=== PATIENT | male | born 1955 | race Caucasian/White ===

== ENCOUNTER 2019-04-19 06:00 | Outpatient (RCR) | payer MEDICARE, OTHER, SELFPAY | END 2019-05-19 00:01 | LOC: PULRHB 06:00 | PROVIDERS: Family Provider Electrodiagnostic Medicine; Visit Provider Student in an Organized Health Care Education/Training Program | DX: J44.9 Chronic obstructive pulmonary disease, unspecified (principal) | CPT/HCPCS: G0424 ×3 ==

== ENCOUNTER 2019-05-26 12:33 | Outpatient (RCR) | payer MEDICARE, OTHER, SELFPAY | END 2019-06-19 23:59 | disposition home or self-care (01) | LOC: PULRHB 12:33 | PROVIDERS: Family Provider Electrodiagnostic Medicine; PCP Electrodiagnostic Medicine; Visit Provider Student in an Organized Health Care Education/Training Program | DX: J44.9 Chronic obstructive pulmonary disease, unspecified (principal) ==

== ENCOUNTER 2019-06-24 12:49 | Outpatient (RCR) | payer MEDICARE, OTHER, SELFPAY | END 2019-07-18 23:59 | disposition home or self-care (01) | LOC: PULRHB 12:49 | PROVIDERS: Family Provider Electrodiagnostic Medicine; PCP Electrodiagnostic Medicine; Visit Provider Student in an Organized Health Care Education/Training Program | DX: Z01.89 Encounter for other specified special examinations (principal) ==

== ENCOUNTER 2019-06-25 14:43 | Outpatient (CLI) | payer MEDICARE, OTHER, SELFPAY ==
[2019-06-25 15:32] LABS: Alanine Aminotransferase 42 U/L (0-41); Albumin Level 4.5 g/dL (3.5-5.2); Alkaline Phosphatase 98 IU/L (40-130); Anion Gap 15.3 (5-19); Aspartate Amino Transferase 28 U/L (0-40); Blood Urea Nitrogen 13 mg/dL (8-23); Calcium 10.3 mg/dL (8.5-10.5); Carbon Dioxide 26 mmol/L (22-29); Chloride 100 mmol/L (98-107); Globulin 3.4 g/dL (1.3-4.6); Glomerular Filtration Rate 60.8 mL/min (90-130); Glucose 98 mg/dL (65-115); Potassium 4.3 mmol/L (3.5-5.1); Sodium 137 mmol/L (136-145); Total Bilirubin 0.4 mg/dL (0.15-1.2); Total Protein 7.9 g/dL (6.6-8.7)
== END 2019-06-25 14:44 | disposition home or self-care (01) ==
LOC: LAB 14:50
PROVIDERS: Family Provider Electrodiagnostic Medicine; PCP Electrodiagnostic Medicine; Visit Provider Internal Medicine Critical Care Medicine
DX: J44.9 Chronic obstructive pulmonary disease, unspecified (principal)
CPT/HCPCS: 36415; 80053

== ENCOUNTER 2019-07-29 06:55 | Outpatient (CLI) | payer MEDICARE, OTHER, SELFPAY ==
--- NOTE | 2019-07-29 13:54 | PFTS_ITS ---
Date of Study:07/29/2019 Date of Dictation: MECHANICS: Forced vital capacity (FVC) is normal. Forced expiratory volume in one second (FEV1) is reduced. FEV1/FVC is reduced. FLOW VOLUME LOOP: Reduced flow at all lung volumes with significant scooping. LUNG VOLUMES: Total lung capacity (TLC) is increased. Residual volume (RV) is increased. DIFFUSING CAPACITY FOR CARBON MONOXIDE: Normal. INTERPRETATION: The pulmonary function tests are consistent with moderate obstruction. There is significant postbronchodilator response. There is hyperinflation and air trapping. Gas exchange (DLCO) is normal. MTDD
== END 2019-07-29 06:56 | disposition home or self-care (01) ==
LOC: RT 06:56
PROVIDERS: Family Provider Electrodiagnostic Medicine; PCP Electrodiagnostic Medicine; Visit Provider Internal Medicine Critical Care Medicine
DX: J44.9 Chronic obstructive pulmonary disease, unspecified (principal); F17.210 Nicotine dependence, cigarettes, uncomplicated
CPT/HCPCS: 94060; 94726; 94729; J7611

== ENCOUNTER → 2019-07-30 13:37 | Outpatient (BNVA) | payer MEDICARE, OTHER, SELFPAY | PROVIDERS: Family Provider Electrodiagnostic Medicine; PCP Electrodiagnostic Medicine; Referring Provider Specialist; Visit Provider Anesthesiology Pain Medicine | DX: M51.16 Intervertebral disc disorders with radiculopathy, lumbar region (principal); M41.56 Other secondary scoliosis, lumbar region; M47.816 Spondylosis without myelopathy or radiculopathy, lumbar region | CPT/HCPCS: 99205 ==

== ENCOUNTER 2019-08-01 12:00 | Observation (INO) | payer MEDICARE, OTHER, SELFPAY ==
[2019-08-01] VITALS (13 sets, daily range): BP systolic 110–143; BP diastolic 57–78; PULSE 67–83; RESP 16–24; TEMP 36.4–37.1; O2SAT 92–97; BMI 36.9
--- NOTE | 2019-08-01 12:14 | ED_ITS ---
Entered by Radha Thompson, acting as scribe for Duc Humphreys DO HPI - SOB/Dyspnea General: Chief Complaint: Shortness of Breath/Dyspnea Stated Complaint: SOB Time Seen by Provider: 08/01/19 12:13 Source: patient and family Mode of arrival: ambulatory Limitations: no limitations History of Present Illness: HPI Narrative: 63 yo Male presents to ED with complaint of shortness of breath. Pt's states that the patient has a history of COPD, diabetes, and hypertension. Pt states that he has been sick for several days. Pt states that he has been coughing up white sputum and thought he had a fever the other day. Pt states that he has had no fever today. Pt states that he has had the flu shot this year. MD elicited complaint: shortness of breath and cough Pertinent past history: COPD and diabetes Onset (ago): day(s) Context: recent illness Timing: progressively worsening Exacerbating factors: deep breaths Relieving factors: oxygen Known history of: COPD and diabetes Associated symptoms: Reports cough and fever(s) Treatment prior to arrival: none Related Data: Home oxygen amount: as needed at night Review of Systems General: Reports: 10 or more systems reviewed and unremarkable except in HPI and below Const: Reports: fever Resp: Reports: shortness of breath and productive cough PFSH ED PFSH: Medical History AAA (abdominal aortic aneurysm) without rupture Allergic rhinitis Aortic root dilation BPH loc w urin obs/LUTS COPD (chronic obstructive pulmonary disease) DDD (degenerative disc disease) Diabetes Essential (primary) hypertension GERD (gastroesophageal reflux disease) Hyperglycemia Hyperlipidemia Hypothyroidism Intervertebral disc disorders with radiculopathy, lumbosacral region Lumbar disc disease with radiculopathy Scoliosis of lumbar region due to degenerative disease of spine in adult Testicular mass Thoracic aortic aneurysm, without rupture Surgical History H/O hernia repair Family History Mother Diabetes, Onset Age: 69 Father Cancer, Onset Age: 80 Lung Other Heart disease Lupus Social History Smoking and tobacco status: former smoker Alcohol intake: never Household members: spouse Marital status: Current occupational status: disabled History of recent travel: No Physical Exam Const: COMMON NORMALS: no apparent distress, average body habitus, oriented x3, no limitations, healthy appearing, alert and well nourished HENMT: COMMON NORMALS: normocephalic, head/scalp atraumatic, hearing grossly normal bilaterally, external ears normal, EAC's normal, TM's normal bilaterally, external nose normal, nasal mucous membranes and turbinates normal, moist oral mucous membranes, oropharynx normal, dentition normal and gingiva normal HEAD & SCALP: normocephalic and atraumatic NOSE: external nose normal and nasal mucous membranes and turbinates normal EXTERNAL EAR: Yes external ears normal EXTERNAL AUDITORY CANAL: EAC's normal TYMPANIC MEMBRANE: TM's normal bilaterally Eye: COMMON NORMALS: PERRL, EOMs intact bilaterally, conjunctivae normal, no scleral icterus, no papilledema, normal visual plummer by confrontation and fundi normal bilaterally CONJUNCTIVA: Yes conjunctivae normal PUPIL: Yes PERRL DIRECT OPHTHALMOSCOPY: Yes no papilledema and Yes fundi normal bilaterally Neck/C-Spine: COMMON NORMALS: full ROM, no lymphadenopathy, supple, no meningeal signs, no JVD, thyroid normal and no carotid bruits THYROID: thyroid normal Chest: COMMONS NORMALS: inspection of chest normal and palpation of chest normal Resp: COMMON NORMALS: normal respiratory effort, no retractions, no use of accessory muscles, clear to auscultation bilaterally and percussion normal AUSCULTATION: clear to auscultation bilaterally PERCUSSION: percussion normal Cardio: COMMON NORMALS: no JVD, regular rate, regular rhythm, S1 normal heart sound, S2 normal heart sound, no gallops, no clicks, no murmurs, no rub and peripheral pulses 2+ throughout RATE: regular rate RHYTHM: regular rhythm HEART SOUNDS: S1 normal and S2 normal PERIPHERAL PULSES: pulses 2+ throughout GI: COMMON NORMALS: normal to inspection, nondistended, normoactive bowel sounds, soft to palpation, non-tender, no hepatosplenomegaly, no masses and no bruits PALPATION: Yes soft and Yes no hepatosplenomegaly : COMMON NORMALS: Yes no CVA tenderness BLADDER/KIDNEY EXAM: Yes no CVA tenderness Back/Pelvis: COMMON NORMALS: no CVA tenderness, thoracic and lumbar spine normal to inspection, no thoracic nor lumbar tenderness, thoraco-lumbar ROM normal and straight leg raise negative bilaterally Extremity: COMMON NORMALS: normal to inspection, full ROM, normal capillary refill, no joint enlargement, no clubbing, cyanosis or edema, no calf tenderness and no pedal edema Neuro: COMMON NORMALS: oriented x3 SENSORIUM/ORIENTATION: Yes alert MENINGEAL SIGNS: Yes no meningeal signs Skin: COMMON NORMALS: no rashes or lesions noted, no wounds, skin turgor normal, no jaundice, no petechiae and no mottling GENERAL SKIN EXAM: no rashes or lesions noted and turgor normal Course Vital Signs: Vital signs: Vital Signs Temperature 98.0 F 08/01/19 12:08 Pulse Rate 77 08/01/19 12:44 Respiratory Rate 22 H 08/01/19 12:44 Blood Pressure 138/70 08/01/19 12:08 Pulse Oximetry 94 08/01/19 12:44 MDM - SOB/Dyspnea Lab Data: Labs: Lab Results 08/01/19 08/01/19 08/01/19 Range/Units 12:20 12:31 12:31 WBC 11.8 H (4.0-10.0) 10^3/ uL RBC 5.14 (4.1-5.3) 10^6/u L Hgb 15.2 (11.7-16.6) g/dL Hct 46.3 (42.0-52.0) % MCV 90.1 (80-94) fL MCH 29.6 (28.0-34.0) pg MCHC 32.8 (30.0-36.0) g/dL RDW 12.8 (12.1-15.1) % Plt Count 240 (130-400) 10^3/c mm MPV 11.2 H (7.4-10.4) fL Neut % (Auto) 64.8 % Lymph % (Auto) 18.2 % Gregg % (Auto) 13.0 % Eos % (Auto) 2.8 % Baso % (Auto) 0.5 % Neut # (Auto) 7.7 (1.8-7.7) 10^3/u L Lymph # (Auto) 2.2 (0.8-4.8) 10^3/u L Gregg # (Auto) 1.5 H (0.2-0.9) 10^3/u L Eos # (Auto) 0.3 (0.0-0.8) 10^3/u L Baso # (Auto) 0.1 (0.0-0.1) 10^3/u L Nucleated RBC % (a uto) 0 % Nucleated RBCs # 0.0 /100WBC Sodium 135 L (136-145) mmol/L Potassium 4.3 (3.5-5.1) mmol/L Chloride 98 (98-107) mmol/L Carbon Dioxide 25 (22-29) mmol/L Anion Gap 16.3 (5-19) BUN 18 (8-23) mg/dL Creatinine 1.2 (0.7-1.2) mg/dL GFR Calculation 60.8 L (90-130) mL/min Glucose 159 H (65-115) mg/dL Calculated Osmolal ity 280 L (285-295) mOsm/k g Calcium 10.1 (8.5-10.5) mg/dL Total Bilirubin 0.4 (0.15-1.2) mg/dL AST 36 (0-40) U/L ALT 59 H (0-41) U/L Alkaline Phosphata se 95 (40-130) IU/L Total Protein 7.5 (6.6-8.7) g/dL Albumin 4.3 (3.5-5.2) g/dL Globulin 3.2 (1.3-4.6) g/dL Influenza Type A A g Negative (Negative) POC Influenza B Ag Negative (Negative) Imaging Data^: CXR: Radiologist's impression: [place] [address] XRay Report Signed Patient: Harvey Wilcox #: [id number] : 4Acct#:[id number] Age/Sex: 63 / MADM Date: 08/01/19 Loc: ERRoom/Bed: Attending Dr: Ordering Provider/Ordering MD: Duc Humphreys DO Date of Service: 08/01/19 Procedure(s): XR chest 1V portable [id number] Accession Number(s): [id number] Report Number: [id number] PROCEDURE INFORMATION: Exam: XR Chest, 1 View Exam date and time: 08/01/2019 12:22 PM Age: 63 years old Clinical indication: Shortness of breath; Additional info: Dyspnea and cough TECHNIQUE: Imaging protocol: XR of the chest Views: 1 view. COMPARISON: CR Chest 1 [place] [id number] 02/18/2019 12:55 PM FINDINGS: Lungs: Mild left perihilar, mid lung field and lower lung field bronchopneumonia. Mildly hyperaerated lungs consistent with deep inspiratory effort vs reactive airway disease vs mild COPD . Pleural space: Unremarkable. No pleural effusion. No pneumothorax. Heart/Mediastinum: Unremarkable. No cardiomegaly. Bones/joints: Moderate thoracic spondylosis. XR/XR chest 1V portable [id number] IMPRESSION: 1. Mild left perihilar, mid lung field and lower lung field bronchopneumonia. 2. Mildly hyperaerated lungs consistent with deep inspiratory effort vs reactive airway disease vs mild COPD . Dictated By:Valdez Russell MD Signed By:Valdez Russell MDSigned Date/Time:08/01/191319 DD/ 19 Discharge Plan Discharge Patient Disposition: Admitted As Inpatient Clinical Impression: Acute exacerbation of chronic obstructive airways disease Community acquired pneumonia Qualifiers: Laterality: left Lung location: lower lobe of lung Qualified Code(s): J18.9 - Pneumonia, unspecified organism Condition: Fair Referrals: Ab Grubbs DO [Primary Care Provider] - Coding Level of Care Code ED Lead Man Over All Dies In Pattern Shop for Chg Fwd Exam Comprehensive The documentation recorded by the Jay dubose Carmen, accurately reflects the service I personally performed and the decisions made by Petr salmeron Donald P, DO Aug 01, 2019 12:00
--- NOTE | 2019-08-01 12:20 | XRR_ITS ---
PROCEDURE INFORMATION: Exam: XR Chest, 1 View Exam date and time: 08/01/2019 12:22 PM Age: 63 years old Clinical indication: Shortness of breath; Additional info: Dyspnea and cough TECHNIQUE: Imaging protocol: XR of the chest Views: 1 view. COMPARISON: CR Chest 1 [place] [id number] 02/18/2019 12:55 PM FINDINGS: Lungs: Mild left perihilar, mid lung field and lower lung field bronchopneumonia. Mildly hyperaerated lungs consistent with deep inspiratory effort vs reactive airway disease vs mild COPD . Pleural space: Unremarkable. No pleural effusion. No pneumothorax. Heart/Mediastinum: Unremarkable. No cardiomegaly. Bones/joints: Moderate thoracic spondylosis. XR/XR chest 1V portable [id number] IMPRESSION: 1. Mild left perihilar, mid lung field and lower lung field bronchopneumonia. 2. Mildly hyperaerated lungs consistent with deep inspiratory effort vs reactive airway disease vs mild COPD .
[2019-08-01] MEDS: sodium chloride 0.9% 1,000 ML 999 ML IV (12:33)
[2019-08-01] MEDS: ipratropium-albuterol 3 mL Neb INHALATION ×2 (12:37→19:50)
[2019-08-01 12:44] LABS: Basophils # 0.1 10^3/uL (0.0-0.1); Basophils % 0.5 %; Eosinophils # 0.3 10^3/uL (0.0-0.8); Eosinophils % 2.8 %; Hematocrit 46.3 % (42.0-52.0); Hemoglobin 15.2 g/dL (11.7-16.6); Lymphocytes # 2.2 10^3/uL (0.8-4.8); Lymphocytes % 18.2 %; Mean Corpuscular HGB Conc 32.8 g/dL (30.0-36.0); Mean Corpuscular Hemoglobin 29.6 pg (28.0-34.0); Mean Corpuscular Volume 90.1 fL (80-94); Mean Platelet Volume 11.2 fL (7.4-10.4); Monocytes # 1.5 10^3/uL (0.2-0.9); Neutrophils # 7.7 10^3/uL (1.8-7.7); Neutrophils % 64.8 %; Nucleated Red Blood Cells % 0 %; Platelet Count 240 10^3/cmm (130-400); Red Blood Count 5.14 10^6/uL (4.1-5.3); Red Cell Distribution Width 12.8 % (12.1-15.1); White Blood Count 11.8 10^3/uL (4.0-10.0)
--- NOTE | 2019-08-01 12:44 | PC.NURSE ---
portable xray at bedside
[2019-08-01 13:06] LABS: Influenza A by IFA Negative (Negative); Influenza B by IFA Negative (Negative)
[2019-08-01 13:11] LABS: Alanine Aminotransferase 59 U/L (0-41); Albumin Level 4.3 g/dL (3.5-5.2); Alkaline Phosphatase 95 IU/L (40-130); Anion Gap 16.3 (5-19); Aspartate Amino Transferase 36 U/L (0-40); Blood Urea Nitrogen 18 mg/dL (8-23); Calcium 10.1 mg/dL (8.5-10.5); Carbon Dioxide 25 mmol/L (22-29); Chloride 98 mmol/L (98-107); Globulin 3.2 g/dL (1.3-4.6); Glomerular Filtration Rate 60.8 mL/min (90-130); Glucose 159 mg/dL (65-115); Osmolality Calculated 280 mOsm/kg (285-295); Potassium 4.3 mmol/L (3.5-5.1); Sodium 135 mmol/L (136-145); Total Bilirubin 0.4 mg/dL (0.15-1.2); Total Protein 7.5 g/dL (6.6-8.7)
[2019-08-01] MEDS: cefTRIAXone 1,000 MG in sodium chloride 0.9% (plus) 50 ML 100 MG IV (13:42)
--- NOTE | 2019-08-01 14:06 | PM.HP ---
Providers/Chief Complaint Primary Care Provider: Ab Grubbs DO Chief Complaint: SOB History of Present Illness Vega Wilcox is a 63 year old male with a past medical history of non-insulin dependent, type 2 diabetes mellitus degenerative joint disease, back pain, hypertension, hyperlipidemia, GERD, Gold stage D COPD, uses 1 to 2 L oxygen during the night who presents to the emergency room due to complaints of cough, shortness of breath. Patient states that this morning he woke up with nonproductive cough, and shortness of breath. Patient has a chronic cough, white sputum. This morning he woke up with this significant episodes of coughing, coughing fits, no hemoptysis, shortness of breath, no fevers, has fatigue, malaise, poor appetite. Review of Systems Const: Denies: fever or chills Eyes: Denies: change in vision or blurry vision ENMT: Denies: nasal congestion Resp: Reports: shortness of breath and non-productive cough; Denies: productive cough or wheezing GI: Denies: abdominal pain, nausea, vomiting, vomiting blood, diarrhea, constipation, blood in stool or black tarry stool : Denies: flank pain, difficulty urinating, painful urination or urinary frequency Musc: Denies: neck pain or back pain Skin/Breast: Denies: rash Neuro: Denies: headache, dizziness or vertigo Psych: Denies: anxiety or depression Endo: Denies: excessive urination or excessive thirst Medications/Allergies Home Medications Medication Instructions Recorded Confirmed Last Taken Type acetaminophen [Tylenol] 325 mg PO PRN 08/01/19 08/01/19 Unknown History budesonide-formoterol 2 puff INHALATION Q12H 08/01/19 08/01/19 Unknown History diltiazem HCl 120 mg PO DAILY 08/01/19 08/01/19 08/01/19 History tiotropium bromide [Spiriva with 1 cap INHALATION DAILY 08/01/19 08/01/19 08/01/19 History HandiHaler] Allergies Allergy/AdvReac Type Severity Reaction Status Date / Time No Known Allergies Allergy Verified 07/30/19 13:59 PFSH Acute PFSH: Medical History AAA (abdominal aortic aneurysm) without rupture Allergic rhinitis Aortic root dilation BPH loc w urin obs/LUTS COPD (chronic obstructive pulmonary disease) DDD (degenerative disc disease) Diabetes Essential (primary) hypertension GERD (gastroesophageal reflux disease) Hyperglycemia Hyperlipidemia Hypothyroidism Intervertebral disc disorders with radiculopathy, lumbosacral region Lumbar disc disease with radiculopathy Scoliosis of lumbar region due to degenerative disease of spine in adult Testicular mass Thoracic aortic aneurysm, without rupture Surgical History H/O hernia repair Family History Mother Diabetes, Onset Age: 69 Father Cancer, Onset Age: 80 Lung Other Heart disease Lupus Social History Smoking and tobacco status: former smoker Alcohol intake: never Household members: spouse Marital status: Current occupational status: disabled History of recent travel: No Vitals/I&O/Wt Last Vital Signs Temp 98.0 F 08/01/19 12:08 Pulse 70 08/01/19 14:03 Resp 18 08/01/19 14:03 BP 110/57 08/01/19 14:03 Pulse Ox 96 08/01/19 14:03 Weight last 48 hrs Weight 120.202 kg Physical Exam Const: COMMON NORMALS: no apparent distress and oriented x3 GENERAL APPEARANCE: cooperative and comfortable HENMT: COMMON NORMALS: normocephalic HEAD & SCALP: normocephalic Eye: COMMON NORMALS: PERRL, EOMs intact bilaterally and no papilledema GENERAL EYE: normal appearance of both eyes PUPIL: Yes PERRL DIRECT OPHTHALMOSCOPY: Yes no papilledema Neck/C-Spine: COMMON NORMALS: full ROM, no lymphadenopathy, no JVD and thyroid normal THYROID: thyroid normal Lymph: LYMPHATIC: no lymphadenopathy noted Resp: COMMON NORMALS: normal respiratory effort, no retractions, no use of accessory muscles and clear to auscultation bilaterally AUSCULTATION: clear to auscultation bilaterally Cardio: COMMON NORMALS: no JVD, regular rate, regular rhythm, S1 normal heart sound, S2 normal heart sound, no gallops, no clicks and no murmurs RATE: regular rate RHYTHM: regular rhythm HEART SOUNDS: S1 normal and S2 normal GI: COMMON NORMALS: normal to inspection, nondistended, normoactive bowel sounds, soft to palpation, non-tender and no hepatosplenomegaly PALPATION: Yes soft and Yes no hepatosplenomegaly Extremity: COMMON NORMALS: normal to inspection, full ROM and no pedal edema Neuro: COMMON NORMALS: oriented x3, CN's II-XII intact bilaterally, moves all extremities and no focal motor deficits Psych: COMMON NORMALS: mental status grossly normal, thought process normal and cooperative THOUGHT PROCESS: normal thought process Data : 08/01/19 12:31 08/01/19 12:31 Micro: Microbiology 08/01/19 12:31 Blood Culture - Preliminary Blood SPECIMEN COLLECTED 08/01/19 12:37 Blood Culture - Preliminary Blood SPECIMEN COLLECTED A&P Assessment and plan (1) Acute and chronic respiratory failure with hypoxia: -Secondary to COPD exacerbation and pneumonia Plan: -Continue gentle hydration -Solu-Medrol 40 every 8 hours -Azithromycin and Rocephin -Blood cultures and sputum cultures -Continue telemetry monitoring, monitor for fevers Status: Acute Code(s): J96.21 - Acute and chronic respiratory failure with hypoxia (2) Acute exacerbation of chronic obstructive airways disease: Status: Acute Code(s): J44.1 - Chronic obstructive pulmonary disease with (acute) exacerbation (3) Community acquired pneumonia: Status: Acute Qualifiers: Laterality: left Lung location: lower lobe of lung Qualified Code(s): J18.9 - Pneumonia, unspecified organism Code(s): J18.9 - Pneumonia, unspecified organism (4) Facet arthritis, degenerative, lumbar spine: Status: Acute Code(s): M47.816 - Spondylosis without myelopathy or radiculopathy, lumbar region (5) Scoliosis of lumbar region due to degenerative disease of spine in adult: Status: Chronic Code(s): M41.56 - Other secondary scoliosis, lumbar region (6) Hypothyroidism: Continue home medication Status: Acute Code(s): E03.9 - Hypothyroidism, unspecified (7) Hyperlipidemia: Continue home medications Status: Acute Code(s): E78.5 - Hyperlipidemia, unspecified (8) Diabetes: Low-dose sliding scale Status: Acute Code(s): E11.9 - Type 2 diabetes mellitus without complications Attestations Medical Necessity Statement*: Patient requires hospitalization outpatient with observation for COPD exacerbation, acute respiratory failure, pneumonia Coding Level of Care Code Acute 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
[2019-08-01] MEDS: azithromycin 500 MG in sodium chloride 0.9% 250 ML 250 MG IV (14:18)
--- NOTE | 2019-08-01 14:49 | PC.NURSE ---
attempted to call report to [facility]-nurse unavailable to take report
[2019-08-01 16:46] LABS: C Reactive Protein 3.1 mg/L (0.0-4.9)
[2019-08-01 16:57] LABS: Glucose Point of Care 77 mg/dL (70-110)
[2019-08-01 17:09] LABS: Procalcitonin 0.14 ng/mL (0-0.5)
[2019-08-01] MEDS: losartan 50 mg Tablet PO (17:38)
[2019-08-01] MEDS: enoxaparin 40 mg/0.4 mL Syringe SUBCUT (18:28)
[2019-08-01 21:23] LABS: Glucose Point of Care 273 mg/dL (70-110)
[2019-08-02] VITALS (13 sets, daily range): BP systolic 126–139; BP diastolic 71–81; PULSE 97–112; RESP 16–24; TEMP 36.4–36.8; O2SAT 88–96
[2019-08-02] MEDS: ipratropium-albuterol 3 mL Neb INHALATION ×3 (00:03→08:14)
[2019-08-02 06:03] LABS: Basophils % 0.2 %; Hematocrit 43.3 % (42.0-52.0); Lymphocytes % 8.4 %; Mean Corpuscular HGB Conc 32.3 g/dL (30.0-36.0); Mean Corpuscular Hemoglobin 29.2 pg (28.0-34.0); Mean Corpuscular Volume 90.4 fL (80-94); Mean Platelet Volume 11.6 fL (7.4-10.4); Monocytes # 0.4 10^3/uL (0.2-0.9); Monocytes % 2.9 %; Neutrophils # 10.5 10^3/uL (1.8-7.7); Neutrophils % 87.9 %; Nucleated Red Blood Cells % 0 %; Platelet Count 223 10^3/cmm (130-400); Red Blood Count 4.79 10^6/uL (4.1-5.3); Red Cell Distribution Width 12.8 % (12.1-15.1)
[2019-08-02 06:15] LABS: Glucose Point of Care 255 mg/dL (70-110)
[2019-08-02 06:26] LABS: Alanine Aminotransferase 58 U/L (0-41); Albumin Level 4.1 g/dL (3.5-5.2); Alkaline Phosphatase 94 IU/L (40-130); Anion Gap 15.6 (5-19); Aspartate Amino Transferase 33 U/L (0-40); Blood Urea Nitrogen 16 mg/dL (8-23); Calcium 9.5 mg/dL (8.5-10.5); Carbon Dioxide 24 mmol/L (22-29); Chloride 102 mmol/L (98-107); Globulin 3.3 g/dL (1.3-4.6); Glomerular Filtration Rate 67.2 mL/min (90-130); Glucose 287 mg/dL (65-115); Osmolality Calculated 291 mOsm/kg (285-295); Phosphorus 1.5 mg/dL (2.5-4.5); Potassium 4.6 mmol/L (3.5-5.1); Sodium 137 mmol/L (136-145); Total Bilirubin 0.3 mg/dL (0.15-1.2); Total Protein 7.4 g/dL (6.6-8.7)
[2019-08-02] MEDS: atorvastatin 40 mg Tablet 20 MG PO (08:53)
[2019-08-02] MEDS: losartan 50 mg Tablet PO (08:53)
[2019-08-02] MEDS: azithromycin 250 mg Tablet PO (08:53)
[2019-08-02] MEDS: levothyroxine 100 mcg Tablet 200 MCG PO (08:58)
[2019-08-02] MEDS: pantoprazole DR 40 mg Tablet PO (08:58)
[2019-08-02] MEDS: dilTIAZem ER (24HR) 120 mg Capsule PO (08:58)
[2019-08-02 10:54] LABS: Glucose Point of Care 245 mg/dL (70-110)
--- NOTE | 2019-08-02 11:09 | PC.CHAP ---
Pastoral Care Encounter/Spiritual Assessment Type of Contact [] Declined snack foods mixer operator visit [] Patient/Family/Request visit [] Outpatient visit [] Follow-up visit [] Physician referral [] Code/Alert [] Routine visit [] Staff referral [] Actively dying [x] Patient sleeping [] Family support [] [] Out of room [] Palliative care [] [] Receiving care in room [] Pre-surgical visit [] Trauma [] Long length of stay [] ICU visit [] Other: Relational/Emotional Strength [] Patient feels connected with others/family/visitors/staff [] Distress [] Loneliness/isolation [] Abandonment Spirituality of Patient [] Person of Niyah [] Attends Mandaen of their Niyah [] Believes in Prayer [] Reads Bible or Episcopal materials [] There are Spiritual issues to be addressed Elementary Spanish Teacher Interventions [] Prayer [] Active listening [] Non-anxious presence [] Spiritual/emotional support [] Crisis/trauma care [] Spiritual counseling [] Bereavement support [] Provided bereavement packet [] Provided Bible/devotional materials [] Provided toy/stuffed animal, coloring book to patient or family member [] Provided Communion [] Anointing/Hominy [] Salvation [] Completed spiritual assessment [] Other: Impact on Illness or Injury [] Angry [] Fearful [] Anxious [] Often cries [] Exhaustion [] Unable to work [] Unable to attend hoahaoism [] Unable to walk/stand [] Unable to read [] Unable to drive [] Unable to eat/drink [] Unable to sleep [] Unable to be with family [] Patient intubated [] Other: Summary Follow up Elementary Spanish Teacher visit needed. Time spent with patient
--- NOTE | 2019-08-02 15:55 | PC.NURSE ---
Rocephin patient has no IV, patient being discharge home. Rocephin not given
--- NOTE | 2019-08-02 15:57 | PC.NURSE ---
solumedrol patient has no IV access. patient being discharged.
--- NOTE | 2019-08-02 17:26 | PM.DCS ---
Discharge Providers Date of Admission: 08/01/19 14:23 Date of Discharge: August 02, 2019 Attending Provider at Admission: Tommie Dunbar MD Attending Provider at Discharge: Tommie Dunbar MD Primary Care Provider: Ab Grubbs DO Diagnoses at Discharge Discharge Diagnosis (1) Acute and chronic respiratory failure with hypoxia: Status: Acute (2) Acute exacerbation of chronic obstructive airways disease: Status: Acute (3) Community acquired pneumonia: Status: Acute Qualifiers: Laterality: left Lung location: lower lobe of lung Qualified Code(s): J18.9 - Pneumonia, unspecified organism (4) Facet arthritis, degenerative, lumbar spine: Status: Acute (5) Scoliosis of lumbar region due to degenerative disease of spine in adult: Status: Chronic (6) Hypothyroidism: Status: Acute (7) Hyperlipidemia: Status: Acute (8) Diabetes: Status: Acute Reason for Visit Reason for Visit: Reason For Visit: SOB Hospital Course Discharge Summary: Vega Wilcox is a 63 year old male with a past medical history of non-insulin dependent, type 2 diabetes mellitus degenerative joint disease, back pain, hypertension, hyperlipidemia, GERD, Gold stage D COPD, uses 1 to 2 L oxygen during the night who presents to the emergency room due to complaints of cough, shortness of breath. Patient was admitted for acute on chronic respiratory failure with hypoxia secondary to COPD exacerbation pneumonia, was treated with broad-spectrum antibiotics, Solu-Medrol, IV hydration, admitted to the general medical floors. Patient did well, his blood cultures so far have been unremarkable, but his sputum cultures have grown gram-negative rods, patient remained afebrile, but was requiring 2 L throughout his admission. Patient was discharged on Levaquin for 7 days, a steroid burst, his oxygen requirements have increased to 2 L. Patient is to follow-up with his primary care provider early next week, and he should also follow-up with his primary care provider for sputum cultures. Patient was advised if he were to have recurrent fevers, chills, worsening cough, hemoptysis, come back to the emergency room. Patient was advised of general contact precautions, avoiding public places, rest, hydration, and a follow-up with his primary care physician. Physical Exam Const: COMMON NORMALS: no apparent distress and oriented x3 HENMT: COMMON NORMALS: normocephalic HEAD & SCALP: normocephalic Neck/C-Spine: COMMON NORMALS: no JVD Resp: COMMON NORMALS: normal respiratory effort, no retractions, no use of accessory muscles and clear to auscultation bilaterally AUSCULTATION: clear to auscultation bilaterally Cardio: COMMON NORMALS: no JVD, regular rate, regular rhythm, S1 normal heart sound and S2 normal heart sound RATE: regular rate RHYTHM: regular rhythm HEART SOUNDS: S1 normal and S2 normal GI: COMMON NORMALS: normal to inspection, nondistended, normoactive bowel sounds, soft to palpation, non-tender, no hepatosplenomegaly, no masses and no bruits PALPATION: Yes soft and Yes no hepatosplenomegaly Extremity: COMMON NORMALS: normal capillary refill, no clubbing, cyanosis or edema, no calf tenderness and no pedal edema Neuro: COMMON NORMALS: oriented x3 Psych: COMMON NORMALS: mental status grossly normal Discharge Data Data Completed and Pending: Completed Studies During Hospitalization Category Date Time Status XR chest 1V ly ble [id number] Urgent Exams 08/01/19 12:20 Completed Pending at discharge Category Date Time Status Blood Culture Sta t Lab 08/01/19 12:31 Results Complete Blood Co unt w/Auto AM LABS Lab 08/03/19 04:00 Ordered Complete Blood Co unt w/Auto AM LABS Lab 08/04/19 04:00 Ordered Comprehensive Met abolic Panel AM LA BS Lab 08/03/19 04:00 Ordered Comprehensive Met abolic Panel AM LA BS Lab 08/04/19 04:00 Ordered Magnesium AM LABS Lab 08/03/19 04:00 Ordered Magnesium AM LABS Lab 08/04/19 04:00 Ordered Phosphorus AM LAB S Lab 08/03/19 04:00 Ordered Phosphorus AM LAB S Lab 08/04/19 04:00 Ordered Sputum Culture an d Gram Stain Stat Lab 08/01/19 12:42 Results Sputum Culture an d Gram Stain Stat Lab 08/01/19 15:51 Ordered Labs from last 24 hours 08/02/19 08/02/19 08/02/19 10:50 06:11 05:41 WBC RBC Hgb Hct MCV MCH MCHC RDW Plt Count MPV Neut % (Auto) Lymph % (Auto) [place] % (Auto) Eos % (Auto) Baso % (Auto) Neut # (Auto) Lymph # (Auto) [place] # (Auto) Eos # (Auto) Baso # (Auto) Nucleated RBC % (a uto) Nucleated RBCs # Sodium 137 Potassium 4.6 Chloride 102 Carbon Dioxide 24 Anion Gap 15.6 BUN 16 Creatinine 1.1 GFR Calculation 67.2 L Glucose 287 H POC Glucose 245 255 Calculated Osmolal ity 291 Calcium 9.5 Phosphorus 1.5 L Magnesium 2.0 Total Bilirubin 0.3 AST 33 ALT 58 H Alkaline Phosphata se 94 Total Protein 7.4 Albumin 4.1 Globulin 3.3 08/02/19 08/01/19 05:41 21:18 WBC 12.0 H RBC 4.79 Hgb 14.0 Hct 43.3 MCV 90.4 MCH 29.2 MCHC 32.3 RDW 12.8 Plt Count 223 MPV 11.6 H Neut % (Auto) 87.9 Lymph % (Auto) 8.4 [place] % (Auto) 2.9 Eos % (Auto) 0.0 Baso % (Auto) 0.2 Neut # (Auto) 10.5 H Lymph # (Auto) 1.0 [place] # (Auto) 0.4 Eos # (Auto) 0.0 Baso # (Auto) 0.0 Nucleated RBC % (a uto) 0 Nucleated RBCs # 0.0 Sodium Potassium Chloride Carbon Dioxide Anion Gap BUN Creatinine GFR Calculation Glucose POC Glucose 273 Calculated Osmolal ity Calcium Phosphorus Magnesium Total Bilirubin AST ALT Alkaline Phosphata se Total Protein Albumin Globulin Vitals: Last Vital Signs Temp 97.8 F 08/02/19 16:00 Pulse 97 08/02/19 16:00 Resp 16 08/02/19 16:00 BP 130/73 08/02/19 16:00 Pulse Ox 93 08/02/19 16:00 Discharge Plan Discharge Patient Disposition: Home, Self-Care Condition: Fair Prescriptions: New prednisone 20 mg tablet 20 mg PO BID 5 Days Qty: 10 RF: 0 Levaquin 750 mg tablet 750 mg PO DAILY 7 Days Qty: 7 RF: 0 Continued omeprazole 40 mg capsule,delayed release(DR/EC) 40 mg PO DAILY RF: 0 levothyroxine 200 mcg capsule 200 mcg PO DAILY RF: 0 atorvastatin [Lipitor] 20 mg tablet 20 mg PO DAILY RF: 0 metformin 500 mg tablet 500 mg PO DAILY RF: 0 (DME) oxygen-air delivery systems Device See Rx Instructions .ROUTE .MEDSUPPLY Qty: 1 RF: 0 losartan 50 mg tablet 50 mg PO BID RF: 0 ipratropium-albuterol 0.5 mg-3 mg(2.5 mg base)/3 mL solution for nebulization 3 ml INHALATION Q4H PRN (Reason: UNKNOWN) RF: 0 Spiriva with HandiHaler 18 mcg capsule, w/inhalation device 1 cap INHALATION DAILY RF: 0 budesonide-formoterol 160-4.5 mcg/actuation HFA aerosol inhaler 2 puff INHALATION Q12H RF: 0 diltiazem HCl 120 mg capsule,extended release 12 hr 120 mg PO DAILY RF: 0 Discontinued acetaminophen [Tylenol] 325 mg Tablet 325 mg PO PRN RF: 0 Discharge Orders: Discharge Order (Routine); Ordered 08/02/19 Ordered By: Tommie Dunbar Other Ambulatory Orders: DME: Oxygen (Order) Location: None Selected Ordered By: Tommie Dunbar Referrals: Darlyn [Other] Ab Grubbs DO [Primary Care Provider] - (Call Saturday and make a follow up with your primary care physician in 4-7 days.) Discharge Diet: Regular Discharge Activity: Resume usual activity Patient Instructions: Prednisone (By mouth), Levofloxacin (By mouth), Chronic Obstructive Pulmonary Disease (GEN), Bacterial Pneumonia (GEN) Activity Restrictions/Additional Instructions: -Take steroids and antibiotics as prescribed -Hydrate well -Avoid public spaces, handwashing, maintain distance -Tylenol for fevers -If her symptoms persist, or worsen come back to the emergency room -Follow with primary care in 1 week Discharge Attestations Time Spent in Discharge Care*: less than 30 min Quality Metrics Clinical Quality Measures During this hospital stay, did patient experience: None Coding Level of Care Code Acute Cardiac Rehabilitation Program Director for [facility] Fwd Diagnoses Acute and chronic respiratory failure with hypoxia J96.21 Acute exacerbation of chronic obstructive airways disease J44.1 Community acquired pneumonia J18.9 Laterality: left Lung location: lower lobe of lung Facet arthritis, degenerative, lumbar spine M47.816 Scoliosis of lumbar region due to degenerative disease of spine in adult M41.56 Hypothyroidism E03.9 Hyperlipidemia E78.5 Diabetes E11.9
== END 2019-08-02 18:01 | disposition home or self-care (01) ==
LOC: ER 13:41 → MEDSURG 08-02 12:33
PROVIDERS: Admitting Provider Family Medicine; Emergency Provider Family Medicine; Family Provider Electrodiagnostic Medicine; PCP Electrodiagnostic Medicine; Visit Provider Family Medicine
DX: J96.21 Acute and chronic respiratory failure with hypoxia (principal); J44.1 Chronic obstructive pulmonary disease with (acute) exacerbation; J18.9 Pneumonia, unspecified organism; M47.816 Spondylosis without myelopathy or radiculopathy, lumbar region; M41.56 Other secondary scoliosis, lumbar region; E03.9 Hypothyroidism, unspecified; E78.5 Hyperlipidemia, unspecified; E11.9 Type 2 diabetes mellitus without complications; M19.90 Unspecified osteoarthritis, unspecified site; N40.1 Benign prostatic hyperplasia with lower urinary tract symptoms; N13.8 Other obstructive and reflux uropathy; Z83.3 Family history of diabetes mellitus; Z87.891 Personal history of nicotine dependence
CPT/HCPCS: 12345; 36415; 36416; 71045; 73221; 80053; 82962; 83735; 84100; 84145; 85025; 86140; 87040; 87070; 87077; 87186; 87205; 87804; 94640; 94664; 96365; 96367; 96372; 96375; 99283; 99285; G0378; J0456; J0696; J1650; J1815; J2920; J7030; J7050; Q0144

== ENCOUNTER → 2019-10-28 07:57 | Outpatient (BNVA) | payer MEDICARE, OTHER, SELFPAY | PROVIDERS: PCP Electrodiagnostic Medicine; Referring Provider Specialist; Visit Provider Specialist | DX: M54.5 Low back pain (principal); M79.661 Pain in right lower leg; Z87.891 Personal history of nicotine dependence | CPT/HCPCS: 95909 ==

== ENCOUNTER 2019-11-25 12:44 | Outpatient (CLI) | payer MEDICARE, OTHER, SELFPAY ==
--- NOTE | 2019-11-25 11:00 | XR_ITS ---
WS: [id number] LUMBAR SPINE FLEXION AND EXTENSION TECHNIQUE: 3 views of the lumbar spine: Lateral neutral, flexion, and extension views. CLINICAL INFORMATION: lumbar pain COMPARISON: None. FINDINGS: Advanced spondylitic changes lumbar spine. Disc space narrowing worse at L3-L4 L4-L5 and L5 -S1. Aortic calcification. Chronic anterior wedging lower thoracic spine and upper lumbar spine L1 an d L2. Anterior hypertrophic changes. Moderate to advanced facet arthropathy L5-S1 with bony foraminal narrowing. Stable 3 mm retrolisthesis L2 on L3. This is unchanged in flexion and increases on extension to 6 mm similar to previous. XR/XR lumbar spine f/e only [id number] IMPRESSION: Mild instability at L2-3 described above
== END 2019-11-25 12:45 | disposition home or self-care (01) ==
LOC: RADWPI 12:44
PROVIDERS: Family Provider Electrodiagnostic Medicine; PCP Electrodiagnostic Medicine; Visit Provider Specialist
DX: M54.5 Low back pain (principal); M53.2X6 Spinal instabilities, lumbar region
CPT/HCPCS: 72120

== ENCOUNTER 2020-03-03 07:43 | Outpatient (CLI) | payer MEDICARE, OTHER, SELFPAY ==
--- NOTE | 2020-03-03 08:07 | CT_ITS ---
WS: [id number] CT CHEST TECHNIQUE: Contrast enhanced CT of the chest with coronal and sagittal reformatted images. CLINICAL INFORMATION: CHEST PAIN, MULTIPLE PULMONARY NODULES, COPD COMPARISON: CT February 27, 2019 DLP: 1185.[address] scans at [facility] use at least one of these dose optimization techniques: automat ed exposure control; mA and/or kV adjustment per patient size (includes targeted exams where dose is matched to clinical indication); or iterative reconstruction. FINDINGS: Moderate chronic emphysematous changes. No acute pulmonary infiltrates. Subsegmental atelectasis in t he lingula unchanged since 2019. A few calcified granulomas. 7 mm nodule in the left lower lobe is unchanged since 2019. A few additional subcentimeter pulmonary opacities are stable or resolved.. No new pulmonary parenchymal opacities. Normal caliber thoracic aorta. Proximal main pulmonary arteries are normal. No mediastinal or hilar l ymphadenopathy. Mild aortic calcification. A few calcified hilar and subcarinal lymph nodes. No axill tatum lymphadenopathy. Adrenal glands are normal. Mild diffuse fatty infiltration liver. Tiny gallbladd er calculus. Normal GE junction. CT/CT chest w con* [id number] IMPRESSION: 1. Noncalcified 7 mm nodule left lower lobe is unchanged since 2019. This demo nstrates long-term stability unchanged since 2. Moderate chronic emphysematous changes. 3. Stable subsegmental atelectasis in the lingula. 4. No mediastinal or hilar lymphadenopathy. 5. Tiny gallbladder calculus partially evaluated. Gallbladder can be further e valuated with ultrasound.
[2020-03-03 08:46] LABS: Blood Urea Nitrogen 14 mg/dL (8-23); Glomerular Filtration Rate 60.6 mL/min (90-130)
[2020-03-03] MEDS: iohexol 300 mg/mL 100 mL Btl IV (08:53)
== END 2020-03-03 07:44 | disposition home or self-care (01) ==
LOC: RADWPI 07:47
PROVIDERS: PCP Electrodiagnostic Medicine; Visit Provider Electrodiagnostic Medicine
DX: R07.9 Chest pain, unspecified (principal); R91.8 Other nonspecific abnormal finding of lung field; J44.9 Chronic obstructive pulmonary disease, unspecified; J98.11 Atelectasis; K80.20 Calculus of gallbladder without cholecystitis without obstruction
CPT/HCPCS: 71260; 82565; 84520; Q9967

== ENCOUNTER 2020-03-28 13:48 | Outpatient (CLI) | payer MEDICARE, OTHER, SELFPAY ==
--- NOTE | 2020-03-28 13:57 | XR_ITS ---
WS: [id number] XR chest 2V* [id number] REASON FOR EXAM: Shortness of breath FINDINGS: There is flattening of the hemidiaphragms with mild hyperexpansion of the lungs. CT scan of the chest 03/03/2020 demonstrates central lobar emphysema. There is calcified granulomatous disease present on both hemithoraces. There is pleural scarring in b oth costophrenic angles and there is old pleural pericardial reaction along the left heart border. Th maxx findings are confirmed by the same CT scan as above. No acute pulmonary parenchymal or pleural findings are identified. Degenerative spondylosis is seen in the thoracic spine. XR/XR chest 2V* [id number] IMPRESSION: No acute chest abnormality identified.
== END 2020-03-28 13:49 | disposition home or self-care (01) ==
LOC: RAD 13:54
PROVIDERS: PCP Electrodiagnostic Medicine; Visit Provider Internal Medicine Critical Care Medicine
DX: R06.02 Shortness of breath (principal)
CPT/HCPCS: 71046

== ENCOUNTER 2020-05-15 13:38 | Emergency (ER) | payer MEDICARE, OTHER, SELFPAY ==
[2020-05-15 13:40] VITALS: BP 160/85; PULSE 72; RESP 20; TEMP 36.2; O2SAT 96; BMI 36.9
--- NOTE | 2020-05-15 13:44 | W.ED.CHESTPA ---
HPI - Chest Pain General: Chief Complaint: Chest Pain Stated Complaint: CP Time Seen by Provider: 05/15/20 13:41 Source: patient Mode of arrival: ambulatory History of Present Illness: HPI narrative: 64-year-old male was watching the football game at approximately 1 PM this afternoon when he started developing chest discomfort. At first it felt like he was having an irregular heartbeat, then progressed to more pressure. It has since resolved, not currently having any pain. No associated nausea, shortness of breath, diaphoresis. Recently saw his dialysis nurse, Dr. Marcano, and underwent a Holter monitor study for his complaints of frequent palpitations. He had frequent PACs and PVCs, occasional run of atrial tachycardia, asymptomatic. Denies history of atrial fibrillation, complaint: chest pain and chest discomfort Associated symptoms: Reports dyspnea and palpitations; Deny fever(s), nausea, syncope or vomiting Review of Systems General: Reports: 10 or more systems reviewed and unremarkable except in HPI and below Const: Denies: fever(s), chills, body aches, change in appetite, fatigue or malaise Eyes: Denies: change in vision or blurry vision ENMT: Denies: throat pain or odynophagia Card: Reports: chest pain, palpitations, irregular heart rhythm, dyspnea on exertion and orthopnea; Denies: swelling of feet/ankles, lightheadedness, syncope or pre-syncope Resp: Reports: dyspnea, productive cough, wheezing and chest congestion; Denies: change in phlegm color GI: Denies: nausea, vomiting, dysphagia, diarrhea or constipation : Denies: difficulty urinating, dysuria or urinary frequency Musc: Denies: extremity pain or extremity swelling Skin/Breast: Denies: rash, pruritus, erythema or skin swelling Neuro: Denies: headache(s), numbness in extremities or weakness in extremities [place]/Lymph: Denies: easy bruising or easy bleeding All/Imm: Denies: urticaria, throat swelling or tongue swelling PFSH ED PFSH: Medical History AAA (abdominal aortic aneurysm) without rupture Allergic rhinitis Aortic root dilation Atypical chest pain BPH loc w urin obs/LUTS COPD (chronic obstructive pulmonary disease) DDD (degenerative disc disease) Diabetes Essential (primary) hypertension GERD (gastroesophageal reflux disease) Hyperglycemia Hyperlipidemia Hypothyroidism Intervertebral disc disorders with radiculopathy, lumbosacral region Lumbar disc disease with radiculopathy Scoliosis of lumbar region due to degenerative disease of spine in adult Testicular mass Thoracic aortic aneurysm, without rupture Surgical History H/O hernia repair Family History Mother Diabetes, Onset Age: 69 Father Cancer, Onset Age: 80 Lung Other Heart disease Lupus Social History Smoking and tobacco status: former smoker Quit status (tobacco): has quit using tobacco Year quit tobacco: 2019 - 2PPD x 50 Years Alcohol intake: never Lives independently: Yes Household members: spouse Marital status: Current occupational status: disabled History of recent travel: No Current gender identity: Male Physical Exam Const: COMMON NORMALS: no acute distress, patient oriented x3 and alert GENERAL APPEARANCE: cooperative and comfortable; not in distress, not ill appearing and not diaphoretic NUTRITIONAL APPEARANCE: obese centrally obese ORIENTATION/CONSCIOUSNESS: Yes awake, Yes oriented to person, Yes oriented to place and Yes oriented to time HENMT: COMMON NORMALS: normocephalic and atraumatic HEAD & SCALP: normocephalic and atraumatic FACE & SINUS: normal facial exam and face symmetric Eye: COMMON NORMALS: Equal, round and reactive pupils present and EOMs intact bilaterally GENERAL EYE: appearance normal, both eyes and all related structures PUPIL: Yes Equal, round and reactive pupils present Neck/C-Spine: COMMON NORMALS: full ROM and no lymphadenopathy Lymph: LYMPHATIC: no lymphadenopathy noted Chest: COMMONS NORMALS: normal inspection of the chest Resp: COMMON NORMALS: normal respiratory effort EFFORT & INSPECTION: Yes able to speak in complete sentences, No tachypneic, No respiratory distress, No labored, No Actively coughing, No retractions, No tripod positioning and Yes prolonged expiratory phase AUSCULTATION: rhonchi and diminished lung sounds Cardio: COMMON NORMALS: S1 normal heart sound present, S2 normal heart sound present and No murmurs present (Cardio) JUGULAR VENOUS DISTENTION: no JVD HEART SOUNDS: S1 normal heart sound present and S2 normal heart sound present GI: COMMON NORMALS: Soft to palpation INSPECTION: Yes normal to inspection, No Anasarca, No visible pulsation and No Fluid wave present PALPATION: Yes Soft to palpation, No Tenderness to palpation present (GI), No Guarding due to palpation present (GI) and No Rigid due to palpation PERCUSSION: no fluid wave Extremity: GENERAL: No clubbing, No cyanosis, No deformity and No edema Neuro: COMMON NORMALS: patient oriented x3 SENSORIUM/ORIENTATION: Yes alert, Yes oriented to person, Yes oriented to place and Yes oriented to time CRANIAL NERVES: Yes CN normal except as noted SPEECH: speech normal GAIT: Yes Normal gait present Skin: COMMON NORMALS: no rashes or lesions noted GENERAL SKIN EXAM: no rashes or lesions noted LESIONS: lesions noted RASHES: rash noted TRAUMA: lacerations and/or abrasions noted Course Vital Signs: Vital signs: Vital Signs Temperature 97.2 F L 05/15/20 13:40 Pulse Rate 61 05/15/20 15:29 Respiratory Rate 22 H 05/15/20 15:29 Blood Pressure 160/94 05/15/20 15:29 Pulse Oximetry 97 05/15/20 15:29 MDM - Chest Pain MDM Narrative: Medical decision making narrative: 64-year-old male with palpitations and chest discomfort starting at 1 PM today, resolved prior to arrival. Initial EKG shows sinus rhythm with a rate of 60, normal axis, no acute ST elevation or depression. On continuous monitoring, there are occasional PVCs and PACs. Initial troponin 7, 2-hour repeat 7.08. Normal BNP, D-dimer and coags. No recurrence of symptoms while in the ED He is already established with a dialysis nurse, and will call tomorrow morning to set up a sooner follow-up. At time of discharge, he was well-appearing, ambulating without difficulty. Blood pressure and heart rate stable. 95% O2 sat on room air. Differential Diagnosis: Cardiac arrest differential diagnosis: Likely acute massive pulmonary embolism, acute respiratory failure and acute myocardial infarction Medical Records: Attestation: I reviewed the patient's medical records. Medical records narrative: Cardiology clinic note and Holter study 05/08-this patient has history of chronic palpitations and chest pain. Nuclear stress test 2018- Lab Data: Attestation: I reviewed the patient's lab results. Labs: Lab Results 05/15/20 05/15/20 05/15/20 Range/Units 13:49 13:49 13:49 WBC 10.6 H (4.0-10.0) 10^3/ uL RBC 5.15 (4.1-5.3) 10^6/u L Hgb 15.3 (11.7-16.6) g/dL Hct 45.8 (42.0-52.0) % MCV 88.9 (80-94) fL MCH 29.7 (28.0-34.0) pg MCHC 33.4 (30.0-36.0) g/dL RDW 12.6 (12.1-15.1) % Plt Count 215 (130-400) 10^3/c mm MPV 11.2 H (7.4-10.4) fL Neut % (Auto) 60.3 % Lymph % (Auto) 26.1 % [place] % (Auto) 10.0 % Eos % (Auto) 2.3 % Baso % (Auto) 0.7 % Neut # (Auto) 6.39 (1.8-7.7) 10^3/u L Lymph # (Auto) 2.8 (0.8-4.8) 10^3/u L [place] # (Auto) 1.1 H (0.2-0.9) 10^3/u L Eos # (Auto) 0.2 (0.0-0.8) 10^3/u L Baso # (Auto) 0.1 (0.0-0.1) 10^3/u L Nucleated RBC % (a uto) 0 % Nucleated RBCs # 0.0 /100WBC PT 13.40 (12.1-14.9) SECO NDS INR 0.99 (0.8-1.2) D-Dimer 0.42 (0-0.59) ug/mIFE U Sodium 137 (136-145) mmol/L Potassium 4.3 (3.5-5.1) mmol/L Chloride 99 (98-107) mmol/L Carbon Dioxide 26 (22-29) mmol/L Anion Gap 16.3 (5-19) BUN 12 (8-23) mg/dL Creatinine 1.2 (0.7-1.2) mg/dL GFR Calculation 60.6 L (90-130) mL/min Glucose 243 H (65-115) mg/dL Calculated Osmolal ity 292 (285-295) mOsm/k g Calcium 10.1 (8.5-10.5) mg/dL Total Bilirubin 0.5 (0.15-1.2) mg/dL AST 19 (0-40) U/L ALT 35 (0-41) U/L Alkaline Phosphata se 114 (40-130) IU/L Troponin T Baselin e (0-15) ng/L Troponin T 120 Min [place] (0-15) ng/L Delta Troponin T (0-10) ABS# NT-Pro-B Natriuret Pep 60 (0-125) pg/mL Total Protein 7.3 (6.6-8.7) g/dL Albumin 4.4 (3.5-5.2) g/dL Globulin 2.9 (1.3-4.6) g/dL Urine Color (Yellow) Urine Appearance (CLEAR) Urine pH (5-7) Ur Specific Gravit y (1.005-1.030) Urine Protein (Negative) Urine Glucose (UA) (Normal) Urine Ketones (Negative) Urine Blood (Negative) Urine Nitrate (Negative) Urine Bilirubin (Negative) Urine Urobilinogen (Negative) mg/dL Ur Leukocyte Margie ase (Negative) 05/15/20 05/15/20 05/15/20 Range/Units 13:49 14:06 15:26 WBC (4.0-10.0) 10^3/ uL RBC (4.1-5.3) 10^6/u L Hgb (11.7-16.6) g/dL Hct (42.0-52.0) % MCV (80-94) fL MCH (28.0-34.0) pg MCHC (30.0-36.0) g/dL RDW (12.1-15.1) % Plt Count (130-400) 10^3/c mm MPV (7.4-10.4) fL Neut % (Auto) % Lymph % (Auto) % [place] % (Auto) % Eos % (Auto) % Baso % (Auto) % Neut # (Auto) (1.8-7.7) 10^3/u L Lymph # (Auto) (0.8-4.8) 10^3/u L [place] # (Auto) (0.2-0.9) 10^3/u L Eos # (Auto) (0.0-0.8) 10^3/u L Baso # (Auto) (0.0-0.1) 10^3/u L Nucleated RBC % (a uto) % Nucleated RBCs # /100WBC PT (12.1-14.9) SECO NDS INR (0.8-1.2) D-Dimer (0-0.59) ug/mIFE U Sodium (136-145) mmol/L Potassium (3.5-5.1) mmol/L Chloride (98-107) mmol/L Carbon Dioxide (22-29) mmol/L Anion Gap (5-19) BUN (8-23) mg/dL Creatinine (0.7-1.2) mg/dL GFR Calculation (90-130) mL/min Glucose (65-115) mg/dL Calculated Osmolal ity (285-295) mOsm/k g Calcium (8.5-10.5) mg/dL Total Bilirubin (0.15-1.2) mg/dL AST (0-40) U/L ALT (0-41) U/L Alkaline Phosphata se (40-130) IU/L Troponin T Baselin e 7 (0-15) ng/L Troponin T 120 Min [place] 7.08 (0-15) ng/L Delta Troponin T 0.08 (0-10) ABS# NT-Pro-B Natriuret Pep (0-125) pg/mL Total Protein (6.6-8.7) g/dL Albumin (3.5-5.2) g/dL Globulin (1.3-4.6) g/dL Urine Color Yellow (Yellow) Urine Appearance Clear (CLEAR) Urine pH 5 (5-7) Ur Specific Gravit y 1.015 (1.005-1.030) Urine Protein Neg (Negative) Urine Glucose (UA) 2+ (Normal) Urine Ketones Negative (Negative) Urine Blood Neg (Negative) Urine Nitrate Negative (Negative) Urine Bilirubin Neg (Negative) Urine Urobilinogen Norm (Negative) mg/dL Ur Leukocyte Margie ase Negative (Negative) EKG Data^: EKG 1: Attestation: I personally reviewed and interpreted this EKG as follows: EKG interpretation date: 05/15/20 EKG interpretation time: 13:50 Prior EKG tracings: not available for review Interpretation: Sinus rhythm, rate 60, normal axis, first-degree AV block No acute ST segment elevation or depression. EKG 2: Attestation: I personally reviewed and interpreted this EKG as follows: EKG interpretation date: 05/15/20 EKG interpretation time: 16:42 Prior EKG tracings: available for review Interpretation: Sinus bradycardia, rate 56, first-degree AV block, NC 216. No acute ST elevation or depression. Normal axis. Discharge Plan Discharge Clinical Impression: Paroxysmal cardiac arrhythmia Chest pain Qualifiers: Chest pain type: other chest pain Qualified Code(s): R07.89 - Other chest pain Condition: Stable Prescriptions: No Action omeprazole 40 mg capsule,delayed release(DR/EC) 40 mg PO DAILY@20 RF: 0 levothyroxine 200 mcg capsule 200 mcg PO DAILY@08 RF: 0 atorvastatin [Lipitor] 20 mg tablet 20 mg PO DAILY@21 RF: 0 metformin 500 mg tablet 500 mg PO DAILY@08 RF: 0 losartan 50 mg tablet 50 mg PO BID@08,20 RF: 0 diltiazem HCl 120 mg capsule,extended release 12 hr 120 mg PO DAILY@08 RF: 0 montelukast 10 mg Tablet 10 mg PO DAILY@08 RF: 0 Pulmicort 0.5 mg/2 mL suspension for nebulization 0.5 mg inhalation BID@08,20 RF: 0 Perforomist 20 mcg/2 mL solution for nebulization 2 ml inhalation BID@08,20 RF: 0 revefenacin 175 mcg/3 mL solution for nebulization 175 mcg inhalation DAILY@08 RF: 0 Discharge Orders: Discharge ED (Routine); Ordered 05/15/20 Ordered By: Leelee Mariano Referrals: Ab Grubbs DO [Primary Care Provider] - Discharge Diet: Usual diet Discharge Activity: Increase activity as tolerated Patient Instructions: Chest Pain - Noncardiac Activity Restrictions/Additional Instructions: Call your dialysis nurse tomorrow morning and schedule a follow-up appointment for next week. Return immediately to the ER if you develop recurrent symptoms, or if you develop worsening difficulty breathing, fever, dizziness, or any other worsening symptoms. Coding Level of Care Code ED On Site Property Manager for [facility] Fwd Exam Comprehensive
--- NOTE | 2020-05-15 13:45 | ECG_ITS ---
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 Measurements Intervals [place] Rate: 60 P: TN: QRS: 77 QRSD: 98 T: 52 QT: 406 QTc: 407 Interpretive Statements Sinus rhythm Compared to ECG 02/18/2019 12:51:48 No significant changes Electronically Signed On 05-16-2020 16:54:13 FORMULA WEIGHER by Paul Martinez M.D. [id number]
--- NOTE | 2020-05-15 13:45 | XRR_ITS ---
PROCEDURE INFORMATION: Exam: XR Chest, 1 View Exam date and time: 05/15/2020 1:47 PM Age: 64 years old Clinical indication: Chest pain TECHNIQUE: Imaging protocol: XR of the chest Views: 1 view. COMPARISON: CR XR chest 2V* [id number] 03/28/2020 2:04 PM FINDINGS: Lungs: Lungs are mildly hyperinflated. There is some scattered calcified granulomas at the left lung base. No acute infiltrate is identified. Pleural space: Unremarkable. No pleural effusion. No pneumothorax. Heart/Mediastinum: Heart is within normal limits of size. Bones/joints: There are degenerative changes in the thoracic spine. XR/XR chest 1V portable [id number] IMPRESSION: No acute findings
[2020-05-15 13:46] VITALS: BP 137/81; PULSE 71; RESP 28; O2SAT 96
[2020-05-15] MEDS: aspirin 81 mg Chew Tablet 324 MG PO (13:51)
[2020-05-15 13:57] LABS: Basophils # 0.1 10^3/uL (0.0-0.1); Basophils % 0.7 %; Eosinophils # 0.2 10^3/uL (0.0-0.8); Eosinophils % 2.3 %; Hematocrit 45.8 % (42.0-52.0); Hemoglobin 15.3 g/dL (11.7-16.6); Lymphocytes # 2.8 10^3/uL (0.8-4.8); Lymphocytes % 26.1 %; Mean Corpuscular HGB Conc 33.4 g/dL (30.0-36.0); Mean Corpuscular Hemoglobin 29.7 pg (28.0-34.0); Mean Corpuscular Volume 88.9 fL (80-94); Mean Platelet Volume 11.2 fL (7.4-10.4); Monocytes # 1.1 10^3/uL (0.2-0.9); Neutrophils # 6.39 10^3/uL (1.8-7.7); Neutrophils % 60.3 %; Nucleated Red Blood Cells % 0 %; Platelet Count 215 10^3/cmm (130-400); Red Blood Count 5.15 10^6/uL (4.1-5.3); Red Cell Distribution Width 12.6 % (12.1-15.1); White Blood Count 10.6 10^3/uL (4.0-10.0)
[2020-05-15 14:17] LABS: INR 0.99 (0.8-1.2)
[2020-05-15 14:20] LABS: D Dimer 0.42 ug/mIFEU (0-0.59); Troponin(5th) Baseline 7 ng/L (0-15)
[2020-05-15 14:25] LABS: Alanine Aminotransferase 35 U/L (0-41); Albumin Level 4.4 g/dL (3.5-5.2); Alkaline Phosphatase 114 IU/L (40-130); Anion Gap 16.3 (5-19); Aspartate Amino Transferase 19 U/L (0-40); Blood Urea Nitrogen 12 mg/dL (8-23); Calcium 10.1 mg/dL (8.5-10.5); Carbon Dioxide 26 mmol/L (22-29); Chloride 99 mmol/L (98-107); Creatinine Clr Calc Pharmacy 79.8761; Globulin 2.9 g/dL (1.3-4.6); Glomerular Filtration Rate 60.6 mL/min (90-130); Glucose 243 mg/dL (65-115); NT Pro B Type Natriuretic Pept 60 pg/mL (0-125); Osmolality Calculated 292 mOsm/kg (285-295); Potassium 4.3 mmol/L (3.5-5.1); Sodium 137 mmol/L (136-145); Total Bilirubin 0.5 mg/dL (0.15-1.2); Total Protein 7.3 g/dL (6.6-8.7)
[2020-05-15 14:46] LABS: Add Urine Microscopic? NO
[2020-05-15 14:50] LABS: Bilirubin Urine Neg (Negative); Blood Urine Neg (Negative); Glucose Urine UA 2+ (Normal); Ketones Urine Negative (Negative); Leukocyte Esterase Urine Negative (Negative); Nitrate Urine Negative (Negative); Protein Urine Neg (Negative); Specific Gravity, Urine 1.015 (1.005-1.030); Urine Appearance Clear (CLEAR); Urine Color Yellow (Yellow); Urobilinogen Urine Norm (Negative); pH Urine 5 (5-7)
[2020-05-15 15:29] VITALS: BP 160/94; PULSE 61; RESP 22; O2SAT 97
--- NOTE | 2020-05-15 15:45 | ECG_ITS ---
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 Measurements Intervals [place] Rate: 56 P: 6 SC: 216 QRS: 76 QRSD: 98 T: 74 QT: 439 QTc: 426 Interpretive Statements SINUS BRADYCARDIA WITH FIRST DEGREE AV BLOCK Compared to ECG 02/18/2019 12:51:48 First degree AV block now present Sinus rhythm no longer present Electronically Signed On 05-16-2020 17:03:01 TAIL BOARD MAN by Paul Martinez M.D. [id number]
[2020-05-15 15:54] LABS: Troponin 5 2HR 7.08 ng/L (0-15); Troponin 5 2HR Delta 0.08 ABS# (0-10)
--- NOTE | 2020-05-15 16:50 | ED_ITS ---
HPI - Chest Pain General: Chief Complaint: Chest Pain Stated Complaint: CP Time Seen by Provider: 05/15/20 13:41 Source: patient Mode of arrival: ambulatory Limitations: no limitations History of Present Illness: HPI narrative: 64-year-old male presenting to the ER with complaints of chest pain across the center of his chest which started approximately half an hour prior to arrival. He was sitting and watching a football game. Initially his discomfort felt like palpitations, and then he developed discomfort that radiated across his chest. Did not radiate down his arms or up into his neck. No associated nausea or vomiting. No diaphoresis or shortness of breath. He has not had any recent fever or worsening cough. He does have indigestion and GERD, takes a PPI daily. At the time of my exam, he said his symptoms had resolved. He has been seen by cardiology earlier this month and underwent a Holter monitor study as he was having ongoing intermittent palpitations and chest pain. He has known dilation of his aortic root, which is stable. MD complaint: chest discomfort Pertinent past history: known aortic aneurysm Onset: during rest Associated symptoms: Reports dyspnea and palpitations; Deny abdominal pain, diaphoresis, fever(s), nausea, syncope or vomiting Review of Systems General: Reports: 10 or more systems reviewed and unremarkable except in HPI and below Const: Denies: fever(s), chills, body aches, change in appetite, fatigue, mal aise or diaphoresis Eyes: Denies: change in vision or blurry vision ENMT: Denies: throat pain or odynophagia Card: Reports: chest pain, palpitations and irregular heart rhythm; Denies: edema, lightheadedness, syncope or dyspnea on exertion Resp: Reports: dyspnea, non-productive cough, wheezing and chest congestion; Denies: change in phlegm color GI: Denies: abdominal pain, nausea or vomiting : Denies: difficulty urinating, dysuria or urinary frequency Musc: Denies: neck pain, back pain, extremity pain or extremity swelling Skin/Breast: Denies: rash, pruritus or erythema Neuro: Denies: headache(s), numbness in extremities, weakness in extremities, lack of coordination, dizziness or vertigo Endo: Denies: polyuria, polydipsia or tired all the time Brandon/Lymph: Denies: easy bruising All/Imm: Denies: urticaria or throat swelling [facility] ED 2 PFSH: Medical History AAA (abdominal aortic aneurysm) without rupture Allergic rhinitis Aortic root dilation Atypical chest pain BPH loc w urin obs/LUTS COPD (chronic obstructive pulmonary disease) DDD (degenerative disc disease) Diabetes Essential (primary) hypertension GERD (gastroesophageal reflux disease) Hyperglycemia Hyperlipidemia Hypothyroidism Intervertebral disc disorders with radiculopathy, lumbosacral region Lumbar disc disease with radiculopathy Scoliosis of lumbar region due to degenerative disease of spine in adult Testicular mass Thoracic aortic aneurysm, without rupture Surgical History H/O hernia repair Family History Mother Diabetes, Onset Age: 69 Father Cancer, Onset Age: 80 Lung Other Heart disease Lupus Social History Smoking and tobacco status: former smoker Quit status (tobacco): has quit using tobacco Year quit tobacco: 2019 - 2PPD x 50 Years Alcohol intake: never Lives independently: Yes Household members: spouse Marital status: Current occupational status: disabled History of recent travel: No Current gender identity: Male Physical Exam Const: COMMON NORMALS: no acute distress, patient oriented x3 and alert GENERAL APPEARANCE: cooperative and comfortable; not in distress, not anxious, not ill appearing and not diaphoretic NUTRITIONAL APPEARANCE: obese ORIENTATION/CONSCIOUSNESS: Yes awake, Yes oriented to person, Yes oriented to place and Yes oriented to time HENMT: COMMON NORMALS: normocephalic and atraumatic HEAD & SCALP: normocephalic and atraumatic Eye: COMMON NORMALS: Equal, round and reactive pupils present, EOMs intact bilaterally and conjunctivae normal CONJUNCTIVA: Yes conjunctivae normal SCLERA: sclerae normal CORNEA: Yes corneas normal PUPIL: Yes Equal, round and reactive pupils present Neck/C-Spine: COMMON NORMALS: full ROM, no lymphadenopathy, supple and no JVD GENERAL: No JVD Lymph: LYMPHATIC: no lymphadenopathy noted Resp: EFFORT & INSPECTION: Yes able to speak in complete sentences, No labored, No Actively coughing, No uses accessory muscles and Yes prolonged expiratory phase AUSCULTATION: diminished lung sounds and bronchovesicular breath sounds Cardio: COMMON NORMALS: no JVD, S1 normal heart sound present and S2 normal heart sound present HEART SOUNDS: S1 normal heart sound present, S2 normal heart sound present and no murmurs BRUITS: no abdominal aortic bruits Neuro: COMMON NORMALS: patient oriented x3 SENSORIUM/ORIENTATION: Yes alert, Yes oriented to person, Yes oriented to place and Yes oriented to time Course Vital Signs: Vital signs: Vital Signs Temperature 97.2 F L 05/15/20 13:40 Pulse Rate 57 L 05/15/20 17:08 Respiratory Rate 17 05/15/20 17:08 Blood Pressure 120/81 05/15/20 17:08 Pulse Oximetry 94 05/15/20 17:08 MDM - Chest Pain MDM Narrative: Medical decision making narrative: No acute abnormalities on chest x-ray. Chest [id number] male with chest pain onset after an hour prior to arrival. Had resolved by the time of my exam. Aspirin administered, Serial EKGs did not show any ischemic progression. Initial troponin 7, 2-hour repeat 7.08 No acute abnormalities on chest x-ray CBC and chemistry without any acute findings. Did not have any recurrence of symptoms. At the time of discharge, he was sitting up, well-appearing, talking and ambulating without difficulty. He agreed to call his multimedia technician first thing tomorrow morning to his request an earlier follow-up. Strict return precautions discussed. Differential Diagnosis: Cardiac arrest differential diagnosis: Likely acute massive pulmonary embolism, acute respiratory failure, acute myocardial infarction and cardiac arrest Medical Records: Attestation: I reviewed the patient's medical records. Lab Data: Attestation: I reviewed the patient's lab results. Labs: Lab Results 05/15/20 05/15/20 05/15/20 Range/Units 13:49 13:49 13:49 WBC 10.6 H (4.0-10.0) 10^3/ uL RBC 5.15 (4.1-5.3) 10^6/u L Hgb 15.3 (11.7-16.6) g/dL Hct 45.8 (42.0-52.0) % MCV 88.9 (80-94) fL MCH 29.7 (28.0-34.0) pg MCHC 33.4 (30.0-36.0) g/dL RDW 12.6 (12.1-15.1) % Plt Count 215 (130-400) 10^3/c mm MPV 11.2 H (7.4-10.4) fL Neut % (Auto) 60.3 % Lymph % (Auto) 26.1 % [place] % (Auto) 10.0 % Eos % (Auto) 2.3 % Baso % (Auto) 0.7 % Neut # (Auto) 6.39 (1.8-7.7) 10^3/u L Lymph # (Auto) 2.8 (0.8-4.8) 10^3/u L [place] # (Auto) 1.1 H (0.2-0.9) 10^3/u L Eos # (Auto) 0.2 (0.0-0.8) 10^3/u L Baso # (Auto) 0.1 (0.0-0.1) 10^3/u L Nucleated RBC % (a uto) 0 % Nucleated RBCs # 0.0 /100WBC PT 13.40 (12.1-14.9) SECO NDS INR 0.99 (0.8-1.2) D-Dimer 0.42 (0-0.59) ug/mIFE U Sodium 137 (136-145) mmol/L Potassium 4.3 (3.5-5.1) mmol/L Chloride 99 (98-107) mmol/L Carbon Dioxide 26 (22-29) mmol/L Anion Gap 16.3 (5-19) BUN 12 (8-23) mg/dL Creatinine 1.2 (0.7-1.2) mg/dL GFR Calculation 60.6 L (90-130) mL/min Glucose 243 H (65-115) mg/dL Calculated Osmolal ity 292 (285-295) mOsm/k g Calcium 10.1 (8.5-10.5) mg/dL Total Bilirubin 0.5 (0.15-1.2) mg/dL AST 19 (0-40) U/L ALT 35 (0-41) U/L Alkaline Phosphata se 114 (40-130) IU/L Troponin T Baselin e (0-15) ng/L Troponin T 120 Min aundrea (0-15) ng/L Delta Troponin T (0-10) ABS# NT-Pro-B Natriuret Pep 60 (0-125) pg/mL Total Protein 7.3 (6.6-8.7) g/dL Albumin 4.4 (3.5-5.2) g/dL Globulin 2.9 (1.3-4.6) g/dL Urine Color (Yellow) Urine Appearance (CLEAR) Urine pH (5-7) Ur Specific Gravit y (1.005-1.030) Urine Protein (Negative) Urine Glucose (UA) (Normal) Urine Ketones (Negative) Urine Blood (Negative) Urine Nitrate (Negative) Urine Bilirubin (Negative) Urine Urobilinogen (Negative) mg/dL Ur Leukocyte Margie ase (Negative) 05/15/20 05/15/20 05/15/20 Range/Units 13:49 14:06 15:26 WBC (4.0-10.0) 10^3/ uL RBC (4.1-5.3) 10^6/u L Hgb (11.7-16.6) g/dL Hct (42.0-52.0) % MCV (80-94) fL MCH (28.0-34.0) pg MCHC (30.0-36.0) g/dL RDW (12.1-15.1) % Plt Count (130-400) 10^3/c mm MPV (7.4-10.4) fL Neut % (Auto) % Lymph % (Auto) % [place] % (Auto) % Eos % (Auto) % Baso % (Auto) % Neut # (Auto) (1.8-7.7) 10^3/u L Lymph # (Auto) (0.8-4.8) 10^3/u L [place] # (Auto) (0.2-0.9) 10^3/u L Eos # (Auto) (0.0-0.8) 10^3/u L Baso # (Auto) (0.0-0.1) 10^3/u L Nucleated RBC % (a uto) % Nucleated RBCs # /100WBC PT (12.1-14.9) SECO NDS INR (0.8-1.2) D-Dimer (0-0.59) ug/mIFE U Sodium (136-145) mmol/L Potassium (3.5-5.1) mmol/L Chloride (98-107) mmol/L Carbon Dioxide (22-29) mmol/L Anion Gap (5-19) BUN (8-23) mg/dL Creatinine (0.7-1.2) mg/dL GFR Calculation (90-130) mL/min Glucose (65-115) mg/dL Calculated Osmolal ity (285-295) mOsm/k g Calcium (8.5-10.5) mg/dL Total Bilirubin (0.15-1.2) mg/dL AST (0-40) U/L ALT (0-41) U/L Alkaline Phosphata se (40-130) IU/L Troponin T Baselin e 7 (0-15) ng/L Troponin T 120 Min aundrea 7.08 (0-15) ng/L Delta Troponin T 0.08 (0-10) ABS# NT-Pro-B Natriuret Pep (0-125) pg/mL Total Protein (6.6-8.7) g/dL Albumin (3.5-5.2) g/dL Globulin (1.3-4.6) g/dL Urine Color Yellow (Yellow) Urine Appearance Clear (CLEAR) Urine pH 5 (5-7) Ur Specific Gravit y 1.015 (1.005-1.030) Urine Protein Neg (Negative) Urine Glucose (UA) 2+ (Normal) Urine Ketones Negative (Negative) Urine Blood Neg (Negative) Urine Nitrate Negative (Negative) Urine Bilirubin Neg (Negative) Urine Urobilinogen Norm (Negative) mg/dL Ur Leukocyte Margie ase Negative (Negative) Imaging Data^: CXR: Attestation: I personally reviewed and interpreted this imaging study as follows: My impression: No infiltrates or effusions. EKG Data^: EKG 1: Attestation: I personally reviewed and interpreted this EKG as follows: EKG interpretation date: 05/15/20 EKG interpretation time: 13:50 Interpretation: Normal sinus rhythm, rate 60. Normal axis. Normal TX. No acute ST segment elevations or depressions. EKG 2: Attestation: I personally reviewed and interpreted this EKG as follows: EKG interpretation date: 05/15/20 EKG interpretation time: 16:42 Prior EKG tracings: available for review Interpretation: Sinus bradycardia with a rate of 56, TX slightly elongated at 216, Normal axis. No ST changes compared to previous. ST segment changes compared to previous. Discharge Plan Discharge Patient Disposition: Admitted As Inpatient Clinical Impression: Paroxysmal cardiac arrhythmia Chest pain Qualifiers: Chest pain type: other chest pain Qualified Code(s): R07.89 - Other chest pain Condition: Stable Discharge Diet: Usual diet Discharge Activity: Increase activity as tolerated Coding Level of Care Code ED Machine Plug Shaper for Halle Degroot
[2020-05-15 17:08] VITALS: BP 120/81; PULSE 57; RESP 17; O2SAT 94
== END 2020-05-15 17:08 | disposition admitted as inpatient to this hospital (09) ==
PROVIDERS: Emergency Provider Family Medicine; PCP Electrodiagnostic Medicine
DX: R07.89 Other chest pain (principal); I49.8 Other specified cardiac arrhythmias; J44.9 Chronic obstructive pulmonary disease, unspecified; E11.9 Type 2 diabetes mellitus without complications; I10 Essential (primary) hypertension; E78.5 Hyperlipidemia, unspecified; Z87.891 Personal history of nicotine dependence
CPT/HCPCS: 12345; 71045; 80053; 81003; 83880; 84484; 85025; 85378; 85610; 93005; 99282; 99284

== ENCOUNTER → 2020-05-28 10:03 | Outpatient (BNVA) | payer MEDICARE, OTHER, SELFPAY | PROVIDERS: PCP Electrodiagnostic Medicine; Visit Provider Internal Medicine Cardiovascular Disease | DX: Z20.828 Contact with and (suspected) exposure to other viral communicable diseases (principal); I10 Essential (primary) hypertension; R07.89 Other chest pain | CPT/HCPCS: 87635 ==

== ENCOUNTER 2020-05-30 11:20 | Outpatient (CLI) | payer MEDICARE, OTHER, SELFPAY ==
[2020-05-30 12:02] LABS: Basophils # 0.1 10^3/uL (0.0-0.1); Basophils % 0.5 %; Eosinophils # 0.2 10^3/uL (0.0-0.8); Eosinophils % 1.8 %; Hematocrit 47.2 % (42.0-52.0); Hemoglobin 15.6 g/dL (11.7-16.6); Lymphocytes # 2.3 10^3/uL (0.8-4.8); Lymphocytes % 20.1 %; Mean Corpuscular HGB Conc 33.1 g/dL (30.0-36.0); Mean Corpuscular Hemoglobin 29.8 pg (28.0-34.0); Mean Corpuscular Volume 90.1 fL (80-94); Mean Platelet Volume 11.6 fL (7.4-10.4); Monocytes % 8.3 %; Neutrophils # 7.79 10^3/uL (1.8-7.7); Neutrophils % 68.4 %; Nucleated Red Blood Cells % 0 %; Platelet Count 231 10^3/cmm (130-400); Red Blood Count 5.24 10^6/uL (4.1-5.3); Red Cell Distribution Width 12.4 % (12.1-15.1); White Blood Count 11.4 10^3/uL (4.0-10.0)
[2020-05-30 12:15] LABS: INR 0.96 (0.83-1.21); Prothrombin Time (Patient) 13.1 Seconds (12.0-15.1)
[2020-05-30 12:52] LABS: Anion Gap 17.2 (5-19); Blood Urea Nitrogen 16 mg/dL (8-23); Calcium 9.5 mg/dL (8.5-10.5); Carbon Dioxide 26 mmol/L (22-29); Chloride 96 mmol/L (98-107); Glomerular Filtration Rate 74.8 mL/min (90-130); Glucose 276 mg/dL (65-115); Osmolality Calculated 291 mOsm/kg (285-295); Potassium 4.2 mmol/L (3.5-5.1); Sodium 135 mmol/L (136-145)
== END 2020-05-30 11:21 | disposition home or self-care (01) ==
PROVIDERS: PCP Electrodiagnostic Medicine; Visit Provider Internal Medicine Cardiovascular Disease
DX: R07.89 Other chest pain (principal); R06.02 Shortness of breath
CPT/HCPCS: 36415; 80048; 85025; 85610; 86850; 86900

== ENCOUNTER 2020-05-31 07:40 | Outpatient (CLI) | payer MEDICARE, OTHER, SELFPAY ==
--- NOTE | 2020-05-31 08:00 | USCV_ITS ---
Vega Wilcox Age: 64 Gender: M : 1955 Exam Date: 05/31/2020 07:57 Ordering Phys: Lance Marcano MD ([email or web address]) Technologist: Letty Mendiola Exam Location: [facility] [place] Indication: AAA HISTORY: Diameter (cm) AP x Transverse x Length Velocity (cm/s) Waveform Prox Aorta: 2.54 x 2.76 x 49.60 Mid Aorta: 2.30 x 2.66 x 46.10 Distal Aorta: 2.31 x 1.90 x 67.50 Right Iliac Prox: 0.83 x 1.18 x Left Iliac Prox: 0.78 x 0.98 x Stent Prox Landing x x Aneurysmal Sac Max x x Lt Lat Sac Dim Rt Lat Sac Dim Stent Dist Landing x x Right Iliac Stent x x Left Iliac Stent x x Right Renal Art Left Renal Art FINDINGS: Limited exam due to bowel gas CONCLUSIONS No evidence of abdominal aortic or bilateral iliac aneurysm. Moderate atheromatous disease within the abdominal aorta. Deshawn Brooke MD (Electronically Signed) Final Date: 31 May 2020 08:55 S
== END 2020-05-31 07:41 | disposition home or self-care (01) ==
LOC: US 07:43
PROVIDERS: PCP Electrodiagnostic Medicine; Visit Provider Internal Medicine Cardiovascular Disease
DX: I71.4 Abdominal aortic aneurysm, without rupture (principal); I70.0 Atherosclerosis of aorta
CPT/HCPCS: 93978

== ENCOUNTER → 2020-06-01 05:36 | Day surgery (SDC) | payer MEDICARE, OTHER, SELFPAY ==
[2020-06-01 06:06] LABS: Basophils # 0.1 10^3/uL (0.0-0.1); Basophils % 0.7 %; Eosinophils # 0.3 10^3/uL (0.0-0.8); Eosinophils % 2.8 %; Hematocrit 45.6 % (42.0-52.0); Hemoglobin 15.1 g/dL (11.7-16.6); Lymphocytes # 2.6 10^3/uL (0.8-4.8); Mean Corpuscular HGB Conc 33.1 g/dL (30.0-36.0); Mean Corpuscular Hemoglobin 29.6 pg (28.0-34.0); Mean Corpuscular Volume 89.4 fL (80-94); Mean Platelet Volume 11.7 fL (7.4-10.4); Monocytes # 1.1 10^3/uL (0.2-0.9); Monocytes % 9.4 %; Neutrophils # 7.29 10^3/uL (1.8-7.7); Neutrophils % 63.8 %; Nucleated Red Blood Cells % 0 %; Platelet Count 244 10^3/cmm (130-400); Red Cell Distribution Width 12.5 % (12.1-15.1); White Blood Count 11.4 10^3/uL (4.0-10.0)
[2020-06-01 06:15] VITALS: BP 130/81; PULSE 75; RESP 18; TEMP 36.7; O2SAT 94; BMI 37.0
--- NOTE | 2020-06-01 06:46 | PC.NURSE ---
procedure to be rescheduled due to an elevated white count, 11.4. Dr Marcano notified of result and felt it be better to wait til after antibiotic is finished to reschedule. will call [facility] to call for reschedule.
== END ==
PROVIDERS: PCP Electrodiagnostic Medicine; Visit Provider Internal Medicine Cardiovascular Disease
DX: R07.9 Chest pain, unspecified (principal); Z53.9 Procedure and treatment not carried out, unspecified reason
CPT/HCPCS: 85025; Q0163

== ENCOUNTER 2020-06-06 08:05 | Outpatient (CLI) | payer MEDICARE, OTHER, SELFPAY ==
[2020-06-06 08:46] LABS: Basophils # 0.1 10^3/uL (0.0-0.1); Basophils % 0.8 %; Eosinophils # 0.4 10^3/uL (0.0-0.8); Eosinophils % 3.1 %; Hematocrit 49.5 % (42.0-52.0); Hemoglobin 16.1 g/dL (11.7-16.6); Lymphocytes # 2.4 10^3/uL (0.8-4.8); Lymphocytes % 21.2 %; Mean Corpuscular HGB Conc 32.5 g/dL (30.0-36.0); Mean Corpuscular Hemoglobin 29.9 pg (28.0-34.0); Mean Corpuscular Volume 91.8 fL (80-94); Mean Platelet Volume 11.7 fL (7.4-10.4); Monocytes % 9.3 %; Neutrophils # 7.24 10^3/uL (1.8-7.7); Neutrophils % 65.2 %; Nucleated Red Blood Cells % 0 %; Platelet Count 260 10^3/cmm (130-400); Red Blood Count 5.39 10^6/uL (4.1-5.3); Red Cell Distribution Width 12.7 % (12.1-15.1); White Blood Count 11.1 10^3/uL (4.0-10.0)
[2020-06-06 09:08] LABS: Anion Gap 14.3 (5-19); Blood Urea Nitrogen 19 mg/dL (8-23); Calcium 9.5 mg/dL (8.5-10.5); Carbon Dioxide 27 mmol/L (22-29); Chloride 95 mmol/L (98-107); Glucose 395 mg/dL (65-115); Osmolality Calculated 293 mOsm/kg (285-295); Potassium 4.3 mmol/L (3.5-5.1); Sodium 132 mmol/L (136-145)
== END 2020-06-06 08:06 | disposition home or self-care (01) ==
LOC: LAB 08:13
PROVIDERS: PCP Electrodiagnostic Medicine; Visit Provider Internal Medicine Cardiovascular Disease
DX: I71.4 Abdominal aortic aneurysm, without rupture (principal); R07.89 Other chest pain; Z01.812 Encounter for preprocedural laboratory examination; D72.829 Elevated white blood cell count, unspecified; I10 Essential (primary) hypertension; J44.9 Chronic obstructive pulmonary disease, unspecified; J44.1 Chronic obstructive pulmonary disease with (acute) exacerbation
CPT/HCPCS: 36415; 80048; 85025; 85610; 86850; 86900

== ENCOUNTER 2020-06-10 09:27 | Outpatient (CLI) | payer MEDICARE, OTHER, SELFPAY ==
[2020-06-10 10:02] LABS: Basophils # 0.1 10^3/uL (0.0-0.1); Basophils % 0.6 %; Eosinophils # 0.2 10^3/uL (0.0-0.8); Eosinophils % 1.8 %; Hematocrit 48.6 % (42.0-52.0); Hemoglobin 16.3 g/dL (11.7-16.6); Lymphocytes # 2.6 10^3/uL (0.8-4.8); Lymphocytes % 21.7 %; Mean Corpuscular HGB Conc 33.5 g/dL (30.0-36.0); Mean Corpuscular Hemoglobin 29.8 pg (28.0-34.0); Mean Corpuscular Volume 88.8 fL (80-94); Monocytes # 1.2 10^3/uL (0.2-0.9); Monocytes % 9.6 %; Neutrophils % 65.7 %; Nucleated Red Blood Cells % 0 %; Platelet Count 257 10^3/cmm (130-400); Red Blood Count 5.47 10^6/uL (4.1-5.3); Red Cell Distribution Width 12.6 % (12.1-15.1); White Blood Count 12.2 10^3/uL (4.0-10.0)
[2020-06-10 10:28] LABS: INR 0.99 (0.8-1.2)
[2020-06-10 10:35] LABS: Anion Gap 14.8 (5-19); Blood Urea Nitrogen 23 mg/dL (8-23); Calcium 10.1 mg/dL (8.5-10.5); Carbon Dioxide 28 mmol/L (22-29); Chloride 93 mmol/L (98-107); Glomerular Filtration Rate 55.2 mL/min (90-130); Glucose 446 mg/dL (65-115); Osmolality Calculated 295 mOsm/kg (285-295); Potassium 4.8 mmol/L (3.5-5.1); Sodium 131 mmol/L (136-145)
== END 2020-06-10 09:28 | disposition home or self-care (01) ==
LOC: LAB 09:29
PROVIDERS: PCP Electrodiagnostic Medicine; Visit Provider Internal Medicine Cardiovascular Disease
DX: Z01.812 Encounter for preprocedural laboratory examination (principal); R07.89 Other chest pain; E78.2 Mixed hyperlipidemia; J44.9 Chronic obstructive pulmonary disease, unspecified; I10 Essential (primary) hypertension
CPT/HCPCS: 80048; 85025; 85610; 86850; 86900; 87635

== ENCOUNTER 2020-06-20 06:00 | Outpatient (RCR) | payer MEDICARE, OTHER, SELFPAY | END 2020-07-17 23:59 | disposition home or self-care (01) | LOC: PULRHB 06:00 | PROVIDERS: PCP Electrodiagnostic Medicine; Visit Provider Student in an Organized Health Care Education/Training Program | DX: J44.9 Chronic obstructive pulmonary disease, unspecified (principal) | CPT/HCPCS: G0424 ==

== ENCOUNTER 2020-06-21 08:45 | Observation (INO) | payer MEDICARE, OTHER, SELFPAY ==
[2020-06-17 09:24] VITALS: BMI 37.0
[2020-06-20] VITALS (38 sets, daily range): BP systolic 102–146; BP diastolic 56–110; PULSE 59–87; RESP 12–20; TEMP 36.2–36.8; O2SAT 90–94; BMI 37.0
[2020-06-20] MEDS: diphenhydrAMINE 50 mg Capsule PO (06:21)
--- NOTE | 2020-06-20 06:57 | W.PM.OPSUD ---
Surgery/Procedure H&P Update DATE OF PROCEDURE: June 20, 2020 DATE H&P PERFORMED: 06/20/20 PREOP DIAGNOSIS: CP/Suspected ASHD PLANNED PROCEDURE: Operation Date: 06/20/20 07:00 Proposed Procedures p left Cardiac Catheterization 34706 R07.89(Left) - Lance Marcano MD PATIENT REASSESSED PRIOR TO SEDATION, WITH NO CHANGE NOTED: Yes PHYSICAL EXAM: alert, oriented x 3, clear to auscultation bilaterally and regular rate & rhythm AIRWAY EVAL/ANESTHESIA PLAN: normal airway, see other exam findings, ASA II, Monitored Anesthesia, Local Anesthesia, Risks, benefits & alternatives of sedation and/or procedure discussed and Patient agrees to continue as planned
--- NOTE | 2020-06-20 06:58 | PM.HP ---
Providers/Chief Complaint Primary Care Provider: Ab Grubbs DO Chief Complaint: [facility] History of Present Illness Vega Wilcox is a 64 year old male with a history of hypertension, dyslipidemia, hypothyroidism, type 2 diabetes, cardiac arrhythmia and aortic root dilatation, has been having episodes of chest pain for the last few months. He had a several ER visits with these complaints. He had a myocardial perfusion imaging which did not reveal any significant reversible defect. Because of his ongoing episodes of symptoms and multiple risk factors, in order to further evaluate his coronary status, a cardiac catheterization was recommended. He had a recent penile infection and had treatment with antibiotics. He was reevaluated by his primary care provider and was told that he is ready to go ahead with the cardiac catheterization. He has no fever or chills. No cough. No unusual shortness of breath. No other specific complaints at this point. Review of Systems Narrative: CONSTITUTIONAL: No fever or chills. EYES: No blurring of vision or other visual disturbances lately. ENT: No hoarseness of voice, auditory disturbances or sore throat. CARDIOVASCULAR: As mentioned above. RESPIRATORY: No significant cough. GASTROINTESTINAL: No hematemesis or melena. GENITOURINARY: No dysuria or hematuria. INTEGUMENTARY: No skin rashes or history of skin cancer. NEURO: No transient ischemic attacks or amaurosis. PSYCHIATRIC: No history of psychosis or major depression. HEMATOLOGIC: No bleeding disorders or significant anemia. ENDOCRINE: History of hypothyroidism, clinically euthyroid. MUSCULOSKELETAL: No recent joint pain or swelling. ALLERGY/IMMUNOLOGY: As mentioned above. Medications/Allergies Home Medications Medication Instructions Recorded Confirmed Last Taken Type atorvastatin 20 mg tablet 20 mg PO DAILY@06/23/19 06/17/20 06/19/20 21:00 History levothyroxine 200 mcg capsule 200 mcg PO DAILY@06/23/19 06/17/20 06/20/20 05:30 History losartan 50 mg tablet 50 mg PO BID@06/23/19 06/17/20 06/20/20 05:30 History metformin 500 mg tablet 500 mg PO DAILY@06/23/19 06/20/20 06/17/20 06:00 History omeprazole 40 mg capsule,delayed 40 mg PO DAILY@06/23/19 06/17/20 06/20/20 05:30 History release diltiazem HCl 120 mg PO DAILY@ 08/01/19 06/17/20 06/20/20 05:30 History budesonide [Pulmicort] 0.5 mg INHALATION BID@05/15/20 06/17/20 06/20/20 05:30 History formoterol fumarate [Perforomist] 2 ml INHALATION BID@,05/15/20 06/17/20 06/20/20 05:30 History montelukast 10 mg PO DAILY@05/15/20 06/17/20 06/20/20 05:30 History nitroglycerin 0.4 mg sublingual 0.4 mg SUBLINGUAL Q5M PRN 30 Days 05/17/20 06/20/20 Unknown Rx tablet #30 tab revefenacin 175 mcg/3 mL solution See Rx Instructions .ROUTE 05/26/20 06/17/20 06/20/20 05:30 Rx for nebulization .COMPLEX #30 vial metronidazole 500 mg PO BID 06/01/20 06/20/20 06/06/20 History Allergies Allergy/AdvReac Type Severity Reaction Status Date / Time No Known Allergies Allergy Verified 06/17/20 09:26 PFSH Acute PFSH: Medical History AAA (abdominal aortic aneurysm) without rupture Allergic rhinitis Aortic root dilation Atypical chest pain BPH loc w urin obs/LUTS COPD (chronic obstructive pulmonary disease) DDD (degenerative disc disease) Diabetes Essential (primary) hypertension GERD (gastroesophageal reflux disease) Hyperglycemia Hyperlipidemia Hypothyroidism Intervertebral disc disorders with radiculopathy, lumbosacral region Lumbar disc disease with radiculopathy Scoliosis of lumbar region due to degenerative disease of spine in adult Testicular mass Thoracic aortic aneurysm, without rupture Surgical History H/O hernia repair Family History Mother Diabetes, Onset Age: 69 Father Cancer, Onset Age: 80 Lung Other Heart disease Lupus Social History Smoking and tobacco status: former smoker Quit status (tobacco): has quit using tobacco Year quit tobacco: 2019 - 2PPD x 50 Years Alcohol intake: never Lives independently: Yes Household members: spouse Marital status: Current occupational status: disabled History of recent travel: No Current gender identity: Male Vitals/I&O/Wt Last Vital Signs Temp 97.2 F L 06/20/20 06:24 Pulse 83 06/20/20 06:24 Resp 18 06/20/20 06:24 BP 134/110 06/20/20 06:24 Pulse Ox 93 06/20/20 06:24 Weight last 48 hrs Weight 266 lb Physical Exam Narrative: EXAM NARRATIVE: GENERAL: The patient is alert and oriented times three. Not in any acute distress. HEENT: No significant pallor, icterus or lymphadenopathy.Oral cavity: There are no mucous membrane lesions. NECK: Trachea appears to be central. No masses noted. No JVD or thyromegaly appreciated. RESPIRATORY: Chest is symmetrical. No intercostals muscle retraction or any accessory muscle activation. There is no chest wall tenderness. Breath sounds are heard bilaterally. No rales or rhonchi heard. No evidence of any consolidation. BREASTS: Deferred. HEART: The heart sounds are normal. No S3 or S4. No significant murmurs. No pericardial rub ABDOMEN: No vessel pulsations or distention. No tenderness. No organomegaly appreciated. Bowel sounds are normally heard. : Deferred. RECTAL: Deferred. LYMPHATIC: No lymphadenopathy noted in the neck or groin. EXTREMITIES: No edema or cyanosis. No clubbing. Peripheral pulses are palpated in fairly good volume and amplitude MUSCULOSKELETAL: No acute joint deformities or swelling SKIN: There are no significant rashes or ecchymosis NEUROPSYCHIATRIC: The patient is alert and oriented x3. Appears to be in a good mood. No tremors or rigidity noted. A&P Assessment and plan (1) Atypical chest pain: In view of the multiple risk factors, most likely the patient may have underlying coronary ischemia. For further evaluation of her symptoms, a cardiac catheterization would be appropriate. This was discussed the patient. The risk of bleeding, hematoma, vascular injury, myocardial infarction, CVA, renal failure and other concomitant complications were explained in detail. Patient understood this well and consented to proceed. Status: Acute (2) Aortic root dilation: Was found to be stable based on the recent CTA. Status: Acute (3) Pulmonary nodule: This is being followed by the pulmonology. Status: Acute (4) Hypothyroidism: Patient is on thyroid replacement. Clinically he is euthyroid. Status: Acute Qualifiers: Hypothyroidism type: acquired Qualified Code(s): E03.9 - Hypothyroidism, unspecified (5) Hyperlipidemia: Patient is on Lipitor. He seems to be tolerating medication so far well. Status: Acute Qualifiers: Hyperlipidemia type: mixed hyperlipidemia Qualified Code(s): E78.2 - Mixed hyperlipidemia (6) Essential (primary) hypertension: Related blood pressure is a stage II. Status: Acute (7) Diabetes: He is on Metformin. His kidney function seems to be appropriate. 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 Status: Acute Qualifiers: COPD type: unspecified COPD Qualified Code(s): J44.9 - Chronic obstructive pulmonary disease, unspecified Additional A&P Information Patient on the patient's clinical progress on the results of the above, further recommendations will be made. Attestations Medical Necessity Statement*: Patient may require an overnight stay, if he needs to have any intervention. Coding Level of Care Code Acute Sales Outfitter for g Fwd Diagnoses Atypical chest pain R07.89 Aortic root dilation I77.810 Pulmonary nodule R91.1 Hypothyroidism E03.9 Hypothyroidism type: acquired Hyperlipidemia E78.2 Hyperlipidemia type: mixed hyperlipidemia Essential (primary) hypertension I10 Diabetes E11.65 Diabetes mellitus complication status: with hyperglycemia Diabetes mellitus jail insulin use: without jail use Diabetes mellitus type: type 2 COPD (chronic obstructive pulmonary disease) J44.9 COPD type: unspecified COPD
--- NOTE | 2020-06-20 07:00 | XACV_ITS ---
Ht: 180 cm Wt: 121 kg BSA: 2.50 m2 Gender: Male : 1955 Any Known Allergies: No known allergies Exam Priority: Routine Procedure(s): Procedure Description: Diagnostic procedure Diagnostic Cath Status: Elective Diagnostic Findings * No significant disease noted in the Left Main, LAD, Circumflex, or RCA coronary arteries. * Proximal Left Anterior Descending Coronary Artery: has lesion. * Coronary angiography shows right dominance. * The left main is a medium caliber extremely short vessel which bifurcates to the left and descending artery and circumflex artery. No significant stenotic lesions were noted. * The left anterior descending artery is a medium to large caliber vessel which appears to wrap around the LV apex minimally. Right after a small diagonal branch, there was a high-grade lesion of around 95% in the mid LAD. The distal LAD was found to have minimal intimal irregularities with no significant stenotic lesions. * The left circumflex artery is a medium to large caliber codominant vessel. Minimal intimal irregularities are noted in the obtuse marginal vessels. No significant stenotic lesions were noted. * The right coronary artery is a medium caliber codominant vessel which he was found to have minimal intimal regularities in the midsegment. The ostium of the artery was found to be somewhat ectatic. No other significant stenotic lesions were noted. Interventional Findings * Proximal Left Anterior Descending Coronary Artery: 85% stenosis treated with AB TREK 3.00X12 RX BALLOON, VIKAS Capellan VANESSA 4.0X15 DANIEL, and VIKAS LEON EUPHORA RX [id number] BALLOON. 0% residual stenosis, NAILA: 3 flow. Conclusions 1. 64-year-old white male with history of hypertension, diabetes, dyslipidemia, presenting with recurrent episodes of chest pain/chest tightness, shortness of breath and fatigue. He had a myocardial perfusion imaging which was unremarkable. Because of the patient's ongoing, worsening of symptoms, in order to further evaluate his coronary status, a cardiac catheterization was recommended. Patient underwent left heart catheterization with left and right coronary angiogram today. The findings are as follows. 2. High-grade lesion in the mid LAD of around 95%. Mild diffuse disease in the other vessels. LVEDP of 18 mmHg. The cardiac catheterization data was reviewed and discussed with . It was thought to be appropriate to consider PCI of the LAD lesion. At this point, took over further management of this patient. 3. Proximal Left Anterior Descending Coronary Artery was treated with two Balloon and Drug Eluting Stent. Recommendations * 1-Return to inpatient for close monitoring and routine cath care 2-Risk factor modification for secondary prevention 3-Statin and aspirin 81 mg life--long, if tolerated 4-Patient was pre-loaded with 600 mg of Plavix, continue Plavix 75mg p.o. daily for at least one year. We will assess at the end of one year again to continue if further or not 5-Continue optimal medical management 6-Follow up with Dr. Marcano in four weeks and your primary care in 10 days. Interventional RX Recommendation: PCI w/o planned CABG Diagnostic RX Recommendation: PCI w/o planned CABG LV EDP: 18 mmHg Left Ventriculography Findings: * The exam was not performed because of the concern of the dye overload. The LVEDP was 18 mmHg. Pressures Phase:Rest AO : 104 / 68 ( 84 ) @ 1:25:00 AM 144 / 87 ( 100 ) @ 1:29:00 AM 118 / 27 ( 64 ) @ 1:33:00 AM 134 / 83 ( 103 ) @ 1:38:00 AM 201 / 150 ( 179 ) @ 1:49:00 AM 102 / 67 ( 80 ) @ 1:55:00 AM 120 / 74 ( 95 ) @ 2:02:00 AM LV : 135 / -1 / @ 1:38:00 AM 119 / 3 / @ 1:38:00 AM Valves Phase:DefaultPhase AV : 0.0 @ 8:14:38 AM AV Mean Gradient: 0.0 @ 8:14:38 AM Clinical Evaluation EBL: 5mL-10mL Procedural Details Procedure Consent Obtained. Pre-Procedure Time Out. Identified patient by full name and date of as verbalized by the patient/guarantor. Does the consent match the physician's order: Yes. Accurate & Complete Informed Consent: Yes. Inpatient/Outpatient History & Physical on Chart: Yes. If H&P is completed, is and addenduem needed: N/A; If yes, is the addendum complete: N/A. Visualize and Verify Site with Patient/Guarantor: N/A. Relevant Radiology Images available: Yes. Pre-op teaching completed and patient verbalized understanding. The risks, benefits, and alternatives of sedation and/or procedure were discussed by physician. The patient agrees to continue. Procedure started. PERRLA. Strong, equal hand furniture reproducer bilaterally. Lungs clear x 5 lobes. IV Site on Arrival: 20 gauge in the left anticubital. IV Fluids: 0.9% NaCl at KVO. 0 mL infused prior to mechanical laboratory technician. Pre Procedural Pulses: bilateral dorsalis pedis was 1+. Pre Procedural Pulses: bilateral posterior tibial was 2+. Pre Procedural Pulses: bilateral radial was 3+. Oxygen started at 2liters/min via nasal canula. right groin was prepped with chloroprep then draped in the usual sterile fashion. right radial was prepped with chloroprep then draped in the usual sterile fashion. Physician notified. Baseline sample Acquired. HR: 75 BPM. Physician arrived. Equipment: 6F - Radial. Cardiac Cath Pack. eSilicon Manifold Kit Model BT 2000. Heparinized Saline (2 units/mL), 1000 mL bag. Physician scrubbed in. Immediate Pre-Procedure Time Out. Lidocaine 1% infiltrated to the right radial. Arterial access obtained. A 5 northern irish Babak catheter in over wire. Dr. Keith called. Catheter redirected to the RCA. Catheter out. A 5 northern irish JR4 catheter in over wire. Multiple views taken of right coronary artery. arrived. Side port of sheath attached to Normal Saline flush at KVO to maintain patency. saline bolus complete. Catheter out. A 5 northern irish Angled Pig catheter in over wire. EDP Sample taken: LV 135/-2,18; HR: 75 BPM; SpO2: 95%. Pullback taken: LV 119/3,18; AO 134/83(103); Mean: 0mmHg, Peak to Peak: 0mmHg, SEP: 6sec/min; HR: 74 BPM; SpO2: 97%. Dr. Keith scrubbed in to perform intervention. Patient's family updated. 6 northern irish XB 3.5 guide catheter was inserted over the wire. Multiple views taken of left coronary artery. [place] guidewire was advanced through the guide catheter to lesion in the prox LAD. Inflation number : 1 A AB TREK 3.00X12 RX BALLOON was prepped and advanced across the Prox LAD , then inflated to 18 ROMEL for 0:18 seconds. Results checked. Balloon out. Inflation Number : 2 A MDT R VANESSA 4.0X15 DANIEL -Lot Number# [id number] exp 02-06-2022 was prepped and advanced across the Prox LAD. The stent was deployed at 14 ROMEL for 0:24 seconds. Stent balloon out over wire. Inflation number : 3 A MDT NC EUPHORA RX [id number] BALLOON was prepped and advanced across the Prox LAD , then inflated to 8 ROMEL for 0:16 seconds. Inflation number: 4 The MDT NC EUPHORA RX [id number] BALLOON was reinflated across the Prox LAD, to 10 ROMEL for 0:11 seconds. ACT drawn. Results 360 seconds. Therapeutic limits - pre-heparin administration 90-150 seconds and monitoring heparin during a vascular procedure >250 seconds. Results checked. Balloon and wire out. Guide catheter out. A TR Band was successful obtaining hemostatsis at the Right Radial artery insertion site. TR band placed. Hemostasis obtained. Post Procedure: Pulses reassessed and unchanged. PERRLA. Strong, equal hand furniture reproducer bilaterally. No VTE prophylaxis required. Medication's Wasted: Lidocaine 1% = 18 mL. Medication's Wasted: Nitro = 49.8 mg. Total IV fluids: 308 mL. Fluoro: 228:00. Contrast type used: Omnipaque 300 mgI/mL, 500 mL bottle. [id number]. Complications: none. Post-op diagnosis: prox LAD stenosis post PCI. PCI Indication: New Onset Angina. Estimated blood loss: 5mL-10mL. Procedure completed. Patient transferred by wheelchair to 1st floor. [facility] Clinical Fraility Score: 4: Vulnerable. Collection Card Clerk Indications: Worsening Angina. Chest Pain Symptom Assessment: Atypical Angina. Cardiovascular Instability: No,. Vital chart was stopped. Access Site Site: Right Radial artery Sheath Size: 6 Fr Hemostasis Method: TR Band Hemostasis Success: Successful Procedure Medications Start: 7:09 AM Stop: 7:09 AM Medication: Versed Amount: 1 mg Route: I.V. Start: 7:09 AM Stop: 7:09 AM Medication: Fentanyl Amount: 50 mcg Route: I.V. Start: 7:14 AM Stop: 7:14 AM Medication: Versed Amount: 1 mg Route: I.V. Start: 7:14 AM Stop: 7:14 AM Medication: Fentanyl Amount: 50 mcg Route: I.V. Start: 7:18 AM Stop: 7:18 AM Medication: Verapamil Amount: 5 mg Route: I.A. Start: 7:18 AM Stop: 7:18 AM Medication: Nitrogylcerin Amount: 200 mcg Route: I.A. Start: 7:18 AM Stop: 7:18 AM Medication: 0.9% Saline Amount: 250 ml Route: I.V. bolus Start: 7:20 AM Stop: 7:20 AM Medication: Versed Amount: 1 mg Route: I.V. Start: 7:21 AM Stop: 7:21 AM Medication: Heparin Amount: 5000 units Route: I.V. Start: 7:35 AM Stop: 7:35 AM Medication: 0.9% Saline Amount: 75 ml/hr Route: I.V. drip Start: 7:47 AM Stop: 7:47 AM Medication: Aggrastat 12.5 mg/250 mL Amount: 60 ml Route: I.V. bolus Start: 7:49 AM Stop: 7:49 AM Medication: Heparin Amount: 6000 units Route: I.V. Start: 7:55 AM Stop: 7:55 AM Medication: Aggrastat 12.5 mg/250 mL Amount: 21.6 ml/hr Route: I.V. drip Start: 8:09 AM Stop: 8:09 AM Medication: Plavix Amount: 600 mg Route: P.O. I, the attending physician, have reviewed and verified all procedure medications. Yes, all medications given per verbal order History/Risk Factors Hypertension: Yes Tobacco Use: Former Report Signatures Interventional Workflow Finalized by Merline Keith MD on 07/03/2020 04:18 PM Diagnostic Workflow Finalized by Dr Lance Marcano MD [facility] on 06/20/2020 06:14 PM
--- NOTE | 2020-06-20 09:19 | PC.CHAP ---
Pastoral Care Encounter/Spiritual Assessment Type of Contact [] Declined boot turner visit [] Patient/Family/Request visit [] Outpatient visit [] Follow-up visit [] Physician referral [] Code/Alert [x] Routine visit [] Staff referral [] Actively dying [] Patient sleeping [] Family support [] [] Out of room [] Palliative care [] [] Receiving care in room [] Pre-surgical visit [] Trauma [] Long length of stay [] ICU visit [] Other: Relational/Emotional Strength [] Patient feels connected with others/family/visitors/staff [] Distress [] Loneliness/isolation [] Abandonment Spirituality of Patient [x] Person of Niyah [] Attends Advent of their Niyah [] Believes in Prayer [] Reads Bible or Yazidism materials [] There are Spiritual issues to be addressed Civil Engineering Drafter Interventions [x] Prayer [x] Active listening [x] Non-anxious presence [x] Spiritual/emotional support [] Crisis/trauma care [] Spiritual counseling [] Bereavement support [] Provided bereavement packet [] Provided Bible/devotional materials [] Provided toy/stuffed animal, coloring book to patient or family member [] Provided Communion [] Anointing/[place] [] Salvation [x] Completed spiritual assessment [] Other: Impact on Illness or Injury [] Angry [x] Fearful [] Anxious [] Often cries [] Exhaustion [] Unable to work [] Unable to attend islam [] Unable to walk/stand [] Unable to read [] Unable to drive [] Unable to eat/drink [] Unable to sleep [] Unable to be with family [] Patient intubated [] Other: Summary patient having issues with situation ... sent male boot turner in to visit, in hopes perhaps patient will find more comfort. Time spent with patient 10 min
[2020-06-20] MEDS: aspirin 325 mg EC Tablet PO (09:42)
[2020-06-20] MEDS: pneumococcal (23 valent) SDV 0.5 mL IM (09:47)
[2020-06-20 11:14] LABS: Glucose Point of Care 476 mg/dL (70-110)
--- NOTE | 2020-06-20 11:35 | PC.NURSE ---
DR. PORTILLO NOTIFIED OF PATIENT BLOOD SUGAR OF 476 AND THAT PATIENT IS DIABETIC. ORDERED AGGRESSIVE SLIDING SCALE.
--- NOTE | 2020-06-20 12:07 | PC.NURSE ---
AGGRASTAT DRIP STOPPED AT 1030
--- NOTE | 2020-06-20 12:33 | PC.NURSE ---
PER DR. SOTO, PATIENT MAY USE HOME NEBULIZER AND HOME NON FORMULARY NEBULIZED MEDICATIONS. TO ADMINISTER.
--- NOTE | 2020-06-20 15:33 | PC.NURSE ---
PATIENT NOTED TO HAVE A HEMATOMA TO RIGHT WRIST. SITE BEGAN TO DEVELOP WHEN PATIENT WAS BROUGHT TO THE FLOOR AND A SECOND TR BAND WAS PLACED BY ZARIA RN AND DILIP GONZALES. DR. PORTILLO NOTIFIED. WHEN THE PATIENT'S TR BANDS WERE REMOVED, SMALL HEMATOMA WAS PRESENT. 1.5CM BY 2.[address] PORTILLO NOTIFIED OF SECOND FINDING. NO NEW ORDERS. WILL CONTINUE TO MONITOR.
[2020-06-20 15:59] LABS: Glucose Point of Care 374 mg/dL (70-110)
--- NOTE | 2020-06-20 18:20 | PC.NURSE ---
HEMATOMA IS NOW SOFT AND ONLY A BRUISE AT THIS TIME. WILL CONTINUE TO MONITOR.
--- NOTE | 2020-06-20 19:28 | PC.NURSE ---
Received report from Lilliam Helms RN. Patient resting in bed with eyes closed. Easily aroused with verbal stimuli. Patient is s/p LHC with PCI. Right radial access site. Dressing in place to site. No s/s of bleeding or further hematoma development. Bruising observed. Site is soft and supple. Discussed site care. Patient verbalized understanding. Patient denies needs or other discomforts at this time. No distress observed.
[2020-06-20 20:16] LABS: Glucose Point of Care 345 mg/dL (70-110)
[2020-06-20] MEDS: atorvastatin 40 mg Tablet 20 MG PO (20:44)
[2020-06-20] MEDS: pantoprazole DR 40 mg Tablet PO (20:44)
[2020-06-20] MEDS: losartan 50 mg Tablet PO (20:45)
[2020-06-21] VITALS (8 sets, daily range): BP systolic 109–124; BP diastolic 70–89; PULSE 72–83; RESP 14–18; TEMP 36.6–36.7; O2SAT 91–94
[2020-06-21 08:01] LABS: Glucose Point of Care 361 mg/dL (70-110)
[2020-06-21] MEDS: montelukast sodium 10 mg Tablet PO (08:51)
[2020-06-21] MEDS: levothyroxine 100 mcg Tablet 200 MCG PO (08:51)
[2020-06-21] MEDS: losartan 50 mg Tablet PO (08:51)
[2020-06-21] MEDS: aspirin 325 mg EC Tablet PO (08:51)
[2020-06-21] MEDS: dilTIAZem ER (24HR) 120 mg Capsule PO (08:51)
--- NOTE | 2020-06-21 08:59 | P.PN_ITS ---
Subjective Subjective: Interval history: Patient is feeling okay. No chest pain or palpitations. Ambulating on telemetry without any problems. Medications: Reviewed: Yes Medication Review Details: Current Medications Acetaminophen (Acetaminophen 325 Mg Tablet) 650 mg PO Q6H PRN PRN Reason: MILD PAIN Hydrocodone Bitart/Acetaminophen (Hydrocodone-Acetaminophen 5-325 Mg Tablet) 1 tab PO Q4H PRN PRN Reason: PAIN Al Hydrox/Mg Hydrox/Simethicone (Xups-Xdy-Ecmtwosjs-Allison 30 Ml Udc) 30 ml PO Q15M PRN PRN Reason: INDIGESTION Alprazolam (Alprazolam 0.25 Mg Tablet) 0.25 mg PO TID PRN PRN Reason: ANXIETY Aspirin (Aspirin 325 Mg Ec Tablet) 325 mg PO DAILY [facility] Last Admin: 06/20/20 09:42 Dose: 325 mg Documented by: Atorvastatin Calcium (Atorvastatin 40 Mg Tablet) 20 mg PO DAILY@21 [facility] Last Admin: 06/20/20 20:44 Dose: 20 mg Documented by: Atropine Sulfate (Atropine 1 Mg/Ml Sdv 1 Ml) 0.5 mg IVP PRN PRN PRN Reason: Symptomatic bradycardia Budesonide (Budesonide 0.5 Mg/2 Ml Neb) 0.5 mg INHALATION BID.RESPIRATORY HERNESTO Dextrose (Dextrose 50% Syringe 50 Ml) 25 ml IVP ONCE PRN; Protocol PRN Reason: hypoglycemia protocol Dextrose (Dextrose 50% Syringe 50 Ml) 50 ml IVP PRN PRN; Protocol PRN Reason: hypoglycemia protocol Diltiazem HCl (Diltiazem Er (24hr) 120 Mg Capsule) 120 mg PO DAILY@08 [facility] Fentanyl (Fentanyl 50 Mcg/Ml Inj 2ml) 50 mcg IVP PRN PRN PRN Reason: Prior to sheath removal Glucagon (Glucagon 1 Mg/Ml Inj 1 Ml) 1 mg IM ONCE PRN; Protocol PRN Reason: Adult Acute Hypoglycemia Prot. Dextrose (D5w) 500 mls @ 100 mls/hr IV ONCE PRN; Protocol PRN Reason: Adult Acute Hypoglycemia Prot Insulin Aspart (Insulin Aspart 100 Unit/1 Ml) 0 unit SUBCUT WM&BEDTIME [facility]; Protocol Last Admin: 06/20/20 20:43 Dose: 14 unit Documented by: Levothyroxine Sodium (Levothyroxine 100 Mcg Tablet) 200 mcg PO DAILY@08 [facility] Losartan Potassium (Losartan 50 Mg Tablet) 50 mg PO BID@08,20 [facility] Last Admin: 06/20/20 20:45 Dose: 50 mg Documented by: Magnesium Hydroxide (Magnesium Hydroxide 30 Ml Udc) 30 ml PO DAILY PRN PRN Reason: CONSTIPATION Metronidazole (Metronidazole 500 Mg Tablet) 500 mg PO BID [facility] Last Admin: 06/21/20 07:52 Dose: Not Given Documented by: Montelukast Sodium (Montelukast Sodium 10 Mg Tablet) 10 mg PO DAILY@08 [facility] Naloxone HCl (Naloxone 0.4 Mg/Ml Sdv) 0.1 mg IVP Q2M PRN PRN Reason: RESPIRATORY RATE < 8/MIN Nitroglycerin (Nitroglycerin 0.4 Mg Sublingual Tablet) 0.4 mg SUBLINGUAL Q5M PRN PRN Reason: chest pain Non-Formulary Medication (Formoterol Fumarate [Perforomist]) 2 ml INHALATION BID@ [facility] Non-Formulary Medication (Revefenacin [Yupelri]) 0 mcg dfe INHALATION DAILY [facility] Pantoprazole Sodium (Pantoprazole Dr 40 Mg Tablet) 40 mg PO DAILY@20 [facility] Last Admin: 06/20/20 20:44 Dose: 40 mg Documented by: Temazepam (Temazepam 15 Mg Capsule) 15 mg PO BEDTIME PRN PRN Reason: INSOMNIA Vitals/I&O/Wt Last Vital Signs Temp 97.8 F 06/21/20 08:00 Pulse 83 06/21/20 08:00 Resp 14 06/21/20 08:00 BP 109/70 06/21/20 08:00 Pulse Ox 92 06/21/20 08:00 06/20/20 06/21/20 06/21/20 22:59 06:59 14:59 Intake Total 240 / 600 120 / 120 Output Total 825 / 2275 400 / 2675 200 / 200 Balance -585 / -1675 -400 / -2075 -80 / -80 Weight last 48 hrs Weight 266 lb Physical Exam Narrative: EXAM NARRATIVE: GENERAL: The patient is alert and oriented times three. Not in any acute distress. HEENT: No significant pallor, icterus or lymphadenopathy.Oral cavity: There are no mucous membrane lesions. NECK: Trachea appears to be central. No masses noted. No JVD or thyromegaly appreciated. RESPIRATORY: Chest is symmetrical. No intercostals muscle retraction or any accessory muscle activation. There is no chest wall tenderness. Breath sounds are heard bilaterally. No rales or rhonchi heard. No evidence of any consolidation. BREASTS: Deferred. HEART: The heart sounds are normal. No S3 or S4. No significant murmurs. No pericardial rub ABDOMEN: No vessel pulsations or distention. No tenderness. No organomegaly appreciated. Bowel sounds are normally heard. : Deferred. RECTAL: Deferred. LYMPHATIC: No lymphadenopathy noted in the neck or groin. EXTREMITIES: No hematoma bleeding at the arterial insertion site. MUSCULOSKELETAL: No acute joint deformities or swelling SKIN: There are no significant rashes or ecchymosis NEUROPSYCHIATRIC: The patient is alert and oriented x3. Appears to be in a good mood. No tremors or rigidity noted. Const: COMMON NORMALS: alert Resp: COMMON NORMALS: clear to auscultation bilaterally AUSCULTATION: clear to auscultation bilaterally Neuro: SENSORIUM/ORIENTATION: Yes alert Data : 06/21/20 09:19 06/21/20 09:19 Other Labs: Laboratory Last Values POC Glucose 361 mg/dL (70-110) H 06/21/20 07:56 p A&P Assessment and plan (1) Atypical chest pain: Patient status post cardiac colorization revealing high-grade lesion in the LAD. Status post PCI, currently stable. May continue on the current medications. May continue on the Plavix Status: Resolved (2) Aortic root dilation: Was found to be stable based on the recent CTA. Status: Acute (3) Pulmonary nodule: This is being followed by the pulmonology. Status: Acute (4) Hypothyroidism: Patient is on thyroid replacement. Clinically he is euthyroid. Qualifiers: Hypothyroidism type: acquired Qualified Code(s): E03.9 - Hyp othyroidism, unspecified (5) Hyperlipidemia: Patient is on Lipitor. He seems to be tolerating medication so far well. Status: Acute Qualifiers: Hyperlipidemia type: mixed hyperlipidemia Qualified Code(s): E78.2 - Mixed hyperlipidemia (6) Essential (primary) hypertension: Related blood pressure is a stage II. Status: Acute (7) Diabetes: Metformin is on hold. Status: Acute Qualifiers: Diabetes mellitus type: type 2 Diabetes mellitus halfway insulin use: without long term care pharmacist use Diabetes mellitus complication status: with hyperglycemia Qualified Code(s): E11.65 - Type 2 diabetes mellitus with hyperglycemia (8) COPD (chronic obstructive pulmonary disease): Patient is being followed by the pulmonology. Status: Acute Qualifiers: COPD type: unspecified COPD Qualified Code(s): J44.9 - Chronic obstructive pulmonary disease, unspecified Additional A&P Information Patient is going to be discharged home today. Advised to hold off on the Metformin for a total of 3 days. Will be seen in the [facility] next week by the nurse practitioner. Discussed about diet, exercise and medications. I may see him in the office as scheduled Attestations Medical Necessity Statement*: Discharge home today Coding Level of Care Code Acute Craft Superintendent for g Fwd Diagnoses Atypical chest pain R07.89 Aortic root dilation I77.810 Pulmonary nodule R91.1 Hypothyroidism E03.9 Hypothyroidism type: acquired Hyperlipidemia E78.2 Hyperlipidemia type: mixed hyperlipidemia Essential (primary) hypertension I10 Diabetes E11.65 Diabetes mellitus type: type 2 Diabetes mellitus halfway insulin use: without long term care pharmacist use Diabetes mellitus complication status: with hyperglycemia COPD (chronic obstructive pulmonary disease) J44.9 COPD type: unspecified COPD
--- NOTE | 2020-06-21 09:25 | PC.CHAP ---
Pastoral Care Encounter/Spiritual Assessment Type of Contact [] Declined habilitation training specialist visit [] Patient/Family/Request visit [] Outpatient visit [] Follow-up visit [] Physician referral [] Code/Alert [x] Routine visit [] Staff referral [] Actively dying [] Patient sleeping [] Family support [] [] Out of room [] Palliative care [] [] Receiving care in room [] Pre-surgical visit [] Trauma [] Long length of stay [] ICU visit [] Other: Relational/Emotional Strength [] Patient feels connected with others/family/visitors/staff [] Distress [] Loneliness/isolation [] Abandonment Spirituality of Patient [] Person of Niyah [] Attends Buddhist of their Niyah [] Believes in Prayer [] Reads Bible or Muslim materials [] There are Spiritual issues to be addressed Strip Deburrer Interventions [x] Prayer [x] Active listening [x] Non-anxious presence [x] Spiritual/emotional support [] Crisis/trauma care [] Spiritual counseling [] Bereavement support [] Provided bereavement packet [] Provided Bible/devotional materials [] Provided toy/stuffed animal, coloring book to patient or family member [] Provided Communion [] Anointing/[place] [] Salvation [x] Completed spiritual assessment [] Other: Impact on Illness or Injury [] Angry [] Fearful [] Anxious [] Often cries [] Exhaustion [] Unable to work [] Unable to attend zoroastrianism [] Unable to walk/stand [] Unable to read [] Unable to drive [] Unable to eat/drink [] Unable to sleep [] Unable to be with family [] Patient intubated [] Other: Summary patient much better today... visit from family made a big difference Time spent with patient 10 min
[2020-06-21 09:45] LABS: Blood Urea Nitrogen 20 mg/dL (8-23); Calcium 9.3 mg/dL (8.5-10.5); Carbon Dioxide 25 mmol/L (22-29); Chloride 98 mmol/L (98-107); Glomerular Filtration Rate 96.7 mL/min (90-130); Glucose 412 mg/dL (65-115); Osmolality Calculated 292 mOsm/kg (285-295); Sodium 131 mmol/L (136-145)
[2020-06-21 09:46] LABS: Anion Gap 12.5 (5-19); Potassium 4.5 mmol/L (3.5-5.1)
[2020-06-21] MEDS: budesonide 0.5 mg/2 mL Neb INHALATION ×2 (10:13)
[2020-06-21 11:02] LABS: Glucose Point of Care 354 mg/dL (70-110)
--- NOTE | 2020-06-21 11:33 | PC.NURSE ---
DISCHARGE EDUCATION PROVIDED TO PATIENT AND . MEDICATIONS SENT TO [facility]. EFFIENT CARD PROVIDED TO PATIENT TO HELP WITH THE COST. NO QUESTIONS OVER DISCHARGE INSTRUCTIONS. PROVIDED WITH HOSPITAL AND DOCTOR PHONE NUMBER FOR QUESTIONS.
--- NOTE | 2020-06-22 16:55 | PC.RESP ---
Patient is currently active and compliant with Pulmonary Rehab.
== END 2020-06-21 11:33 | disposition home or self-care (01) ==
LOC: CCL 08:47 → CSU 09:46
PROVIDERS: Internal Medicine Cardiovascular Disease; Admitting Provider Internal Medicine Cardiovascular Disease; PCP Electrodiagnostic Medicine; Visit Provider Internal Medicine Cardiovascular Disease
DX: R07.89 Other chest pain (principal); I77.810 Thoracic aortic ectasia; R91.1 Solitary pulmonary nodule; Z23 Encounter for immunization; E03.9 Hypothyroidism, unspecified; E78.2 Mixed hyperlipidemia; I10 Essential (primary) hypertension; E11.65 Type 2 diabetes mellitus with hyperglycemia; J44.9 Chronic obstructive pulmonary disease, unspecified; Z79.4 Long term (current) use of insulin; E78.5 Hyperlipidemia, unspecified; Z87.891 Personal history of nicotine dependence
CPT/HCPCS: 12345; 36415; 36416; 80048; 82962; 85347; 90471; 90732; 93452; 94640; 96372; C1725; C1769; C1874; C1887; C1894; C9600; G0378; J1644; J1815; J2250; J3010; J3246; J3490; J7030; J7626; Q0163; Q9967

== ENCOUNTER → 2020-06-28 10:28 | Outpatient (BNVA) | payer MEDICARE, OTHER, SELFPAY | PROVIDERS: PCP Electrodiagnostic Medicine; Visit Provider Nurse Practitioner Family | DX: I25.119 Atherosclerotic heart disease of native coronary artery with unspecified angina pectoris (principal) | CPT/HCPCS: 80048 ==

== ENCOUNTER 2020-07-12 10:14 | Outpatient (CLI) | payer MEDICARE, OTHER, SELFPAY ==
--- NOTE | 2020-07-12 10:26 | XR_ITS ---
WS: [id number] Exam: XR chest 2V* [id number] Date/Time of Exam: 07/12/2020 10:26 AM Reason For Exam: COPD/CHEST PAIN/ACUTE RESPIRATORY FAILURE Comparison 05/15/2020. The lungs are hyperinflated and clear. Normal cardiomediastinal structures. Bony elements are grossly intact. No pleural effusions. XR/XR chest 2V* [id number] IMPRESSION: 1. Pulmonary hyperinflation which may indicate obstructive lung disease. No acu te process.
== END 2020-07-12 10:15 | disposition home or self-care (01) ==
PROVIDERS: PCP Electrodiagnostic Medicine; Visit Provider Electrodiagnostic Medicine
DX: J44.9 Chronic obstructive pulmonary disease, unspecified (principal); R07.9 Chest pain, unspecified; J96.90 Respiratory failure, unspecified, unspecified whether with hypoxia or hypercapnia
CPT/HCPCS: 71046

== ENCOUNTER 2020-07-18 06:00 | Outpatient (RCR) | payer MEDICARE, OTHER, SELFPAY | END 2020-08-17 23:59 | disposition home or self-care (01) | LOC: PULRHB 06:00 | PROVIDERS: PCP Electrodiagnostic Medicine; Visit Provider Student in an Organized Health Care Education/Training Program | DX: J44.9 Chronic obstructive pulmonary disease, unspecified (principal) | CPT/HCPCS: G0424 ==

== ENCOUNTER 2020-08-24 09:05 | Outpatient (CLI) | payer MEDICARE, OTHER, SELFPAY ==
--- NOTE | 2020-08-24 09:34 | NMCV_ITS ---
NM isadora perf SPECT r/s* [id number] Vega Wilcox Age: 65 Gender: M : 1955 Exam Date: 08/24/2020 10:36 Ordering Phys: Lance Marcano MD ([email or web address]) Technologist: MARY ANN Soto Exam Location: [facility] Indications: SHORTNESS OF BREATH AND CHEST PAIN STRESS TEST Please see separate stress test report in Ephiphany for full findings IMAGE PROTOCOL Rest/Stress 1 Lexiscan Day Radiopharmaceutical Dose (mCi) Administration Site Administered by Rest: Tc-99m 10.9 IV MARY ANN Whittaker Sestamibi Stress:Tc-99m 33.0 IV MARY ANN Whittaker Sestamibi Rest: 24-Aug-2020 60 Discovery 630 Stress: 24-Aug-2020 30 Discovery 630 0.4mg Lexiscan. Images obtained in supine and prone position. SPECT RESULTS Technical Quality: Excellent Raw Data Analysis: Normal Image Corrections: No attenuation or motion correction applied Summed Stress Score: 1 Summed Rest Score: 0 Summed Difference Score: 1 PERFUSION FINDINGS Small area of decreased tracer uptake in the mid and apical nferior wall region, with no significant reversibility. A very small area of slightly decreased tracer uptake in the mid anterolateral region with reversibility suggestive of ischemia in the distribution of the left circumflex artery. FUNCTIONAL RESULTS (calculated via Gated SPECT) Stress Image LV EF (%): 64 Stress EDV (mL):137 TID: 0.99 Stress ESV (mL):49 FUNCTIONAL FINDINGS: Segmental wall motion analysis revealing no gross wall motion normalities. IMPRESSIONS 1. Myocardial perfusion may revealing a small area of moderately decreased persistent tracer uptake in the mid and apical inferior wall region suggestive of myocardial scarring versus attenuation artifact. 2. Normal LV ejection fraction 64%. 3. LV wall motion analysis revealing no gross wall motion normalities. 4. LV volume , slightly elevated to 49 ml 5. A small area of inconsistent reversible defect in the mid anterolateral region, possibly artifactual Possibly no significant coronary ischemia, based on the above findings Dr Lance Marcano MD [facility] (Electronically Signed) Final Date: 24 August 2020 18:45 S
--- NOTE | 2020-08-24 09:34 | ECG_ITS ---
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 Interpretive Statements NAME OF STUDY: LEXISCAN SESTAMIBI STRESS TEST INDICATION: Chest Pain, PROCEDURE: At the baseline, the EKG revealed normal sinus rhythm with some nonspecific ST changes. The baseline blood pressure was 176/86 mm Hg with a heart rate of 77 beats/min. Lexiscan was infused over a period of 20 seconds. A total of 0.4 milligrams of Lexiscan was infused. The stress phase was continued for a total of 5 minutes. Heart rate at the end of the stress phase was 85 with a blood pressure 147/75. The EKG at the peak infusion revealed no significant changes. Sestamibi was injected 20 seconds after the Lexiscan infusion. Blood pressure at the end of the recovery phase was 152/75 with a heart rate of 84 per minute. CONCLUSION: 1. No significant EKG changes with the LexiScan infusion 2. No LexiScan induced chest pain or cardiac arrhythmia 3. Normal blood pressure and heart rate response 4. Sestamibi/sestamibi perfusion scan pending; see separate report. Electronically Signed On 08-25-2020 9:04:34 CDT by Lance Marcano M.D. [email or web address]
[2020-08-24 09:35] VITALS: BMI 36.9
[2020-08-24 11:21] VITALS: BP 143/82; PULSE 90
[2020-08-24] MEDS: regadenoson 0.4 Mg/5 ml Syringe IVP (11:40)
== END 2020-08-24 09:06 | disposition home or self-care (01) ==
LOC: RAD 09:08
PROVIDERS: PCP Electrodiagnostic Medicine; Visit Provider Internal Medicine Cardiovascular Disease
DX: R07.9 Chest pain, unspecified (principal); R06.02 Shortness of breath
CPT/HCPCS: 78452; 93017; A9500; J2785

== ENCOUNTER 2020-09-12 19:12 | Observation (INO) | payer MEDICARE, OTHER, SELFPAY ==
[2020-09-12 19:31] VITALS: BP 120/75; PULSE 66; RESP 22; TEMP 36.4; O2SAT 95; BMI 36.9
--- NOTE | 2020-09-12 19:44 | XR_ITS ---
WS: [id number] Exam: XR chest 1V portable [id number] Date/Time of Exam: 09/12/2020 7:44 PM Reason For Exam: sob Comparison 07/12/2020. Small infiltrate and/or atelectasis has developed along the left heart border since prior study. Shreya ining lung plummer are clear. There is pulmonary hyperinflation. Normal cardiomediastinal structures a nd regional bony elements. XR/XR chest 1V portable [id number] IMPRESSION: 1. Small infiltrate and/or atelectasis has developed along the left heart borde r since previous exam that may represent developing pneumonia. 2. Pulmonary hyperinflation..
--- NOTE | 2020-09-12 19:44 | CTR_ITS ---
PROCEDURE INFORMATION: Exam: CT Head Without Contrast Exam date and time: 09/12/2020 7:47 PM Age: 65 years old Clinical indication: Altered mental status/memory loss; Confusion or disorientation; Additional info: AMS TECHNIQUE: Imaging protocol: Computed tomography of the head without contrast. Total images: 208 Radiation optimization: All CT scans at this facility use at least one of these dose optimization techniques: automated exposure control; mA and/or kV adjustment per patient size (includes targeted exams where dose is matched to clinical indication); or iterative reconstruction. COMPARISON: No relevant prior studies available. RADIATION DOSE METRICS: Total DLP (mGy-cm): 985.37 FINDINGS: Brain: No evidence of active or acute intracranial pathologic process, hemorrhage, or trauma. No visible evidence of diffuse cerebral edema or generalized demyelination. No visible hyperdense MCA or insular ribbon sign. No mass effect. No midline shift. Cerebral ventricles: No ventriculomegaly. Bones/joints: Unremarkable. No acute fracture. Paranasal sinuses: No visible evidence of active paranasal sinus disease. Mastoid air cells: Visualized mastoid air cells are well aerated. Soft tissues: Unremarkable. Other findings: Motion artifact. CT/CT head wo con* [id number] IMPRESSION: No evidence of active or acute intracranial pathologic process, hemorrhage, or trauma. Radiation Dose CTDIVOL = (mGy): DLP = 985.37 (mGy-cm)
[2020-09-12 19:45] LABS: Glucose Point of Care 131 mg/dL (70-110)
--- NOTE | 2020-09-12 19:49 | W.ED.AMS ---
HPI - Altered Mental Status General: Chief Complaint: Altered Mental Status Stated Complaint: confusion/forgetting things Time Seen by Provider: 09/12/20 19:38 Source: patient and family Limitations: altered mental status History of Present Illness: HPI narrative: 65-year-old male states that he is been having confusion throughout the day. states that started this morning and he is quite confused. States he is typically completely normal and with that but today he has been talking about his father who is been for years. He is not able to tell me the year or where he is at. The only question he can answers his name. He was diagnosed with a bronchitis on Saturday and has been on steroids and antibiotics. He denies any headache or chest pain. No recent injuries. He has no focal complaints. Associated symptoms: Deny depression Review of Systems Const: Denies: fever(s), chills, body aches or change in appetite Eyes: Denies: blurry vision or eye discomfort ENMT: Denies: throat pain or dental pain Card: Denies: chest pain Resp: Reports: non-productive cough; Denies: dyspnea GI: Denies: abdominal pain, nausea, vomiting or diarrhea : Denies: dysuria Musc: Denies: neck pain or back pain Skin/Breast: Denies: rash Neuro: Reports: confusion; Denies: headache(s) Psych: Denies: depression Brandon/Lymph: Denies: easy bruising All/Imm: Denies: urticaria PFSH ED PFSH: Medical History AAA (abdominal aortic aneurysm) without rupture Allergic rhinitis Aortic root dilation Atypical chest pain BPH loc w urin obs/LUTS COPD (chronic obstructive pulmonary disease) DDD (degenerative disc disease) Diabetes Essential (primary) hypertension GERD (gastroesophageal reflux disease) Hyperglycemia Hyperlipidemia Hypothyroidism Intervertebral disc disorders with radiculopathy, lumbosacral region Lumbar disc disease with radiculopathy Scoliosis of lumbar region due to degenerative disease of spine in adult Testicular mass Thoracic aortic aneurysm, without rupture Surgical History H/O hernia repair Family History Mother Diabetes, Onset Age: 69 Father Cancer, Onset Age: 80 Lung Heart disease Lung disease Brother Diabetes Other Lupus Denies family history of Clotting disorder Dementia Chronic kidney disease (CKD) Suicide Anesthesia complication Bleeding disorder Stroke Social History Smoking and tobacco status: former smoker Quit status (tobacco): has quit using tobacco Year quit tobacco: 2019 - 2PPD x 50 Years Alcohol intake: never Lives independently: Yes Household members: spouse Marital status: Current occupational status: disabled History of recent travel: No Current gender identity: Male Physical Exam Const: COMMON NORMALS: no acute distress and healthy appearing; negative for patient oriented x3 ORIENTATION/CONSCIOUSNESS: Yes oriented to person; not oriented to place and not oriented to time HENMT: COMMON NORMALS: normocephalic and atraumatic HEAD & SCALP: normocephalic and atraumatic Eye: COMMON NORMALS: Equal, round and reactive pupils present and EOMs intact bilaterally PUPIL: Yes Equal, round and reactive pupils present Neck/C-Spine: COMMON NORMALS: full ROM and supple Chest: COMMONS NORMALS: normal inspection of the chest and normal palpation of entire chest wall Resp: COMMON NORMALS: normal respiratory effort, No retractions, No use of accessory muscles and clear to auscultation bilaterally AUSCULTATION: clear to auscultation bilaterally Cardio: COMMON NORMALS: regular rate, regular rhythm and No murmurs present (Cardio) RATE: regular rate RHYTHM: regular rhythm GI: COMMON NORMALS: Normal to inspection, nondistended, normoactive bowel sounds present, Soft to palpation, non-tender and no masses PALPATION: Yes Soft to palpation Extremity: COMMON NORMALS: normal to inspection and full ROM Neuro: COMMON NORMALS: moves all extremities and no focal motor deficits; negative for patient oriented x3 SENSORIUM/ORIENTATION: Yes oriented to person, No oriented to place and No oriented to time CRANIAL NERVES: Yes CN normal except as noted SPEECH: speech normal GAIT: Yes Normal gait present Psych: COMMON NORMALS: mental status grossly normal and cooperative; negative for Normal thought process present THOUGHT PROCESS: abnormal Skin: COMMON NORMALS: no rashes or lesions noted and no wounds GENERAL SKIN EXAM: no rashes or lesions noted Course Vital Signs: Vital signs: Vital Signs Temperature 97.5 F L 09/12/20 19:31 Pulse Rate 78 09/12/20 21:25 Respiratory Rate 18 09/12/20 21:25 Blood Pressure 178/96 09/12/20 21:25 Pulse Oximetry 96 09/12/20 21:25 MDM - Altered Mental Status MDM Narrative: Medical decision making narrative: Been presents here with altered mental status. Patient is only alert to self. He has no other focal deficits and his last known well was early this morning. He is not a TPA candidate. Blood work and CT head are all normal. I spoke to hospitalist will admit for observation. Lab Data: Labs: Lab Results 09/12/20 09/12/20 09/12/20 Range/Units 19:41 20:30 20:30 WBC 12.5 H (4.0-10.0) 10^3/ uL RBC 5.23 (4.1-5.3) 10^6/u L Hgb 15.3 (11.7-16.6) g/dL Hct 47.3 (42.0-52.0) % MCV 90.4 (80-94) fL MCH 29.3 (28.0-34.0) pg MCHC 32.3 (30.0-36.0) g/dL RDW 13.0 (12.1-15.1) % Plt Count 245 (130-400) 10^3/c mm MPV 11.2 H (7.4-10.4) fL Neut % (Auto) 59.9 % Lymph % (Auto) 23.9 % Oxford % (Auto) 14.4 % Eos % (Auto) 0.7 % Baso % (Auto) 0.5 % Neut # (Auto) 7.50 (1.8-7.7) 10^3/u L Lymph # (Auto) 3.0 (0.8-4.8) 10^3/u L Oxford # (Auto) 1.8 H (0.2-0.9) 10^3/u L Eos # (Auto) 0.1 (0.0-0.8) 10^3/u L Baso # (Auto) 0.1 (0.0-0.1) 10^3/u L Nucleated RBC % (a uto) 0 % Nucleated RBCs # 0.0 /100WBC PT (12.1-14.9) SECO NDS INR (0.8-1.2) Specimen Type Sample Site ABG pH (7.35-7.45) ABG pCO2 (35-45) mmHg ABG pO2 (80.0-100.0) mmH g ABG HCO3 (22-26) mmol/L ABG Base Excess (-2.0-2.0) mmol/ L Drew Test Hematocrit (42-52) % O2 Delivery Device FiO2 % Chief Of Staff Doctor ID Sodium 138 (136-145) mmol/L Potassium 4.2 (3.5-5.1) mmol/L Chloride 102 (98-107) mmol/L Carbon Dioxide 25 (22-29) mmol/L Anion Gap 15.2 (5-19) BUN 17 (8-23) mg/dL Creatinine 1.1 (0.7-1.2) mg/dL GFR Calculation 66.8 L (90-130) mL/min Glucose 102 (65-115) mg/dL POC Glucose 131 H (70-110) mg/dL Calculated Osmolal ity 288 (285-295) mOsm/k g Calcium 8.9 (8.5-10.5) mg/dL Magnesium 1.9 (1.7-2.3) mg/dL Total Bilirubin 0.3 (0.15-1.2) mg/dL AST 22 (0-40) U/L ALT 33 (0-41) U/L Alkaline Phosphata se 82 (40-130) IU/L Ammonia (16-60) umol/L Troponin T Baselin e (0-15) ng/L Total Protein 7.0 (6.6-8.7) g/dL Albumin 4.5 (3.5-5.2) g/dL Globulin 2.5 (1.3-4.6) g/dL Urine Color (Yellow) Urine Appearance (CLEAR) Urine pH (5-7) Ur Specific Gravit y (1.005-1.030) Urine Protein (Negative) Urine Glucose (UA) (Normal) Urine Ketones (Negative) Urine Blood (Negative) Urine Nitrate (Negative) Urine Bilirubin (Negative) Urine Urobilinogen (Negative) mg/dL Ur Leukocyte Margie ase (Negative) Ethyl Alcohol < 10 (0-10) mg/dL 09/12/20 09/12/20 09/12/20 Range/Units 20:30 20:43 20:43 WBC (4.0-10.0) 10^3/ uL RBC (4.1-5.3) 10^6/u L Hgb (11.7-16.6) g/dL Hct (42.0-52.0) % MCV (80-94) fL MCH (28.0-34.0) pg MCHC (30.0-36.0) g/dL RDW (12.1-15.1) % Plt Count (130-400) 10^3/c mm MPV (7.4-10.4) fL Neut % (Auto) % Lymph % (Auto) % Oxford % (Auto) % Eos % (Auto) % Baso % (Auto) % Neut # (Auto) (1.8-7.7) 10^3/u L Lymph # (Auto) (0.8-4.8) 10^3/u L Oxford # (Auto) (0.2-0.9) 10^3/u L Eos # (Auto) (0.0-0.8) 10^3/u L Baso # (Auto) (0.0-0.1) 10^3/u L Nucleated RBC % (a uto) % Nucleated RBCs # /100WBC PT 12.90 (12.1-14.9) SECO NDS INR 0.94 (0.8-1.2) Specimen Type Sample Site ABG pH (7.35-7.45) ABG pCO2 (35-45) mmHg ABG pO2 (80.0-100.0) mmH g ABG HCO3 (22-26) mmol/L ABG Base Excess (-2.0-2.0) mmol/ L Drew Test Hematocrit (42-52) % O2 Delivery Device FiO2 % Chief Of Staff Doctor ID Sodium (136-145) mmol/L Potassium (3.5-5.1) mmol/L Chloride (98-107) mmol/L Carbon Dioxide (22-29) mmol/L Anion Gap (5-19) BUN (8-23) mg/dL Creatinine (0.7-1.2) mg/dL GFR Calculation (90-130) mL/min Glucose (65-115) mg/dL POC Glucose (70-110) mg/dL Calculated Osmolal ity (285-295) mOsm/k g Calcium (8.5-10.5) mg/dL Magnesium (1.7-2.3) mg/dL Total Bilirubin (0.15-1.2) mg/dL AST (0-40) U/L ALT (0-41) U/L Alkaline Phosphata se (40-130) IU/L Ammonia 37 (16-60) umol/L Troponin T Baselin e 8 (0-15) ng/L Total Protein (6.6-8.7) g/dL Albumin (3.5-5.2) g/dL Globulin (1.3-4.6) g/dL Urine Color (Yellow) Urine Appearance (CLEAR) Urine pH (5-7) Ur Specific Gravit y (1.005-1.030) Urine Protein (Negative) Urine Glucose (UA) (Normal) Urine Ketones (Negative) Urine Blood (Negative) Urine Nitrate (Negative) Urine Bilirubin (Negative) Urine Urobilinogen (Negative) mg/dL Ur Leukocyte Margie ase (Negative) Ethyl Alcohol (0-10) mg/dL 09/12/20 09/12/20 Range/Units 20:50 20:55 WBC (4.0-10.0) 10^3/ uL RBC (4.1-5.3) 10^6/u L Hgb (11.7-16.6) g/dL Hct (42.0-52.0) % MCV (80-94) fL MCH (28.0-34.0) pg MCHC (30.0-36.0) g/dL RDW (12.1-15.1) % Plt Count (130-400) 10^3/c mm MPV (7.4-10.4) fL Neut % (Auto) % Lymph % (Auto) % Oxford % (Auto) % Eos % (Auto) % Baso % (Auto) % Neut # (Auto) (1.8-7.7) 10^3/u L Lymph # (Auto) (0.8-4.8) 10^3/u L Oxford # (Auto) (0.2-0.9) 10^3/u L Eos # (Auto) (0.0-0.8) 10^3/u L Baso # (Auto) (0.0-0.1) 10^3/u L Nucleated RBC % (a uto) % Nucleated RBCs # /100WBC PT (12.1-14.9) SECO NDS INR (0.8-1.2) Specimen Type Arterial Sample Site Radial, right ABG pH 7.43 (7.35-7.45) ABG pCO2 41.8 (35-45) mmHg ABG pO2 62.3 L (80.0-100.0) mmH g ABG HCO3 27.7 H (22-26) mmol/L ABG Base Excess 3.0 H (-2.0-2.0) mmol/ L Drew Test Pos Hematocrit 48.5 (42-52) % O2 Delivery Device Room air FiO2 21.0 % Chief Of Staff Doctor ID Jlg Sodium (136-145) mmol/L Potassium (3.5-5.1) mmol/L Chloride (98-107) mmol/L Carbon Dioxide (22-29) mmol/L Anion Gap (5-19) BUN (8-23) mg/dL Creatinine (0.7-1.2) mg/dL GFR Calculation (90-130) mL/min Glucose (65-115) mg/dL POC Glucose (70-110) mg/dL Calculated Osmolal ity (285-295) mOsm/k g Calcium (8.5-10.5) mg/dL Magnesium (1.7-2.3) mg/dL Total Bilirubin (0.15-1.2) mg/dL AST (0-40) U/L ALT (0-41) U/L Alkaline Phosphata se (40-130) IU/L Ammonia (16-60) umol/L Troponin T Baselin e (0-15) ng/L Total Protein (6.6-8.7) g/dL Albumin (3.5-5.2) g/dL Globulin (1.3-4.6) g/dL Urine Color Yellow (Yellow) Urine Appearance Clear (CLEAR) Urine pH 5 (5-7) Ur Specific Gravit y 1.020 (1.005-1.030) Urine Protein Neg (Negative) Urine Glucose (UA) Norm (Normal) Urine Ketones 1+ H (Negative) Urine Blood Neg (Negative) Urine Nitrate Negative (Negative) Urine Bilirubin Neg (Negative) Urine Urobilinogen Norm (Negative) mg/dL Ur Leukocyte Margie ase Negative (Negative) Ethyl Alcohol (0-10) mg/dL Imaging Data^: CT Head: Attestation: I personally reviewed and interpreted this imaging study as follows: Radiologist's impression: [employer] [address] [address] Scan Report Signed Patient: Vega Wilcox Unit #: [id number] : 1955 Age/Sex: 65 / M ADM Date: 09/12/20 Loc: ER Room/Bed: Attending Dr: Ordering Provider/Ordering MD: Carlos Alberto Brasher MD Date of Service: 09/12/20 Procedure(s): CT head wo con* [id number] Accession Number(s): [id number] Report Number: [id number] PROCEDURE INFORMATION: Exam: CT Head Without Contrast Exam date and time: 09/12/2020 7:47 PM Age: 65 years old Clinical indication: Altered mental status/memory loss; Confusion or disorientation; Additional info: AMS TECHNIQUE: Imaging protocol: Computed tomography of the head without contrast. Total images: 208 Radiation optimization: All CT scans at this facility use at least one of these dose optimization techniques: automated exposure control; mA and/or kV adjustment per patient size (includes targeted exams where dose is matched to clinical indication); or iterative reconstruction. COMPARISON: No relevant prior studies available. RADIATION DOSE METRICS: Total DLP (mGy-cm): 985.37 FINDINGS: Brain: No evidence of active or acute intracranial pathologic process, hemorrhage, or trauma. No visible evidence of diffuse cerebral edema or generalized demyelination. No visible hyperdense MCA or insular ribbon sign. No mass effect. No midline shift. Cerebral ventricles: No ventriculomegaly. Bones/joints: Unremarkable. No acute fracture. Paranasal sinuses: No visible evidence of active paranasal sinus disease. Mastoid air cells: Visualized mastoid air cells are well aerated. Soft tissues: Unremarkable. Other findings: Motion artifact. CT/CT head wo con* [id number] IMPRESSION: No evidence of active or acute intracranial pathologic process, hemorrhage, or trauma. EKG Data^: EKG 1: Attestation: I personally reviewed and interpreted this EKG as follows: EKG interpretation date: 09/12/20 EKG interpretation time: 21:15 Interpretation: nsr hr [address] or t wave abnormalities qrs 93 qtc 413 Discharge Plan Discharge Prescriptions: No Action atorvastatin [Lipitor] 20 mg tablet 20 mg PO DAILY@21 RF: 0 metformin 500 mg tablet 500 mg PO DAILY@08 RF: 0 Hold Instructions: Resume on 06/23/20. losartan 50 mg tablet 50 mg PO BID@08,20 RF: 0 nitroglycerin 0.4 mg tablet, sublingual 0.4 mg sublingual Q5M PRN (Reason: chest pain) 30 Days Qty: 30 RF: 3 glimepiride 2 mg tablet 2 mg PO DAILY@0800,1200 RF: 0 pantoprazole 40 mg tablet,delayed release (DR/EC) 40 mg PO DAILY@0800 RF: 0 furosemide 20 mg tablet 10 mg PO DAILY@0800 RF: 0 revefenacin [Yupelri] 175 mcg/3 mL solution for nebulization See Rx Instructions .ROUTE .COMPLEX Qty: 30 RF: 11 montelukast 10 mg Tablet 10 mg PO DAILY@08 RF: 0 budesonide [Pulmicort] 0.5 mg/2 mL suspension for nebulization 0.5 mg inhalation BID@,20 RF: 0 Perforomist 20 mcg/2 mL solution for nebulization 2 ml inhalation BID@,20 RF: 0 omeprazole 40 mg capsule,delayed release(DR/EC) 40 mg PO DAILY@1999 RF: 0 Euthyrox 50 mcg tablet 50 mcg PO DAILY@0800 RF: 0 levothyroxine 200 mcg tablet 200 mcg PO DAILY@0800 RF: 0 doxycycline hyclate 100 mg capsule 100 mg PO BID@799,1999 RF: 0 prednisone 20 mg tablet 20 mg PO DAILY@0800 RF: 0 Aspirin Low Dose 81 mg tablet,delayed release (DR/EC) 81 mg PO DAILY@0800 RF: 0 diltiazem HCl 120 mg capsule,extended release 12 hr 120 mg PO DAILY@0800 RF: 0 Effient 10 mg tablet 10 mg PO DAILY@0800 RF: 0 Coding Level of Care Code ED Ocean Export Agent for Halle Degroot Exam Comprehensive NIH stroke score NIHSS Level Of Consciousness - 1a: 0 Level Of Consciousness Questions - 1b: Both Correct Level Of Consciousness Commands - 1c: Both Correct Best Gaze - 2: Normal Visual Munguia - 3: No Visual Loss Facial Palsy - 4: Normal Motor Arm Right - 5: No Drift Motor Arm Left - 5: No Drift Motor Leg Right - 6: No Drift Motor Leg Left - 6: No Drift Limb Ataxia - 7: Absent Sensory - 8: Normal Best Language - 9: No Aphasia Dysarthia - 10: Normal Extinction And Inattention - 11: 0 Score Total Score: 0
[2020-09-12 20:41] LABS: Basophils # 0.1 10^3/uL (0.0-0.1); Basophils % 0.5 %; Eosinophils # 0.1 10^3/uL (0.0-0.8); Eosinophils % 0.7 %; Hematocrit 47.3 % (42.0-52.0); Hemoglobin 15.3 g/dL (11.7-16.6); Lymphocytes % 23.9 %; Mean Corpuscular HGB Conc 32.3 g/dL (30.0-36.0); Mean Corpuscular Hemoglobin 29.3 pg (28.0-34.0); Mean Corpuscular Volume 90.4 fL (80-94); Mean Platelet Volume 11.2 fL (7.4-10.4); Monocytes # 1.8 10^3/uL (0.2-0.9); Monocytes % 14.4 %; Neutrophils % 59.9 %; Nucleated Red Blood Cells % 0 %; Platelet Count 245 10^3/cmm (130-400); Red Blood Count 5.23 10^6/uL (4.1-5.3); White Blood Count 12.5 10^3/uL (4.0-10.0)
[2020-09-12 21:03] LABS: Ammonia 37 umol/L (16-60)
[2020-09-12 21:04] LABS: INR 0.94 (0.8-1.2)
[2020-09-12 21:05] LABS: Add Urine Microscopic? NO; Charge for UA Resulting for Rev
[2020-09-12 21:08] LABS: ABG PCO2 41.8 mmHg (35-45); ABG PH Result 7.43 (7.35-7.45); Arterial Blood Gas Hematocrit 48.5 % (42-52); Blood Gas Allen Test Pos; Blood Gas Sample Site Radial, right; Blood Gas Sample Type Arterial; HCO3 ABG 27.7 mmol/L (22-26); Oxygen Device ROOM AIR; PO2 ABG 62.3 mmHg (80.0-100.0)
[2020-09-12 21:13] LABS: Bilirubin Urine Neg (Negative); Blood Urine Neg (Negative); Glucose Urine UA Norm (Normal); Ketones Urine 1+ (Negative); Leukocyte Esterase Urine Negative (Negative); Nitrate Urine Negative (Negative); Protein Urine Neg (Negative); Urine Appearance Clear (CLEAR); Urine Color Yellow (Yellow); Urobilinogen Urine Norm (Negative); pH Urine 5 (5-7)
[2020-09-12 21:17] LABS: Alanine Aminotransferase 33 U/L (0-41); Albumin Level 4.5 g/dL (3.5-5.2); Alkaline Phosphatase 82 IU/L (40-130); Aspartate Amino Transferase 22 U/L (0-40); Blood Urea Nitrogen 17 mg/dL (8-23); Calcium 8.9 mg/dL (8.5-10.5); Carbon Dioxide 25 mmol/L (22-29); Chloride 102 mmol/L (98-107); Globulin 2.5 g/dL (1.3-4.6); Glomerular Filtration Rate 66.8 mL/min (90-130); Glucose 102 mg/dL (65-115); Magnesium 1.9 mg/dL (1.7-2.3); Osmolality Calculated 288 mOsm/kg (285-295); Sodium 138 mmol/L (136-145); Total Bilirubin 0.3 mg/dL (0.15-1.2)
[2020-09-12 21:18] LABS: Troponin(5th) Baseline 8 ng/L (0-15)
[2020-09-12 21:25] VITALS: BP 178/96; PULSE 78; RESP 18; O2SAT 96
[2020-09-12 21:30] LABS: Alcohol Level < 10 mg/dL (0-10); Anion Gap 15.2 (5-19); Potassium 4.2 mmol/L (3.5-5.1)
--- NOTE | 2020-09-12 21:46 | ECG_ITS ---
[facility] Test Date: 2020-09-12 Pat Name: Vega Wilcox Department: Room: Gender: Male Pony Trimmer: : 1955 Requested By: Carlos Alberto Brasher Order Number: [id number] Reading MD: SHERIF PORTILLO Measurements Intervals [place] Rate: 63 P: -3 CA: 185 QRS: 83 QRSD: 93 T: 65 QT: 406 QTc: 416 Interpretive Statements SINUS RHYTHM WITH OCCASIONAL VENTRICULAR PREMATURE COMPLEXES Compared to ECG 05/15/2020 16:38:20 Ventricular premature complex(es) now present Sinus bradycardia no longer present First degree AV block no longer present Electronically Signed On 09-12-2020 21:24:28 CDT by SHERIF PORTILLO [email or web address]
--- NOTE | 2020-09-12 22:11 | P.HP_ITS ---
Providers/Chief Complaint Primary Care Provider: Ab Grubbs DO Chief Complaint: confusion/forgetting things History of Present Illness Vega Wilcox is a 65 year old male who has history of hypothyroidism, type 2 diabetes, presented today with chief complaint of confusion. brought him to the hospital stating this is the worst episode of confusion. She has noticed brief episodes of confusion in the past which would last for a few seconds to minutes but today her has been acting bizarre and very forgetful throughout the day. He thinks he is 6o years old and his parents today, he is not sure where he lives, not sure about his working status and unable to recall events of the day. is managing his finances. has not noticed any facial droop, slurring of speech or motor weakness. No strokelike symptoms at all were witnessed. Patient is denying chest pain, shortness of breath, neck pain, headache, blurry vision, he does not drink alcohol. At the time my evaluation he is able to tell me his name, his children's name, thinks he is back to baseline. Diagnostics in the ER revealed normal CT head normal blood work chest x-ray showed COPD changes with bronchitis, of note, he was recently started on doxycycline and prednisone 20 mg, today he took her dose of prednisone. Review of Systems Const: Denies: fever(s) Eyes: Denies: change in vision ENMT: Denies: throat pain Card: Denies: chest pain Resp: Denies: dyspnea GI: Denies: abdominal pain : Denies: flank pain Musc: Denies: neck pain Skin/Breast: Denies: rash Neuro: Denies: headache(s) Psych: Denies: anxiety Endo: Denies: polyuria Brandon/Lymph: Denies: easy bruising All/Imm: Denies: urticaria Medications/Allergies Home Medications Medication Instructions Recorded Confirmed Last Taken Type atorvastatin 20 mg tablet 20 mg PO DAILY@06/23/19 09/12/20 09/11/20 History losartan 50 mg tablet 50 mg PO BID@06/23/19 09/12/20 09/12/20 History metformin 500 mg tablet 500 mg PO DAILY@06/23/19 09/12/20 09/12/20 History Perforomist 2 ml INHALATION BID@05/15/20 09/12/20 09/12/20 History budesonide [Pulmicort] 0.5 mg INHALATION BID@08,05/15/20 09/12/20 09/12/20 History montelukast 10 mg PO DAILY@05/15/20 09/12/20 09/12/20 History nitroglycerin 0.4 mg sublingual 0.4 mg SUBLINGUAL Q5M PRN 30 Days 05/17/20 09/12/20 Unknown Rx tablet #30 tab revefenacin 175 mcg/3 mL solution See Rx Instructions .ROUTE 05/26/20 09/12/20 09/12/20 Rx for nebulization .COMPLEX #30 vial furosemide 20 mg tablet 10 mg PO DAILY@0800 09/10/20 09/12/20 09/12/20 History glimepiride 2 mg tablet 2 mg PO DAILY@0800,1200 09/10/20 09/12/20 09/12/20 History pantoprazole 40 mg tablet,delayed 40 mg PO DAILY@0800 09/10/20 09/12/20 09/12/20 History release aspirin [Aspirin Low Dose] 81 mg PO DAILY@0800 09/12/20 09/12/20 09/12/20 History diltiazem HCl 120 mg PO DAILY@0809/12/20 09/12/20 09/12/20 History doxycycline hyclate 100 mg PO BID@08,199909/12/20 09/12/20 09/12/20 History levothyroxine 200 mcg PO DAILY@0809/12/20 09/12/20 09/12/20 History levothyroxine [Euthyrox] 50 mcg PO DAILY@0809/12/20 09/12/20 09/12/20 History omeprazole 40 mg PO DAILY@199909/12/20 09/12/20 09/11/20 History prasugrel [Effient] 10 mg PO DAILY@0809/12/20 09/12/20 09/12/20 History prednisone 20 mg PO DAILY@0809/12/20 09/12/20 09/12/20 History Allergies Allergy/AdvReac Type Severity Reaction Status Date / Time No Known Allergies Allergy Verified 09/10/20 10:54 PFSH Acute PFSH: Medical History (Updated 09/13/20 @ 03:32 by Merline Tafoya MD) AAA (abdominal aortic aneurysm) without rupture Allergic rhinitis Aortic root dilation Atypical chest pain BPH loc w urin obs/LUTS COPD (chronic obstructive pulmonary disease) DDD (degenerative disc disease) Diabetes Essential (primary) hypertension GERD (gastroesophageal reflux disease) Hyperglycemia Hyperlipidemia Hypothyroidism Intervertebral disc disorders with radiculopathy, lumbosacral region Lumbar disc disease with radiculopathy Scoliosis of lumbar region due to degenerative disease of spine in adult Testicular mass Thoracic aortic aneurysm, without rupture Surgical History (Updated 09/13/20 @ 03:25 by Merline Tafoya MD) H/O hernia repair History of PTCA Family History Mother Diabetes, Onset Age: 69 Father Cancer, Onset Age: 80 Lung Heart disease Lung disease Brother Diabetes Other Lupus Denies family history of Clotting disorder Dementia Chronic kidney disease (CKD) Suicide Anesthesia complication Bleeding disorder Stroke Social History Smoking and tobacco status: former smoker Quit status (tobacco): has quit using tobacco Year quit tobacco: 2019 - 2PPD x 50 Years Alcohol intake: never Lives independently: Yes Household members: spouse Marital status: Current occupational status: disabled History of recent travel: No Current gender identity: Male Vitals/I&O/Wt Last Vital Signs Temp 97.5 F L 09/12/20 19:31 Pulse 78 09/12/20 21:25 Resp 18 09/12/20 21:25 BP 178/96 09/12/20 21:25 Pulse Ox 96 09/12/20 21:25 Weight last 48 hrs Weight 120.202 kg Physical Exam Narrative: EXAM NARRATIVE: Very pleasant male who appears stated age Morbidly obese, sitting at the bedside Saturating well on room air No active neurological deficit No cerebellar signs, he is able to do simple math question, he was able to tell me his name, names of his children however unable to recall events from the day Following my commands appropriately, no slurring of speech or facial droop noted Mild cognitive impairment S1, S2 no signs of heart failure Abdomen soft, distended central obesity No acute respiratory distress no audible stridor or wheezing Bilateral lower extremity without any edema gangrene or ulcer Appropriate mood and affect EOMI, PERRLA Data : 09/12/20 20:30 09/12/20 20:30 A&P Assessment and plan (1) Cognitive impairment: Status: Acute (2) Confusion: Status: Acute (3) Obesity: Status: Acute (4) Delirium: Status: Acute Additional A&P Information Acute deliriuml Patient had recently started taking doxycycline and prednisone for bronchitis I would hold both of these medications and keep him on Levaquin for now TSH and B12 within normal range CT head unremarkable, no infectious source found, electrolytes normal No previous history of CVA Do not suspect TIA at this point, I would recommend outpatient follow-up with neurologist, highly doubt benefit of MRI at this point, no signs of UTI, patient is back to his baseline as per the , I would recommend outpatient sleep study to make sure this is not a contributing factor, CT\ head not consistent with hydrocephalus, dementia not ruled out My suspicion is high for steroid induced delirium Type 2 diabetes: Consistent carb diet, moderate sliding scale Hypothyroidism: TSH follow-up, continue levothyroxine current regimen Full code Consistent carb diet DVT prophylaxis Lovenox Attestations Medical Necessity Statement*: Anticipating discharge in less than 48 hours for delirium work-up Time Spent in Patient Care: (>than 50% of time spent in counselling and/or direct pt care on unit) . 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
[2020-09-12 22:36] VITALS: BP 168/75; PULSE 64; RESP 20; O2SAT 99
[2020-09-12 23:00] VITALS: BP 159/103; PULSE 86; O2SAT 96
[2020-09-12 23:05] LABS: Troponin 5 2HR 8.87 ng/L (0-15); Troponin 5 2HR Delta 0.87 ABS# (0-10)
[2020-09-13] VITALS (8 sets, daily range): BP systolic 131–156; BP diastolic 74–97; PULSE 71–79; RESP 16–18; TEMP 36.4–36.8; O2SAT 92–96
[2020-09-13 00:19] LABS: Thyroid Stimulating Hormone 2.64 uIU/mL (0.27-4.20); Vitamin B12 426 pg/mL (232-1245)
[2020-09-13 01:03] LABS: Glucose Point of Care 173 mg/dL (70-110)
[2020-09-13] MEDS: enoxaparin 40 mg/0.4 mL Syringe SUBCUT (06:10)
[2020-09-13] MEDS: levoFLOXacin 750 mg Tablet PO (06:10)
[2020-09-13 06:35] LABS: Glucose Point of Care 113 mg/dL (70-110)
[2020-09-13] MEDS: montelukast sodium 10 mg Tablet PO (08:27)
[2020-09-13] MEDS: losartan 50 mg Tablet PO (08:27)
[2020-09-13] MEDS: aspirin 81 mg EC Tablet PO (08:27)
[2020-09-13] MEDS: thiamine 100 mg Tablet PO (08:27)
[2020-09-13] MEDS: levothyroxine 50 mcg Tablet PO (08:27)
[2020-09-13] MEDS: pantoprazole DR 40 mg Tablet PO (08:27)
[2020-09-13] MEDS: levothyroxine 200 mcg Tablet PO (08:27)
[2020-09-13] MEDS: FUROsemide 20 mg Tablet 10 MG PO (08:28)
[2020-09-13] MEDS: dilTIAZem ER (24HR) 120 mg Capsule PO (08:28)
--- NOTE | 2020-09-13 10:24 | PM.DCS ---
Discharge Providers Date of Admission: 09/12/20 21:44 Date of Discharge: September 13, 2020 Attending Provider at Admission: Merline Tafoya MD Attending Provider at Discharge: Cristian Cornejo MD Primary Care Provider: Ab Grubbs DO Diagnoses at Discharge Discharge Diagnosis (1) Delirium: Status: Resolved (2) Cognitive impairment: Status: Chronic (3) Confusion: Status: Resolved (4) Obesity: Status: Chronic Reason for Visit Reason for Visit: confusion/forgetting things Hospital Course Hospital Course 65 year old male who has history of hypothyroidism, type 2 diabetes, presented today with chief complaint of confusion. brought him to the hospital stating this is the worst episode of confusion. She has noticed brief episodes of confusion in the past which would last for a few seconds to minutes but today her has been acting bizarre and very forgetful throughout the day.He was admitted for the management of ac delirium likely steroid induced, he was recently started on Prednisone 20 mg po daily as well as doxycycline for ac bronchitis. His Ac encephalopathy work up was normal. CT head normal blood work was normal , chest x-ray showed COPD changes with bronchitis,Urine analysis was clean , no symptoms of UTI, TSH was WNL.B12 was WNL. When I examined the patient in morning he was at his baseline mentation.Denied any active complaint.He and his were asking for discharge as the patient was doing well and the patient was not comfortable with any other prolong stay or further work up. Given the fact that the patient was at his baseline mentation.It was decided to discharge the patient on loevofloxacin 500 mg po daily for 3 days, and discontinue prednisone. Physical Exam Const: COMMON NORMALS: patient oriented x3 HENMT: COMMON NORMALS: normocephalic and atraumatic HEAD & SCALP: normocephalic and atraumatic Chest: CHEST: Yes Symmetrical chest wall rise Resp: COMMON NORMALS: normal respiratory effort and clear to auscultation bilaterally EFFORT & INSPECTION: Yes symmetric chest movement AUSCULTATION: clear to auscultation bilaterally Cardio: COMMON NORMALS: regular rate, regular rhythm, S1 normal heart sound present, S2 normal heart sound present, No gallops present (Cardio), No murmurs present (Cardio), No rub (Cardio) and Peripheral pulses 2+ throughout RATE: regular rate RHYTHM: regular rhythm HEART SOUNDS: S1 normal heart sound present and S2 normal heart sound present PERIPHERAL PULSES: Peripheral pulses 2+ throughout GI: COMMON NORMALS: Normal to inspection, nondistended, normoactive bowel sounds present, Soft to palpation, non-tender, No hepatosplenomegaly present and no masses AUSCULTATION: Yes normoactive bowel sounds PALPATION: Yes Soft to palpation and Yes No hepatosplenomegaly present RECTAL EXAM: Yes deferred Extremity: COMMON NORMALS: no clubbing, cyanosis or edema and no pedal edema Neuro: COMMON NORMALS: patient oriented x3 Discharge Data Data Completed and Pending: Completed Studies During Hospitalization Category Date Time Status CT head wo con* 7 [id number] Urgent Cat Scan 09/12/20 19:44 Completed XR chest 1V ly ble [id number] Urgent Exams 09/12/20 19:44 Completed Labs from last 24 hours 09/13/20 09/13/20 09/12/20 06:19 00:59 22:44 WBC RBC Hgb Hct MCV MCH MCHC RDW Plt Count MPV Neut % (Auto) Lymph % (Auto) [place] % (Auto) Eos % (Auto) Baso % (Auto) Neut # (Auto) Lymph # (Auto) [place] # (Auto) Eos # (Auto) Baso # (Auto) Nucleated RBC % (a uto) Nucleated RBCs # PT INR Specimen Type Sample Site ABG pH ABG pCO2 ABG pO2 ABG HCO3 ABG Base Excess Drew Test Hematocrit O2 Delivery Device FiO2 Building Stonecutter ID Sodium Potassium Chloride Carbon Dioxide Anion Gap BUN Creatinine GFR Calculation Glucose POC Glucose 113 H 173 H Calculated Osmolal ity Calcium Magnesium Total Bilirubin AST ALT Alkaline Phosphata se Ammonia Troponin T Baselin e Troponin T 120 Min nondalton [place] Troponin T Total Protein Albumin Globulin Vitamin B12 426 TSH 2.64 Urine Color Urine Appearance Urine pH Ur Specific Gravit y Urine Protein Urine Glucose (UA) Urine Ketones Urine Blood Urine Nitrate Urine Bilirubin Urine Urobilinogen Ur Leukocyte Margie ase Ethyl Alcohol 09/12/20 09/12/20 09/12/20 22:44 20:55 20:50 WBC RBC Hgb Hct MCV MCH MCHC RDW Plt Count MPV Neut % (Auto) Lymph % (Auto) [place] % (Auto) Eos % (Auto) Baso % (Auto) Neut # (Auto) Lymph # (Auto) [place] # (Auto) Eos # (Auto) Baso # (Auto) Nucleated RBC % (a uto) Nucleated RBCs # PT INR Specimen Type Arterial Sample Site Radial, right ABG pH 7.43 ABG pCO2 41.8 ABG pO2 62.3 L ABG HCO3 27.7 H ABG Base Excess 3.0 H Drew Test Pos Hematocrit 48.5 O2 Delivery Device Room air FiO2 21.0 Building Stonecutter ID Jlg Sodium Potassium Chloride Carbon Dioxide Anion Gap BUN Creatinine GFR Calculation Glucose POC Glucose Calculated Osmolal ity Calcium Magnesium Total Bilirubin AST ALT Alkaline Phosphata se Ammonia Troponin T Baselin e Troponin T 120 Min nondalton 8.87 Delta Troponin T 0.87 Total Protein Albumin Globulin Vitamin B12 TSH Urine Color Yellow Urine Appearance Clear Urine pH 5 Ur Specific Gravit y 1.020 Urine Protein Neg Urine Glucose (UA) Norm Urine Ketones 1+ H Urine Blood Neg Urine Nitrate Negative Urine Bilirubin Neg Urine Urobilinogen Norm Ur Leukocyte Margie ase Negative Ethyl Alcohol 09/12/20 09/12/20 09/12/20 20:43 20:43 20:30 WBC RBC Hgb Hct MCV MCH MCHC RDW Plt Count MPV Neut % (Auto) Lymph % (Auto) [place] % (Auto) Eos % (Auto) Baso % (Auto) Neut # (Auto) Lymph # (Auto) [place] # (Auto) Eos # (Auto) Baso # (Auto) Nucleated RBC % (a uto) Nucleated RBCs # PT 12.90 INR 0.94 Specimen Type Sample Site ABG pH ABG pCO2 ABG pO2 ABG HCO3 ABG Base Excess Drew Test Hematocrit O2 Delivery Device FiO2 Building Stonecutter ID Sodium Potassium Chloride Carbon Dioxide Anion Gap BUN Creatinine GFR Calculation Glucose POC Glucose Calculated Osmolal ity Calcium Magnesium Total Bilirubin AST ALT Alkaline Phosphata se Ammonia 37 Troponin T Baselin e 8 Troponin T 120 Min [place] Troponin T Total Protein Albumin Globulin Vitamin B12 TSH Urine Color Urine Appearance Urine pH Ur Specific Gravit y Urine Protein Urine Glucose (UA) Urine Ketones Urine Blood Urine Nitrate Urine Bilirubin Urine Urobilinogen Ur Leukocyte Margie ase Ethyl Alcohol 09/12/20 09/12/20 09/12/20 20:30 20:30 19:41 WBC 12.5 H RBC 5.23 Hgb 15.3 Hct 47.3 MCV 90.4 MCH 29.3 MCHC 32.3 RDW 13.0 Plt Count 245 MPV 11.2 H Neut % (Auto) 59.9 Lymph % (Auto) 23.9 [place] % (Auto) 14.4 Eos % (Auto) 0.7 Baso % (Auto) 0.5 Neut # (Auto) 7.50 Lymph # (Auto) 3.0 [place] # (Auto) 1.8 H Eos # (Auto) 0.1 Baso # (Auto) 0.1 Nucleated RBC % (a uto) 0 Nucleated RBCs # 0.0 PT INR Specimen Type Sample Site ABG pH ABG pCO2 ABG pO2 ABG HCO3 ABG Base Excess Drew Test Hematocrit O2 Delivery Device FiO2 Building Stonecutter ID Sodium 138 Potassium 4.2 Chloride 102 Carbon Dioxide 25 Anion Gap 15.2 BUN 17 Creatinine 1.1 GFR Calculation 66.8 L Glucose 102 POC Glucose 131 H Calculated Osmolal ity 288 Calcium 8.9 Magnesium 1.9 Total Bilirubin 0.3 AST 22 ALT 33 Alkaline Phosphata se 82 Ammonia Troponin T Baselin e Troponin T 120 Min [place] Troponin T Total Protein 7.0 Albumin 4.5 Globulin 2.5 Vitamin B12 TSH Urine Color Urine Appearance Urine pH Ur Specific Gravit y Urine Protein Urine Glucose (UA) Urine Ketones Urine Blood Urine Nitrate Urine Bilirubin Urine Urobilinogen Ur Leukocyte Margie ase Ethyl Alcohol < 10 Vitals: Last Vital Signs Temp 97.6 F 09/13/20 07:34 Pulse 77 09/13/20 07:34 Resp 18 09/13/20 07:34 BP 156/93 09/13/20 08:27 Pulse Ox 92 09/13/20 07:34 Discharge Plan Discharge Patient Disposition: Home Condition: Stable Prescriptions: New levofloxacin 500 mg tablet 500 mg PO DAILY 3 Days RF: 0 Continued atorvastatin [Lipitor] 20 mg tablet 20 mg PO DAILY@21 RF: 0 metformin 500 mg tablet 500 mg PO DAILY@08 RF: 0 Hold Instructions: Resume on 06/23/20. losartan 50 mg tablet 50 mg PO BID@08,20 RF: 0 nitroglycerin 0.4 mg tablet, sublingual 0.4 mg sublingual Q5M PRN (Reason: chest pain) 30 Days Qty: 30 RF: 3 glimepiride 2 mg tablet 2 mg PO DAILY@0800,1200 RF: 0 pantoprazole 40 mg tablet,delayed release (DR/EC) 40 mg PO DAILY@0800 RF: 0 furosemide 20 mg tablet 10 mg PO DAILY@0800 RF: 0 revefenacin [Yupelri] 175 mcg/3 mL solution for nebulization See Rx Instructions .ROUTE .COMPLEX Qty: 30 RF: 11 montelukast 10 mg Tablet 10 mg PO DAILY@08 RF: 0 budesonide [Pulmicort] 0.5 mg/2 mL suspension for nebulization 0.5 mg inhalation BID@ RF: 0 Perforomist 20 mcg/2 mL solution for nebulization 2 ml inhalation BID@ RF: 0 omeprazole 40 mg capsule,delayed release(DR/EC) 40 mg PO DAILY@1999 RF: 0 Euthyrox 50 mcg tablet 50 mcg PO DAILY@799 RF: 0 levothyroxine 200 mcg tablet 200 mcg PO DAILY@799 RF: 0 Aspirin Low Dose 81 mg tablet,delayed release (DR/EC) 81 mg PO DAILY@08 RF: 0 diltiazem HCl 120 mg capsule,extended release 12 hr 120 mg PO DAILY@08 RF: 0 Effient 10 mg tablet 10 mg PO DAILY@799 RF: 0 Discontinued doxycycline hyclate 100 mg capsule 100 mg PO BID@799,1999 RF: 0 prednisone 20 mg tablet 20 mg PO DAILY@799 RF: 0 Discharge Orders: Discharge Order (Routine); Ordered 09/13/20 Ordered By: Cristian Cornejo Referrals: Ab Grubbs DO [Primary Care Provider] - 09/21/20 10:30 am Discharge Diet: Diabetic Discharge Activity: Resume usual activity Patient Instructions: Levofloxacin (By mouth), Altered Mental Status (GEN), Opioid Safety Discharge Attestations Time Spent in Discharge Care*: less than 30 min Specific Discharge Activities: educating patient, educating and/or supporting family/caregiver, discussing with case management rn/social workers/dc planners, documenting/other paperwork and evaluating patient/reviewing data Status at Discharge: Cognitive status at discharge: cognitively intact, Behavioral status at discharge: cooperative, Functional status at discharge: independent ambulation Overall status at discharge: patient is back to baseline Quality Metrics Clinical Quality Measures During this hospital stay, did patient experience: None Coding Level of Care Code Acute Chg FW DC note Diagnoses Delirium R41.0 Cognitive impairment R41.89 Confusion R41.0 Obesity E66.9
[2020-09-13 10:49] LABS: Glucose Point of Care 129 mg/dL (70-110)
== END 2020-09-13 11:15 | disposition home or self-care (01) ==
LOC: ER 19:38 → MEDSURG 22:57
PROVIDERS: Admitting Provider Internal Medicine; Emergency Provider Emergency Medicine; PCP Electrodiagnostic Medicine; Visit Provider Internal Medicine
DX: R41.82 Altered mental status, unspecified (principal); E66.9 Obesity, unspecified; Z68.37 Body mass index [BMI] 37.0-37.9, adult; E03.9 Hypothyroidism, unspecified; E11.9 Type 2 diabetes mellitus without complications; Z79.84 Long term (current) use of oral hypoglycemic drugs; Z79.82 Long term (current) use of aspirin; N40.1 Benign prostatic hyperplasia with lower urinary tract symptoms; N13.8 Other obstructive and reflux uropathy; J44.9 Chronic obstructive pulmonary disease, unspecified; I10 Essential (primary) hypertension; E78.5 Hyperlipidemia, unspecified; Z87.891 Personal history of nicotine dependence
CPT/HCPCS: 36415; 36416; 36600; 70450; 71045; 80053; 80307; 81003; 82140; 82607; 82803; 82962; 83735; 84443; 84484; 85025; 85610; 93005; 96372; 99285; G0378; J1650

== ENCOUNTER 2020-09-21 11:28 | Outpatient (CLI) | payer MEDICARE, OTHER, SELFPAY ==
--- NOTE | 2020-09-21 11:44 | XR_ITS ---
WS: [id number] Chest 2 views, 09/21/2020 Clinical Data: PNEUMONIA/ENCEPHALOPATHY Comparison: Portable chest, 09/12/2020. Findings: No nodules, masses or effusions are seen. The heart is normal. The pulmonary vascularity is not increased. No pneumonia or pneumothorax is seen. The patchy atelectasis along the left cardiac b order has resolved. The diaphragms are flattened. XR/XR chest 2V* [id number] Impression: Hyperinflation.
== END 2020-09-21 11:29 | disposition home or self-care (01) ==
PROVIDERS: PCP Electrodiagnostic Medicine; Visit Provider Electrodiagnostic Medicine
DX: G93.40 Encephalopathy, unspecified (principal); J18.9 Pneumonia, unspecified organism
CPT/HCPCS: 71046

== ENCOUNTER 2020-10-03 18:27 | Emergency (ER) | payer MEDICARE, OTHER, SELFPAY ==
[2020-10-03] VITALS (13 sets, daily range): BP systolic 105–119; BP diastolic 69–82; PULSE 66–94; RESP 16–24; TEMP 37.1; O2SAT 93–97; BMI 36.9
--- NOTE | 2020-10-03 18:33 | ECG_ITS ---
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 Measurements Intervals [place] Rate: 91 P: IN: QRS: 82 QRSD: 84 T: 76 QT: 351 QTc: 433 Interpretive Statements ATRIAL FIBRILLATION MODERATE ST DEPRESSION [0.05+ mV ST DEPRESSION] Compared to ECG 09/12/2020 21:15:11 ST (T wave) deviation now present Sinus rhythm no longer present Ventricular premature complex(es) no longer present Electronically Signed On 10-04-2020 0:49:05 CDT by Lance Marcano M.D. [id number]
--- NOTE | 2020-10-03 18:33 | XRR_ITS ---
PROCEDURE INFORMATION: Exam: XR Chest Exam date and time: 10/03/2020 6:57 PM Age: 65 years old Clinical indication: Pain; Left-sided; Prior surgery; Surgery type: Stent; Patient HX: L-sided cp radiating down arm and up neck TECHNIQUE: Imaging protocol: XR of the chest. Views: 1 view. COMPARISON: CR XR chest 2V* [id number] 09/21/2020 11:50 AM FINDINGS: Lungs: Emphysema. Mild atelectasis or scarring in the lung bases and left mid lung. No consolidation. Pleural spaces: Unremarkable. No pleural effusion. No pneumothorax. Heart/Mediastinum: Unremarkable. No cardiomegaly. Bones/joints: Unremarkable. XR/XR chest 1V portable [id number] IMPRESSION: No acute findings.
--- NOTE | 2020-10-03 18:47 | ED_ITS ---
HPI - Chest Pain General: Chief Complaint: Chest Pain Stated Complaint: chest pain Time Seen by Provider: 10/03/20 18:40 Source: patient Mode of arrival: ambulatory Limitations: no limitations History of Present Illness: HPI narrative: 65-year-old male who states he been having chest pain over the last 30 minutes to an hour. He states it started suddenly while he was at a graduation. He states is a dull aching pain in the center of his chest. He is extensive history of coronary disease and had stents placed back in June. He states that he did take a nitro and his pain improved. His pain is now a 2 or 3 out of 10. Associated symptoms: Deny abdominal pain, dyspnea, fever(s), nausea or vomiting Review of Systems Const: Denies: fever(s), chills, body aches or change in appetite Eyes: Denies: blurry vision or eye discomfort ENMT: Denies: throat pain or dental pain Card: Reports: chest pain Resp: Denies: dyspnea GI: Denies: abdominal pain, nausea, vomiting or diarrhea : Denies: dysuria Musc: Denies: neck pain or back pain Skin/Breast: Denies: rash Neuro: Denies: headache(s) Psych: Denies: depression Brandon/Lymph: Denies: easy bruising All/Imm: Denies: urticaria PFSH ED PFSH: Medical History AAA (abdominal aortic aneurysm) without rupture Allergic rhinitis Aortic root dilation Atypical chest pain BPH loc w urin obs/LUTS Cognitive impairment Confusion COPD (chronic obstructive pulmonary disease) DDD (degenerative disc disease) Delirium Diabetes Essential (primary) hypertension GERD (gastroesophageal reflux disease) Hyperglycemia Hyperlipidemia Hypothyroidism Intervertebral disc disorders with radiculopathy, lumbosacral region Lumbar disc disease with radiculopathy Obesity Scoliosis of lumbar region due to degenerative disease of spine in adult Testicular mass Thoracic aortic aneurysm, without rupture Surgical History H/O hernia repair History of PTCA Family History Mother Diabetes, Onset Age: 69 Father Cancer, Onset Age: 80 Lung Heart disease Lung disease Brother Diabetes Other Lupus Denies family history of Clotting disorder Dementia Chronic kidney disease (CKD) Suicide Anesthesia complication Bleeding disorder Stroke Social History Smoking and tobacco status: former smoker Quit status (tobacco): has quit using tobacco Year quit tobacco: 2019 - 2PPD x 50 Years Alcohol intake: never Lives independently: Yes Household members: spouse Marital status: Current occupational status: disabled History of recent travel: No Current gender identity: Male Physical Exam Const: COMMON NORMALS: no acute distress, patient oriented x3 and healthy appearing HENMT: COMMON NORMALS: normocephalic and atraumatic HEAD & SCALP: normocephalic and atraumatic Eye: COMMON NORMALS: Equal, round and reactive pupils present and EOMs intact bilaterally PUPIL: Yes Equal, round and reactive pupils present Neck/C-Spine: COMMON NORMALS: full ROM and supple Chest: COMMONS NORMALS: normal inspection of the chest and normal palpation of entire chest wall Resp: COMMON NORMALS: normal respiratory effort, No retractions, No use of accessory muscles and clear to auscultation bilaterally AUSCULTATION: clear to auscultation bilaterally Cardio: COMMON NORMALS: regular rate, regular rhythm and No murmurs present (Cardio) RATE: regular rate RHYTHM: regular rhythm GI: COMMON NORMALS: Normal to inspection, nondistended, normoactive bowel sounds present, Soft to palpation, non-tender and no masses PALPATION: Yes Soft to palpation Extremity: COMMON NORMALS: normal to inspection and full ROM Neuro: COMMON NORMALS: patient oriented x3, moves all extremities and no focal motor deficits Psych: COMMON NORMALS: mental status grossly normal, Normal thought process present and cooperative THOUGHT PROCESS: Normal thought process present Skin: COMMON NORMALS: no rashes or lesions noted and no wounds GENERAL SKIN EXAM: no rashes or lesions noted Course Vital Signs: Vital signs: Vital Signs Temperature 98.7 F 10/03/20 19:52 Pulse Rate 71 10/03/20 22:00 Respiratory Rate 22 H 10/03/20 22:00 Blood Pressure 114/81 10/03/20 22:00 Pulse Oximetry 94 10/03/20 22:00 MDM - Chest Pain MDM Narrative: Medical decision making narrative: Been presents here with chest pain and his 2-hour troponin did elevate 11 and is positive. Patient states that he does not sleep on the hospital's and since his stated he wants to go home. Informed him his troponin was positive and he could be having a non-ST elevation MN. He has medical decision-making capacity and understands the risks and is going to sign out AMA. He is return if he changes mind or he has pain. Lab Data: Labs: Lab Results 10/03/20 10/03/20 10/03/20 Range/Units 19:35 19:35 19:35 WBC 11.0 H (4.0-10.0) 10^3/ uL RBC 5.23 (4.1-5.3) 10^6/u L Hgb 15.2 (11.7-16.6) g/dL Hct 47.5 (42.0-52.0) % MCV 90.8 (80-94) fL MCH 29.1 (28.0-34.0) pg MCHC 32.0 (30.0-36.0) g/dL RDW 12.7 (12.1-15.1) % Plt Count 251 (130-400) 10^3/c mm MPV 11.3 H (7.4-10.4) fL Neut % (Auto) 58.0 % Lymph % (Auto) 26.1 % [place] % (Auto) 11.4 % Eos % (Auto) 3.6 % Baso % (Auto) 0.6 % Neut # (Auto) 6.38 (1.8-7.7) 10^3/u L Lymph # (Auto) 2.9 (0.8-4.8) 10^3/u L [place] # (Auto) 1.3 H (0.2-0.9) 10^3/u L Eos # (Auto) 0.4 (0.0-0.8) 10^3/u L Baso # (Auto) 0.1 (0.0-0.1) 10^3/u L Nucleated RBC % (a uto) 0 % Nucleated RBCs # 0.0 /100WBC Sodium 140 (136-145) mmol/L Potassium 3.9 (3.5-5.1) mmol/L Chloride 104 (98-107) mmol/L Carbon Dioxide 26 (22-29) mmol/L Anion Gap 13.9 (5-19) BUN 19 (8-23) mg/dL Creatinine 1.1 (0.7-1.2) mg/dL GFR Calculation 66.8 L (90-130) mL/min Glucose 116 H (65-115) mg/dL Calculated Osmolal ity 293 (285-295) mOsm/k g Calcium 8.4 L (8.5-10.5) mg/dL Total Bilirubin 0.2 (0.15-1.2) mg/dL AST 18 (0-40) U/L ALT 25 (0-41) U/L Alkaline Phosphata se 87 (40-130) IU/L Troponin T Baselin e 8 (0-15) ng/L Troponin T 120 Min [place] (0-15) ng/L Delta Troponin T (0-10) ABS# Total Protein 6.7 (6.6-8.7) g/dL Albumin 3.9 (3.5-5.2) g/dL Globulin 2.8 (1.3-4.6) g/dL / Range/Units 21:35 WBC (4.0-10.0) 10^3/ uL RBC (4.1-5.3) 10^6/u L Hgb (11.7-16.6) g/dL Hct (42.0-52.0) % MCV (80-94) fL MCH (28.0-34.0) pg MCHC (30.0-36.0) g/dL RDW (12.1-15.1) % Plt Count (130-400) 10^3/c mm MPV (7.4-10.4) fL Neut % (Auto) % Lymph % (Auto) % [place] % (Auto) % Eos % (Auto) % Baso % (Auto) % Neut # (Auto) (1.8-7.7) 10^3/u L Lymph # (Auto) (0.8-4.8) 10^3/u L [place] # (Auto) (0.2-0.9) 10^3/u L Eos # (Auto) (0.0-0.8) 10^3/u L Baso # (Auto) (0.0-0.1) 10^3/u L Nucleated RBC % (a uto) % Nucleated RBCs # /100WBC Sodium (136-145) mmol/L Potassium (3.5-5.1) mmol/L Chloride (98-107) mmol/L Carbon Dioxide (22-29) mmol/L Anion Gap (5-19) BUN (8-23) mg/dL Creatinine (0.7-1.2) mg/dL GFR Calculation (90-130) mL/min Glucose (65-115) mg/dL Calculated Osmolal ity (285-295) mOsm/k g Calcium (8.5-10.5) mg/dL Total Bilirubin (0.15-1.2) mg/dL AST (0-40) U/L ALT (0-41) U/L Alkaline Phosphata se (40-130) IU/L Troponin T Baselin e (0-15) ng/L Troponin T 120 Min [place] 19.62 H (0-15) ng/L Delta Troponin T 11.62 H* (0-10) ABS# Total Protein (6.6-8.7) g/dL Albumin (3.5-5.2) g/dL Globulin (1.3-4.6) g/dL Imaging Data^: CXR: Attestation: I personally reviewed and interpreted this imaging study as follows: Radiologist's impression: [address] [address] XRay Report Signed Patient: Vega Wilcox Unit #: [id number] : 1955 Age/Sex: 65 / M ADM Date: 10/03/20 Loc: ER Room/Bed: Attending Dr: Ordering Provider/Ordering MD: Carlos Alberto Brasher MD Date of Service: 10/03/20 Procedure(s): XR chest 1V portable [id number] Accession Number(s): [id number] Report Number: [id number] PROCEDURE INFORMATION: Exam: XR Chest Exam date and time: 10/03/2020 6:57 PM Age: 65 years old Clinical indication: Pain; Left-sided; Prior surgery; Surgery type: Stent; Patient HX: L-sided cp radiating down arm and up neck TECHNIQUE: Imaging protocol: XR of the chest. Views: 1 view. COMPARISON: CR XR chest 2V* [id number] 09/21/2020 11:50 AM FINDINGS: Lungs: Emphysema. Mild atelectasis or scarring in the lung bases and left mid lung. No consolidation. Pleural spaces: Unremarkable. No pleural effusion. No pneumothorax. Heart/Mediastinum: Unremarkable. No cardiomegaly. Bones/joints: Unremarkable. XR/XR chest 1V portable [id number] IMPRESSION: No acute findings. EKG Data^: EKG 1: Attestation: I personally reviewed and interpreted this EKG as follows: EKG interpretation date: 10/03/20 EKG interpretation time: 18:33 Interpretation: afib with rvr hr [address] or t wave abnormalities qrs 84 qtc 400 Discharge Plan Discharge Patient Disposition: Left Against Medical Advice Clinical Impression: Chest pain Qualifiers: Chest pain type: unspecified Qualified Code(s): R07.9 - Chest pain, unspecified Condition: Stable Prescriptions: No Action atorvastatin [Lipitor] 20 mg tablet 20 mg PO DAILY@21 RF: 0 metformin 500 mg tablet 500 mg PO DAILY@08 RF: 0 Hold Instructions: Resume on 06/23/20. losartan 50 mg tablet 50 mg PO BID@08,20 RF: 0 nitroglycerin 0.4 mg tablet, sublingual 0.4 mg sublingual Q5M PRN (Reason: chest pain) 30 Days Qty: 30 RF: 3 glimepiride 2 mg tablet 2 mg PO DAILY@0800,1200 RF: 0 furosemide 20 mg tablet 20 mg PO DAILY@0800 RF: 0 revefenacin [Yupelri] 175 mcg/3 mL solution for nebulization See Rx Instructions .ROUTE .COMPLEX Qty: 30 RF: 11 montelukast 10 mg Tablet 10 mg PO DAILY@08 RF: 0 budesonide [Pulmicort] 0.5 mg/2 mL suspension for nebulization 0.5 mg inhalation BID@08,20 RF: 0 Perforomist 20 mcg/2 mL solution for nebulization 2 ml inhalation BID@08,20 RF: 0 omeprazole 40 mg capsule,delayed release(DR/EC) 40 mg PO DAILY@2000 RF: 0 levothyroxine [Euthyrox] 50 mcg tablet 50 mcg PO DAILY@0800 RF: 0 levothyroxine 200 mcg tablet 200 mcg PO DAILY@0800 RF: 0 diltiazem HCl 120 mg capsule,extended release 12 hr 120 mg PO DAILY@0800 RF: 0 prasugrel [Effient] 10 mg tablet 10 mg PO DAILY@0800 RF: 0 Levemir U-100 Insulin 100 unit/mL Solution 30 unit SUBCUT Q12H RF: 0 Vitamin B-12 1 tab PO DAILY@0900 RF: 0 Referrals: Ab Grubbs DO [Primary Care Provider] - 1-3 days Discharge Diet: Advance as tolerated Discharge Activity: Resume usual activity Patient Instructions: Chest Pain (ED) Coding Level of Care Code ED Bull Wheel Worker for Chg Fwd Exam Comprehensive
[2020-10-03 19:56] LABS: Basophils # 0.1 10^3/uL (0.0-0.1); Basophils % 0.6 %; Eosinophils # 0.4 10^3/uL (0.0-0.8); Eosinophils % 3.6 %; Hematocrit 47.5 % (42.0-52.0); Hemoglobin 15.2 g/dL (11.7-16.6); Lymphocytes # 2.9 10^3/uL (0.8-4.8); Lymphocytes % 26.1 %; Mean Corpuscular Hemoglobin 29.1 pg (28.0-34.0); Mean Corpuscular Volume 90.8 fL (80-94); Mean Platelet Volume 11.3 fL (7.4-10.4); Monocytes # 1.3 10^3/uL (0.2-0.9); Monocytes % 11.4 %; Neutrophils # 6.38 10^3/uL (1.8-7.7); Nucleated Red Blood Cells % 0 %; Platelet Count 251 10^3/cmm (130-400); Red Blood Count 5.23 10^6/uL (4.1-5.3); Red Cell Distribution Width 12.7 % (12.1-15.1)
[2020-10-03] MEDS: aspirin 81 mg Chew Tablet 324 MG PO (19:59)
[2020-10-03 20:06] LABS: Alanine Aminotransferase 25 U/L (0-41); Albumin Level 3.9 g/dL (3.5-5.2); Alkaline Phosphatase 87 IU/L (40-130); Anion Gap 13.9 (5-19); Aspartate Amino Transferase 18 U/L (0-40); Blood Urea Nitrogen 19 mg/dL (8-23); Calcium 8.4 mg/dL (8.5-10.5); Carbon Dioxide 26 mmol/L (22-29); Chloride 104 mmol/L (98-107); Globulin 2.8 g/dL (1.3-4.6); Glomerular Filtration Rate 66.8 mL/min (90-130); Glucose 116 mg/dL (65-115); Osmolality Calculated 293 mOsm/kg (285-295); Potassium 3.9 mmol/L (3.5-5.1); Sodium 140 mmol/L (136-145); Total Bilirubin 0.2 mg/dL (0.15-1.2); Total Protein 6.7 g/dL (6.6-8.7)
[2020-10-03 20:08] LABS: Troponin(5th) Baseline 8 ng/L (0-15)
--- NOTE | 2020-10-03 20:33 | ECG_ITS ---
[facility] Test Date: 2020-10-03 Pat Name: Vega Wilcox Department: Room: Gender: Male Foreclosure Specialist: : 1955 Requested By: Carlos Alberto Brasher Order Number: [id number] Roger MD: Talia Frederick M.D. Measurements Intervals Jenkins Rate: 88 P: -32 CA: 150 QRS: 92 QRSD: 94 T: 65 QT: 361 QTc: 439 Interpretive Statements SINUS RHYTHM BORDERLINE RIGHT AXIS DEVIATION [QRS AXIS > 90] POSSIBLE INFERIOR MYOCARDIAL INFARCTION , PROBABLY OLD [30 ms Q WAVE IN II/aVF] Compared to ECG 10/03/2020 18:33:43 Myocardial infarct finding now present Atrial fibrillation no longer present ST (T wave) deviation no longer present Electronically Signed On 10-05-2020 7:05:41 CDT by Talia Frederick M.D. [id number]
[2020-10-03 22:02] LABS: Troponin 5 2HR 19.62 ng/L (0-15)
[2020-10-03 22:03] LABS: Troponin 5 2HR Delta 11.62 ABS# (0-10)
== END 2020-10-03 22:25 | disposition left against medical advice (07) ==
PROVIDERS: Emergency Provider Emergency Medicine; PCP Electrodiagnostic Medicine
DX: R07.9 Chest pain, unspecified (principal); Z79.4 Long term (current) use of insulin; J44.9 Chronic obstructive pulmonary disease, unspecified; E11.9 Type 2 diabetes mellitus without complications; I10 Essential (primary) hypertension; E78.5 Hyperlipidemia, unspecified; Z87.891 Personal history of nicotine dependence
CPT/HCPCS: 71045; 80053; 84484; 85025; 93005; 99284

== ENCOUNTER 2020-10-04 15:04 | Inpatient (IN) | payer MEDICARE, OTHER, SELFPAY ==
[2020-10-04 16:15] LABS: Glucose Point of Care 108 mg/dL (70-110)
--- NOTE | 2020-10-04 18:00 | ECG_ITS ---
[facility] Test Date: 2020-10-04 Pat Name: Vega Wilcox Department: Room: 111 Gender: Male Library Clerical Assistant: : 1955 Requested By: Lance Marcano Order Number: [id number] Roger MD: Talia Frederick M.D. Measurements Intervals Reynolds Rate: 59 P: -12 WV: 202 QRS: 84 QRSD: 93 T: 73 QT: 428 QTc: 427 Interpretive Statements SINUS BRADYCARDIA Compared to ECG 10/03/2020 19:20:32 Sinus rhythm no longer present Myocardial infarct finding no longer present Electronically Signed On 10-05-2020 7:00:17 CDT by Talia Frederick M.D. [id number]
[2020-10-04 18:06] LABS: Troponin T (5th) Once 8 ng/L (0-15)
[2020-10-04 18:11] VITALS: BMI 36.6
[2020-10-04 18:12] VITALS: PULSE 60; O2SAT 96
[2020-10-04] MEDS: enoxaparin 120 mg/0.8 mL Syringe SUBCUT (18:36)
--- NOTE | 2020-10-04 18:51 | PM.HP ---
Providers/Chief Complaint Admitting Physician: Lance Marcano MD Primary Care Provider: Ab Grubbs DO Chief Complaint: unstable chest pain History of Present Illness Vega Wilcox is a 65 year old male with a history of atherosclerotic heart disease, high blood pressure, type 2 diabetes, dyslipidemia was seen in the emergency room with complaints of a prolonged episode of chest pain. He was found to have a elevated troponin T with a significant delta after 2 hours. He was advised for hospital admission but the patient declined. He came to the office today for further evaluation. In the office, he again started having chest pain. The intensity of the pain was 3/10. In view of the patient's recurrent episodes of chest pain and elevated troponin T, he is admitted to the hospital for further evaluation and management. This patient is known to have coronary artery disease and had PCI of the mid LAD lesion in June 2020. He has been doing okay for a while after intervention. Was seen in the office in July for atypical chest pain. Subsequently had a myocardial perfusion imaging which revealed no severe ischemia. He has been having some chest pains off and on since then. Yesterday around 6 PM in the afternoon, he started having pressure like pain in the upper substernal area, radiating to both shoulders and to the neck. He had associated shortness of breath and some palpitations. The intensity of the pain was 10/10. No nausea, vomiting, dizziness or syncopal episode. He might have some sweating. For these complaints, he came to the emergency room. He spent a total of 4 hours also in the emergency room. The initial troponin T was normal. The second troponin T revealed a delta of 11.7. At this point the ER physician advised him to be admitted to the hospital for further evaluation management. The patient was vehemently opposed to the hospital admission. He called our office this morning to get in. According the patient, even though the severe pain was gone, he continued to have some pressure-like feeling in the chest that persisted through the night and also this morning. After being in the office, he started having a pressure-like pain in the upper substernal region. He did not have any associated shortness of breath or nausea. The intensity of the pain was 3/10. No other specific complaints. Did not have any fever or chills. No cough. No other specific complaints. Review of Systems Narrative: CONSTITUTIONAL: No fever or chills. Feeling of tiredness and weakness. EYES: No blurring of vision or other visual disturbances lately. ENT: No hoarseness of voice, auditory disturbances or sore throat. CARDIOVASCULAR: Episodes of chest pains as mentioned above. RESPIRATORY: No significant cough. GASTROINTESTINAL: No hematemesis or melena. GENITOURINARY: No dysuria or hematuria. INTEGUMENTARY: No skin rashes or history of skin cancer. NEURO: No transient ischemic attacks or amaurosis. PSYCHIATRIC: No history of psychosis or major depression. HEMATOLOGIC: No bleeding disorders or significant anemia. ENDOCRINE: No history of polyuria or polydipsia. MUSCULOSKELETAL: No recent joint pain or swelling. ALLERGY/IMMUNOLOGY: As mentioned above. Medications/Allergies Home Medications Medication Instructions Recorded Confirmed Last Taken Type losartan 50 mg tablet 50 mg PO BID@,06/23/19 10/04/20 10/04/20 History metformin 500 mg tablet 500 mg PO DAILY@06/23/19 10/04/20 10/04/20 History Perforomist 2 ml INHALATION BID@05/15/20 10/04/20 10/04/20 History budesonide [Pulmicort] 0.5 mg INHALATION BID@05/15/20 10/04/20 09/12/20 History montelukast 10 mg PO DAILY@05/15/20 10/04/20 10/04/20 History nitroglycerin 0.4 mg sublingual 0.4 mg SUBLINGUAL Q5M PRN 30 Days 05/17/20 10/04/20 10/03/20 Rx tablet #30 tab revefenacin 175 mcg/3 mL solution See Rx Instructions .ROUTE 05/26/20 10/04/20 10/04/20 Rx for nebulization .COMPLEX #30 vial furosemide 20 mg tablet 20 mg PO DAILY@79909/10/20 10/04/20 10/04/20 History glimepiride 2 mg tablet 2 mg PO BID@,09/10/20 10/04/20 10/04/20 History diltiazem HCl 120 mg PO DAILY@79909/12/20 10/04/20 10/04/20 History levothyroxine 200 mcg PO DAILY@79909/12/20 10/04/2018/21 History levothyroxine [Euthyrox] 50 mcg PO DAILY@0809/12/20 10/04/20 10/04/20 History omeprazole 40 mg PO DAILY@199909/12/20 10/04/20 10/03/20 History prasugrel [Effient] 10 mg PO DAILY@0800 09/12/20 10/04/20 10/04/20 History cyanocobalamin (vitamin B-12) 500 mcg PO DAILY@0910/03/20 10/04/20 10/04/20 History [Vitamin B-12] insulin detemir U-100 [Levemir 30 unit SUBCUT Q12H 10/03/20 10/04/20 10/04/20 History U-100 Insulin] atorvastatin 20 mg PO DAILY@2100 10/04/20 10/04/20 10/03/20 21:00 History Allergies Allergy/AdvReac Type Severity Reaction Status Date / Time No Known Allergies Allergy Verified 10/04/20 12:08 PFSH Acute PFSH: Medical History (Updated 10/04/20 @ 19:01 by Lance Marcano MD) AAA (abdominal aortic aneurysm) without rupture Allergic rhinitis Aortic root dilation Atypical chest pain BPH loc w urin obs/LUTS Cognitive impairment Confusion COPD (chronic obstructive pulmonary disease) DDD (degenerative disc disease) Delirium Diabetes Essential (primary) hypertension GERD (gastroesophageal reflux disease) Hyperglycemia Hyperlipidemia Hypothyroidism Intervertebral disc disorders with radiculopathy, lumbosacral region Lumbar disc disease with radiculopathy Obesity Scoliosis of lumbar region due to degenerative disease of spine in adult Testicular mass Thoracic aortic aneurysm, without rupture Surgical History H/O hernia repair History of PTCA Family History Mother Diabetes, Onset Age: 69 Father Cancer, Onset Age: 80 Lung Heart disease Lung disease Brother Diabetes Other Lupus Denies family history of Clotting disorder Dementia Chronic kidney disease (CKD) Suicide Anesthesia complication Bleeding disorder Stroke Social History Smoking and tobacco status: former smoker Quit status (tobacco): has quit using tobacco Year quit tobacco: 2019 - 2PPD x 50 Years Alcohol intake: never Lives independently: Yes Household members: spouse Marital status: Current occupational status: disabled History of recent travel: No Current gender identity: Male Vitals/I&O/Wt Last Vital Signs Pulse 60 10/04/20 18:12 Pulse Ox 96 10/04/20 18:12 Weight last 48 hrs Weight 263 lb Physical Exam Narrative: EXAM NARRATIVE: GENERAL: The patient is alert and oriented times three. Not in any acute distress. Moderately obese HEENT: No significant pallor, icterus or lymphadenopathy. The pupils are reactant to light. Oral cavity: There are no mucous membrane lesions. Funduscopic examination: The disk margins appear to be sharp with no exudates or hemorrhages. NECK: Trachea appears to be central. No masses noted. No JVD or thyromegaly appreciated. No carotid bruit. RESPIRATORY: Chest is symmetrical. No intercostals muscle retraction or any accessory muscle activation. There is no chest wall tenderness. Breath sounds are heard bilaterally. No rales or rhonchi heard. No evidence of any consolidation. BREASTS: Deferred. HEART: The PMI is in the 5th left intercostals space just inside the midclavicular line. No palpable precordial events. S1 and S2 are normal. No S3 or S4 heard. No pericardial rub or any click heard. ABDOMEN: No vessel pulsations or distention. No tenderness. No organomegaly appreciated. No abdominal bruit. Bowel sounds are normally heard. : Deferred. RECTAL: Deferred. LYMPHATIC: No lymphadenopathy noted in the neck or groin. EXTREMITIES: No edema or cyanosis. No clubbing. The pulses are symmetrical bilaterally. The upper extremity pulses are palpable and good volume and amplitude. Dorsalis pedis and posterior tibial artery pulses are palpable but of low volume and amplitude. MUSCULOSKELETAL: No acute joint deformities or swelling. SKIN: There are no significant scars or skin rash noted. NEUROPSYCHIATRIC: The patient is alert and oriented x3. Appears to be in a good mood. The higher functions are grossly within normal limits. No tremors or rigidity noted. Data : 10/05/20 03:10 10/05/20 03:10 Other Labs: 08/24/20 Stress Test 1. Myocardial perfusion may revealing a small area of moderately decreased persistent tracer uptake in the mid and apical inferior wall region suggestive of myocardial scarring versus attenuation artifact. 2. Normal LV ejection fraction 64%. 3. LV wall motion analysis revealing no gross wall motion normalities. 4. LV volume , slightly elevated to 49 ml 5. A small area of inconsistent reversible defect in the mid anterolateral region, possibly artifactual Possibly no significant coronary ischemia, based on the above findings 06/20/20 [facility] Patient underwent left heart catheterization with left and right coronary angiogram today. The findings are as follows. 2. High-grade lesion in the mid LAD of around 95%. Mild diffuse disease in the other vessels. LVEDP of 18 mmHg. The cardiac catheterization data was reviewed and discussed with . It was thought to be appropriate to consider PCI of the LAD lesion. At this point, took over further management of this patient. 3. Proximal Left Anterior Descending Coronary Artery was treated with two Balloon and Drug Eluting Stent. Laboratory Last Values POC Glucose 108 mg/dL (70-110) 10/04/20 16:10 Troponin T Gen 5 ng/L 8 ng/L (0-15) 10/04/20 17:11 A&P Assessment and plan (1) Non-ST elevation myocardial infarction (NSTEMI): Patient's clinical features are consistent with an acute coronary syndrome. For further evaluation of his symptoms, I may go ahead and do an echocardiogram. Patient may require a repeat cardiac catheterization , to reevaluate the coronary status and decide on further management. In the meanwhile, he will be started on subcu Lovenox. The Plavix and the aspirin will be continued. Based on the clinical progress, further recommendations will be made. Status: Acute (2) Aortic root dilation: Aortic root was 3.[address] of the chest. At this point, I may hold off on the follow-up evaluation at this time. We may consider doing a follow-up evaluation next year. Status: Acute (3) COPD (chronic obstructive pulmonary disease): Continue on the current treatment measures. Status: Acute Qualifiers: COPD type: unspecified COPD Qualified Code(s): J44.9 - Chronic obstructive pulmonary disease, unspecified (4) Hypothyroidism: Clinically euthyroid. We will continue the current medication. Status: Acute Qualifiers: Hypothyroidism type: acquired Qualified Code(s): E03.9 - Hypothyroidism, unspecified Additional A&P Information Based on the clinical progress and the results of the above, further recommendations will be made. Do an echocardiogram in the morning. Based on the patient clinical progress, further management decisions will be made Attestations Medical Necessity Statement*: Patient may require at least 2 midnight stay for further evaluation management of his condition Coding Level of Care Code Acute Metal Treater for [facility] Fwd Diagnoses Non-ST elevation myocardial infarction (NSTEMI) I21.4 Aortic root dilation I77.810 COPD (chronic obstructive pulmonary disease) J44.9 COPD type: unspecified COPD Hypothyroidism E03.9 Hypothyroidism type: acquired
[2020-10-04 20:00] VITALS: BP 125/86; PULSE 66; RESP 24; TEMP 36.6; O2SAT 95
--- NOTE | 2020-10-04 20:24 | PC.NURSE ---
DR. SOTO NOTIFIED OF HOME MED REC BEING COMPLETE BUT NONE OF THE HOME MEDICATIONS ARE ORDERED AT THIS TIME.
[2020-10-04 20:52] LABS: Glucose Point of Care 130 mg/dL (70-110)
[2020-10-04 21:45] VITALS: PULSE 68; O2SAT 96
[2020-10-04 22:00] VITALS: PULSE 69
--- NOTE | 2020-10-04 22:10 | PC.NURSE ---
Awaiting pharmacy to verify 2100 medication that is due.
[2020-10-04] MEDS: atorvastatin 40 mg Tablet 20 MG PO (23:00)
[2020-10-04 23:40] VITALS: BP 113/63; PULSE 66; RESP 24; TEMP 36.6; O2SAT 94
[2020-10-05] VITALS (65 sets, daily range): BP systolic 111–167; BP diastolic 63–100; PULSE 50–74; RESP 13–32; TEMP 36.6–37; O2SAT 92–97
[2020-10-05 02:10] LABS: Troponin T (5th) Once 9 ng/L (0-15)
[2020-10-05 03:36] LABS: Basophils # 0.1 10^3/uL (0.0-0.1); Basophils % 0.7 %; Eosinophils # 0.5 10^3/uL (0.0-0.8); Eosinophils % 4.6 %; Hematocrit 45.2 % (42.0-52.0); Hemoglobin 14.2 g/dL (11.7-16.6); Lymphocytes # 3.2 10^3/uL (0.8-4.8); Lymphocytes % 31.1 %; Mean Corpuscular HGB Conc 31.4 g/dL (30.0-36.0); Mean Corpuscular Hemoglobin 28.9 pg (28.0-34.0); Mean Corpuscular Volume 91.9 fL (80-94); Mean Platelet Volume 11.3 fL (7.4-10.4); Monocytes # 1.2 10^3/uL (0.2-0.9); Monocytes % 11.8 %; Neutrophils # 5.23 10^3/uL (1.8-7.7); Neutrophils % 51.2 %; Nucleated Red Blood Cells % 0 %; Platelet Count 217 10^3/cmm (130-400); Red Blood Count 4.92 10^6/uL (4.1-5.3); Red Cell Distribution Width 12.9 % (12.1-15.1); White Blood Count 10.2 10^3/uL (4.0-10.0)
[2020-10-05 04:01] LABS: Anion Gap 13.8 (5-19); Blood Urea Nitrogen 17 mg/dL (8-23); Calcium 8.5 mg/dL (8.5-10.5); Carbon Dioxide 27 mmol/L (22-29); Chloride 103 mmol/L (98-107); Chol HDL Ratio 4.47 mg/dL (1.0-5.00); Cholesterol 134 mg/dL (0-200); Glomerular Filtration Rate 66.8 mL/min (90-130); Glucose 100 mg/dL (65-115); HDL Cholesterol 30 mg/dL (60-100); LDL Cholesterol Calculated 77 mg/dL (50-129); Osmolality Calculated 292 mOsm/kg (285-295); Potassium 3.8 mmol/L (3.5-5.1); Sodium 140 mmol/L (136-145); Triglycerides 137 mg/dL (0-150); VLDL Cholestrol Calculation 27 mg/dL (0-30)
--- NOTE | 2020-10-05 05:13 | PC.NURSE ---
Patient has been resting in bed throughout most of shift. Patient has had no complaints. Will continue to monitor.
[2020-10-05 06:49] LABS: Glucose Point of Care 137 mg/dL (70-110)
--- NOTE | 2020-10-05 07:00 | USCV_ITS ---
Brenden Vega Age: 65 Gender: M : 1955 Exam Date: 10/05/2020 06:29 Ordering Phys: Lance Marcano MD ([email or web address]) Technologist: Exam Location: [facility] – [place] Indication: CHEST PAIN BP: 114 / 63 HR: 62 Rhythm: Sinus Technical Quality: Fair MEASUREMENTS (Male / Female) Normal Values 2D ECHO LV Diastolic Diameter PLAX 5.6 cm 4.2 - 5.9 / 3.9 - 5.3 cm LV Systolic Diameter PLAX 4.1 cm IVS Diastolic Thickness 1.2 cm 0.6 - 1.0 / 0.6 - 0.9 cm IVS Systolic Thickness 1.7 cm LVPW Diastolic Thickness 1.2 cm 0.6 - 1.0 / 0.6 - 0.9 cm LVPW Systolic Thickness 1.2 cm LVOT Diameter 2.0 cm LV Ejection Fraction 2D Teich 52.0 % LV Ejection Fraction MOD 2C 66.7 % LV Ejection Fraction 2C AL 66.0 % LA Diameter 3.6 cm LA Width 3.5 cm LA Height 4.2 cm Aorta at Sinotubular Diameter 3.3 cm M-MODE LV Diastolic Diameter MM 5.7 cm 4.2 - 5.9 / 3.9 - 5.3 cm LV Systolic Diameter MM 4.6 cm LV Ejection Fraction MM Teich 41.1 % IVS Diastolic Thickness MM 1.1 cm 0.6 - 1.0 / 0.6 - 0.9 cm IVS Systolic Thickness MM 1.4 cm LVPW Diastolic Thickness MM 1.5 cm 0.6 - 1.0 / 0.6 - 0.9 cm LVPW Systolic Thickness MM 2.0 cm RV Diastolic Diameter MM 2.2 cm Aortic Annulus Diameter 5.0 cm LA Ao Ratio MM 0.8 DOPPLER MV Area PHT 5.0 cm squared Mitral E to A Ratio 0.9 MV E' Velocity 39.0 cm/s Mitral E to MV E' Ratio 7.8 Mitral E to LV E' Lateral Ratio 7.4 Mitral E to LV E' Septal Ratio 8.3 TR Peak Velocity 137.0 cm/s TR Peak Gradient 7.5 mmHg PV Peak Velocity 75.0 cm/s FINDINGS Left Ventricle Normal left ventricular size and systolic function, EF 69 %. No regional wall motion abnormalities. Grade I/IV diastolic dysfunction (abnormal relaxation filling pattern), normal to mildly elevated filling pressures. Right Ventricle The right ventricle is normal in size and function. Right Atrium The right atrium is normal in size. Left Atrium The left atrium is normal in size. Mitral Valve No gross abnormalities noted Aortic Valve No gross abnormalities noted Tricuspid Valve No gross abnormalities noted Pulmonic Valve Pulmonic valve not well visualized. Pericardium Normal pericardium without effusion. Aorta Normal ascending aorta dimension. CONCLUSIONS Normal left ventricular size and systolic function, EF 69 %. No regional wall motion abnormalities. Grade I/IV diastolic dysfunction (abnormal relaxation filling pattern), normal to mildly elevated filling pressures. No significant stenotic or regurgitant lesions Normal cardiac chamber sizes There is no pericardial effusion. There are no intracardiac masses. Compared to the study from 03/06/2019, there may not be a significant change Dr Lance Marcano MD FACC (Electronically Signed) Final Date: 05 Oct 2020 09:07 S
[2020-10-05] MEDS: budesonide 0.5 mg/2 mL Neb INHALATION (08:38)
[2020-10-05 08:59] LABS: Troponin T (5th) Once 8 ng/L (0-15)
--- NOTE | 2020-10-05 09:13 | P.PN_ITS ---
Subjective Subjective: Interval history: Patient did not have any significant chest pain, since the hospital admission. His repeat troponin T was found to be within normal limits. He had a 2 hr delta of 11.5 on 10/03/2020 Medications: Reviewed: Yes Medication Review Details: Current Medications Aspirin (Aspirin 81 Mg Ec Tablet) 81 mg PO DAILY [facility] Atorvastatin Calcium (Atorvastatin 40 Mg Tablet) 20 mg PO DAILY@2100 [facility] Last Admin: 10/04/20 23:00 Dose: 20 mg Documented by: Budesonide (Budesonide 0.5 Mg/2 Ml Neb) 0.5 mg INHALATION DAILY.RESPIRATORY [facility] Last Admin: 10/05/20 08:38 Dose: 0.5 mg Documented by: Cyanocobalamin (Cyanocobalamin 1,000 Mcg Tablet) 500 mcg PO DAILY@0900 [facility] Diltiazem HCl (Diltiazem Er (24hr) 120 Mg Capsule) 120 mg PO DAILY@0800 [facility] Diphenhydramine HCl (Diphenhydramine 50 Mg Capsule) 50 mg PO ONCE ONE Stop: 10/05/20 09:09 Enoxaparin Sodium (Enoxaparin 120 Mg/0.8 Ml Syringe) 120 mg SUBCUT Q12H [facility] Furosemide (Furosemide 20 Mg Tablet) 20 mg PO DAILY@0800 [facility] Glimepiride (Glimepiride 2 Mg Tablet) 2 mg PO BID@08,12 [facility] Sodium Chloride (Sodium Chloride 0.9%) 1,000 mls @ 50 mls/hr IV .Q20H ONE Stop: 10/06/20 05:07 Insulin Detemir (Insulin Detemir 100 Units/1 Ml) 30 unit SUBCUT Q12H [facility] Last Admin: 10/04/20 21:35 Dose: Not Given Documented by: Levothyroxine Sodium (Levothyroxine 50 Mcg Tablet) 50 mcg PO DAILY@0800 [facility] Levothyroxine Sodium (Levothyroxine 200 Mcg Tablet) 200 mcg PO DAILY@0800 [facility] Losartan Potassium (Losartan 50 Mg Tablet) 50 mg PO BID@08,20 [facility] Montelukast Sodium (Montelukast Sodium 10 Mg Tablet) 10 mg PO DAILY@08 [facility] Nitroglycerin (Nitroglycerin 0.4 Mg Sublingual Tablet) 0.4 mg SUBLINGUAL Q5M PRN PRN Reason: chest pain Non-Formulary Medication (Formoterol Fumarate [Perforomist]) 2 ml INHALATION BID@08,20 [facility] Non-Formulary Medication (Revefenacin [Yupelri]) 1 vial NEBULIZER DAILY [facility] Pantoprazole Sodium (Pantoprazole Dr 40 Mg Tablet) 40 mg PO DAILY@2000 [facility] Prasugrel (Prasugrel 10 Mg Tablet) 10 mg PO DAILY@0800 [facility] Vitals/I&O/Wt Last Vital Signs Temp 98.2 F 10/05/20 08:00 Pulse 74 10/05/20 08:48 Resp 18 10/05/20 08:38 BP 128/72 10/05/20 08:00 Pulse Ox 96 10/05/20 08:38 10/04/20 10/05/20 10/05/20 22:59 06:59 14:59 Intake Total 100 / 100 360 / 360 Balance 100 / 100 360 / 360 Weight last 48 hrs Weight 263 lb 12.8 oz Weight 263 lb Physical Exam Narrative: EXAM NARRATIVE: GENERAL: The patient is alert and oriented times three. Not in any acute distress. Moderately obese HEENT: No significant pallor, icterus or lymphadenopathy. The pupils are reactant to light. Oral cavity: There are no mucous membrane lesions. NECK: Trachea appears to be central. No masses noted. No JVD or thyromegaly appreciated. No carotid bruit. RESPIRATORY: Chest is symmetrical. No intercostals muscle retraction or any accessory muscle activation. There is no chest wall tenderness. Breath sounds are heard bilaterally. No rales or rhonchi heard. No evidence of any consolidation. BREASTS: Deferred. HEART: The PMI could not be palpated. No palpable precordial events. S1 and S2 are normal. No S3 or S4 heard. No pericardial rub or any click heard. ABDOMEN: No vessel pulsations or distention. No tenderness. No organomegaly appreciated. No abdominal bruit. Bowel sounds are normally heard. : Deferred. RECTAL: Deferred. LYMPHATIC: No lymphadenopathy noted in the neck or groin. EXTREMITIES: No edema or cyanosis. No clubbing. The pulses are symmetrical bilaterally. The upper extremity pulses are palpable and good volume and ampl itude. Dorsalis pedis and posterior tibial artery pulses are palpable but of low volume and amplitude. MUSCULOSKELETAL: No acute joint deformities or swelling. SKIN: There are no significant scars or skin rash noted. NEUROPSYCHIATRIC: The patient is alert and oriented x3. No focal motor deficits Data : 10/05/20 03:10 10/05/20 03:10 A&P Assessment and plan (1) Non-ST elevation myocardial infarction (NSTEMI): Patient's clinical features are consistent with an acute coronary syndrome. For further evaluation of his symptoms, I may go ahead and do an echocardiogram. Patient may require a repeat cardiac catheterization , to reevaluate the coronary status and decide on further management. The echocardiogram was reviewed. No significant wall motion normalities were noted. Patient had the myocardial perfusion imaging last month for the chest pain. It was unremarkable. In view of the patient's recurrent episodes of chest pains and the recent history of stent placement, in order to further evaluate his coronary status, he requires a cardiac catheterization. The risk of bleeding, hematoma, vascular injury, myocardial infarction, CVA, renal failure and other concomitant complications were explained in detail. Patient understood this well and consented to proceed. We may go ahead and schedule the test as early as possible in the hospital. Based on the results, further recommendations will be made. Status: Acute (2) Aortic root dilation: Aortic root was 3.[address] of the chest. At this point, I may hold off on the follow-up evaluation at this time. We may consider doing a follow-up evaluation next year. Status: Acute (3) COPD (chronic obstructive pulmonary disease): Continue on the current treatment measures. Status: Acute Qualifiers: COPD type: unspecified COPD Qualified Code(s): J44.9 - Chronic obstructive pulmonary disease, unspecified (4) Hypothyroidism: Clinically euthyroid. We will continue the current medication. Status: Acute Qualifiers: Hypothyroidism type: acquired Qualified Code(s): E03.9 - Hypothyroidism, unspecified Additional A&P Information Based on the clinical progress and the results of the above, further recommendations will be made. Attestations Medical Necessity Statement*: Patient requires continued hospital stay for close monitoring and further management Coding Level of Care Code Acute Assistant Paralegal for [facility] Fwd Exam Detailed Medical Decision Making Moderate Complexity Diagnoses Non-ST elevation myocardial infarction (NSTEMI) I21.4 Aortic root dilation I77.810 COPD (chronic obstructive pulmonary disease) J44.9 COPD type: unspecified COPD Hypothyroidism E03.9 Hypothyroidism type: acquired Time Spent (min) 30
[2020-10-05] MEDS: enoxaparin 120 mg/0.8 mL Syringe SUBCUT (09:23)
[2020-10-05] MEDS: cyanocobalamin 1,000 mcg Tablet 500 MCG PO (09:37)
[2020-10-05] MEDS: montelukast sodium 10 mg Tablet PO (09:39)
[2020-10-05] MEDS: aspirin 81 mg EC Tablet PO (09:39)
[2020-10-05] MEDS: levothyroxine 200 mcg Tablet PO (09:39)
[2020-10-05] MEDS: dilTIAZem ER (24HR) 120 mg Capsule PO (09:40)
[2020-10-05] MEDS: prasugrel 10 MG Tablet PO (09:40)
[2020-10-05] MEDS: FUROsemide 20 mg Tablet PO (09:40)
[2020-10-05] MEDS: glimepiride 2 mg Tablet PO (09:40)
[2020-10-05] MEDS: levothyroxine 50 mcg Tablet PO (09:42)
[2020-10-05] MEDS: losartan 50 mg Tablet PO ×2 (09:42→21:19)
--- NOTE | 2020-10-05 10:23 | PC.CHAP ---
Pastoral Care Encounter/Spiritual Assessment Type of Contact [] Declined electrical mechanic visit [] Patient/Family/Request visit [] Outpatient visit [] Follow-up visit [] Physician referral [] Code/Alert [x] Routine visit [] Staff referral [] Actively dying [] Patient sleeping [] Family support [] [] Out of room [] Palliative care [] [] Receiving care in room [] Pre-surgical visit [] Trauma [] Long length of stay [] ICU visit [] Other: Relational/Emotional Strength [] Patient feels connected with others/family/visitors/staff [] Distress [] Loneliness/isolation [] Abandonment Spirituality of Patient [] Person of Niyah [] Attends Moravian of their Niyah [] Believes in Prayer [] Reads Bible or Tenriism materials [] There are Spiritual issues to be addressed Char Conveyor Tender Interventions [x] Prayer [] Active listening [] Non-anxious presence [] Spiritual/emotional support [] Crisis/trauma care [] Spiritual counseling [] Bereavement support [] Provided bereavement packet [] Provided Bible/devotional materials [] Provided toy/stuffed animal, coloring book to patient or family member [] Provided Communion [] Anointing/Ford [] Salvation [] Completed spiritual assessment [] Other: Impact on Illness or Injury [] Angry [] Fearful [] Anxious [] Often cries [] Exhaustion [] Unable to work [] Unable to attend mormon [] Unable to walk/stand [] Unable to read [] Unable to drive [] Unable to eat/drink [] Unable to sleep [] Unable to be with family [] Patient intubated [] Other: Summary Time spent with patient
[2020-10-05 10:57] LABS: Glucose Point of Care 143 mg/dL (70-110)
[2020-10-05 16:22] LABS: Glucose Point of Care 96 mg/dL (70-110)
[2020-10-05] MEDS: sodium chloride 0.9% 1,000 ML 50 ML IV (16:23)
--- NOTE | 2020-10-05 17:09 | XACV_ITS ---
Exam Room: [facility] Ht: 180 cm Wt: 119 kg BSA: 2.49 m2 Gender: Male : 1955 Any Known Allergies: No known allergies Exam Priority: Routine Procedure(s): Procedure Description: Diagnostic procedure Procedure Description: Left Heart Catheterization Diagnostic Cath Status: Elective Diagnostic Findings * The left main is a short vessel with no significant stenotic lesion. * The left anterior descending artery is a medium to large caliber vessel with widely patent stent at the mid segment. The distal LAD was found to have around 20 to 30% tubular narrowing. No other significant stenotic lesions. * The left circumflex artery is a the left circumflex artery is a medium caliber with no significant stenotic lesion. * The intermedius artery is a medium to large caliber, high obtuse marginal vessel with no significant stenotic lesion. * The right coronary artery is a medium caliber dominant vessel with 20 to 30% diffuse irregular narrowing of the mid segment. Interventional Findings * Mid Left Anterior Descendin% stenosis treated with a Drug Eluting Stent. 0% residual stenosis, NAILA: 3 flow. Conclusions 1. Cardiac catheterization revealed patent stented segment in the mid LAD. Mild disease in the other vessels. Normal LV ejection fraction 55%.. Elevated LVEDP of 29 mmHg- suggesting LV diastolic dysfunctioin. Recommendations * Continue current medical management and risk factor modification. Diagnostic RX Recommendation: medical therapy and/or counseling LV EDP: 29 mmHg Ventriculography Ejection Fraction: 55.0 % Left Ventriculography Findings: * The LV gram was performed the ORTEGA position LVEDP was 29 mmHg. There was no significant wall motion abnormalities. No filling defects. No significant mitral valve prolapse or mitral regurgitation. LV ejection fraction was around 55%. Pressures Phase:Rest LV : 157 / 11 / 29 @ 4:44:00 PM 156 / 11 / 29 @ 4:44:00 PM 156 / 9 / 32 @ 4:45:00 PM 152 / 10 28 @ 4:45:00 PM Clinical Evaluation EBL: 5mL-10mL Procedural Details Procedure Consent Obtained. Admit Source: In Patient. Pre-Procedure Time Out. Identified patient by full name and date of as verbalized by the patient/guarantor. Does the consent match the physician's order: Yes. Accurate & Complete Informed Consent: Yes. Inpatient/Outpatient History & Physical on Chart: Yes. If H&P is completed, is and addenduem needed: Yes; If yes, is the addendum complete: N/A. Visualize and Verify Site with Patient/Guarantor: N/A. Relevant Radiology Images available: N/A. Pre-op teaching completed and patient verbalized understanding. The risks, benefits, and alternatives of sedation and/or procedure were discussed by physician. The patient agrees to continue. Procedure started. Correct patient, site and procedure confirmed by cath team. PERRLA. 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 Lungs clear x 5 lobes. IV Site on Arrival: 20 gauge in the left hand. Pre Procedural Pulses: bilateral dorsalis pedis was 2+. Pre Procedural Pulses: bilateral posterior tibial was 2+. Pre Procedural Pulses: bilateral radial was 3+. Oxygen started at 2liters/min via nasal canula. bilateral groins was prepped with chloroprep then draped in the usual sterile fashion. right radial was prepped with chloroprep then draped in the usual sterile fashion. Baseline sample Acquired. HR: 61 BPM. Physician notified. Physician arrived. Physician scrubbed in. Immediate Pre-Procedure Time Out. Correct Patient: Yes; Correct Procedure: Yes; Correct Site: Yes; Correct Patient Position: Yes; Correct Supplies: Yes; Dried Flammable Prep: Yes; Blood Products Available: NA;. Lidocaine 1% infiltrated to the right radial. Arterial access obtained. A 5 swiss Babak catheter in over wire. Multiple views taken of left coronary artery. Catheter redirected to the RCA. Multiple views taken of right coronary artery. Catheter out. A 5 swiss Angled Pig catheter in over wire. EDP Sample taken: LV 157/11,29; HR: 74 BPM; SpO2: 97%. LV gram performed in ORTEGA @ 10 mL/second for a total of 30 mL. EDP Sample taken: LV 156/9,32; HR: 75 BPM; SpO2: 93%. Pullback taken: LV Off; AO Off; Mean: , Peak to Peak: , SEP: ; HR: 83 BPM; SpO2: 95%. Catheter out. TR band placed. Hemostasis obtained. Post Procedure: Pulses reassessed and unchanged. PERRLA. 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 No VTE prophylaxis required. Medication's Wasted: Lidocaine 1% = 18 mL. Medication's Wasted: Nitro = 49.8 mg. Medication's Wasted: Heparin = 1000 units. Total IV fluids: 98.2 mL. Contrast type used: Omnipaque 300 mgI/mL, 500 mL bottle. Contrast Material : Omnipaque 116 ml. [facility] Clinical Fraility Score: 3: Managing Well. Electronics Scale Tester Indications: Worsening Angina. Chest Pain Symptom Assessment: Atypical Angina. Cardiovascular Instability: No. Post-op diagnosis: patent stent and high EDP. Complications: none. Estimated blood loss: 5mL-10mL. Procedure completed. A TR Band was successful obtaining hemostatsis at the Right Radial artery insertion site. Patient transferred by wheelchair to 1st floor. Access Site Site: Right Radial artery Sheath Size: 6 Fr Hemostasis Method: TR Band Hemostasis Success: Successful Procedure Medications Start: 5:29 PM Stop: 5:29 PM Medication: Versed Amount: 1 mg Route: I.V. Start: 5:29 PM Stop: 5:29 PM Medication: Fentanyl Amount: 50 mcg Route: I.V. Start: 5:34 PM Stop: 5:34 PM Medication: Versed Amount: 1 mg Route: I.V. Start: 5:34 PM Stop: 5:34 PM Medication: Fentanyl Amount: 50 mcg Route: I.V. Start: 5:34 PM Stop: 5:34 PM Medication: Verapamil Amount: 5 mg Route: I.A. Start: 5:35 PM Stop: 5:35 PM Medication: Nitrogylcerin Amount: 200 mcg Route: I.A. Start: 5:37 PM Stop: 5:37 PM Medication: Heparin Amount: 5000 units Route: I.V. Start: 5:20 PM Stop: 5:20 PM Medication: Benadryl Amount: 50 mg Route: I.V. I, the attending physician, have reviewed and verified all procedure medications. Yes, all medications given per verbal order History/Risk Factors Hypertension: Yes Tobacco Use: Current/Recent(w/in 1 year) Prior Interventions PCI: Yes Report Signatures Finalized by Dr Lance Marcano MD [facility] on 10/05/2020 06:13 PM
--- NOTE | 2020-10-05 17:53 | W.PM.OPSUD ---
Surgery/Procedure H&P Update DATE OF PROCEDURE: October 05, 2020 DATE H&P PERFORMED: 10/04/20 H&P UPDATE INFORMATION: I have reviewed H&P completed within last 30 days, I have examined patient prior to procedure and No changes to prior documentation PREOP DIAGNOSIS: Non-ST elevation myocardial infarction/ASHD PRIMARY INDICATION FOR PROCEDURE: As above PLANNED PROCEDURE: Operation Date: 10/05/20 16:30 Proposed Procedures p left and right Cardiac Catheterization 79917 I21.4(Bilateral) - Lance Marcano MD PATIENT REASSESSED PRIOR TO SEDATION, WITH NO CHANGE NOTED: Yes PHYSICAL EXAM: alert, clear to auscultation bilaterally and regular rate & rhythm AIRWAY EVAL/ANESTHESIA PLAN: normal airway, see other exam findings, ASA II, Monitored Anesthesia, Local Anesthesia, Risks, benefits & alternatives of sedation and/or procedure discussed and Patient agrees to continue as planned
--- NOTE | 2020-10-05 20:24 | PC.NURSE ---
sent to cardiac laboratory associate via w/c at 1645.received from cardiac laboratory associate at 1800.report received.pt was alert and awake and oriented x 4.sr on monitor.denied pain.right radial tr band on and intact .right hand is warm to touch and with brisk capillary refill.palpable radial pulse noted distal to tr band. no hematoma observed.vss.instructed in activity restrictions s/p radial artery procedure...and instructed to notify staff for any bleeding ,pain,numbness..or for anyconcerns at all.pt verb understanding of instructions
[2020-10-05] MEDS: pantoprazole DR 40 mg Tablet PO (21:19)
[2020-10-05] MEDS: atorvastatin 40 mg Tablet 20 MG PO (21:19)
--- NOTE | 2020-10-05 21:22 | PC.NURSE ---
Dr. Marcano notified of patient currently having TR band and Lovenox is due. Ordered to d/c Lovenox order.
--- NOTE | 2020-10-05 22:57 | PC.NURSE ---
TR band removed from right wrist at this time after air was removed per order. Right wrist site WNL. VSS. Dressing applied. Patient educated on post-cath activity restrictions and verbalized understanding.
[2020-10-06] VITALS (8 sets, daily range): BP systolic 122–173; BP diastolic 82–97; PULSE 48–63; RESP 16–21; TEMP 36.6–36.7; O2SAT 91–96
--- NOTE | 2020-10-06 08:30 | P.DS_ITS ---
Discharge Providers Date of Admission: 10/04/20 15:04 Date of Discharge: October 06, 2020 Attending Provider at Admission: Lance Marcano MD Attending Provider at Discharge: Lance Marcano MD Primary Care Provider: Ab Grubbs DO Diagnoses at Discharge Discharge Diagnosis (1) Non-ST elevation myocardial infarction (NSTEMI): Status: Acute Permanent problem details: Apparently the patient had chest pain with palpitations, when he presented to the emergency room. It is possible that he had some form of cardiac arrhythmia causing the chest pain and elevated troponin T. (2) Aortic root dilation: Status: Acute Permanent problem details: Stable (3) COPD (chronic obstructive pulmonary disease): Status: Acute Qualifiers: COPD type: unspecified COPD Qualified Code(s): J44.9 - Chronic obstructive pulmonary disease, unspecified (4) Hypothyroidism: Status: Acute Qualifiers: Hypothyroidism type: acquired Qualified Code(s): E03.9 - Hypothyroidism, unspecified Reason for Visit Reason for Visit: unstable chest pain Hospital Course Hospital Course The patient remained fairly stable throughout the hospital course. He had an echocardiogram which revealed normal LV size and ejection fraction with no significant wall motion normalities. His EKG showed some nonspecific ST-T changes. He underwent a cardiac catheterization, to further evaluate his coronary status. He was found to have patent stented segment of the left anterior descending artery. Mild diffuse disease in the other vessels. He did not have any postprocedure complications. Since he is remaining stable, he is being discharged home today. Physical Exam Narrative: EXAM NARRATIVE: GENERAL: The patient is alert and oriented times three. Not in any acute distress. HEENT: No significant pallor, icterus or lymphadenopathy.Oral cavity: There are no mucous membrane lesions. NECK: Trachea appears to be central. No masses noted. No JVD or thyromegaly appreciated. RESPIRATORY: Chest is symmetrical. No intercostals muscle retraction or any accessory muscle activation. There is no chest wall tenderness. Breath sounds are heard bilaterally. No rales or rhonchi heard. No evidence of any consolidation. BREASTS: Deferred. HEART: The heart sounds are normal. No S3 or S4. Short systolic murmur the left sternal border. No pericardial rub ABDOMEN: No vessel pulsations or distention. No tenderness. No organomegaly appreciated. Bowel sounds are normally heard. : Deferred. RECTAL: Deferred. LYMPHATIC: No lymphadenopathy noted in the neck or groin. EXTREMITIES: No edema or cyanosis. No clubbing. Peripheral pulses are palpated in fairly good volume and amplitude MUSCULOSKELETAL: No acute joint deformities or swelling SKIN: There are no significant rashes or ecchymosis NEUROPSYCHIATRIC: The patient is alert and oriented x3. Appears to be in a good mood. No tremors or rigidity noted. 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 Routin e Exams 10/05/20 17:09 Completed US echo complete [CV echo complete* 19532] Routine Ultrasound 10/05/20 07:00 Completed Labs from last 24 hours 10/05/20 10/05/20 10/05/20 16:18 10:54 08:26 POC Glucose 96 143 H Troponin T Gen 5 n g/L 8 Vitals: Last Vital Signs Temp 98 F 10/06/20 03:38 Pulse 56 L 10/06/20 05:53 Resp 20 H 10/06/20 03:38 BP 122/82 10/06/20 03:38 Pulse Ox 96 10/06/20 03:38 Discharge Plan Discharge Patient Disposition: Home Condition: Stable Prescriptions: Continued losartan 50 mg tablet 50 mg PO BID@ RF: 0 nitroglycerin 0.4 mg tablet, sublingual 0.4 mg sublingual Q5M PRN (Reason: chest pain) 30 Days Qty: 30 RF: 3 glimepiride 2 mg tablet 2 mg PO DAILY RF: 0 furosemide 20 mg tablet 20 mg PO DAILY@0800 RF: 0 revefenacin [Yupelri] 175 mcg/3 mL solution for nebulization See Rx Instructions .ROUTE .COMPLEX Qty: 30 RF: 11 atorvastatin 20 mg tablet 20 mg PO DAILY@2100 RF: 0 montelukast 10 mg Tablet 10 mg PO DAILY@08 RF: 0 budesonide [Pulmicort] 0.5 mg/2 mL suspension for nebulization 0.5 mg inhalation BID@ RF: 0 Perforomist 20 mcg/2 mL solution for nebulization 2 ml inhalation BID@,20 RF: 0 omeprazole 40 mg capsule,delayed release(DR/EC) 40 mg PO DAILY@1999 RF: 0 levothyroxine [Euthyrox] 50 mcg tablet 50 mcg PO DAILY@0800 RF: 0 levothyroxine 200 mcg tablet 200 mcg PO DAILY@0800 RF: 0 diltiazem HCl 120 mg capsule,extended release 12 hr 120 mg PO DAILY@0800 RF: 0 prasugrel [Effient] 10 mg tablet 10 mg PO DAILY@0800 RF: 0 cyanocobalamin (vitamin B-12) [Vitamin B-12] 500 mcg Tablet 500 mcg PO DAILY@0900 RF: 0 Levemir U-100 Insulin 100 unit/mL Solution 30 unit SUBCUT Q12H RF: 0 Held metformin 500 mg tablet 500 mg PO DAILY@08 RF: 0 Hold Instructions: Resume on 10/09/20. Discharge Orders: Discharge Order (Routine); Ordered 10/06/20 Ordered By: Lance Marcano Referrals: Lin De Guzman FNP [Nurse Practitioner] - Discharge Diet: Advance as tolerated Discharge Activity: Resume usual activity Patient Instructions: Left Heart Catheterization (DC) Activity Restrictions/Additional Instructions: Patient is advised to avoid any weight lifting of more than 5 pounds with the right hand for the next 3 days. Appointment at the heart care services with the nurse practitioner next week. Event monitor for 30 days for heart palpitations Appointment with me in the office in 2 months Discharge Attestations Time Spent in Discharge Care*: less than 30 min Status at Discharge: Cognitive status at discharge: cognitively intact , Behavioral status at discharge: cooperative , Quality Metrics Clinical Quality Measures During this hospital stay, did patient experience: None Coding Level of Care Code Acute Chg FW DC note Diagnoses Non-ST elevation myocardial infarction (NSTEMI) I21.4 Aortic root dilation I77.810 COPD (chronic obstructive pulmonary disease) J44.9 COPD type: unspecified COPD Hypothyroidism E03.9 Hypothyroidism type: acquired
[2020-10-06] MEDS: montelukast sodium 10 mg Tablet PO (09:01)
[2020-10-06] MEDS: prasugrel 10 MG Tablet PO (09:01)
[2020-10-06] MEDS: levothyroxine 200 mcg Tablet PO (09:01)
[2020-10-06] MEDS: cyanocobalamin 1,000 mcg Tablet 500 MCG PO (09:01)
[2020-10-06] MEDS: FUROsemide 20 mg Tablet PO (09:02)
[2020-10-06] MEDS: levothyroxine 50 mcg Tablet PO (09:02)
[2020-10-06] MEDS: dilTIAZem ER (24HR) 120 mg Capsule PO (09:02)
[2020-10-06] MEDS: aspirin 81 mg EC Tablet PO (09:02)
[2020-10-06] MEDS: glimepiride 2 mg Tablet PO (09:05)
[2020-10-06] MEDS: losartan 50 mg Tablet PO (09:05)
--- NOTE | 2020-10-06 10:17 | PC.NURSE ---
patient education provided to himself and family. Patient had no questions or concerns. Patient was wheeled to heart care services for an event monitor placement and will go home after that. VS stable upon departure.
== END 2020-10-06 09:30 | disposition home or self-care (01) | DRG 282 ==
PROVIDERS: Admitting Provider Internal Medicine Cardiovascular Disease; PCP Electrodiagnostic Medicine; Visit Provider Internal Medicine Cardiovascular Disease
PROC: 4A023N7 Measurement of Cardiac Sampling and Pressure, Left Heart, Percutaneous Approach (ICD-10-PCS; principal; 2020-10-05 16:30)
DX: I21.4 Non-ST elevation (NSTEMI) myocardial infarction (principal); I25.10 Atherosclerotic heart disease of native coronary artery without angina pectoris; Z95.5 Presence of coronary angioplasty implant and graft; E11.9 Type 2 diabetes mellitus without complications; E78.5 Hyperlipidemia, unspecified; I71.4 Abdominal aortic aneurysm, without rupture; N40.1 Benign prostatic hyperplasia with lower urinary tract symptoms; J44.9 Chronic obstructive pulmonary disease, unspecified; M54.16 Radiculopathy, lumbar region; M54.17 Radiculopathy, lumbosacral region; I10 Essential (primary) hypertension; K21.9 Gastro-esophageal reflux disease without esophagitis; E03.9 Hypothyroidism, unspecified; E66.9 Obesity, unspecified; Z68.36 Body mass index [BMI] 36.0-36.9, adult; M41.9 Scoliosis, unspecified; I71.2 Thoracic aortic aneurysm, without rupture; Z87.891 Personal history of nicotine dependence; I24.9 Acute ischemic heart disease, unspecified; Z79.4 Long term (current) use of insulin
CPT/HCPCS: 36415; 36416; 71045; 80048; 80053; 80061; 82962; 84484; 85025; 93005; 93306; 93452; 94640; 96372; 99284; C1769; C1887; C1894; J1200; J1644; J1650; J1815; J2250; J3010; J3490; J7030; J7626; Q9967

== ENCOUNTER → 2020-10-12 09:34 | Outpatient (BNVA) | payer MEDICARE, OTHER, SELFPAY | PROVIDERS: PCP Electrodiagnostic Medicine; Visit Provider Nurse Practitioner Family | DX: I21.4 Non-ST elevation (NSTEMI) myocardial infarction (principal) | CPT/HCPCS: 80048 ==

== ENCOUNTER → 2020-11-02 09:21 | Outpatient (BNVA) | payer MEDICARE, OTHER, SELFPAY | PROVIDERS: PCP Electrodiagnostic Medicine; Visit Provider Internal Medicine Cardiovascular Disease | DX: I49.9 Cardiac arrhythmia, unspecified (principal); E03.9 Hypothyroidism, unspecified; I25.119 Atherosclerotic heart disease of native coronary artery with unspecified angina pectoris; R07.89 Other chest pain | CPT/HCPCS: 80048; 84443 ==

== ENCOUNTER 2020-12-20 15:32 | Outpatient (RCR) | payer MEDICARE, OTHER, SELFPAY | END 2021-01-17 23:59 | disposition home or self-care (01) | LOC: CR 15:32 | PROVIDERS: Family Provider Electrodiagnostic Medicine; PCP Electrodiagnostic Medicine; Referring Provider Internal Medicine Cardiovascular Disease; Visit Provider Internal Medicine Cardiovascular Disease | DX: I25.2 Old myocardial infarction (principal) | CPT/HCPCS: 93798 ==

== ENCOUNTER 2021-01-19 14:29 | Outpatient (RCR) | payer MEDICARE, OTHER, SELFPAY | END 2021-02-16 23:59 | disposition home or self-care (01) | LOC: CR 14:29 | PROVIDERS: Family Provider Electrodiagnostic Medicine; PCP Electrodiagnostic Medicine; Referring Provider Internal Medicine Cardiovascular Disease; Visit Provider Internal Medicine Cardiovascular Disease | DX: I25.2 Old myocardial infarction (principal) | CPT/HCPCS: 93798 ==

== ENCOUNTER 2021-02-17 10:04 | Outpatient (RCR) | payer MEDICARE, OTHER, SELFPAY | END 2021-03-19 23:59 | disposition home or self-care (01) | LOC: CR 10:04 | PROVIDERS: Family Provider Electrodiagnostic Medicine; PCP Electrodiagnostic Medicine; Referring Provider Internal Medicine Cardiovascular Disease; Visit Provider Internal Medicine Cardiovascular Disease | DX: I25.2 Old myocardial infarction (principal) | CPT/HCPCS: 93798 ==

== ENCOUNTER 2021-02-23 08:58 | Emergency (ER) | payer MEDICARE, OTHER, SELFPAY ==
[2021-02-23 09:09] VITALS: BP 91/62; PULSE 90; RESP 30; TEMP 36.6; O2SAT 94; BMI 35.2
--- NOTE | 2021-02-23 09:13 | XR_ITS ---
WS: [id number] XR chest 1V portable [id number] REASON FOR EXAM: chest pain FINDINGS: Chest is unchanged compared to 10/03/2020. Mild tortuosity of the thoracic aorta. Heart at the upper limits of normal. 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 Calcified granulomatous disease. No active pulmonary parenchymal or pleural disease. Degenerative changes in the mid and lower thoracic spine. XR/XR chest 1V portable [id number] IMPRESSION: No acute chest abnormality.
--- NOTE | 2021-02-23 09:13 | ECG_ITS ---
Test Date: 2021-02-23 Pat Name: Vega Wilcox Department: Room: Gender: Male Cable Tender: : 1955 Requested By: Byron Perales Order Number: [id number] Roger MD: Talia Frederick M.D. Measurements Intervals Alex Rate: 82 P: 56 HI: 142 QRS: -16 QRSD: 99 T: -12 QT: 384 QTc: 451 Interpretive Statements SINUS RHYTHM Compared to ECG 10/04/2020 18:03:19 Sinus bradycardia no longer present Electronically Signed On 02-24-2021 9:38:16 CDT by Talia Frederick M.D. [id number]
--- NOTE | 2021-02-23 09:31 | W.ED.CHESTPA ---
HPI - Chest Pain General: Chief Complaint: Chest Pain Stated Complaint: Fluctuating HR, CP Time Seen by Provider: 02/23/21 09:04 History of Present Illness: HPI narrative: 65-year-old male presents emergency room with complaint of rapid heart rate this morning as well as chest discomfort. Patient is known history of heart disease diabetes mellitus hypertension hyperlipidemia. He has had 2 cardiac catheterizations this year the first 1 in June there is a mid LAD lesion that had stenting x2 he continues to take his Plavix. He continued to have chest discomfort and return to the Senior Branch Manager in early September. No intervention was done at that time comment on the cath report was to maximize medical treatment. He did have an episode of transient amnesia for which she was seen by a neurologist in [place] yesterday. He denies any recent medication changes no recent illness no respiratory illness no cough cold etc. MD complaint: chest pain and chest heaviness Onset (ago): minute(s) Timing of current episode: episodic Prior episodes: Yes Onset: during rest Pain location: substernal and left chest Pain radiation: none Severity: mild Quality: tightness and heaviness Relieving factors: rest Exacerbating factors: nothing Associated symptoms: Reports dyspnea and palpitations; Deny abdominal pain, diaphoresis, fever(s), leg edema, nausea, sense of impending doom, syncope or vomiting Treatment prior to arrival: none Review of Systems Const: Denies: fever(s) or diaphoresis ENMT: Denies: throat pain, ear or mastoid pain, nasal discharge or nasal congestion Card: Reports: palpitations; Denies: syncope Resp: Reports: dyspnea GI: Denies: abdominal pain, nausea or vomiting : Denies: flank pain, dysuria, urinary frequency or urinary urgency Skin/Breast: Denies: rash or pruritus [facility] ED PFSH: Medical History AAA (abdominal aortic aneurysm) without rupture Allergic rhinitis Aortic root dilation Stable Atypical chest pain BPH loc w urin obs/LUTS Cognitive impairment Confusion COPD (chronic obstructive pulmonary disease) DDD (degenerative disc disease) Delirium Diabetes Essential (primary) hypertension GERD (gastroesophageal reflux disease) Hyperglycemia Hyperlipidemia Hypothyroidism Intervertebral disc disorders with radiculopathy, lumbosacral region Lumbar disc disease with radiculopathy Obesity Scoliosis of lumbar region due to degenerative disease of spine in adult Testicular mass Thoracic aortic aneurysm, without rupture Surgical History H/O hernia repair History of PTCA Family History Mother , AT AGE 69 Diabetes, Onset Age: 69 Father , AT AGE 80 Cancer, Onset Age: 80 Lung Heart disease Lung disease Brother Diabetes Other Lupus Social History Quit status (tobacco): has quit using tobacco Year quit tobacco: 2019 - 2PPD x 50 Years Smoking risk assessment/counseling performed?: No Alcohol intake: never Counseling given: No Counseling given: No Lives independently: Yes Household members: spouse Marital status: Current occupational status: disabled History of recent travel: No Current gender identity: Male Physical Exam Const: COMMON NORMALS: no acute distress GENERAL APPEARANCE: cooperative and comfortable ORIENTATION/CONSCIOUSNESS: Yes awake, Yes oriented to person, Yes oriented to place and Yes oriented to time HENMT: COMMON NORMALS: normocephalic, atraumatic and hearing grossly normal bilaterally HEAD & SCALP: normocephalic and atraumatic Neck/C-Spine: COMMON NORMALS: no JVD Resp: COMMON NORMALS: normal respiratory effort, No retractions, No use of accessory muscles and clear to auscultation bilaterally AUSCULTATION: clear to auscultation bilaterally Cardio: COMMON NORMALS: no JVD, regular rate, regular rhythm and No murmurs present (Cardio) RATE: regular rate RHYTHM: regular rhythm GI: COMMON NORMALS: Soft to palpation and No hepatosplenomegaly present AUSCULTATION: Yes normoactive bowel sounds PALPATION: Yes Soft to palpation, No Tenderness to palpation present (GI), No Guarding due to palpation present (GI) and Yes No hepatosplenomegaly present Extremity: COMMON NORMALS: normal to inspection, capillary refill normal, no clubbing, cyanosis or edema, no calf tenderness and no pedal edema Neuro: SENSORIUM/ORIENTATION: Yes oriented to person, Yes oriented to place and Yes oriented to time Skin: COMMON NORMALS: no rashes or lesions noted GENERAL SKIN EXAM: no rashes or lesions noted Course Vital Signs: Vital signs: Vital Signs Temperature 97.8 F 02/23/21 09:09 Pulse Rate 59 L 02/23/21 12:58 Respiratory Rate 16 02/23/21 12:58 Blood Pressure 106/59 02/23/21 09:53 Pulse Oximetry 97 02/23/21 12:58 MDM - Chest Pain MDM Narrative: Medical decision making narrative: EKG labs and imaging reviewed as on the chart. Reviewed records closely as well. Patient has had 2 angiograms this year the first 1 a stent to the second 1 showed no significant changes. He also had a stress test that was equivocal. A repeat angiogram because he was still having symptoms. At this point troponins are negative and he is otherwise asymptomatic. Not sure that a repeat stress testing would contribute significantly. He has had this intermittently for a time and he still has negative enzymes. I think we will go ahead and discharge him home asked him to follow-up with Dr. Marcano as soon as he is able return to emergency room for further problems. The time of discharge she is completely pain-free. She has worsening symptoms return. Lab Data: Labs: Lab Results 02/23/21 02/23/21 02/23/21 09:42 09:42 09:42 WBC 10.4 10^3/uL H 10 ^3/uL (4.0-10.0) RBC 5.19 10^6/uL 10^6 /uL (4.1-5.3) Hgb 15.7 g/dL g/dL (11.7-16.6) Hct 47.8 % % (42.0-52.0) MCV 92.1 fl fl (80-94) MCH 30.3 pg pg (28.0-34.0) MCHC 32.8 g/dL g/dL (30.0-36.0) RDW 13.8 % % (12.1-15.1) Plt Count 207 10^3/cmm 10^3 /cmm (130-400) MPV 11.5 fL H fL (7.4-10.4) Neut % (Auto) 70.3 % % Lymph % (Auto) 17.7 % % [place] % (Auto) 6.5 % % Eos % (Auto) 4.6 % % Baso % (Auto) 0.4 % % Neut # (Auto) 7.28 10^3/uL 10^3 /uL (1.8-7.7) Lymph # (Auto) 1.8 10^3/uL 10^3/ uL (0.8-4.8) [place] # (Auto) 0.7 10^3/uL 10^3/ uL (0.2-0.9) Eos # (Auto) 0.5 10^3/uL 10^3/ uL (0.0-0.8) Baso # (Auto) 0.0 10^3/uL 10^3/ uL (0.0-0.1) Nucleated RBC % (a uto) 0 % % Nucleated RBCs # 0.0 /100WBC /100W BC Sodium 138 mmol/L mmol/L (136-145) Potassium 3.9 mmol/L mmol/L (3.5-5.1) Chloride 103 mmol/L mmol/L (98-107) Carbon Dioxide 25 mmol/L mmol/L (22-29) Anion Gap 13.9 (5-19) BUN 12 mg/dL mg/dL (8-23) Creatinine 1.1 mg/dL mg/dL (0.7-1.2) GFR Calculation 66.8 mL/min L mL/ min (90-130) Glucose 209 mg/dL H mg/dL (65-115) Calculated Osmolal ity 292 mOsm/kg mOsm/ kg (285-295) Calcium 8.8 mg/dL mg/dL (8.5-10.5) Total Bilirubin 0.2 mg/dL mg/dL (0.15-1.2) AST 12 U/L U/L (0-40) ALT 16 U/L U/L (0-41) Alkaline Phosphata se 85 IU/L IU/L (40-130) Troponin T Baselin e 11 ng/L ng/L (0-15) Troponin T 120 Min ho-chunk Delta Troponin T Total Protein 6.7 g/dL g/dL (6.6-8.7) Albumin 3.7 g/dL g/dL (3.5-5.2) Globulin 3.0 g/dL g/dL (1.3-4.6) Lipase 21 U/L U/L (13-60) 02/23/21 11:40 WBC RBC Hgb Hct MCV MCH MCHC RDW Plt Count MPV Neut % (Auto) Lymph % (Auto) [place] % (Auto) Eos % (Auto) Baso % (Auto) Neut # (Auto) Lymph # (Auto) [place] # (Auto) Eos # (Auto) Baso # (Auto) Nucleated RBC % (a uto) Nucleated RBCs # Sodium Potassium Chloride Carbon Dioxide Anion Gap BUN Creatinine GFR Calculation Glucose Calculated Osmolal ity Calcium Total Bilirubin AST ALT Alkaline Phosphata se Troponin T Baselin e Troponin T 120 Min ho-chunk 12.62 ng/L ng/L (0-15) Delta Troponin T 1.62 ABS# ABS# (0-10) Total Protein Albumin Globulin Lipase Discharge Plan Discharge Patient Disposition: Home Clinical Impression: Atypical chest pain Condition: Stable Prescriptions: No Action metformin 500 mg tablet 500 mg PO DAILY@08 RF: 0 Hold Instructions: Resume on 10/09/20. losartan 50 mg tablet 50 mg PO BID@, RF: 0 nitroglycerin 0.4 mg tablet, sublingual 0.4 mg sublingual Q5M PRN (Reason: chest pain) 30 Days Qty: 30 RF: 3 glimepiride 2 mg tablet 2 mg PO QAM RF: 0 furosemide 20 mg tablet 20 mg PO DAILY@0800 RF: 0 revefenacin [Yupelri] 175 mcg/3 mL solution for nebulization See Rx Instructions .ROUTE .COMPLEX Qty: 30 RF: 11 metoprolol tartrate 50 mg tablet 50 mg PO BID Qty: 60 RF: 5 atorvastatin 20 mg tablet 20 mg PO DAILY@2099 RF: 0 montelukast 10 mg Tablet 10 mg PO DAILY@08 RF: 0 budesonide [Pulmicort] 0.5 mg/2 mL suspension for nebulization 0.5 mg inhalation BID@, RF: 0 formoterol fumarate [Perforomist] 20 mcg/2 mL solution for nebulization 2 ml inhalation BID@08,20 RF: 0 omeprazole 40 mg capsule,delayed release(DR/EC) 40 mg PO DAILY@1999 RF: 0 levothyroxine [Euthyrox] 50 mcg tablet 50 mcg PO DAILY@0800 RF: 0 levothyroxine 200 mcg tablet 200 mcg PO DAILY@0800 RF: 0 Levemir FlexTouch U-100 Insuln 100 unit/mL (3 mL) insulin pen 30 unit SUBCUT QAM RF: 0 Magtab 84 mg tablet extended release 168 mg PO QAM RF: 0 prasugrel 10 mg tablet 10 mg PO QAM RF: 0 Aspir-81 81 mg Tablet,Delayed Release (Dr/Ec) 81 mg PO QAM RF: 0 Discharge Orders: Discharge ED (Routine); Ordered 02/23/21 Ordered By: Byron Graves Referrals: Ab Grubbs DO [Primary Care Provider] - Discharge Diet: Usual diet Discharge Activity: Limit activity as instructed Patient Instructions: Opioid Safety Activity Restrictions/Additional Instructions: Avoid strenuous activities. Call for follow-up with Dr. Marcano within the next week. Coding Level of Care Code ED Lard Bleacher for Chg Fwd Exam Comprehensive
--- NOTE | 2021-02-23 09:45 | PC.NURSE ---
Cardiac monitoring initiated upon arrival in room by Joann CHERRY
[2021-02-23 09:51] LABS: Basophils % 0.4 %; Eosinophils # 0.5 10^3/uL (0.0-0.8); Eosinophils % 4.6 %; Hematocrit 47.8 % (42.0-52.0); Hemoglobin 15.7 g/dL (11.7-16.6); Lymphocytes # 1.8 10^3/uL (0.8-4.8); Lymphocytes % 17.7 %; Mean Corpuscular HGB Conc 32.8 g/dL (30.0-36.0); Mean Corpuscular Hemoglobin 30.3 pg (28.0-34.0); Mean Corpuscular Volume 92.1 fl (80-94); Mean Platelet Volume 11.5 fL (7.4-10.4); Monocytes # 0.7 10^3/uL (0.2-0.9); Monocytes % 6.5 %; Neutrophils # 7.28 10^3/uL (1.8-7.7); Neutrophils % 70.3 %; Nucleated Red Blood Cells % 0 %; Platelet Count 207 10^3/cmm (130-400); Red Blood Count 5.19 10^6/uL (4.1-5.3); Red Cell Distribution Width 13.8 % (12.1-15.1); White Blood Count 10.4 10^3/uL (4.0-10.0)
[2021-02-23 09:53] VITALS: BP 106/59; PULSE 69; RESP 20; O2SAT 69
[2021-02-23 10:14] LABS: Alanine Aminotransferase 16 U/L (0-41); Albumin Level 3.7 g/dL (3.5-5.2); Alkaline Phosphatase 85 IU/L (40-130); Anion Gap 13.9 (5-19); Aspartate Amino Transferase 12 U/L (0-40); Blood Urea Nitrogen 12 mg/dL (8-23); Calcium 8.8 mg/dL (8.5-10.5); Carbon Dioxide 25 mmol/L (22-29); Chloride 103 mmol/L (98-107); Glomerular Filtration Rate 66.8 mL/min (90-130); Glucose 209 mg/dL (65-115); Lipase 21 U/L (13-60); Osmolality Calculated 292 mOsm/kg (285-295); Potassium 3.9 mmol/L (3.5-5.1); Sodium 138 mmol/L (136-145); Total Bilirubin 0.2 mg/dL (0.15-1.2); Total Protein 6.7 g/dL (6.6-8.7)
[2021-02-23 10:15] LABS: Troponin(5th) Baseline 11 ng/L (0-15)
--- NOTE | 2021-02-23 11:13 | ECG_ITS ---
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 Measurements Intervals [place] Rate: 60 P: 127 NE: 193 QRS: 75 QRSD: 82 T: 78 QT: 432 QTc: 433 Interpretive Statements SINUS RHYTHM Compared to ECG 02/23/2021 09:16:02 No significant changes Electronically Signed On 02-24-2021 19:42:53 CDT by Talia Frederick M.D. [id number]
[2021-02-23 12:17] LABS: Troponin 5 2HR 12.62 ng/L (0-15); Troponin 5 2HR Delta 1.62 ABS# (0-10)
[2021-02-23 12:58] VITALS: PULSE 59; RESP 16; O2SAT 97
== END 2021-02-23 12:57 | disposition home or self-care (01) ==
PROVIDERS: Emergency Provider Family Medicine; PCP Electrodiagnostic Medicine
DX: R07.89 Other chest pain (principal); Z79.84 Long term (current) use of oral hypoglycemic drugs; Z79.82 Long term (current) use of aspirin; Z79.4 Long term (current) use of insulin; J44.9 Chronic obstructive pulmonary disease, unspecified; E11.9 Type 2 diabetes mellitus without complications; I10 Essential (primary) hypertension; E78.5 Hyperlipidemia, unspecified; Z87.891 Personal history of nicotine dependence
CPT/HCPCS: 71045; 80053; 83690; 84484; 85025; 93005; 99283

== ENCOUNTER → 2021-03-06 08:01 | Outpatient (BNVA) | payer MEDICARE, OTHER, SELFPAY | PROVIDERS: PCP Electrodiagnostic Medicine; Visit Provider Urology | DX: N40.1 Benign prostatic hyperplasia with lower urinary tract symptoms (principal); Z12.5 Encounter for screening for malignant neoplasm of prostate | CPT/HCPCS: 81003; G0103 ==

== ENCOUNTER 2021-03-20 13:43 | Outpatient (RCR) | payer MEDICARE, OTHER, SELFPAY | END 2021-04-18 23:59 | disposition home or self-care (01) | LOC: CR 13:43 | PROVIDERS: Family Provider Electrodiagnostic Medicine; PCP Electrodiagnostic Medicine; Referring Provider Internal Medicine Cardiovascular Disease; Visit Provider Internal Medicine Cardiovascular Disease | DX: I25.2 Old myocardial infarction (principal) | CPT/HCPCS: 93798 ==

== ENCOUNTER 2021-04-19 13:21 | Outpatient (RCR) | payer MEDICARE, OTHER, SELFPAY | END 2021-05-19 23:59 | disposition home or self-care (01) | LOC: CR 13:21 | PROVIDERS: Family Provider Electrodiagnostic Medicine; PCP Electrodiagnostic Medicine; Referring Provider Internal Medicine Cardiovascular Disease; Visit Provider Internal Medicine Cardiovascular Disease | DX: I25.2 Old myocardial infarction (principal) | CPT/HCPCS: 93798 ==

== ENCOUNTER 2021-04-23 18:41 | Emergency (ER) | payer MEDICARE, OTHER, SELFPAY ==
[2021-04-23 18:48] VITALS: BP 125/82; PULSE 71; RESP 20; TEMP 36.8; O2SAT 98
--- NOTE | 2021-04-23 19:50 | ED_ITS ---
HPI - SOB/Dyspnea General: Chief Complaint: Shortness of Breath/Dyspnea Stated Complaint: SOB, Weakness, COPD Coughing Time Seen by Provider: 04/23/21 19:49 History of Present Illness: HPI Narrative: Mr. Ritter is a 65-year-old gentleman with significant past medical history of COPD, hypertension, hyperlipidemia, thyroid disorder, CAD with history of LA, diabetes who presents to the emergency department due to generalized malaise and respiratory symptoms. He notes increasing shortness of breath which has been gradual for the last 3 days. He has a more productive cough than baseline and has been having to use his nebulized inhalers more frequently. He does have generalized malaise but denies fevers or body aches. no specific infectious symptoms. Overall the intensity symptoms is moderate. The course is worsening. No other significant change in health, exacerbating, or alleviating factors identified. Review of Systems General: Reports: 10 or more systems reviewed and unremarkable except in HPI and below PFSH ED PFSH: Medical History AAA (abdominal aortic aneurysm) without rupture Allergic rhinitis Aortic root dilation Stable Atypical chest pain Cognitive impairment Confusion COPD (chronic obstructive pulmonary disease) DDD (degenerative disc disease) Delirium Diabetes Essential (primary) hypertension GERD (gastroesophageal reflux disease) Hyperglycemia Hyperlipidemia Hypothyroidism Intervertebral disc disorders with radiculopathy, lumbosacral region Lumbar disc disease with radiculopathy Obesity Scoliosis of lumbar region due to degenerative disease of spine in adult Testicular mass Thoracic aortic aneurysm, without rupture Surgical History H/O hernia repair History of PTCA Hx of heart artery stent Family History Mother , AT AGE 69 Diabetes, Onset Age: 69 Father , AT AGE 80 Cancer, Onset Age: 80 Lung Heart disease Lung disease Brother Diabetes Other Lupus Social History Quit status (tobacco): has quit using tobacco Year quit tobacco: 2019 - 2PPD x 50 Years Smoking risk assessment/counseling performed?: No Alcohol intake: never Counseling given: No Counseling given: No Lives independently: Yes Household members: spouse Marital status: Current occupational status: disabled History of recent travel: No Current gender identity: Male Physical Exam Narrative: EXAM NARRATIVE: GENERAL/CONSTITUTIONAL -mildly limited-appearing. No acute distress. Eyes - PERRL, no conjunctival injection ENMT - Atraumatic external nose and ears. Moist mucous membranes NECK - supple. trachea midline CARDIOVASCULAR - regular rate and rhythm. Peripheral pulses 2+ and equal RESPIRATORY -diminished with wheezes and coarseness to auscultation bilaterally. Mild increased respiratory rate ABDOMEN/GI - Nontender/Nondistended. No tenderness to percussion or evidence of peritonitis MSK - Extremities without obvious deformity or tenderness to palpation SKIN - Warm, Dry NEURO - alert and appropriately oriented. Moves all extremities equally. Course ED course: - Patient was seen and evaluated by me at bedside - Patient placed on cardiac monitors, IV access obtained - Initial evaluation notable for exam as noted above, nontoxic. -Respiratory treatments ordered - Labs notable for leukocytosis. No significant electrolyte abnormality. Covid negative. - Imaging notable for mild opacities in the lingula as reported by radiology, no obvious lobar consolidation on my read. - No evidence of peripheral or central fluid overload. Recent cardiac eval performed. - Upon serial reexamination after treatment the patient was improved with symptom treatment - Based on patient history, evaluation, labs, and imaging as interpreted the most likely cause of the patient's condition is COPD exacerbation - The results of ED evaluation were discussed with the patient including prescriptions and/or symptomatic cares (if applicable) including appropriate and responsible use, followup plan, and return precautions. The patient verbalized understanding and felt safe for discharge. - Patient discharged in satisfactory condition. Vital Signs: Vital signs: Vital Signs Temperature 98.2 F 04/23/21 18:48 Pulse Rate 91 04/23/21 22:55 Respiratory Rate 20 H 04/23/21 22:55 Blood Pressure 104/66 04/23/21 22:55 Pulse Oximetry 94 04/23/21 22:55 MDM - SOB/Dyspnea Medical Records: Attestation: I reviewed the patient's medical records. Lab Data: Attestation: I reviewed the patient's lab results. Labs: Lab Results 04/23/21 04/23/21 04/23/21 19:55 19:55 21:30 WBC 17.6 10^3/uL H 10 ^3/uL (4.0-10.0) RBC 5.04 10^6/uL 10^6 /uL (4.1-5.3) Hgb 15.3 g/dL g/dL (11.7-16.6) Hct 46.6 % % (42.0-52.0) MCV 92.5 fl fl (80-94) MCH 30.4 pg pg (28.0-34.0) MCHC 32.8 g/dL g/dL (30.0-36.0) RDW 13.6 % % (12.1-15.1) Plt Count 228 10^3/cmm 10^3 /cmm (130-400) MPV 12.2 fL H fL (7.4-10.4) Neut % (Auto) 67.5 % % Lymph % (Auto) 17.5 % % [place] % (Auto) 12.3 % % Eos % (Auto) 1.7 % % Baso % (Auto) 0.4 % % Neut # (Auto) 11.87 10^3/uL H 1 0^3/uL (1.8-7.7) Lymph # (Auto) 3.1 10^3/uL 10^3/ uL (0.8-4.8) [place] # (Auto) 2.2 10^3/uL H 10^ 3/uL (0.2-0.9) Eos # (Auto) 0.3 10^3/uL 10^3/ uL (0.0-0.8) Baso # (Auto) 0.1 10^3/uL 10^3/ uL (0.0-0.1) Nucleated RBC % (a uto) 0 % % Nucleated RBCs # 0.0 /100WBC /100W BC Sodium 137 mmol/L mmol/L (136-145) Potassium 4.5 mmol/L mmol/L (3.5-5.1) Chloride 100 mmol/L mmol/L (98-107) Carbon Dioxide 22 mmol/L mmol/L (22-29) Anion Gap 19.5 H (5-19) BUN 19 mg/dL mg/dL (8-23) Creatinine 1.2 mg/dL mg/dL (0.7-1.2) GFR Calculation 60.4 mL/min L mL/ min (90-130) Glucose 76 mg/dL mg/dL (65-115) Calculated Osmolal ity 285 mOsm/kg mOsm/ kg (285-295) Calcium 8.6 mg/dL mg/dL (8.5-10.5) Total Bilirubin 0.2 mg/dL mg/dL (0.15-1.2) AST 14 U/L U/L (0-40) ALT 16 U/L U/L (0-41) Alkaline Phosphata se 103 IU/L IU/L (40-130) C-Reactive Protein 35.0 mg/L H mg/L (0.0-4.9) Total Protein 6.6 g/dL g/dL (6.6-8.7) Albumin 4.1 g/dL g/dL (3.5-5.2) Globulin 2.5 g/dL g/dL (1.3-4.6) Procalcitonin 0.05 ng/mL ng/mL (0-0.5) SARS-CoV-2 Ag (Rap id) Negative (Negative) Discharge Plan Discharge Patient Disposition: Home Clinical Impression: Acute exacerbation of chronic obstructive pulmonary disease (COPD) Condition: Stable Prescriptions: New albuterol sulfate 90 mcg/actuation HFA aerosol inhaler 2 inh inhalation Q8H PRN (Reason: shortness of breath or wheezing) Qty: 8.5 RF: 0 doxycycline hyclate 100 mg tablet 100 mg PO BID 10 Days Qty: 20 RF: 0 Tessalon Perles 100 mg capsule 100 mg PO TID PRN (Reason: cough) Qty: 14 RF: 0 No Action metformin 500 mg tablet 500 mg PO DAILY@08 RF: 0 Hold Instructions: Resume on 10/09/20. losartan 50 mg tablet 50 mg PO BID@08,20 RF: 0 nitroglycerin 0.4 mg tablet, sublingual 0.4 mg sublingual Q5M PRN (Reason: chest pain) 30 Days Qty: 30 RF: 3 glimepiride 2 mg tablet 2 mg PO QAM RF: 0 furosemide 20 mg tablet 20 mg PO DAILY@0800 RF: 0 revefenacin [Yupelri] 175 mcg/3 mL solution for nebulization See Rx Instructions .ROUTE .COMPLEX Qty: 30 RF: 11 metoprolol tartrate 50 mg tablet 50 mg PO BID Qty: 60 RF: 5 atorvastatin 20 mg tablet 20 mg PO DAILY@2100 RF: 0 montelukast 10 mg Tablet 10 mg PO DAILY@08 RF: 0 budesonide [Pulmicort] 0.5 mg/2 mL suspension for nebulization 0.5 mg inhalation BID@ RF: 0 formoterol fumarate [Perforomist] 20 mcg/2 mL solution for nebulization 2 ml inhalation BID@ RF: 0 omeprazole 40 mg capsule,delayed release(DR/EC) 40 mg PO DAILY@1999 RF: 0 levothyroxine [Euthyrox] 50 mcg tablet 50 mcg PO DAILY@0800 RF: 0 levothyroxine 200 mcg tablet 200 mcg PO DAILY@0800 RF: 0 Levemir FlexTouch U-100 Insuln 100 unit/mL (3 mL) insulin pen 30 unit SUBCUT QAM RF: 0 Magtab 84 mg tablet extended release 168 mg PO QAM RF: 0 prasugrel 10 mg tablet 10 mg PO QAM RF: 0 Aspir-81 81 mg Tablet,Delayed Release (Dr/Ec) 81 mg PO QAM RF: 0 Discharge Orders: Discharge ED (Routine); Ordered 04/23/21 Ordered By: Eriberto Fox Referrals: Ab Grubbs DO [Family Provider] - Ab Grubbs DO [Primary Care Provider] - Discharge Diet: Usual diet Discharge Activity: Resume usual activity Patient Instructions: COPD (Chronic Obstructive Pulmonary Disease) (ED) Activity Restrictions/Additional Instructions: Thank you for visiting the emergency department. You were seen and evaluated for cough, increased shortness of breath, and generalized malaise in the context of COPD. Based on laboratory studies I do believe that the cause of your symptoms is exacerbation of your COPD. You will be given prescriptions for this. For the albuterol I recommend 2 puffs every 4 hours for the next 24 hours followed by 2 puffs every 6 hours for 24 hours followed by 2 puffs every 8 hours for 24 hours. Please follow-up with your primary care provider. Please return to the emergency department for worsening symptoms or anything else that you are concerned about and feel needs emergency department evaluation. Coding Level of Care Code ED Production Planner Scheduler for Halle Degroot
--- NOTE | 2021-04-23 20:04 | XRR_ITS ---
PROCEDURE INFORMATION: Exam: XR Chest Exam date and time: 04/23/2021 8:04 PM Age: 65 years old Clinical indication: Dyspnea; Additional info: SOB TECHNIQUE: Imaging protocol: XR of the chest. Views: 1 view. COMPARISON: CR XR chest 1V portable [id number] 02/23/2021 9:34 AM FINDINGS: Lungs: Changes of emphysema. Chronic interstitial scarring in both lung bases. Focal opacity in the lingula appear slightly more prominent. Pleural spaces: Unremarkable. No pleural effusion. No pneumothorax. Heart/Mediastinum: Unremarkable. No cardiomegaly. Bones/joints: Old distal left clavicle fracture. XR/XR chest 1V portable [id number] IMPRESSION: 1. Slightly more prominent opacity in the lingula could represent fibrosis but pneumonia is not excluded. Radiation Dose CTDIVOL = (mGy): DLP = (mGy-cm)
[2021-04-23 20:20] VITALS: BP 91/60; PULSE 66; RESP 17; O2SAT 95
[2021-04-23] MEDS: ipratropium-albuterol 3 mL Neb INHALATION ×4 (20:21→22:19)
[2021-04-23 20:25] LABS: Basophils # 0.1 10^3/uL (0.0-0.1); Basophils % 0.4 %; Eosinophils # 0.3 10^3/uL (0.0-0.8); Eosinophils % 1.7 %; Hematocrit 46.6 % (42.0-52.0); Hemoglobin 15.3 g/dL (11.7-16.6); Lymphocytes # 3.1 10^3/uL (0.8-4.8); Lymphocytes % 17.5 %; Mean Corpuscular HGB Conc 32.8 g/dL (30.0-36.0); Mean Corpuscular Hemoglobin 30.4 pg (28.0-34.0); Mean Corpuscular Volume 92.5 fl (80-94); Mean Platelet Volume 12.2 fL (7.4-10.4); Monocytes # 2.2 10^3/uL (0.2-0.9); Monocytes % 12.3 %; Neutrophils # 11.87 10^3/uL (1.8-7.7); Neutrophils % 67.5 %; Nucleated Red Blood Cells % 0 %; Platelet Count 228 10^3/cmm (130-400); Red Blood Count 5.04 10^6/uL (4.1-5.3); Red Cell Distribution Width 13.6 % (12.1-15.1); White Blood Count 17.6 10^3/uL (4.0-10.0)
[2021-04-23 20:54] LABS: Alanine Aminotransferase 16 U/L (0-41); Albumin Level 4.1 g/dL (3.5-5.2); Alkaline Phosphatase 103 IU/L (40-130); Anion Gap 19.5 (5-19); Aspartate Amino Transferase 14 U/L (0-40); Blood Urea Nitrogen 19 mg/dL (8-23); Calcium 8.6 mg/dL (8.5-10.5); Carbon Dioxide 22 mmol/L (22-29); Chloride 100 mmol/L (98-107); Creatinine Clr Calc Pharmacy 74.9642; Globulin 2.5 g/dL (1.3-4.6); Glomerular Filtration Rate 60.4 mL/min (90-130); Glucose 76 mg/dL (65-115); Osmolality Calculated 285 mOsm/kg (285-295); Potassium 4.5 mmol/L (3.5-5.1); Sodium 137 mmol/L (136-145); Total Bilirubin 0.2 mg/dL (0.15-1.2); Total Protein 6.6 g/dL (6.6-8.7)
[2021-04-23 21:00] VITALS: BP 117/60; PULSE 91; RESP 16; O2SAT 92
[2021-04-23 21:01] LABS: Procalcitonin 0.05 ng/mL (0-0.5)
[2021-04-23 22:00] VITALS: BP 105/86; PULSE 91; RESP 22; O2SAT 93
[2021-04-23 22:20] LABS: SARS Covid-2 Antigen Negative (Negative)
[2021-04-23] MEDS: doxycycline 100 mg Tablet PO (22:49)
[2021-04-23 22:55] VITALS: BP 104/66; PULSE 91; RESP 20; O2SAT 94
== END 2021-04-23 22:55 | disposition home or self-care (01) ==
PROVIDERS: Emergency Provider Emergency Medicine; Family Provider Electrodiagnostic Medicine; PCP Electrodiagnostic Medicine
DX: J44.1 Chronic obstructive pulmonary disease with (acute) exacerbation (principal); Z79.84 Long term (current) use of oral hypoglycemic drugs; Z79.82 Long term (current) use of aspirin; Z79.4 Long term (current) use of insulin; E11.9 Type 2 diabetes mellitus without complications; I10 Essential (primary) hypertension; E78.5 Hyperlipidemia, unspecified; Z87.891 Personal history of nicotine dependence; Z20.822 Contact with and (suspected) exposure to COVID-19
CPT/HCPCS: 71045; 80053; 84145; 85025; 86140; 87426; 94640; 96374; 99284; J2930

== ENCOUNTER 2021-05-20 15:01 | Inpatient (IN) | payer MEDICARE, OTHER, SELFPAY ==
[2021-05-20 15:11] VITALS: BP 102/63; PULSE 70; RESP 23; TEMP 36.3; O2SAT 95; BMI 32.1
--- NOTE | 2021-05-20 15:12 | XRR_ITS ---
PROCEDURE INFORMATION: Exam: XR Chest Exam date and time: 05/20/2021 3:12 PM Age: 65 years old Clinical indication: Sternal or substernal pain; Prior surgery; Surgery type: Stent; Additional info: Chest pain, elevated hr TECHNIQUE: Imaging protocol: XR of the chest. Views: 1 view. COMPARISON: CR (CHEST, ) 04/23/2021 8:22 PM FINDINGS: Lungs: Unremarkable. No consolidation. Pleural spaces: Unremarkable. No pleural effusion. No pneumothorax. Heart/Mediastinum: Unremarkable. No cardiomegaly. Bones/joints: Unremarkable. XR/XR chest 1V portable [id number] IMPRESSION: No acute findings.
--- NOTE | 2021-05-20 15:13 | ECG_ITS ---
[facility] Test Date: 2021-05-20 Pat Name: Vega Wilcox Department: Room: Gender: Male Long Chain Beamer: : 1955 Requested By: Byron Perales Order Number: [id number] Roger MD: Lance Marcano M.D. Measurements Intervals [place] Rate: 65 P: 45 HI: 221 QRS: 84 QRSD: 93 T: 70 QT: 393 QTc: 410 Interpretive Statements SINUS RHYTHM WITH FIRST DEGREE AV BLOCK INTERPRETATION BASED ON A DEFAULT AGE OF 40 YEARS Compared to ECG 02/23/2021 11:36:04 First degree AV block now present Electronically Signed On 05-21-2021 20:15:20 MARKET DEVELOPMENT EXECUTIVE by Lance Marcano M.D. [email or web address]/[id number] f
--- NOTE | 2021-05-20 15:28 | ED_ITS ---
HPI - Arrhythmia/Palpitations General: Chief Complaint: Chest Pain Stated Complaint: CHEST PAIN Time Seen by Provider: 05/20/21 15:11 History of Present Illness: HPI narrative: 65-year-old male presents emergency room with rapid heart rate. He was initially called EMS for rapid heart rate and was found to have a heart rate in the 150s to 160s he was given adenosine and then Cardizem EMS reports that after the Cardizem he converted his heart rate decreases 75 any longer has any chest discomfort he still feels very tired. He had shortness of breath associated with the 2 that is also resolved. Patient has a known history of coronary disease with previous stenting he also has a history of aneurysm.He is not on any anticoagulation but is on antiplatelet therapy with Plavix daily.There are entries in the chart on a Holter monitor with episodes of SVT. He also had some episodes with nonsustained V. tach captured on the Holter monitor. He did not have any episodes of documented V. tach today by EMS. MD complaint: rapid heart beat and heart racing Onset (ago): minute(s) Duration: constant Severity: severe Context: occurred during rest Arrhythmia history: SVT Associated symptoms: Reports anxiety, diaphoresis, nausea, pre-syncope, sense of impending doom and short of breath; Deny cough, muscle cramps, paresthesias or syncope Review of Systems Const: Reports: diaphoresis ENMT: Denies: throat pain, ear or mastoid pain, nasal discharge or nasal mee estion Card: Reports: pre-syncope; Denies: syncope Resp: Denies: dyspnea, productive cough or non-productive cough GI: Reports: nausea : Denies: flank pain, dysuria, urinary frequency or urinary urgency Musc: Denies: muscle cramps Skin/Breast: Denies: rash or pruritus Psych: Reports: anxiety PFSH ED PFSH: Medical History AAA (abdominal aortic aneurysm) without rupture Allergic rhinitis Aortic root dilation Stable Atherosclerotic heart disease of [place] coronary artery with other forms of angina pectoris Atypical chest pain Bradycardia Chest pain Cognitive impairment Confusion COPD (chronic obstructive pulmonary disease) DDD (degenerative disc disease) Delirium Diabetes Essential (primary) hypertension GERD (gastroesophageal reflux disease) Hyperglycemia Hyperlipidemia Hypothyroidism Intervertebral disc disorders with radiculopathy, lumbosacral region Lumbar disc disease with radiculopathy Obesity Scoliosis of lumbar region due to degenerative disease of spine in adult SVT (supraventricular tachycardia) Testicular mass Thoracic aortic aneurysm, without rupture Surgical History H/O hernia repair History of PTCA Hx of heart artery stent Family History Mother , AT AGE 69 Diabetes, Onset Age: 69 Father , AT AGE 80 Cancer, Onset Age: 80 Lung Heart disease Lung disease Brother Diabetes Other Lupus Social History Quit status (tobacco): has quit using tobacco Year quit tobacco: 2019 - 2PPD x 50 Years Smoking risk assessment/counseling performed?: No Alcohol intake: never Counseling given: No Counseling given: No Lives independently: Yes Household members: spouse Marital status: Current occupational status: disabled History of recent travel: No Current gender identity: Male Physical Exam Const: COMMON NORMALS: no acute distress GENERAL APPEARANCE: cooperative and comfortable ORIENTATION/CONSCIOUSNESS: Yes awake, Yes oriented to person, Yes oriented to place and Yes oriented to time HENMT: COMMON NORMALS: normocephalic, atraumatic and hearing grossly normal bilaterally HEAD & SCALP: normocephalic and atraumatic Neck/C-Spine: COMMON NORMALS: full ROM, no lymphadenopathy, supple and no JVD Lymph: LYMPHATIC: no lymphadenopathy noted and no lymphedema noted Resp: COMMON NORMALS: normal respiratory effort, No retractions, No use of accessory muscles and clear to auscultation bilaterally AUSCULTATION: clear to auscultation bilaterally Cardio: COMMON NORMALS: no JVD and No murmurs present (Cardio) RATE: tachycardic RHYTHM: abnormal rhythm irregularly irregular GI: COMMON NORMALS: Soft to palpation and No hepatosplenomegaly present AUSCULTATION: Yes normoactive bowel sounds PALPATION: Yes Soft to palpation, No Tenderness to palpation present (GI), No Guarding due to palpation present (GI) and Yes No hepatosplenomegaly present Extremity: COMMON NORMALS: normal to inspection, capillary refill normal, no clubbing, cyanosis or edema, no calf tenderness and no pedal edema Neuro: SENSORIUM/ORIENTATION: Yes oriented to person, Yes oriented to place and Yes oriented to time Skin: COMMON NORMALS: no rashes or lesions noted GENERAL SKIN EXAM: no rashes or lesions noted Course Vital Signs: Vital signs: Vital Signs Temperature 97.2 F L 05/23/21 11:13 Pulse Rate 58 L 05/23/21 11:13 Respiratory Rate 18 05/23/21 11:13 Blood Pressure 135/62 05/23/21 11:13 Pulse Oximetry 96 05/23/21 11:13 MDM - Arrhythmia/Palpitations MDM Narrative: Medical decision making narrative: Labs imaging and EKGs reviewed on the chart. Patient is having difficulty with rate control at this point we will go ahead and admit for further medication adjustment to maintain rate. His delta troponin is intermediary at 7. He did convert with the Cardizem. Discussed with cardiology given the chest discomfort, heart score and 2-hour delta troponin we will go ahead and admit him to complete to rule out and adjust medications. In addition to this previous Holter monitors are shown patient has had tachycardia he has had short bursts of nonsustained ventricular tachycardia. We do not have any documentation that he had that this time however this is concerning given his chest pain and troponin increase. Requires further evaluation and is potentially life-threatening. Lab Data: Labs: Lab Results 05/20/21 05/20/21 05/20/21 15:09 15:09 15:09 WBC 13.5 10^3/uL H 10 ^3/uL (4.0-10.0) RBC 5.48 10^6/uL H 10 ^6/uL (4.1-5.3) Hgb 16.1 g/dL g/dL (11.7-16.6) Hct 49.3 % % (42.0-52.0) MCV 90.0 fl fl (80-94) MCH 29.4 pg pg (28.0-34.0) MCHC 32.7 g/dL g/dL (30.0-36.0) RDW 13.3 % % (12.1-15.1) Plt Count 245 10^3/cmm 10^3 /cmm (130-400) MPV 12.0 fL H fL (7.4-10.4) Neut % (Auto) 58.0 % % Lymph % (Auto) 26.1 % % [place] % (Auto) 12.1 % % Eos % (Auto) 2.7 % % Baso % (Auto) 0.6 % % Neut # (Auto) 7.82 10^3/uL H 10 ^3/uL (1.8-7.7) Lymph # (Auto) 3.5 10^3/uL 10^3/ uL (0.8-4.8) [place] # (Auto) 1.6 10^3/uL H 10^ 3/uL (0.2-0.9) Eos # (Auto) 0.4 10^3/uL 10^3/ uL (0.0-0.8) Baso # (Auto) 0.1 10^3/uL 10^3/ uL (0.0-0.1) Nucleated RBC % (a uto) 0 % % Nucleated RBCs # 0.0 /100WBC /100W BC D-Dimer Sodium 137 mmol/L mmol/L (136-145) Potassium 4.1 mmol/L mmol/L (3.5-5.1) Chloride 101 mmol/L mmol/L (98-107) Carbon Dioxide 21 mmol/L L mmol/ L (22-29) Anion Gap 19.1 H (5-19) BUN 13 mg/dL mg/dL (8-23) Creatinine 1.1 mg/dL mg/dL (0.7-1.2) GFR Calculation 66.8 mL/min L mL/ min (90-130) Glucose 183 mg/dL H mg/dL (65-115) POC Glucose Calculated Osmolal ity 289 mOsm/kg mOsm/ kg (285-295) Calcium 8.7 mg/dL mg/dL (8.5-10.5) Magnesium Total Bilirubin 0.3 mg/dL mg/dL (0.15-1.2) AST 12 U/L U/L (0-40) ALT 15 U/L U/L (0-41) Alkaline Phosphata se 88 IU/L IU/L (40-130) Troponin T Baselin e 10 ng/L ng/L (0-15) Troponin T 120 Min [place] Delta Troponin T Troponin T Hi Sens 6Hr Troponin T Hi Sens 6Hr Delta NT-Pro-B Natriuret Pep 166 pg/mL H pg/mL (0-125) Total Protein 7.1 g/dL g/dL (6.6-8.7) Albumin 3.9 g/dL g/dL (3.5-5.2) Globulin 3.2 g/dL g/dL (1.3-4.6) TSH 05/20/21 05/20/21 05/20/21 17:40 21:16 21:43 WBC RBC Hgb Hct MCV MCH MCHC RDW Plt Count MPV Neut % (Auto) Lymph % (Auto) [place] % (Auto) Eos % (Auto) Baso % (Auto) Neut # (Auto) Lymph # (Auto) [place] # (Auto) Eos # (Auto) Baso # (Auto) Nucleated RBC % (a uto) Nucleated RBCs # D-Dimer 0.56 ug/mIFEU ug/ mIFEU (0-0.59) Sodium Potassium Chloride Carbon Dioxide Anion Gap BUN Creatinine GFR Calculation Glucose POC Glucose Calculated Osmolal ity Calcium Magnesium Total Bilirubin AST ALT Alkaline Phosphata se Troponin T Baselin e Troponin T 120 Min [place] 17.58 ng/L H ng/L (0-15) Delta Troponin T 7.58 ABS# ABS# (0-10) Troponin T Hi Sens 6Hr 16.46 ng/L H ng/L (0-15) Troponin T Hi Sens 6Hr Delta 6.46 ng/L ng/L (0-12) NT-Pro-B Natriuret Pep Total Protein Albumin Globulin [facility] 05/21/21 05/21/21 05/21/21 04:08 04:08 06:29 WBC 10.0 10^3/uL 10^3 /uL (4.0-10.0) RBC 5.26 10^6/uL 10^6 /uL (4.1-5.3) Hgb 15.7 g/dL g/dL (11.7-16.6) Hct 47.6 % % (42.0-52.0) MCV 90.5 fl fl (80-94) MCH 29.8 pg pg (28.0-34.0) MCHC 33.0 g/dL g/dL (30.0-36.0) RDW 13.5 % % (12.1-15.1) Plt Count 208 10^3/cmm 10^3 /cmm (130-400) MPV 12.2 fL H fL (7.4-10.4) Neut % (Auto) 61.2 % % Lymph % (Auto) 24.2 % % [place] % (Auto) 10.2 % % Eos % (Auto) 3.4 % % Baso % (Auto) 0.6 % % Neut # (Auto) 6.15 10^3/uL 10^3 /uL (1.8-7.7) Lymph # (Auto) 2.4 10^3/uL 10^3/ uL (0.8-4.8) [place] # (Auto) 1.0 10^3/uL H 10^ 3/uL (0.2-0.9) Eos # (Auto) 0.3 10^3/uL 10^3/ uL (0.0-0.8) Baso # (Auto) 0.1 10^3/uL 10^3/ uL (0.0-0.1) Nucleated RBC % (a uto) 0 % % Nucleated RBCs # 0.0 /100WBC /100W BC D-Dimer Sodium 140 mmol/L mmol/L (136-145) Potassium 4.1 mmol/L mmol/L (3.5-5.1) Chloride 101 mmol/L mmol/L (98-107) Carbon Dioxide 27 mmol/L mmol/L (22-29) Anion Gap 16.1 (5-19) BUN 16 mg/dL mg/dL (8-23) Creatinine 1.1 mg/dL mg/dL (0.7-1.2) GFR Calculation 66.8 mL/min L mL/ min (90-130) Glucose 122 mg/dL H mg/dL (65-115) POC Glucose 114 mg/dL H mg/dL (70-110) Calculated Osmolal ity 292 mOsm/kg mOsm/ kg (285-295) Calcium 9.3 mg/dL mg/dL (8.5-10.5) Magnesium 1.8 mg/dL mg/dL (1.7-2.3) Total Bilirubin 0.2 mg/dL mg/dL (0.15-1.2) AST 13 U/L U/L (0-40) ALT 14 U/L U/L (0-41) Alkaline Phosphata se 85 IU/L IU/L (40-130) Troponin T Baselin e Troponin T 120 Min [place] Delta Troponin T Troponin T Hi Sens 6Hr Troponin T Hi Sens 6Hr Delta NT-Pro-B Natriuret Pep Total Protein 7.2 g/dL g/dL (6.6-8.7) Albumin 3.9 g/dL g/dL (3.5-5.2) Globulin 3.3 g/dL g/dL (1.3-4.6) TSH 2.89 uIU/mL uIU/m L (0.27-4.20) 05/21/21 10:35 WBC RBC Hgb Hct MCV MCH MCHC RDW Plt Count MPV Neut % (Auto) Lymph % (Auto) [place] % (Auto) Eos % (Auto) Baso % (Auto) Neut # (Auto) Lymph # (Auto) [place] # (Auto) Eos # (Auto) Baso # (Auto) Nucleated RBC % (a uto) Nucleated RBCs # D-Dimer Sodium Potassium Chloride Carbon Dioxide Anion Gap BUN Creatinine GFR Calculation Glucose POC Glucose 157 mg/dL H mg/dL (70-110) Calculated Osmolal ity Calcium Magnesium Total Bilirubin AST ALT Alkaline Phosphata se Troponin T Baselin e Troponin T 120 Min [place] Delta Troponin T Troponin T Hi Sens 6Hr Troponin T Hi Sens 6Hr Delta NT-Pro-B Natriuret Pep Total Protein Albumin Globulin TSH Discharge Plan Discharge Admit Provider: Tommie Dunbar Clinical Impression: SVT (supraventricular tachycardia), COPD (chronic obstructive pulmonary disease), Atypical chest pain, Elevated troponin Condition: Stable Discharge Orders: Discharge Order (Routine); Ordered 05/23/21 Ordered By: Cristian Cornejo Discharge Diet: Diabetic Discharge Activity: Resume usual activity Coding Level of Care Code ED Photographic Technician for Chg Fwd Exam Comprehensive
[2021-05-20 15:40] LABS: Basophils # 0.1 10^3/uL (0.0-0.1); Basophils % 0.6 %; Eosinophils # 0.4 10^3/uL (0.0-0.8); Eosinophils % 2.7 %; Hematocrit 49.3 % (42.0-52.0); Hemoglobin 16.1 g/dL (11.7-16.6); Lymphocytes # 3.5 10^3/uL (0.8-4.8); Lymphocytes % 26.1 %; Mean Corpuscular HGB Conc 32.7 g/dL (30.0-36.0); Mean Corpuscular Hemoglobin 29.4 pg (28.0-34.0); Monocytes # 1.6 10^3/uL (0.2-0.9); Monocytes % 12.1 %; Neutrophils # 7.82 10^3/uL (1.8-7.7); Nucleated Red Blood Cells % 0 %; Platelet Count 245 10^3/cmm (130-400); Red Blood Count 5.48 10^6/uL (4.1-5.3); Red Cell Distribution Width 13.3 % (12.1-15.1); White Blood Count 13.5 10^3/uL (4.0-10.0)
[2021-05-20 15:51] VITALS: BP 102/21; PULSE 74; RESP 21; O2SAT 96
[2021-05-20 16:37] LABS: Troponin(5th) Baseline 10 ng/L (0-15)
[2021-05-20 16:45] LABS: Alanine Aminotransferase 15 U/L (0-41); Albumin Level 3.9 g/dL (3.5-5.2); Alkaline Phosphatase 88 IU/L (40-130); Anion Gap 19.1 (5-19); Aspartate Amino Transferase 12 U/L (0-40); Blood Urea Nitrogen 13 mg/dL (8-23); Calcium 8.7 mg/dL (8.5-10.5); Carbon Dioxide 21 mmol/L (22-29); Chloride 101 mmol/L (98-107); Globulin 3.2 g/dL (1.3-4.6); Glomerular Filtration Rate 66.8 mL/min (90-130); Glucose 183 mg/dL (65-115); NT Pro B Type Natriuretic Pept 166 pg/mL (0-125); Osmolality Calculated 289 mOsm/kg (285-295); Potassium 4.1 mmol/L (3.5-5.1); Sodium 137 mmol/L (136-145); Total Bilirubin 0.3 mg/dL (0.15-1.2); Total Protein 7.1 g/dL (6.6-8.7)
--- NOTE | 2021-05-20 17:13 | ECG_ITS ---
[facility] Test Date: 2021-05-21 Pat Name: Vega Wilcox Department: Room: 107 Gender: Male Campus Coordinator: : 1955 Requested By: Byron Perales Order Number: [id number] Roger MD: Lance Marcano M.D. Measurements Intervals [place] Rate: 67 P: 99 [place]: 208 QRS: 81 QRSD: 89 T: 73 QT: 408 QTc: 431 Interpretive Statements SINUS RHYTHM Compared to ECG 05/21/2021 03:28:00 No significant changes Electronically Signed On 05-21-2021 20:25:13 ADAPTIVE PHYSICAL EDUCATION SPECIALIST by Lance Marcano M.D. [email or web address]/[id number]
[2021-05-20 18:12] LABS: Troponin 5 2HR 17.58 ng/L (0-15); Troponin 5 2HR Delta 7.58 ABS# (0-10)
[2021-05-20 20:33] VITALS: BP 104/62; PULSE 67; RESP 18; O2SAT 93
[2021-05-20 20:58] VITALS: BP 110/67; PULSE 66; RESP 20; O2SAT 95
--- NOTE | 2021-05-20 21:13 | ECG_ITS ---
[facility] Test Date: 2021-05-21 Pat Name: Vega Wilcox Department: Room: 112 Gender: Male City Solicitor: : 1955 Requested By: Byron Perales Order Number: [id number] Roger MD: Lance Marcano M.D. Measurements Intervals [place] Rate: 64 P: 6 [place]: 173 QRS: 81 QRSD: 94 T: 75 QT: 416 QTc: 430 Interpretive Statements SINUS RHYTHM Compared to ECG 05/20/2021 15:10:41 First degree AV block no longer present Electronically Signed On 05-21-2021 20:22:21 CHECK OUT CASHIER by Lance Marcano M.D. [email or web address] at [email or web address] healthcare main [email or web address]/[id number]
--- NOTE | 2021-05-20 21:27 | PC.NURSE ---
Dr. Garnica notified that patient does not have home medications ordered and does not have any orders from hospitalist, only from ED doc.
--- NOTE | 2021-05-20 21:27 | PC.NURSE ---
Patient arrived to the floor from the ED after report was received via phone. Patient is alert and oriented, in SR, VSS, and no pain. Patient has been oriented to his room and has call light within reach.
--- NOTE | 2021-05-20 21:35 | P.HP_ITS ---
Providers/Chief Complaint Admitting Physician: Dayna Ching MD Primary Care Provider: Ab Grubbs DO Chief Complaint: CHEST PAIN History of Present Illness Vega Wilcox is a 65 year old male with a past medical history of COPD, CAD, hyperlipidemia that presented to the emergency room with palpitations. He initially called EMS for palpitations, chest pain and was found to have heart rate in the 160s, thought to be SVT, he was given adenosine followed by Cardizem by EMS. After the Cardizem he converted back to sinus rhythm. States that chest pain is improved after palpitations are resolved, however he does have some nonspecific chest pain at this time. Is currently on dual antiplatelet therapy with aspirin and Plavix. EKG at the time of my assessment shows sinus rhythm at 64 bpm without any acute ST-T wave changes. A 2-hour delta troponin is at seven. Review of Systems General: Reports: 10 or more systems reviewed and unremarkable except in HPI and below Const: Denies: fever(s), chills or body aches Eyes: Denies: change in vision, blurry vision or photophobia ENMT: Reports: hoarseness; Denies: throat pain, enlarged tonsils, odynophagia or nasal congestion Card: Denies: chest pain, palpitations, irregular heart rhythm, edema, swelling of feet/ankles, lightheadedness, pre-syncope, dyspnea on exertion or or thopnea Resp: Denies: dyspnea, productive cough, non-productive cough, wheezing, stridor, pain on inspiration, change in phlegm color, hemoptysis or chest congestion GI: Denies: abdominal pain, nausea, vomiting, hematemesis, coffee ground emesis, dysphagia, heartburn, diarrhea, constipation, GI cramping, change in stool character, hematochezia or melena : Denies: flank pain, dysuria, urinary frequency, urinary urgency, urinary hesitancy or hematuria Musc: Denies: neck pain, back pain, extremity pain, joint swelling, joint warmth or deformity Neuro: Denies: headache(s), numbness in extremities, weakness in extremities, sensory changes, difficulty walking, frequent falls, dizziness, vertigo, behavioral changes, Slurred speech present or seizure-like activity Psych: Denies: anxiety, depression, suicidal ideation or homicidal ideation Endo: Denies: polyuria, polydipsia, tired all the time, cold intolerance or hot flashes Brandon/Lymph: Denies: easy bruising or easy bleeding Medications/Allergies Home Medications Medication Instructions Recorded Confirmed Last Taken Type losartan 50 mg tablet 50 mg PO BID@06/23/19 05/20/21 05/20/21 History metformin 500 mg tablet 500 mg PO DAILY@06/23/19 05/20/21 05/20/21 History budesonide [Pulmicort] 0.5 mg INHALATION BID@05/15/20 05/20/21 05/20/21 History formoterol fumarate [Perforomist] 2 ml INHALATION BID@05/15/20 05/20/21 05/20/21 History montelukast 10 mg PO DAILY@05/15/20 05/20/21 05/20/21 History nitroglycerin 0.4 mg sublingual 0.4 mg SUBLINGUAL Q5M PRN 30 Days 05/17/20 05/20/21 10/03/20 Rx tablet #30 tab revefenacin 175 mcg/3 mL solution See Rx Instructions .ROUTE 05/26/20 05/20/21 05/20/21 Rx for nebulization .COMPLEX #30 vial furosemide 20 mg tablet 20 mg PO DAILY@79909/10/20 05/20/21 05/20/21 History glimepiride 2 mg tablet 2 mg PO [facility] 09/10/20 05/20/21 05/20/21 History levothyroxine 200 mcg PO DAILY@79909/12/20 05/20/21 05/20/21 History omeprazole 40 mg PO DAILY@199909/12/20 05/20/21 05/20/21 History atorvastatin 20 mg PO DAILY@209910/04/20 05/20/21 05/19/21 History metoprolol tartrate 50 mg tablet 50 mg PO BID #60 tab 11/11/20 05/20/21 05/20/21 Rx aspirin [Aspir-81] 81 mg PO QA 02/23/21 05/20/21 05/20/21 History insulin detemir U-100 [Levemir 30 unit SUBCUT QA 02/23/21 05/20/21 Unknown History FlexTouch U-100 Insuln] magnesium L-lactate [Magtab] 168 mg PO QAM 02/23/21 05/20/21 05/20/21 History prasugrel 10 mg PO QAM 02/23/21 05/20/21 05/20/21 History albuterol sulfate 2 inh INHALATION Q8H PRN #8.5 g 04/23/21 05/20/21 Unknown Rx benzonatate [Tessalon Perles] 100 mg PO TID PRN #14 cap 04/23/21 05/20/21 Unknown Rx levothyroxine 100 mcg PO DAILY 05/20/21 05/20/21 05/20/21 History Allergies Allergy/AdvReac Type Severity Reaction Status Date / Time levofloxacin [From Levaquin] Allergy Makes me Verified 04/23/21 18:50 goofy PFSH Acute 2 PFSH: Medical History AAA (abdominal aortic aneurysm) without rupture Allergic rhinitis Aortic root dilation Stable Atypical chest pain Cognitive impairment Confusion COPD (chronic obstructive pulmonary disease) DDD (degenerative disc disease) Delirium Diabetes Essential (primary) hypertension GERD (gastroesophageal reflux disease) Hyperglycemia Hyperlipidemia Hypothyroidism Intervertebral disc disorders with radiculopathy, lumbosacral region Lumbar disc disease with radiculopathy Obesity Scoliosis of lumbar region due to degenerative disease of spine in adult Testicular mass Thoracic aortic aneurysm, without rupture Surgical History H/O hernia repair History of PTCA Hx of heart artery stent Family History Mother , AT AGE 69 Diabetes, Onset Age: 69 Father , AT AGE 80 Cancer, Onset Age: 80 Lung Heart disease Lung disease Brother Diabetes Other Lupus Social History Quit status (tobacco): has quit using tobacco Year quit tobacco: 2019 - 2PPD x 50 Years Smoking risk assessment/counseling performed?: No Alcohol intake: never Counseling given: No Counseling given: No Lives independently: Yes Household members: spouse Marital status: Current occupational status: disabled History of recent travel: No Current gender identity: Male Vitals/I&O/Wt Last Vital Signs Temp 97.3 F L 05/20/21 15:11 Pulse 66 05/20/21 20:58 Resp 20 H 05/20/21 20:58 BP 110/67 05/20/21 20:58 Pulse Ox 95 05/20/21 20:58 Weight last 48 hrs Weight 122.152 kg Weight 104.326 kg Physical Exam Narrative: EXAM NARRATIVE: General: No acute distress, AO x3 HEENT: PERRLA, pupils bilaterally equal and reactive, pallors not present Chest: Normal vesicular breath sounds, no added sounds, equal good air entry bilaterally CVS: S1-S2 regular, no murmurs, no tachycardia, no gallops, no rubs Abdomen: Soft, nontender, no organomegaly, bowel sounds present Neuro: No focal deficits, no facial deformity, AO x3, power 5/5 in all limbs Data : 05/21/21 04:08 05/21/21 04:08 A&P Assessment and plan (1) SVT (supraventricular tachycardia): Status: Acute (2) Chest pain: Status: Acute Additional A&P Information 65-year-old male with a past medical history of CAD presenting today with chest pain, palpitations, found to have SVT by EMS, status post adenosine and Cardizem in the field following which patient is currently in sinus rhythm, heart rate at 64 bpm. 2-hour troponin at seven, continue series and obtain 6-hour troponin. Screening D-dimer to rule out PE Reports that chest pain is resolved, however does report some subjective dyspnea. Chest x-ray without any consolidation. Saturating 95% on room air. Cardiology has been consulted from emergency room. last known EF 09/2020 at 69%, no RWMA, gr 1 diastolic dysfunction Attestations Medical Necessity Statement*: anticipate less than 2 midnight admission for above care Coding Level of Care Code Acute Buff Wheel Fabricator for [facility] Fwd Diagnoses SVT (supraventricular tachycardia) I47.1 Chest pain R07.9
[2021-05-20 21:40] LABS: Troponin 5 6HR 16.46 ng/L (0-15); Troponin 5 6HR Delta 6.46 ng/L (0-12)
[2021-05-20 22:00] VITALS: PULSE 57
[2021-05-20 22:19] LABS: D Dimer 0.56 ug/mIFEU (0-0.59)
[2021-05-20 23:32] VITALS: BP 110/52; PULSE 60; RESP 20; TEMP 36.7; O2SAT 96
[2021-05-21] VITALS (16 sets, daily range): BP systolic 105–136; BP diastolic 64–80; PULSE 55–80; RESP 17–61; TEMP 36.4–36.6; O2SAT 92–98
[2021-05-21] MEDS: ipratropium-albuterol 3 mL Neb INHALATION ×3 (03:14→20:20)
[2021-05-21 05:01] LABS: Basophils # 0.1 10^3/uL (0.0-0.1); Basophils % 0.6 %; Eosinophils # 0.3 10^3/uL (0.0-0.8); Eosinophils % 3.4 %; Hematocrit 47.6 % (42.0-52.0); Hemoglobin 15.7 g/dL (11.7-16.6); Lymphocytes # 2.4 10^3/uL (0.8-4.8); Lymphocytes % 24.2 %; Mean Corpuscular Hemoglobin 29.8 pg (28.0-34.0); Mean Corpuscular Volume 90.5 fl (80-94); Mean Platelet Volume 12.2 fL (7.4-10.4); Monocytes % 10.2 %; Neutrophils # 6.15 10^3/uL (1.8-7.7); Neutrophils % 61.2 %; Nucleated Red Blood Cells % 0 %; Platelet Count 208 10^3/cmm (130-400); Red Blood Count 5.26 10^6/uL (4.1-5.3); Red Cell Distribution Width 13.5 % (12.1-15.1)
[2021-05-21 05:20] LABS: Alanine Aminotransferase 14 U/L (0-41); Albumin Level 3.9 g/dL (3.5-5.2); Alkaline Phosphatase 85 IU/L (40-130); Anion Gap 16.1 (5-19); Aspartate Amino Transferase 13 U/L (0-40); Blood Urea Nitrogen 16 mg/dL (8-23); Calcium 9.3 mg/dL (8.5-10.5); Carbon Dioxide 27 mmol/L (22-29); Chloride 101 mmol/L (98-107); Globulin 3.3 g/dL (1.3-4.6); Glomerular Filtration Rate 66.8 mL/min (90-130); Glucose 122 mg/dL (65-115); Magnesium 1.8 mg/dL (1.7-2.3); Osmolality Calculated 292 mOsm/kg (285-295); Potassium 4.1 mmol/L (3.5-5.1); Sodium 140 mmol/L (136-145); Thyroid Stimulating Hormone 2.89 uIU/mL (0.27-4.20); Total Bilirubin 0.2 mg/dL (0.15-1.2); Total Protein 7.2 g/dL (6.6-8.7)
[2021-05-21 05:28] LABS: Slide Review Slide Review Perform
[2021-05-21] MEDS: prasugrel 10 MG Tablet PO (05:48)
[2021-05-21] MEDS: magnesium lactate 84 mg Tablet 168 MG PO (05:48)
[2021-05-21] MEDS: aspirin 81 mg EC Tablet PO (05:48)
[2021-05-21] MEDS: glimepiride 2 mg Tablet PO (05:48)
[2021-05-21 06:31] LABS: Glucose Point of Care 114 mg/dL (70-110)
--- NOTE | 2021-05-21 07:57 | PM.CONSULT ---
Providers/Reason For Consult Consulting Physician/Specialty*: BARBARA Marcano MD/cardiology Reason for Consult*: Patient with SVT/history of nonsustained ventricular tachycardia/chest pain Attending Physician: Tommie Dunbar MD Primary Care Provider: Ab Grubbs DO History of Present Illness History of Present Illness Vega Wilcox is a 65 year old male with a history of atherosclerotic heart disease, high blood pressure, dyslipidemia, type 2 diabetes and cardiac arrhythmia presenting with complaints of a prolonged episode of palpitation. He was found to be tachycardic with a heart rate in the 150s. He was given IV adenosine by the EMS. His heart rate converted to so normal sinus. Cardiology consult is requested for further evaluation and management. This patient apparently has been in his baseline state of health up until yesterday evening. He started having palpitations at home while watching TV in the evening. He had some chest discomfort and shortness of breath. He also felt dizzy. The symptom made her lasted for half an hour or so. Since there was no relief of symptoms, his called the ambulance. As the EMS arrived at the scene, he was found to have heart rate in the 150s. He was given IV adenosine-2 doses?. His rate converted to sinus. He has been staying in the sinus rhythm since then. He was having episodes of sinus bradycardia through the night. Currently the heart rate is in the 60s. He denies any chest pain or chest tightness. The troponin T is slightly elevated with no significant delta. Patient had PCI of the left and descending artery in June of last year when he presented with features of non-ST elevation myocardial infarction. He had a repeat cardiac catheterization in September of last year when he presented with recurrent episodes of chest pain. He was found to have patent stented segments of the LAD. No significant new lesions were noted. He has a history of palpitations. He had a an event monitor in October 2020. He had 4 episodes of nonsustained ventricular tachycardia, the longest one being of 21 seconds. He has been doing okay on metoprolol and magnesium. His LV ejection fraction was normal managed by cardiogram. He has no history for any malignant ventricular arrhythmias. Review of Systems Narrative: CONSTITUTIONAL: No fever or chills. EYES: No blurring of vision or other visual disturbances lately. ENT: No hoarseness of voice, auditory disturbances or sore throat. CARDIOVASCULAR: As mentioned above. RESPIRATORY: No significant cough. GASTROINTESTINAL: No hematemesis or melena. GENITOURINARY: No dysuria or hematuria. INTEGUMENTARY: No skin rashes or history of skin cancer. NEURO: No transient ischemic attacks or amaurosis. PSYCHIATRIC: No history of psychosis or major depression. HEMATOLOGIC: No bleeding disorders or significant anemia. ENDOCRINE: No history of polyuria or polydipsia. MUSCULOSKELETAL: No recent joint pain or swelling. ALLERGY/IMMUNOLOGY: As mentioned above. Meds/Allergies Home Medications and Allergies Home Medications Medication Instructions Recorded Confirmed Last Taken Type losartan 50 mg tablet 50 mg PO BID@06/23/19 05/20/21 05/20/21 History metformin 500 mg tablet 500 mg PO DAILY@06/23/19 05/20/21 05/20/21 History budesonide [Pulmicort] 0.5 mg INHALATION BID@05/15/20 05/20/21 05/20/21 History formoterol fumarate [Perforomist] 2 ml INHALATION BID@05/15/20 05/20/21 05/20/21 History montelukast 10 mg PO DAILY@05/15/20 05/20/21 05/20/21 History nitroglycerin 0.4 mg sublingual 0.4 mg SUBLINGUAL Q5M PRN 30 Days 05/17/20 05/20/21 10/03/20 Rx tablet #30 tab revefenacin 175 mcg/3 mL solution See Rx Instructions .ROUTE 05/26/20 05/20/21 05/20/21 Rx for nebulization .COMPLEX #30 vial furosemide 20 mg tablet 20 mg PO DAILY@79909/10/20 05/20/21 05/20/21 History glimepiride 2 mg tablet 2 mg PO QAM 09/10/20 05/20/21 05/20/21 History levothyroxine 200 mcg PO DAILY@79909/12/20 05/20/21 05/20/21 History omeprazole 40 mg PO DAILY@199909/12/20 05/20/21 05/20/21 History atorvastatin 20 mg PO DAILY@209910/04/20 05/20/21 05/19/21 History metoprolol tartrate 50 mg tablet 50 mg PO BID #60 tab 0605/20/21 05/20/21 Rx aspirin [Aspir-81] 81 mg PO QAM 02/23/21 05/20/21 05/20/21 History insulin detemir U-100 [Levemir 30 unit SUBCUT QAM 02/23/21 05/20/21 Unknown History FlexTouch U-100 Insuln] magnesium L-lactate [Magtab] 168 mg PO QAM 02/23/21 05/20/21 05/20/21 History prasugrel 10 mg PO QAM 02/23/21 05/20/21 05/20/21 History albuterol sulfate 2 inh INHALATION Q8H PRN #8.5 g 04/23/21 05/20/21 Unknown Rx benzonatate [Tessalon Perles] 100 mg PO TID PRN #14 cap 04/23/21 05/20/21 Unknown Rx levothyroxine 100 mcg PO DAILY 05/20/21 05/20/21 05/20/21 History Allergies Allergy/AdvReac Type Severity Reaction Status Date / Time levofloxacin [[facility]] Allergy Makes me Verified 04/23/21 18:50 goofy Current Medications Current Medications Generic Name Dose Route Start Last Admin Trade Name Freq PRN Reason Stop Dose Admin Albuterol/Ipratropium 3 ml 05/20/21 21:45 05/21/21 03:14 Ipratropium-Albuterol 3 Ml Neb INHALATION 3 ml Q6H.RESPIRATORY HERNESTO Administration Aspirin 81 mg 05/21/21 06:00 05/21/21 05:48 Aspirin 81 Mg Ec Tablet PO 81 mg QAM HERNESTO Administration Glimepiride 2 mg 05/21/21 06:00 05/21/21 05:48 Glimepiride 2 Mg Tablet PO 2 mg QAM HERNESTO Administration Magnesium Lactate 168 mg 05/21/21 06:00 05/21/21 05:48 Magnesium Lactate 84 Mg Tablet PO 168 mg QAM HERNESTO Administration Prasugrel 10 mg 05/21/21 06:00 05/21/21 05:48 Prasugrel 10 Mg Tablet PO 10 mg QAM HERNESTO Administration PFSH Acute PFSH: Medical History AAA (abdominal aortic aneurysm) without rupture Allergic rhinitis Aortic root dilation Stable Atypical chest pain Cognitive impairment Confusion COPD (chronic obstructive pulmonary disease) DDD (degenerative disc disease) Delirium Diabetes Essential (primary) hypertension GERD (gastroesophageal reflux disease) Hyperglycemia Hyperlipidemia Hypothyroidism Intervertebral disc disorders with radiculopathy, lumbosacral region Lumbar disc disease with radiculopathy Obesity Scoliosis of lumbar region due to degenerative disease of spine in adult Testicular mass Thoracic aortic aneurysm, without rupture Surgical History H/O hernia repair History of PTCA Hx of heart artery stent Family History Mother , AT AGE 69 Diabetes, Onset Age: 69 Father , AT AGE 80 Cancer, Onset Age: 80 Lung Heart disease Lung disease Brother Diabetes Other Lupus Social History Quit status (tobacco): has quit using tobacco Year quit tobacco: 2019 - 2PPD x 50 Years Smoking risk assessment/counseling performed?: No Alcohol intake: never Counseling given: No Counseling given: No Lives independently: Yes Household members: spouse Marital status: Current occupational status: disabled History of recent travel: No Current gender identity: Male Vitals/I&O/Wt Last Vital Signs Temp 98.0 F 05/20/21 23:32 Pulse 64 05/21/21 06:00 Resp 18 05/21/21 04:00 BP 105/70 05/21/21 04:00 Pulse Ox 95 05/21/21 04:00 05/20/21 05/21/21 05/21/21 22:59 06:59 14:59 Intake Total 300 / 300 Balance 300 / 300 Weight last 48 hrs Weight 252 lb 6.4 oz Weight 269 lb 4.8 oz Weight 230 lb Physical Exam Narrative: EXAM NARRATIVE: GENERAL: The patient is alert and oriented times three. Not in any acute distress. HEENT: No significant pallor, icterus or lymphadenopathy. The pupils are reactant to light. Oral cavity: There are no mucous membrane lesions. Funduscopic examination: The fundus is not visualized NECK: Trachea appears to be central. No masses noted. No JVD or thyromegaly appreciated. No carotid bruit. RESPIRATORY: Chest is symmetrical. No intercostals muscle retraction or any accessory muscle activation. There is no chest wall tenderness. Breath sounds are heard bilaterally. No rales or rhonchi heard. No evidence of any consolidation. BREASTS: Deferred. HEART: The PMI could not be palpated. No other palpable precordial events. S1 and S2 are normal. No S3 or S4 heard. No pericardial rub or any click heard. ABDOMEN: No vessel pulsations or distention. No tenderness. No organomegaly appreciated. No abdominal bruit. Bowel sounds are normally heard. : Deferred. RECTAL: Deferred. LYMPHATIC: No lymphadenopathy noted in the neck or groin. EXTREMITIES: No edema or cyanosis. No clubbing. The pulses are symmetrical bilaterally. The radial, femoral, dorsalis pedis and the posterior tibial pulses are palpated and found to be in good volume and amplitude. MUSCULOSKELETAL: Gait is normal. There is no joint deformity or swelling noted. No joint tenderness or any effusion. The shoulder and hip joints appear to have normal range of motion. SKIN: There are no significant scars or skin rash noted. NEUROPSYCHIATRIC: The patient is alert and oriented x3. Appears to be in a good mood. The higher functions are grossly within normal limits. No tremors or rigidity noted. Data Labs: Other Labs: Laboratory Last Values WBC 10.0 10^3/uL (4.0 -10.0) 05/21/21 04:08 RBC 5.26 10^6/uL (4.1 -5.3) 05/21/21 04:08 Hgb 15.7 g/dL (11.7-1 6.6) 05/21/21 04:08 Hct 47.6 % (42.0-52.0 ) 05/21/21 04:08 MCV 90.5 fl (80-94) 05/21/21 04:08 MCH 29.8 pg (28.0-34. 0) 05/21/21 04:08 MCHC 33.0 g/dL (30.0-3 6.0) 05/21/21 04:08 RDW 13.5 % (12.1-15.1 ) 05/21/21 04:08 Plt Count 208 10^3/cmm (130 -400) 05/21/21 04:08 MPV 12.2 fL (7.4-10.4 ) H 05/21/21 04:08 Neut % (Auto) 61.2 % 05/21/21 04:08 Lymph % (Auto) 24.2 % 05/21/21 04:08 [place] % (Auto) 10.2 % 05/21/21 04:08 Eos % (Auto) 3.4 % 05/21/21 04:08 Baso % (Auto) 0.6 % 05/21/21 04:08 Neut # (Auto) 6.15 10^3/uL (1.8 -7.7) 05/21/21 04:08 Lymph # (Auto) 2.4 10^3/uL (0.8- 4.8) 05/21/21 04:08 [place] # (Auto) 1.0 10^3/uL (0.2- 0.9) H 05/21/21 04:08 Eos # (Auto) 0.3 10^3/uL (0.0- 0.8) 05/21/21 04:08 Baso # (Auto) 0.1 10^3/uL (0.0- 0.1) 05/21/21 04:08 Nucleated RBC % (a uto) 0 % 05/21/21 04:08 Nucleated RBCs # 0.0 /100WBC 05/21/21 04:08 D-Dimer 0.56 ug/mIFEU (0- 0.59) 05/20/21 21:43 Sodium 140 mmol/L (136-1 45) 05/21/21 04:08 Potassium 4.1 mmol/L (3.5-5 .1) 05/21/21 04:08 Chloride 101 mmol/L (98-10 7) 05/21/21 04:08 Carbon Dioxide 27 mmol/L (22-29) 05/21/21 04:08 Anion Gap 16.1 (5-19) 05/21/21 04:08 BUN 16 mg/dL (8-23) 05/21/21 04:08 Creatinine 1.1 mg/dL (0.7-1. 2) 05/21/21 04:08 GFR Calculation 66.8 mL/min (90-1 30) L 05/21/21 04:08 Glucose 122 mg/dL (65-115 ) H 05/21/21 04:08 POC Glucose 114 mg/dL (70-110 ) H 05/21/21 06:29 Calculated Osmolal ity 292 mOsm/kg (285- 295) 05/21/21 04:08 Calcium 9.3 mg/dL (8.5-10 .5) 05/21/21 04:08 Magnesium 1.8 mg/dL (1.7-2. 3) 05/21/21 04:08 Total Bilirubin 0.2 mg/dL (0.15-1 .2) 05/21/21 04:08 AST 13 U/L (0-40) 05/21/21 04:08 ALT 14 U/L (0-41) 05/21/21 04:08 Alkaline Phosphata se 85 IU/L (40-130) 05/21/21 04:08 Troponin T Baselin e 10 ng/L (0-15) 05/20/21 15:09 Troponin T 120 Min [place] 17.58 ng/L (0-15) H 05/20/21 17:40 Delta Troponin T 7.58 ABS# (0-10) 05/20/21 17:40 Troponin T Hi Sens 6Hr 16.46 ng/L (0-15) H 05/20/21 21:16 Troponin T Hi Sens 6Hr Delta 6.46 ng/L (0-12) 05/20/21 21:16 NT-Pro-B Natriuret Pep 166 pg/mL (0-125) H 05/20/21 15:09 Total Protein 7.2 g/dL (6.6-8.7 ) 05/21/21 04:08 Albumin 3.9 g/dL (3.5-5.2 ) 05/21/21 04:08 Globulin 3.3 g/dL (1.3-4.6 ) 05/21/21 04:08 TSH 2.89 uIU/mL (0.27 -4.20) 05/21/21 04:08 10/05/20 LHC * The left main is a short vessel with no significant stenotic lesion. * The left anterior descending artery is a medium to large caliber vessel with widely patent stent at the mid segment. The distal LAD was found to have around 20 to 30% tubular narrowing. No other significant stenotic lesions. * The left circumflex artery is a the left circumflex artery is a medium caliber with no significant stenotic lesion. * The intermedius artery is a medium to large caliber, high obtuse marginal vessel with no significant stenotic lesion. * The right coronary artery is a medium caliber dominant vessel with 20 to 30% diffuse irregular narrowing of the mid segment. * Mid Left Anterior Descendin% stenosis treated with a Drug Eluting Stent. 0% residual stenosis, NAILA: 3 flow. 1. Cardiac catheterization revealed patent stented segment in the mid LAD. Mild disease in the other vessels. Normal LV ejection fraction 55%.. Elevated LVEDP of 29 mmHg- suggesting LV diastolic dysfunctioin. 10/05/20 Echo Normal left ventricular size and systolic function, EF 69 %. No regional wall motion abnormalities. Grade I/IV diastolic dysfunction (abnormal relaxation filling pattern), normal to mildly elevated filling pressures. No significant stenotic or regurgitant lesions Normal cardiac chamber sizes There is no pericardial effusion. There are no intracardiac masses. Compared to the study from 03/06/2019, there may not be a significant change 06/20/20 [facility] Patient underwent left heart catheterization with left and right coronary angiogram today. The findings are as follows. 2. High-grade lesion in the mid LAD of around 95%. Mild diffuse disease in the other vessels. LVEDP of 18 mmHg. The cardiac catheterization data was reviewed and discussed with . It was thought to be appropriate to consider PCI of the LAD lesion. At this point, took over further management of this patient. 3. Proximal Left Anterior Descending Coronary Artery was treated with two Balloon and Drug E A&P Assessment and plan (1) SVT (supraventricular tachycardia): As of now I have no documentation of the arrhythmia. It is possible that the patient may have had an SVT since he responded to IV adenosine. He has a history of nonsustained ventricular tachycardia. Because of his bradycardic episodes through the night, we may not be able to go up on his metoprolol. At this point, I may discontinue the metoprolol and start him on Betapace, starting this evening. He need to be closely monitored for 48 to 72 hours on the telemetry. We will be closely monitoring the QTc. Based on the clinical response, further recommendations will be made Status: Acute (2) Atherosclerotic heart disease of [place] coronary artery with other forms of angina pectoris: Patient has some chest discomfort. Most likely this is related to the tachyarrhythmia. Since he had the angiogram 6 months ago showing patent LAD stent, we may hold off on any further investigations at this point. The troponin T's were unremarkable. Status: Acute (3) Aortic root dilation: Seems to be stable. Status: Acute (4) Hyperlipidemia: We will continue on the current medications. Status: Acute Qualifiers: Hyperlipidemia type: mixed hyperlipidemia Qualified Code(s): E78.2 - Mixed hyperlipidemia (5) Essential (primary) hypertension: Currently normotensive. We will continue on the current medications. Status: Acute (6) Diabetes: May hold off on the Metformin for the time being. Sliding scale insulin, low . Status: Acute Qualifiers: Diabetes mellitus complication status: with hyperglycemia Diabetes mellitus penitentiary insulin use: without terminal makeup operator use Diabetes mellitus type: type 2 Qualified Code(s): E11.65 - Type 2 diabetes mellitus with hyperglycemia Consult Attestations Medical Necessity Statement: Patient requires continued hospital stay for close monitoring and further management Coding Level of Care Code Acute Account Contact Associate for [facility] Fwd History Detailed Exam Detailed Medical Decision Making High Complexity Diagnoses SVT (supraventricular tachycardia) I47.1 Atherosclerotic heart disease of [place] coronary artery with other forms of angina pectoris I25.118 Aortic root dilation I77.810 Hyperlipidemia E78.2 Hyperlipidemia type: mixed hyperlipidemia Essential (primary) hypertension I10 Diabetes E11.65 Diabetes mellitus complication status: with hyperglycemia Diabetes mellitus penitentiary insulin use: without penitentiary use Diabetes mellitus type: type 2
[2021-05-21] MEDS: levothyroxine 200 mcg Tablet PO (08:12)
[2021-05-21] MEDS: metoprolol tartrate 50 mg Tablet PO (08:13)
[2021-05-21] MEDS: benzonatate 100 mg Capsule PO (08:13)
[2021-05-21] MEDS: FUROsemide 20 mg Tablet PO (08:13)
[2021-05-21] MEDS: pantoprazole DR 40 mg Tablet PO (08:13)
--- NOTE | 2021-05-21 08:20 | PC.NURSE ---
Spoke with Visual Merchandising Assistant regarding Metformin. Physician orders to hold off on Metformin and start low dose sliding scale. Also spoke with physician regarding blood pressure of 105/71. Nurse will hold dose of Losartan.
[2021-05-21 10:44] LABS: Glucose Point of Care 157 mg/dL (70-110)
[2021-05-21] MEDS: insulin lispro 100 unit/1 mL SUBCUT ×2 (11:26→20:25)
--- NOTE | 2021-05-21 14:09 | PM.PN ---
Subjective Subjective: Interval history: Patient was seen this morning, denies any chest pain, no palpitations, no shortness of breath Vitals/I&O/Wt Last Vital Signs Temp 97.9 F 05/21/21 11:16 Pulse 58 L 05/21/21 11:16 Resp 25 H 05/21/21 11:16 BP 122/64 05/21/21 11:16 Pulse Ox 94 05/21/21 11:16 05/20/21 05/21/21 05/21/21 22:59 06:59 14:59 Intake Total 300 / 300 596 / 596 Balance 300 / 300 596 / 596 Weight last 48 hrs Weight 114.487 kg Weight 122.152 kg Weight 104.326 kg Physical Exam Const: COMMON NORMALS: no acute distress and patient oriented x3 Resp: COMMON NORMALS: normal respiratory effort, No retractions, No use of accessory muscles and clear to auscultation bilaterally AUSCULTATION: clear to auscultation bilaterally Cardio: COMMON NORMALS: regular rate, regular rhythm, S1 normal heart sound present and S2 normal heart sound present RATE: regular rate RHYTHM: regular rhythm HEART SOUNDS: S1 normal heart sound present and S2 normal heart sound present GI: COMMON NORMALS: Normal to inspection, nondistended, normoactive bowel sounds present, Soft to palpation and non-tender PALPATION: Yes Soft to palpation Extremity: COMMON NORMALS: no pedal edema Neuro: COMMON NORMALS: patient oriented x3 Psych: COMMON NORMALS: mental status grossly normal Data : 05/21/21 04:08 05/21/21 04:08 A&P Assessment and plan (1) SVT (supraventricular tachycardia): Status: Acute (2) Chest pain: Status: Acute (3) Atherosclerotic heart disease of [place] coronary artery with other forms of angina pectoris: Status: Acute (4) Bradycardia: Status: Acute Additional A&P Information 65-year-old male with a past medical history of CAD presenting today with chest pain, palpitations, found to have SVT by EMS, status post adenosine and Cardizem in the field following which patient is currently in sinus rhythm, heart rate at 64 bpm. Bradycardia, asymptomatic, continue to monitor 6-hour troponin, 16, unremarkable delta BNP 166 Reports that chest pain is resolved, however does report some subjective dyspnea. Chest x-ray without any consolidation. Saturating 95% on room air. Cardiology has been consulted from emergency room. last known EF 09/2020 at 69%, no RWMA, gr 1 diastolic dysfunction Attestations Medical Necessity Statement*: Patient requires hospitalization, admission, greater than 2 midnights, for SVT, bradycardia, chest pain Coding Level of Care Code Acute Tattoo And Body Artist for g Fwd Diagnoses SVT (supraventricular tachycardia) I47.1 Chest pain R07.9 Atherosclerotic heart disease of [place] coronary artery with other forms of angina pectoris I25.118 Bradycardia R00.1
[2021-05-21 16:23] LABS: Glucose Point of Care 118 mg/dL (70-110)
--- NOTE | 2021-05-21 17:17 | PC.NURSE ---
Patient will need EKG two hours after each sotalol dose, for 3 doses.
[2021-05-21] MEDS: sotalol 80 mg Tablet PO (18:04)
[2021-05-21] MEDS: atorvastatin 40 mg Tablet 20 MG PO (19:34)
[2021-05-21] MEDS: losartan 50 mg Tablet PO (19:34)
--- NOTE | 2021-05-21 20:00 | ECG_ITS ---
[facility] Test Date: 2021-05-21 Pat Name: Vega Wilcox Department: Room: 107 Gender: Male Sole Ruffer: : 1955 Requested By: Lance Marcano Order Number: [id number] Roger MD: Lance Marcano M.D. Measurements Intervals [place] Rate: 58 P: -58 MA: 196 QRS: 82 QRSD: 91 T: 67 QT: 434 QTc: 429 Interpretive Statements SINUS BRADYCARDIA Compared to ECG 05/21/2021 18:01:16 Sinus rhythm no longer present Electronically Signed On 05-22-2021 20:55:21 FLORAL MERCHANDISER by Lance Marcano M.D. [id number]
[2021-05-21 20:18] LABS: Glucose Point of Care 232 mg/dL (70-110)
[2021-05-21] MEDS: budesonide 0.5 mg/2 mL Neb INHALATION (20:20)
--- NOTE | 2021-05-21 20:54 | PC.NURSE ---
RT notified of 1999 EKG not completed yet.
[2021-05-22] VITALS (19 sets, daily range): BP systolic 103–133; BP diastolic 56–87; PULSE 56–69; RESP 17–21; TEMP 36.6–36.8; O2SAT 89–99
[2021-05-22] MEDS: ipratropium-albuterol 3 mL Neb INHALATION ×4 (02:28→20:25)
[2021-05-22 02:45] LABS: Basophils # 0.1 10^3/uL (0.0-0.1); Basophils % 0.6 %; Eosinophils # 0.4 10^3/uL (0.0-0.8); Eosinophils % 3.5 %; Hematocrit 45.6 % (42.0-52.0); Hemoglobin 14.9 g/dL (11.7-16.6); Lymphocytes % 27.6 %; Mean Corpuscular HGB Conc 32.7 g/dL (30.0-36.0); Mean Corpuscular Hemoglobin 29.7 pg (28.0-34.0); Mean Corpuscular Volume 90.8 fl (80-94); Mean Platelet Volume 11.3 fL (7.4-10.4); Monocytes # 1.4 10^3/uL (0.2-0.9); Monocytes % 12.6 %; Neutrophils # 6.09 10^3/uL (1.8-7.7); Neutrophils % 55.3 %; Nucleated Red Blood Cells % 0 %; Platelet Count 220 10^3/cmm (130-400); Red Blood Count 5.02 10^6/uL (4.1-5.3); Red Cell Distribution Width 13.2 % (12.1-15.1)
[2021-05-22 03:03] LABS: Alanine Aminotransferase 14 U/L (0-41); Albumin Level 3.9 g/dL (3.5-5.2); Alkaline Phosphatase 91 IU/L (40-130); Anion Gap 14.4 (5-19); Aspartate Amino Transferase 12 U/L (0-40); Blood Urea Nitrogen 13 mg/dL (8-23); Calcium 8.9 mg/dL (8.5-10.5); Carbon Dioxide 26 mmol/L (22-29); Chloride 102 mmol/L (98-107); Glomerular Filtration Rate 84.2 mL/min (90-130); Glucose 108 mg/dL (65-115); Magnesium 1.8 mg/dL (1.7-2.3); Osmolality Calculated 287 mOsm/kg (285-295); Potassium 4.4 mmol/L (3.5-5.1); Sodium 138 mmol/L (136-145); Total Bilirubin 0.2 mg/dL (0.15-1.2); Total Protein 6.9 g/dL (6.6-8.7)
[2021-05-22] MEDS: magnesium lactate 84 mg Tablet 168 MG PO (04:19)
[2021-05-22] MEDS: aspirin 81 mg EC Tablet PO (04:20)
[2021-05-22] MEDS: prasugrel 10 MG Tablet PO (04:20)
--- NOTE | 2021-05-22 06:00 | PC.NURSE ---
called stating that patient talked to her on the phone and was tearful and wanting to go home. states that patient seems confused, but that he gets confused at home at times too.
[2021-05-22 06:33] LABS: Glucose Point of Care 122 mg/dL (70-110)
--- NOTE | 2021-05-22 08:00 | USCV_ITS ---
Brenden Vega Age: 65 Gender: M : 1955 Exam Date: 05/22/2021 06:25 Ordering Phys: Lance Marcano MD ([email or web address]) Technologist: Exam Location: [facility] – [place] Indication: FOLLOW UP BP: 116 / 73 HR: 65 Rhythm: Sinus Technical Quality: Adequate MEASUREMENTS (Male / Female) Normal Values 2D ECHO LV Diastolic Diameter PLAX 5.3 cm 4.2 - 5.9 / 3.9 - 5.3 cm LV Systolic Diameter PLAX 3.3 cm IVS Diastolic Thickness 1.1 cm 0.6 - 1.0 / 0.6 - 0.9 cm IVS Systolic Thickness 1.6 cm LVPW Diastolic Thickness 1.2 cm 0.6 - 1.0 / 0.6 - 0.9 cm LVPW Systolic Thickness 1.6 cm LVOT Diameter 2.0 cm LV Ejection Fraction 2D Teich 68.4 % LV Ejection Fraction MOD 2C 59.0 % LV Ejection Fraction 2C AL 59.9 % LA Diameter 4.2 cm LA Width 3.4 cm LA Height 4.7 cm RA Width 4.2 cm RA Height 3.9 cm M-MODE RV Diastolic Diameter MM 1.9 cm Aortic Annulus Diameter 3.9 cm LA Ao Ratio MM 1.2 MV E Point Septal Separation 1.1 cm FINDINGS Left Ventricle Normal left ventricular size and systolic function, EF 61 %. No regional wall motion abnormalities. Mild left ventricular hypertrophy. Right Ventricle Normal right ventricular size and systolic function. Right Atrium Right atrium not well visualized. Left Atrium Normal left atrial size. Mitral Valve Thickened mitral valve. Aortic Valve Thickened aortic valve. Tricuspid Valve Tricuspid valve not well visualized. Pulmonic Valve Pulmonic valve not well visualized. Pericardium Trivial pericardial effusion. Aorta Normal aortic annulus size. CONCLUSIONS Normal left ventricular size and systolic function, EF 61 %. No regional wall motion abnormalities. Mild left ventricular hypertrophy. Minimally thickened aortic and mitral valves.Trivial pericardial effusion. Compared to the study from 10/05/2020, there may not be a significant change. Dr Lance Marcano MD [facility] (Electronically Signed) Final Date: 22 May 2021 20:42 S
[2021-05-22] MEDS: budesonide 0.5 mg/2 mL Neb INHALATION ×2 (08:10→20:25)
[2021-05-22] MEDS: levothyroxine 200 mcg Tablet PO (09:05)
[2021-05-22] MEDS: FUROsemide 20 mg Tablet PO (09:05)
[2021-05-22] MEDS: losartan 50 mg Tablet PO ×2 (09:06→21:39)
[2021-05-22] MEDS: pantoprazole DR 40 mg Tablet PO (09:07)
[2021-05-22] MEDS: sotalol 80 mg Tablet PO (09:15)
--- NOTE | 2021-05-22 09:47 | PC.CHAP ---
Pastoral Care Encounter/Spiritual Assessment Type of Contact [] Declined poll watcher visit [] Patient/Family/Request visit [] Outpatient visit [] Follow-up visit [] Physician referral [] Code/Alert [x] Routine visit [] Staff referral [] Actively dying [] Patient sleeping [x] Family support [] [] Out of room [] Palliative care [] [] Receiving care in room [] Pre-surgical visit [] Trauma [] Long length of stay [] ICU visit [] Other: Relational/Emotional Strength [] Patient feels connected with others/family/visitors/staff [] Distress [] Loneliness/isolation [] Abandonment Spirituality of Patient [x] Person of Niyah [] Attends Zoroastrian of their Niyah [] Believes in Prayer [] Reads Bible or Cheondoism materials [] There are Spiritual issues to be addressed Aviation Mechanic Interventions [x] Prayer [x] Active listening x] Non-anxious presence [x] Spiritual/emotional support [] Crisis/trauma care [] Spiritual counseling [] Bereavement support [] Provided bereavement packet [] Provided Bible/devotional materials [] Provided toy/stuffed animal, coloring book to patient or family member [] Provided Communion [] Anointing/[place] [] Salvation [x] Completed spiritual assessment [] Other: Impact on Illness or Injury [] Angry [] Fearful [] Anxious [] Often cries [] Exhaustion [] Unable to work [] Unable to attend latter day [] Unable to walk/stand [] Unable to read [] Unable to drive [] Unable to eat/drink [] Unable to sleep [] Unable to be with family [] Patient intubated [] Other: Summary binder caser and present... prayed for patient... tired, needing rest and clear breathing Time spent with patient 10 min
[2021-05-22 10:59] LABS: Glucose Point of Care 211 mg/dL (70-110)
--- NOTE | 2021-05-22 12:15 | ECG_ITS ---
[facility] Test Date: 2021-05-22 Pat Name: Vega Wilcox Department: Room: 107 Gender: Male Web Application Tester: : 1955 Requested By: Cristian Cornejo Order Number: [id number] Roger MD: Lance Marcano M.D. Measurements Intervals [place] Rate: 58 P: -11 TN: 190 QRS: 81 QRSD: 80 T: 70 QT: 451 QTc: 444 Interpretive Statements SINUS BRADYCARDIA Compared to ECG 05/21/2021 21:41:43 No significant changes Electronically Signed On 05-22-2021 20:55:58 IT SECURITY CONSULTING DIRECTOR by Lance Marcano M.D. [id number]
[2021-05-22] MEDS: insulin lispro 100 unit/1 mL SUBCUT (13:46)
[2021-05-22] MEDS: benzonatate 100 mg Capsule PO (13:53)
--- NOTE | 2021-05-22 14:21 | PM.PN ---
Subjective Subjective: Interval history: Patient was seen and examined this morning, denies any chest pain shortness of breath, continues to be in sinus rhythm, satisfactory QTc interval 2-hour post sotalol dose.Given the fact that the heart rate has been in the mid 50s, evening dose of sotalol has been decreased to 40 mg p.o. daily, morning dose has been kept at 80 mg p.o. daily. Medications: Medication Review Details: Generic Name Dose Route Start Last Admin Trade Name Nikolasq PRN Reason Stop Dose Admin Albuterol/Ipratrop ium 3 ml 05/20/21 21:45 05/22/21 08:10 Ipratropium-Albu terol 3 Ml Neb INHALATION 3 ml Q6H.RESPIRATORY S CH Administration Aspirin 81 mg 05/21/21 06:00 05/22/21 04:20 Aspirin 81 Mg Ec Tablet PO 81 mg QAM HERNESTO Administration Atorvastatin Calci um 20 mg 05/21/21 21:00 05/21/21 19:34 Atorvastatin 40 Mg Tablet PO 20 mg DAILY@2100 HERNESTO Administration Benzonatate 100 mg 05/20/21 21:30 05/22/21 13:53 Benzonatate 100 Mg Capsule PO 100 mg TID PRN Administration cough Budesonide 0.5 mg 05/21/21 08:00 05/22/21 08:10 Budesonide 0.5 M g/2 Ml Neb INHALATION 0.5 mg BID@ HERNESTO Administration Furosemide 20 mg 05/21/21 08:00 05/22/21 09:05 Furosemide 20 Mg Tablet PO 20 mg DAILY@0800 HERNESTO Administration Insulin Detemir 30 unit 05/21/21 08:00 05/22/21 09:08 Insulin Detemir 100 Units/1 Ml SUBCUT 30 unit 0800 HERNESTO Administration Insulin Human Lisp ro 0 unit 05/21/21 12:00 05/22/21 13:46 Insulin Lispro 1 00 Unit/1 Ml SUBCUT 4 unit WM&BEDTIME HERNESTO Administration Protocol Levothyroxine Sodi um 200 mcg 05/21/21 08:00 05/22/21 09:05 Levothyroxine 20 0 Mcg Tablet PO 200 mcg DAILY@0800 HERNESTO Administration Losartan Potassium 50 mg 05/21/21 08:00 05/22/21 09:06 Losartan 50 Mg T ablet PO 50 mg BID@08,20 HERNESTO Administration Magnesium Lactate 168 mg 05/21/21 06:00 05/22/21 04:19 Magnesium Lactat e 84 Mg Tablet PO 168 mg QAM HERNESTO Administration Pantoprazole Sodiu m 40 mg 05/21/21 09:00 05/22/21 09:[address] 40 Mg Tablet PO 40 mg DAILY HERNESTO Administration Prasugrel 10 mg 05/21/21 06:00 05/22/21 04:20 Prasugrel 10 Mg Tablet PO 10 mg QAM HERNESTO Administration Sotalol HCl 80 mg 05/21/21 18:00 05/22/21 09:15 Sotalol 80 Mg Ta blet PO 80 mg BID@0900,2100 HERNESTO Administration Vitals/I&O/Wt Last Vital Signs Temp 97.9 F 05/22/21 12:00 Pulse 61 05/22/21 12:00 Resp 21 H 05/22/21 12:00 BP 109/74 05/22/21 12:00 Pulse Ox 89 L 05/22/21 12:00 05/21/21 05/22/21 05/22/21 22:59 06:59 14:59 Intake Total 400 / 996 360 / 360 Balance 400 / 996 360 / 360 Weight last 48 hrs Weight 114.759 kg Weight 114.487 kg Weight 122.152 kg Weight 104.326 kg Physical Exam Const: COMMON NORMALS: patient oriented x3 HENMT: COMMON NORMALS: normocephalic and atraumatic HEAD & SCALP: normocephalic and atraumatic Resp: COMMON NORMALS: clear to auscultation bilaterally EFFORT & INSPECTION: Yes symmetric chest movement AUSCULTATION: clear to auscultation bilaterally Cardio: COMMON NORMALS: regular rate, regular rhythm, S1 normal heart sound present, S2 normal heart sound present, No gallops present (Cardio), No murmurs present (Cardio), No rub (Cardio) and Peripheral pulses 2+ throughout RATE: regular rate RHYTHM: regular rhythm HEART SOUNDS: S1 normal heart sound present and S2 normal heart sound present PERIPHERAL PULSES: Peripheral pulses 2+ throughout GI: COMMON NORMALS: Normal to inspection, nondistended, normoactive bowel sounds present, Soft to palpation, non-tender, No hepatosplenomegaly present and no masses AUSCULTATION: Yes normoactive bowel sounds PALPATION: Yes Soft to palpation and Yes No hepatosplenomegaly present RECTAL EXAM: Yes deferred Extremity: COMMON NORMALS: no clubbing, cyanosis or edema and no pedal edema Neuro: COMMON NORMALS: patient oriented x3 Data : 05/22/21 02:10 05/22/21 02:10 A&P Assessment and plan (1) SVT (supraventricular tachycardia): 65-year-old male with a past medical history of CAD presented with chest pain, palpitations, found to have SVT by EMS, status post adenosine and Cardizem in the field following which patient is currently in sinus rhythm, heart rate at 64 bpm. Troponin trend without significant delta Echo:10/05/20: Normal left ventricular size and systolic function, EF 69 %. No regional wall motion abnormalities. Grade I/IV diastolic dysfunction (abnormal relaxation filling pattern), normal to mildly elevated filling pressures. No significant stenotic or regurgitant lesions. Currently on sotalol Continue aspirin statin, prasugrel, magnesium lactate. Continue with EKG monitoring for QTc interval Status: Acute (2) Chest pain: Status: Acute (3) Atherosclerotic heart disease of [place] coronary artery with other forms of angina pectoris: Status: Acute (4) Bradycardia: Status: Acute Attestations Medical Necessity Statement*: In hospital for management of SVT. Coding Level of Care Code Acute Insurance Verification Specialist for [facility] Fwd Exam Detailed Diagnoses SVT (supraventricular tachycardia) I47.1 Chest pain R07.9 Atherosclerotic heart disease of [place] coronary artery with other forms of angina pectoris I25.118 Bradycardia R00.1
[2021-05-22 16:42] LABS: Glucose Point of Care 76 mg/dL (70-110)
[2021-05-22] MEDS: sotalol 80 mg Tablet 40 MG PO (17:52)
--- NOTE | 2021-05-22 19:51 | P.PN_ITS ---
Subjective Subjective: Interval history: Patient is feeling okay. Has not had a recurrence of tachycardia. He has been tolerating the Betapace so far well. The QTC is within normal limits. Heart rate was in the low 50s through the night. The lowest rate was 49 bpm. Denies any chest pain or chest tightness. No unusual shortness of breath. No other specific complaints. Medications: Reviewed: Yes Medication Review Details: Current Medications Acetaminophen (Acetaminophen 325 Mg Tablet) 650 mg PO Q6H PRN PRN Reason: Mild/Mod Pain Or Temp >/= 101 Albuterol/Ipratropium (Ipratropium-Albuterol 3 Ml Neb) 3 ml INHALATION Q6H.RESPIRATORY REPLACED BY [facility] Last Admin: 05/22/21 15:11 Dose: 3 ml Documented by: Aspirin (Aspirin 81 Mg Ec Tablet) 81 mg PO QAM REPLACED BY [facility] Last Admin: 05/22/21 04:20 Dose: 81 mg Documented by: Atorvastatin Calcium (Atorvastatin 40 Mg Tablet) 20 mg PO DAILY@2100 REPLACED BY [facility] Last Admin: 05/21/21 19:34 Dose: 20 mg Documented by: Benzonatate (Benzonatate 100 Mg Capsule) 100 mg PO TID PRN PRN Reason: cough Last Admin: 05/22/21 13:53 Dose: 100 mg Documented by: Budesonide (Budesonide 0.5 Mg/2 Ml Neb) 0.5 mg INHALATION BID@ REPLACED BY [facility] Last Admin: 05/22/21 08:10 Dose: 0.5 mg Documented by: Furosemide (Furosemide 20 Mg Tablet) 20 mg PO DAILY@0800 REPLACED BY [facility] Last Admin: 05/22/21 09:05 Dose: 20 mg Documented by: Insulin Detemir (Insulin Detemir 100 Units/1 Ml) 30 unit SUBCUT 0800 REPLACED BY [facility] Last Admin: 05/22/21 09:08 Dose: 30 unit Documented by: Insulin Human Lispro (Insulin Lispro 100 Unit/1 Ml) 0 unit SUBCUT WM&BEDTIME REPLACED BY [facility]; Protocol Last Admin: 05/22/21 17:48 Dose: Not Given Documented by: Levothyroxine Sodium (Levothyroxine 200 Mcg Tablet) 200 mcg PO DAILY@0800 REPLACED BY [facility] Last Admin: 05/22/21 09:05 Dose: 200 mcg Documented by: Losartan Potassium (Losartan 50 Mg Tablet) 50 mg PO BID@ REPLACED BY [facility] Last Admin: 05/22/21 09:06 Dose: 50 mg Documented by: Magnesium Lactate (Magnesium Lactate 84 Mg Tablet) [facility] Last Admin: 05/22/21 04:19 Dose: 168 mg Documented by: Morphine Sulfate (Morphine 4 Mg/Ml Sdv 1 Ml) 2 mg IVP Q4H PRN PRN Reason: SEVERE PAIN Naloxone HCl (Naloxone 0.4 Mg/Ml Sdv) 0.1 mg IVP Q2M PRN PRN Reason: OPIATERV Nitroglycerin (Nitroglycerin 0.4 Mg Sublingual Tablet) 0.4 mg SUBLINGUAL Q5M PRN PRN Reason: chest pain Ondansetron HCl (Ondansetron 2 Mg/Ml Sdv 2 Ml) 4 mg IVP Q6H PRN PRN Reason: NAUSEA AND VOMITING Pantoprazole Sodium (Pantoprazole Dr 40 Mg Tablet) 40 mg PO DAILY REPLACED BY [facility] Last Admin: 05/22/21 09:07 Dose: 40 mg Documented by: Prasugrel (Prasugrel 10 Mg Tablet) 10 mg PO [facility] Last Admin: 05/22/21 04:20 Dose: 10 mg Documented by: Sotalol HCl (Sotalol 80 Mg Tablet) 80 mg PO DAILY REPLACED BY [facility] Sotalol HCl (Sotalol 80 Mg Tablet) 40 mg PO DAILY@1800 REPLACED BY [facility] Last Admin: 05/22/21 17:52 Dose: 40 mg Documented by: Vitals/I&O/Wt Last Vital Signs Temp 98 F 05/22/21 19:30 Pulse 64 05/22/21 19:30 Resp 21 H 05/22/21 19:30 BP 103/66 05/22/21 19:30 Pulse Ox 93 05/22/21 19:30 05/22/21 05/22/21 05/22/21 06:59 14:59 22:59 Intake Total 400 / 996 360 / 360 240 / 600 Balance 400 / 996 360 / 360 240 / 600 Weight last 48 hrs Weight 253 lb Weight 252 lb 6.4 oz Weight 269 lb 4.8 oz Physical Exam Narrative: EXAM NARRATIVE: GENERAL: The patient is alert and oriented times three. Not in any acute distress. HEENT: No significant pallor, icterus or lymphadenopathy. The pupils are symmetrical oral cavity: There are no mucous membrane lesions. NECK: Trachea appears to be central. No masses noted. No JVD or thyromegaly appreciated. No carotid bruit. RESPIRATORY: Chest is symmetrical. No intercostals muscle retraction or any accessory muscle activation. There is no chest wall tenderness. Breath sounds are heard bilaterally. No rales or rhonchi heard. No evidence of any consolidation. BREASTS: Deferred. HEART: The PMI could not be palpated. No other palpable precordial events. S1 and S2 are normal. No S3 or S4 heard. No pericardial rub or any click heard. ABDOMEN: No vessel pulsations or distention. No tenderness. No organomegaly appreciated. No abdominal bruit. Bowel sounds are normally heard. : Deferred. RECTAL: Deferred. LYMPHATIC: No lymphadenopathy noted in the neck or groin. EXTREMITIES: No edema or cyanosis. No clubbing. The pulses are symmetrical bilaterally. The radial, femoral, dorsalis pedis and the posterior tibial pulses are palpated and found to be in good volume and amplitude. MUSCULOSKELETAL: Gait is normal. There is no joint deformity or swelling noted. No joint tenderness or any effusion. The shoulder and hip joints appear to have normal range of motion. SKIN: There are no significant scars or skin rash noted. NEUROPSYCHIATRIC: The patient is alert and oriented x3. Appears to be in a good mood. The higher functions are grossly within normal limits. No tremors or rigidity noted. Data : 05/22/21 02:10 05/22/21 02:10 A&P Assessment and plan (1) SVT (supraventricular tachycardia): Patient is tolerating the Betapace so far well. I may cut down the evening dose to 40 mg. Continue the 80 mg in the morning. Repeat EKG in the a.m. Status: Acute (2) Atherosclerotic heart disease of [place] coronary artery with other forms of angina pectoris: Patient has some chest discomfort. Most likely this is related to the tachyarrhythmia. Since he had the angiogram 6 months ago showing patent LAD stent, we may hold off on any further investigations at this point. The troponin T's were unremarkable. Status: Acute (3) Aortic root dilation: Seems to be stable. Status: Acute (4) Hyperlipidemia: We will continue on the current medications. Status: Acute Qualifiers: Hyperlipidemia type: mixed hyperlipidemia Qualified Code(s): E78.2 - Mixed hyperlipidemia (5) Essential (primary) hypertension: Currently normotensive. We will continue on the current medications. Status: Acute (6) Diabetes: Patient may be restarted on the Metformin. Status: Acute Qualifiers: Diabetes mellitus type: type 2 Diabetes mellitus oil heaterman insulin use: without shelter use Diabetes mellitus complication status: with hyperglycemia Qualified Code(s): E11.65 - Type 2 diabetes mellitus with hyperglycemia Attestations Medical Necessity Statement*: Patient requires continued hospital stay for close monitoring and further management Coding Level of Care Code Acute Assembler Truck Trailer for g Fwd History Detailed Exam Detailed Medical Decision Making Moderate Complexity Diagnoses SVT (supraventricular tachycardia) I47.1 Atherosclerotic heart disease of [place] coronary artery with other forms of a ngina pectoris I25.118 Aortic root dilation I77.810 Hyperlipidemia E78.2 Hyperlipidemia type: mixed hyperlipidemia Essential (primary) hypertension I10 Diabetes E11.65 Diabetes mellitus type: type 2 Diabetes mellitus oil heaterman insulin use: without shelter use Diabetes mellitus complication status: with hyperglycemia
[2021-05-22 20:05] LABS: Glucose Point of Care 141 mg/dL (70-110)
--- NOTE | 2021-05-22 21:30 | ECG_ITS ---
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 Measurements Intervals [place] Rate: 56 P: -25 [place]: 201 QRS: 81 QRSD: 85 T: 73 QT: 454 QTc: 440 Interpretive Statements SINUS BRADYCARDIA Compared to ECG 05/22/2021 12:54:24 No significant changes Electronically Signed On 05-23-2021 13:16:44 PAN PULLER by Talia Frederick M.D. [id number]
[2021-05-22] MEDS: atorvastatin 40 mg Tablet 20 MG PO (21:40)
[2021-05-23] VITALS (9 sets, daily range): BP systolic 105–135; BP diastolic 53–62; PULSE 51–61; RESP 18–22; TEMP 36.2–36.8; O2SAT 94–96
--- NOTE | 2021-05-23 02:31 | PC.NURSE ---
Patient sleeping most of night. Denied pain at beginning of shift. Patient to have one more dose of sotolol to be total of 4. Possible discharge after the fourth dose. Will continue to monitor.
[2021-05-23 02:37] LABS: Basophils # 0.1 10^3/uL (0.0-0.1); Basophils % 0.6 %; Eosinophils # 0.4 10^3/uL (0.0-0.8); Eosinophils % 3.8 %; Hematocrit 44.5 % (42.0-52.0); Hemoglobin 14.5 g/dL (11.7-16.6); Lymphocytes # 2.7 10^3/uL (0.8-4.8); Lymphocytes % 25.5 %; Mean Corpuscular HGB Conc 32.6 g/dL (30.0-36.0); Mean Corpuscular Volume 91.9 fl (80-94); Mean Platelet Volume 11.4 fL (7.4-10.4); Monocytes # 1.4 10^3/uL (0.2-0.9); Monocytes % 12.7 %; Neutrophils # 6.08 10^3/uL (1.8-7.7); Nucleated Red Blood Cells % 0 %; Platelet Count 195 10^3/cmm (130-400); Red Blood Count 4.84 10^6/uL (4.1-5.3); Red Cell Distribution Width 13.3 % (12.1-15.1); White Blood Count 10.7 10^3/uL (4.0-10.0)
[2021-05-23] MEDS: ipratropium-albuterol 3 mL Neb INHALATION ×2 (02:54→09:26)
[2021-05-23 03:04] LABS: Alanine Aminotransferase 15 U/L (0-41); Albumin Level 3.5 g/dL (3.5-5.2); Alkaline Phosphatase 92 IU/L (40-130); Anion Gap 14.2 (5-19); Aspartate Amino Transferase 13 U/L (0-40); Blood Urea Nitrogen 10 mg/dL (8-23); Calcium 8.3 mg/dL (8.5-10.5); Carbon Dioxide 29 mmol/L (22-29); Chloride 100 mmol/L (98-107); Creatinine Clr Calc Pharmacy 102.6096; Glomerular Filtration Rate 84.2 mL/min (90-130); Glucose 143 mg/dL (65-115); Magnesium 1.9 mg/dL (1.7-2.3); Osmolality Calculated 290 mOsm/kg (285-295); Potassium 4.2 mmol/L (3.5-5.1); Sodium 139 mmol/L (136-145); Total Bilirubin 0.2 mg/dL (0.15-1.2); Total Protein 6.5 g/dL (6.6-8.7)
[2021-05-23] MEDS: magnesium lactate 84 mg Tablet 168 MG PO (05:18)
[2021-05-23] MEDS: prasugrel 10 MG Tablet PO (05:18)
[2021-05-23] MEDS: aspirin 81 mg EC Tablet PO (05:19)
[2021-05-23 06:55] LABS: Glucose Point of Care 163 mg/dL (70-110)
[2021-05-23] MEDS: budesonide 0.5 mg/2 mL Neb INHALATION (09:26)
[2021-05-23] MEDS: pantoprazole DR 40 mg Tablet PO (09:37)
[2021-05-23] MEDS: levothyroxine 200 mcg Tablet PO (09:37)
[2021-05-23] MEDS: FUROsemide 20 mg Tablet PO (09:37)
[2021-05-23] MEDS: losartan 50 mg Tablet PO (09:37)
--- NOTE | 2021-05-23 09:37 | PM.PN ---
Subjective Subjective: Interval history: Patient is feeling okay with no chest pain or chest tightness. No unusual shortness of breath. No recurrence of SVT or ventricular tachycardia. The heart rate went down into the 30s in the night. Medications: Reviewed: Yes Medication Review Details: Current Medications Acetaminophen (Acetaminophen 325 Mg Tablet) 650 mg PO Q6H PRN PRN Reason: Mild/Mod Pain Or Temp >/= 101 Albuterol/Ipratropium (Ipratropium-Albuterol 3 Ml Neb) 3 ml INHALATION Q6H.RESPIRATORY [facility] Last Admin: 05/23/21 09:26 Dose: 3 ml Documented by: Aspirin (Aspirin 81 Mg Ec Tablet) 81 mg PO QAM [facility] Last Admin: 05/23/21 05:19 Dose: 81 mg Documented by: Atorvastatin Calcium (Atorvastatin 40 Mg Tablet) 20 mg PO DAILY@2100 [facility] Last Admin: 05/22/21 21:40 Dose: 20 mg Documented by: Benzonatate (Benzonatate 100 Mg Capsule) 100 mg PO TID PRN PRN Reason: cough Last Admin: 05/22/21 13:53 Dose: 100 mg Documented by: Budesonide (Budesonide 0.5 Mg/2 Ml Neb) 0.5 mg INHALATION BID@20 [facility] Last Admin: 05/23/21 09:26 Dose: 0.5 mg Documented by: Furosemide (Furosemide 20 Mg Tablet) 20 mg PO DAILY@0800 [facility] Last Admin: 05/22/21 09:05 Dose: 20 mg Documented by: Insulin Detemir (Insulin Detemir 100 Units/1 Ml) 30 unit SUBCUT 0800 [facility] Last Admin: 05/22/21 09:08 Dose: 30 unit Documented by: Insulin Human Lispro (Insulin Lispro 100 Unit/1 Ml) 0 unit SUBCUT WM&BEDTIME [facility]; Protocol Last Admin: 05/22/21 21:47 Dose: Not Given Documented by: Levothyroxine Sodium (Levothyroxine 200 Mcg Tablet) 200 mcg PO DAILY@0800 [facility] Last Admin: 05/22/21 09:05 Dose: 200 mcg Documented by: Losartan Potassium (Losartan 50 Mg Tablet) 50 mg PO BID@08,20 [facility] Last Admin: 05/22/21 21:39 Dose: 50 mg Documented by: Magnesium Lactate (Magnesium Lactate 84 Mg Tablet) 168 mg PO QAM [facility] Last Admin: 05/23/21 05:18 Dose: 168 mg Documented by: Morphine Sulfate (Morphine 4 Mg/Ml Sdv 1 Ml) 2 mg IVP Q4H PRN PRN Reason: SEVERE PAIN Naloxone HCl (Naloxone 0.4 Mg/Ml Sdv) 0.1 mg IVP Q2M PRN PRN Reason: OPIATERV Nitroglycerin (Nitroglycerin 0.4 Mg Sublingual Tablet) 0.4 mg SUBLINGUAL Q5M PRN PRN Reason: chest pain Ondansetron HCl (Ondansetron 2 Mg/Ml Sdv 2 Ml) 4 mg IVP Q6H PRN PRN Reason: NAUSEA AND VOMITING Pantoprazole Sodium (Pantoprazole Dr 40 Mg Tablet) 40 mg PO DAILY [facility] Last Admin: 05/22/21 09:07 Dose: 40 mg Documented by: Prasugrel (Prasugrel 10 Mg Tablet) 10 mg PO QAM [facility] Last Admin: 05/23/21 05:18 Dose: 10 mg Documented by: Sotalol HCl (Sotalol 80 Mg Tablet) 80 mg PO DAILY [facility] Sotalol HCl (Sotalol 80 Mg Tablet) 40 mg PO DAILY@1800 [facility] Last Admin: 05/22/21 17:52 Dose: 40 mg Documented by: Vitals/I&O/Wt Last Vital Signs Temp 97.9 F 05/23/21 08:00 Pulse 61 05/23/21 09:35 Resp 20 H 05/23/21 09:26 BP 135/58 05/23/21 08:00 Pulse Ox 95 05/23/21 09:26 05/22/21 05/23/21 05/23/21 22:59 06:59 14:59 Intake Total 480 / 840 120 / 120 Balance 480 / 840 120 / 120 Weight last 48 hrs Weight 253 lb Weight 253 lb Physical Exam Narrative: EXAM NARRATIVE: GENERAL: The patient is alert and oriented times three. Not in any acute distress. HEENT: No significant pallor, icterus or lymphadenopathy. The pupils are symmetrical oral cavity: There are no mucous membrane lesions. NECK: Trachea appears to be central. No masses noted. No JVD or thyromegaly appreciated. No carotid bruit. RESPIRATORY: Chest is symmetrical. No intercostals muscle retraction or any accessory muscle activation. There is no chest wall tenderness. Breath sounds are heard bilaterally. No rales or rhonchi heard. No evidence of any consolidation. BREASTS: Deferred. HEART: The PMI could not be palpated. No other palpable precordial events. S1 and S2 are normal. No S3 or S4 heard. No pericardial rub or any click heard. ABDOMEN: No vessel pulsations or distention. No tenderness. No organomegaly appreciated. No abdominal bruit. Bowel sounds are normally heard. : Deferred. RECTAL: Deferred. LYMPHATIC: No lymphadenopathy noted in the neck or groin. EXTREMITIES: No edema or cyanosis. No clubbing. The pulses are symmetrical bilaterally. The radial, femoral, dorsalis pedis and the posterior tibial pulses are palpated and found to be in good volume and amplitude. MUSCULOSKELETAL: Gait is normal. There is no joint deformity or swelling noted. No joint tenderness or any effusion. The shoulder and hip joints appear to have normal range of motion. SKIN: There are no significant scars or skin rash noted. NEUROPSYCHIATRIC: The patient is alert and oriented x3. Appears to be in a good mood. The higher functions are grossly within normal limits. No tremors or rigidity noted. Data : 05/23/21 02:22 05/23/21 02:22 Other Labs: Laboratory Last Values WBC 10.7 10^3/uL (4.0-10.0) H 05/23/21 02:22 RBC 4.84 10^6/uL (4.1-5.3) 05/23/21 02:22 Hgb 14.5 g/dL (11.7-16.6) 05/23/21 02:22 Hct 44.5 % (42.0-52.0) 05/23/21 02:22 MCV 91.9 fl (80-94) 05/23/21 02:22 MCH 30.0 pg (28.0-34.0) 05/23/21 02:22 MCHC 32.6 g/dL (30.0-36.0) 05/23/21 02: RDW 13.3 % (12.1-15.1) 05/23/21 02:22 Plt Count 195 10^3/cmm (130-400) 05/23/21 02:22 MPV 11.4 fL (7.4-10.4) H 05/23/21 02:22 Neut % (Auto) 57.0 % 05/23/21 02:22 Lymph % (Auto) 25.5 % 05/23/21 02:22 [place] % (Auto) 12.7 % 05/23/21 02:22 Eos % (Auto) 3.8 % 05/23/21 02:22 Baso % (Auto) 0.6 % 05/23/21 02:22 Neut # (Auto) 6.08 10^3/uL (1.8-7.7) 05/23/21 02:22 Lymph # (Auto) 2.7 10^3/uL (0.8-4.8) 05/23/21 02:22 [place] # (Auto) 1.4 10^3/uL (0.2-0.9) H 05/23/21 02:22 Eos # (Auto) 0.4 10^3/uL (0.0-0.8) 05/23/21 02:22 Baso # (Auto) 0.1 10^3/uL (0.0-0.1) 05/23/21 02:22 Nucleated RBC % (auto) 0 % 05/23/21 02:22 Nucleated RBCs # 0.0 /100WBC 05/23/21 02:22 D-Dimer 0.56 ug/mIFEU (0-0.59) 05/20/21 21:43 Sodium 139 mmol/L (136-145) 05/23/21 02:22 Potassium 4.2 mmol/L (3.5-5.1) 05/23/21 02:22 Chloride 100 mmol/L (98-107) 05/23/21 02:22 Carbon Dioxide 29 mmol/L (22-29) 05/23/21 02:22 Anion Gap 14.2 (5-19) 05/23/21 02:22 BUN 10 mg/dL (8-23) 05/23/21 02:22 Creatinine 0.9 mg/dL (0.7-1.2) 05/23/21 02:22 GFR Calculation 84.2 mL/min (90-130) L 05/23/21 02:22 Glucose 143 mg/dL (65-115) H 05/23/21 02:22 POC Glucose 163 mg/dL (70-110) H 05/23/21 06:50 Calculated Osmolality 290 mOsm/kg (285-295) 01/04/22 02:22 Calcium 8.3 mg/dL (8.5-10.5) L 05/23/21 02:22 Magnesium 1.9 mg/dL (1.7-2.3) 05/23/21 02:22 Total Bilirubin 0.2 mg/dL (0.15-1.2) 05/23/21 02:22 AST 13 U/L (0-40) 05/23/21 02:22 ALT 15 U/L (0-41) 05/23/21 02:22 Alkaline Phosphatase 92 IU/L (40-130) 05/23/21 02:22 Troponin T Baseline 10 ng/L (0-15) 05/20/21 15:09 Troponin T 120 Minute 17.58 ng/L (0-15) H 05/20/21 17:40 Delta Troponin T 7.58 ABS# (0-10) 05/20/21 17:40 Troponin T Hi Sens 6Hr 16.46 ng/L (0-15) H 05/20/21 21:16 Troponin T Hi Sens 6Hr Delta 6.46 ng/L (0-12) 05/20/21 21:16 NT-Pro-B Natriuret Pep 166 pg/mL (0-125) H 05/20/21 15:09 Total Protein 6.5 g/dL (6.6-8.7) L 05/23/21 02:22 Albumin 3.5 g/dL (3.5-5.2) 05/23/21 02:22 Globulin 3.0 g/dL (1.3-4.6) 05/23/21 02:22 TSH 2.89 uIU/mL (0.27-4.20) 05/21/21 04:08 A&P Assessment and plan (1) Bradycardia: I may cut back on the dose of the Betapace to 40 mg p.o. twice daily. The QTC this morning is within normal limits. If the patient continues remain stable, may be discharged home on the Betapace 40 twice daily. Status: Acute (2) SVT (supraventricular tachycardia): No recurrence of SVT or ventricular tachycardia. The dose of the Betapace may cut back as mentioned above. Status: Acute (3) Atherosclerotic heart disease of [place] coronary artery with other forms of angina pectoris: Patient has some chest discomfort. Most likely this is related to the tachyarrhythmia. Since he had the angiogram 6 months ago showing patent LAD stent, we may hold off on any further investigations at this point. The troponin T's were unremarkable. Status: Acute (4) Aortic root dilation: Seems to be stable. Status: Acute (5) Hyperlipidemia: We will continue on the current medications. Status: Acute Qualifiers: Hyperlipidemia type: mixed hyperlipidemia Qualified Code(s): E78.2 - Mixed hyperlipidemia (6) Essential (primary) hypertension: Currently normotensive. We will continue on the current medications. Status: Acute (7) Diabetes: Patient may be restarted on the Metformin. Status: Acute Qualifiers: Diabetes mellitus type: type 2 Diabetes mellitus fci insulin use: without oil heaterman use Diabetes mellitus complication status: with hyperglycemia Qualified Code(s): E11.65 - Type 2 diabetes mellitus with hyperglycemia Additional A&P Information If the patient continues remain stable, may be discharged home today. Need to be seen in the [facility] in 1 week by the nurse practitioner. Appointment with me in the office in 1 month Attestations Medical Necessity Statement*: Possible discharge home today Coding Level of Care Code Acute Tester/Lift Trucker for [facility] Fwd History Detailed Exam Detailed Medical Decision Making Moderate Complexity Diagnoses Bradycardia R00.1 SVT (supraventricular tachycardia) I47.1 Atherosclerotic heart disease of [place] coronary artery with other forms of angina pectoris I25.118 Aortic root dilation I77.810 Hyperlipidemia E78.2 Hyperlipidemia type: mixed hyperlipidemia Essential (primary) hypertension I10 Diabetes E11.65 Diabetes mellitus type: type 2 Diabetes mellitus oil heaterman insulin use: without oil heaterman use Diabetes mellitus complication status: with hyperglycemia
--- NOTE | 2021-05-23 09:39 | ECG_ITS ---
[facility] Test Date: 2021-05-23 Pat Name: Vega Wilcox Department: Room: 107 Gender: Male Cow Puncher: : 1955 Requested By: Lance Marcano Order Number: [id number] Roger MD: Talia Frederick M.D. Measurements Intervals [place] Rate: 52 P: -32 [place]: 179 QRS: 85 QRSD: 88 T: 59 QT: 419 QTc: 393 Interpretive Statements SINUS BRADYCARDIA Compared to ECG 05/22/2021 22:12:41 No significant changes Electronically Signed On 05-23-2021 13:14:54 TELEGRAPHIC TYPEWRITER REPAIRER by Talia Frederick M.D. [id number]
[2021-05-23] MEDS: sotalol 80 mg Tablet 40 MG PO (10:01)
--- NOTE | 2021-05-23 10:21 | PM.DCS ---
Discharge Providers Date of Admission: 05/21/21 15:08 Date of Discharge: May 23, 2021 Attending Provider at Admission: Tommie Dunbar MD Attending Provider at Discharge: Cristian Cornejo MD Primary Care Provider: Ab Grubbs DO Diagnoses at Discharge Discharge Diagnosis (1) Bradycardia: Status: Acute (2) SVT (supraventricular tachycardia): Status: Acute (3) Atherosclerotic heart disease of [place] coronary artery with other forms of angina pectoris: Status: Acute (4) Aortic root dilation: Status: Acute Permanent problem details: Stable (5) Hyperlipidemia: Status: Acute Qualifiers: Hyperlipidemia type: mixed hyperlipidemia Qualified Code(s): E78.2 - Mixed hyperlipidemia (6) Essential (primary) hypertension: Status: Acute (7) Diabetes: Status: Acute Qualifiers: Diabetes mellitus complication status: with hyperglycemia Diabetes mellitus mcfp insulin use: without ferry terminal agent use Diabetes mellitus type: type 2 Qualified Code(s): E11.65 - Type 2 diabetes mellitus with hyperglycemia Reason for Visit Reason for Visit: CHEST PAIN Hospital Course Hospital Course 65 year old male with a past medical history of COPD, CAD, hyperlipidemia that presented to the emergency room with palpitations. He initially called EMS for palpitations, chest pain and was found to have heart rate in the 160s, thought to be SVT, he was given adenosine followed by Cardizem by EMS. After the Cardizem he converted back to sinus rhythm. Admitted for the management of SVT: Troponin trend without significant delta Echo:10/05/20: Normal left ventricular size and systolic function, EF 69 %. No regional wall motion abnormalities. Grade I/IV diastolic dysfunction (abnormal relaxation filling pattern), normal to mildly elevated filling pressures. No significant stenotic or regurgitant lesions.During the hospital stay he was kept on sotalol, QTc interval was monitored, it was satisfactory, patient continued to remain in normal sinus rhythm on sotalol, he was discharged on sotalol 40 mg p.o. twice daily, metoprolol tartrate 50 mg p.o. twice daily which was one of his home medication has been discontinued, he is not on any insulin at home, for the last 2 months or so as per his , insulin has been discontinued on discharge, he has been continued on Metformin, patient responded well to above medical management and is being discharged in stable condition to home, will follow cardiology as an outpatient. Physical Exam Const: COMMON NORMALS: patient oriented x3 HENMT: COMMON NORMALS: normocephalic and atraumatic HEAD & SCALP: normocephalic and atraumatic Resp: COMMON NORMALS: clear to auscultation bilaterally EFFORT & INSPECTION: Yes symmetric chest movement AUSCULTATION: clear to auscultation bilaterally Cardio: COMMON NORMALS: regular rate, regular rhythm, S1 normal heart sound present, S2 normal heart sound present, No gallops present (Cardio), No murmurs present (Cardio), No rub (Cardio) and Peripheral pulses 2+ throughout RATE: regular rate RHYTHM: regular rhythm HEART SOUNDS: S1 normal heart sound present and S2 normal heart sound present PERIPHERAL PULSES: Peripheral pulses 2+ throughout GI: COMMON NORMALS: Normal to inspection, nondistended, normoactive bowel sounds present, Soft to palpation, non-tender, No hepatosplenomegaly present and no masses AUSCULTATION: Yes normoactive bowel sounds PALPATION: Yes Soft to palpation and Yes No hepatosplenomegaly present RECTAL EXAM: Yes deferred Extremity: COMMON NORMALS: no clubbing, cyanosis or edema and no pedal edema Neuro: COMMON NORMALS: patient oriented x3 Discharge Data Data Completed and Pending: Completed Studies During Hospitalization Category Date Time Status XR chest 1V ly ble [id number] Stat Exams 05/20/21 15:12 Completed CV. echo limited [id number] Routine Ultrasound 05/22/21 08:00 Completed Pending at discharge Category Date Time Status Complete Blood Co unt w/Auto AM LABS Lab 05/24/21 04:00 Ordered Comprehensive Met abolic Panel AM LA BS Lab 05/24/21 04:00 Ordered Magnesium AM LABS Lab 05/24/21 04:00 Ordered Labs from last 24 hours 05/23/21 05/23/21 05/23/21 06:50 02:22 02:22 WBC 10.7 H RBC 4.84 Hgb 14.5 Hct 44.5 MCV 91.9 MCH 30.0 MCHC 32.6 RDW 13.3 Plt Count 195 MPV 11.4 H Neut % (Auto) 57.0 Lymph % (Auto) 25.5 [place] % (Auto) 12.7 Eos % (Auto) 3.8 Baso % (Auto) 0.6 Neut # (Auto) 6.08 Lymph # (Auto) 2.7 [place] # (Auto) 1.4 H Eos # (Auto) 0.4 Baso # (Auto) 0.1 Nucleated RBC % (a uto) 0 Nucleated RBCs # 0.0 Sodium 139 Potassium 4.2 Chloride 100 Carbon Dioxide 29 Anion Gap 14.2 BUN 10 Creatinine 0.9 GFR Calculation 84.2 L Glucose 143 H POC Glucose 163 H Calculated Osmolal ity 290 Calcium 8.3 L Magnesium 1.9 Total Bilirubin 0.2 AST 13 ALT 15 Alkaline Phosphata se 92 Total Protein 6.5 L Albumin 3.5 Globulin 3.0 05/22/21 05/22/21 05/22/21 19:29 16:34 10:54 WBC RBC Hgb Hct MCV MCH MCHC RDW Plt Count MPV Neut % (Auto) Lymph % (Auto) [place] % (Auto) Eos % (Auto) Baso % (Auto) Neut # (Auto) Lymph # (Auto) [place] # (Auto) Eos # (Auto) Baso # (Auto) Nucleated RBC % (a uto) Nucleated RBCs # Sodium Potassium Chloride Carbon Dioxide Anion Gap BUN Creatinine GFR Calculation Glucose POC Glucose 141 H 76 211 H Calculated Osmolal ity Calcium Magnesium Total Bilirubin AST ALT Alkaline Phosphata se Total Protein Albumin Globulin Vitals: Last Vital Signs Temp 97.9 F 05/23/21 08:00 Pulse 61 05/23/21 09:35 Resp 20 H 05/23/21 09:26 BP 135/62 05/23/21 09:37 Pulse Ox 95 05/23/21 09:26 Discharge Plan Discharge Patient Disposition: Home Condition: Stable Prescriptions: New sotalol 80 mg Tablet 40 mg PO BID 30 Days Qty: 60 RF: 3 Continued metformin 500 mg tablet 500 mg PO DAILY@08 RF: 0 Hold Instructions: Resume on 10/09/20. losartan 50 mg tablet 50 mg PO BID@08,20 RF: 0 nitroglycerin 0.4 mg tablet, sublingual 0.4 mg sublingual Q5M PRN (Reason: chest pain) 30 Days Qty: 30 RF: 3 glimepiride 2 mg tablet 2 mg PO QAM RF: 0 furosemide 20 mg tablet 20 mg PO DAILY@0800 RF: 0 revefenacin [Yupelri] 175 mcg/3 mL solution for nebulization See Rx Instructions .ROUTE .COMPLEX Qty: 30 RF: 11 atorvastatin 20 mg tablet 20 mg PO DAILY@2100 RF: 0 albuterol sulfate 90 mcg/actuation HFA aerosol inhaler 2 inh inhalation Q8H PRN (Reason: shortness of breath or wheezing) Qty: 8.5 RF: 0 benzonatate [Tessalon Perles] 100 mg capsule 100 mg PO TID PRN (Reason: cough) Qty: 14 RF: 0 levothyroxine 100 mcg tablet 100 mcg PO DAILY RF: 0 Magtab 84 mg tablet extended release 168 mg PO QAM 30 Days Qty: 30 RF: 0 montelukast 10 mg Tablet 10 mg PO DAILY@08 RF: 0 budesonide [Pulmicort] 0.5 mg/2 mL suspension for nebulization 0.5 mg inhalation BID@, RF: 0 formoterol fumarate [Perforomist] 20 mcg/2 mL solution for nebulization 2 ml inhalation BID@, RF: 0 omeprazole 40 mg capsule,delayed release(DR/EC) 40 mg PO DAILY@1999 RF: 0 prasugrel 10 mg tablet 10 mg PO QAM RF: 0 aspirin 81 mg Tablet,Delayed Release (Dr/Ec) 81 mg PO QAM RF: 0 Discontinued metoprolol tartrate 50 mg tablet 50 mg PO BID Qty: 60 RF: 5 levothyroxine 200 mcg tablet 200 mcg PO DAILY@0800 RF: 0 Levemir FlexTouch U-100 Insuln 100 unit/mL (3 mL) insulin pen 30 unit SUBCUT QAM RF: 0 Discharge Orders: Discharge Order (Routine); Ordered 05/23/21 Ordered By: Cristian Cornejo Referrals: Lance Marcano MD [Physician] - 1 month (Please Keep your appointment with Dr. Marcano on Jul 13 at 3:30P.M. Your appointment on July 31 has been canceled. If you have any questions or need to rescheduled. Please call ) Lin De Guzman FNP [Nurse Practitioner] - 1 week (Please follow-up with Lin De Guzman on at 10:15A.M. If you have any questions or need to reschedule. Please call ) Discharge Diet: Diabetic Discharge Activity: Resume usual activity Patient Instructions: Sotalol (By mouth), Supraventricular Tachycardia (DC), Chest Pain Stoplight Discharge Attestations Time Spent in Discharge Care*: greater than 30 min Specific Discharge Activities: educating patient, educating and/or supporting family/caregiver, discussing with pcp/other providers, discussing with supervisor case loading/social workers/dc planners, documenting/other paperwork and evaluating patient/reviewing data Status at Discharge: Cognitive status at discharge: cognitively intact, Behavioral status at discharge: cooperative, Quality Metrics Clinical Quality Measures During this hospital stay, did patient experience: None Coding Level of Care Code Acute Chg FW DC note Exam Detailed Diagnoses Bradycardia R00.1 SVT (supraventricular tachycardia) I47.1 Atherosclerotic heart disease of [place] coronary artery with other forms of angina pectoris I25.118 Aortic root dilation I77.810 Hyperlipidemia E78.2 Hyperlipidemia type: mixed hyperlipidemia Essential (primary) hypertension I10 Diabetes E11.65 Diabetes mellitus complication status: with hyperglycemia Diabetes mellitus ferry terminal agent insulin use: without ferry terminal agent use Diabetes mellitus type: type 2
[2021-05-23 11:12] LABS: Glucose Point of Care 139 mg/dL (70-110)
== END 2021-05-23 11:45 | disposition home or self-care (01) | DRG 310 ==
LOC: ER 19:13 → CSU 20:25
PROVIDERS: Student in an Organized Health Care Education/Training Program; Admitting Provider Family Medicine; Emergency Provider Family Medicine; PCP Electrodiagnostic Medicine; Visit Provider Internal Medicine
DX: I47.1 Supraventricular tachycardia (principal); I25.119 Atherosclerotic heart disease of native coronary artery with unspecified angina pectoris; I71.4 Abdominal aortic aneurysm, without rupture; J44.9 Chronic obstructive pulmonary disease, unspecified; M54.17 Radiculopathy, lumbosacral region; E11.65 Type 2 diabetes mellitus with hyperglycemia; I10 Essential (primary) hypertension; K21.9 Gastro-esophageal reflux disease without esophagitis; E78.2 Mixed hyperlipidemia; E03.9 Hypothyroidism, unspecified; M54.16 Radiculopathy, lumbar region; E66.9 Obesity, unspecified; Z68.35 Body mass index [BMI] 35.0-35.9, adult; M41.9 Scoliosis, unspecified; I71.6 Thoracoabdominal aortic aneurysm, without rupture; F41.9 Anxiety disorder, unspecified; Z87.891 Personal history of nicotine dependence; Z79.82 Long term (current) use of aspirin; Z79.51 Long term (current) use of inhaled steroids; Z79.84 Long term (current) use of oral hypoglycemic drugs; I71.9 Aortic aneurysm of unspecified site, without rupture
CPT/HCPCS: 36415; 36416; 71045; 80053; 82962; 83735; 83880; 84443; 84484; 85025; 85378; 93005; 93308; 94640; 96372; 99285; G0378; J1815; J7626

== ENCOUNTER → 2021-08-02 13:21 | Outpatient (BNVA) | payer MEDICARE, OTHER, SELFPAY | PROVIDERS: PCP Electrodiagnostic Medicine; Visit Provider Internal Medicine Critical Care Medicine | DX: J44.9 Chronic obstructive pulmonary disease, unspecified (principal); R91.1 Solitary pulmonary nodule; I25.119 Atherosclerotic heart disease of native coronary artery with unspecified angina pectoris; F17.210 Nicotine dependence, cigarettes, uncomplicated; E11.8 Type 2 diabetes mellitus with unspecified complications; K21.9 Gastro-esophageal reflux disease without esophagitis; I10 Essential (primary) hypertension; E78.5 Hyperlipidemia, unspecified; E03.9 Hypothyroidism, unspecified | CPT/HCPCS: 99214 ==

== ENCOUNTER 2021-10-01 07:44 | Emergency (ER) | payer MEDICARE, OTHER, SELFPAY ==
[2021-10-01 07:51] VITALS: BP 102/72; PULSE 104; RESP 24; TEMP 36.4; O2SAT 95; BMI 34.8
--- NOTE | 2021-10-01 07:58 | XRR_ITS ---
PROCEDURE INFORMATION: Exam: XR Chest Exam date and time: 10/01/2021 8:23 AM Age: 66 years old Clinical indication: Shortness of breath; Prior surgery; Surgery date: 6+ months; Surgery type: Stents; Additional info: SOB TECHNIQUE: Imaging protocol: XR of the chest. Views: 1 view. COMPARISON: CR XR chest 1V portable [id number] 05/20/2021 3:17 PM FINDINGS: Lungs: The lung parenchyma is clear. Pleural spaces: Round blunting along the lateral margin of the cardiac apex extending along the lateral margin the left chest possibly layering pleural fluid within the fissure. The right costophrenic angle sharp. Heart/Mediastinum: The cardiomediastinal silhouette is within normal limits. Bones/joints: Unremarkable. XR/XR chest 1V portable [id number] IMPRESSION: Possible small left-sided pleural effusion.
--- NOTE | 2021-10-01 07:59 | ECG_ITS ---
[facility] Test Date: 2021-10-01 Pat Name: Vega Wilcox Department: Room: Gender: Male Respiratory Equipment Assistant: : 1955 Requested By: Valdez Mccullough Order Number: [id number] Roger MD: Talia Frederick M.D. Measurements Intervals [place] Rate: 83 P: 75 RI: 188 QRS: 91 QRSD: 85 T: 74 QT: 381 QTc: 450 Interpretive Statements SINUS RHYTHM WITH OCCASIONAL SUPRAVENTRICULAR PREMATURE COMPLEXES BORDERLINE RIGHT AXIS DEVIATION [QRS AXIS > 90] Compared to ECG 05/23/2021 09:52:38 Sinus bradycardia no longer present Electronically Signed On 10-01-2021 13:24:27 CDT by Talia Frederick M.D. [id number]
--- NOTE | 2021-10-01 07:59 | W.ED.SOB ---
HPI - SOB/Dyspnea General: Chief Complaint: Shortness of Breath/Dyspnea Stated Complaint: SOB Time Seen by Provider: 10/01/21 07:50 History of Present Illness: HPI Narrative: 66-year-old with history of COPD presents shortness of breath. States that he has had this for months however over the last 2 days has become more short of breath. Does not wear oxygen at baseline. Denies any chest pain. Denies any fevers or chills. Denies extremity pain or swelling. Review of Systems Narrative: - CONSTITUTIONAL: Denies weight loss, fever and chills. - HEENT: Denies changes in vision and hearing. - RESPIRATORY: As above. - CV: Denies palpitations and CP. - GI: Denies abdominal pain, nausea, vomiting and diarrhea. - : Denies dysuria and urinary frequency. - MSK: Denies myalgia and joint pain. - SKIN: Denies rash and pruritus. - NEUROLOGICAL: Denies headache, weakness, numbness and syncope. - PSYCHIATRIC: Denies suicidal ideation PFSH ED PFSH: Medical History AAA (abdominal aortic aneurysm) without rupture Allergic rhinitis Aortic root dilation Stable Atherosclerotic heart disease of [place] coronary artery with other forms of angina pectoris Atypical chest pain Bradycardia Chest pain Cognitive impairment Confusion COPD (chronic obstructive pulmonary disease) DDD (degenerative disc disease) Delirium Diabetes Essential (primary) hypertension GERD (gastroesophageal reflux disease) Hyperglycemia Hyperlipidemia Hypothyroidism Intervertebral disc disorders with radiculopathy, lumbosacral region Lumbar disc disease with radiculopathy Obesity Scoliosis of lumbar region due to degenerative disease of spine in adult SVT (supraventricular tachycardia) Testicular mass Thoracic aortic aneurysm, without rupture Surgical History H/O hernia repair History of PTCA Hx of heart artery stent Family History Mother , AT AGE 69 Diabetes, Onset Age: 69 Father , AT AGE 80 Cancer, Onset Age: 80 Lung Heart disease Lung disease Brother Diabetes Other Lupus Social History (Updated 08/02/21 @ 13:42 by Kerline Randhawa LPN) Smoking and tobacco status: current every day smoker (1 ppd started again last August) cigarettes Packs smoked per day: 1 Years cigarettes smoked: 1 [ Other cigarette details: smoked 2 ppd for 50 years and quit for 3 years. Started smoking at 14 years] Quit status (tobacco): has quit using tobacco Year quit tobacco: 2019 - 2PPD x 50 Years Smoking risk assessment/counseling performed?: No Alcohol intake: never Counseling given: No Counseling given: No Lives independently: Yes Household members: spouse Marital status: Current occupational status: disabled History of recent travel: No Current gender identity: Male Physical Exam Narrative: EXAM NARRATIVE: - GENERAL: Alert and oriented x 3. No acute distress. Well-nourished. - EYES: EOMI. Anicteric. - HENT: Atraumatic, no C-spine tenderness. Moist mucous membranes. No scleral icterus. No cervical lymphadenopathy. - LUNGS: Bilateral wheezing. No accessory muscle use. Equal lung sounds bilaterally. No respiratory distress. - CARDIOVASCULAR: Regular rate and rhythm. No murmur. No JVD. - ABDOMEN: Soft, non-tender and non-distended. Negative CVA tenderness bilaterally, no rebound or guarding, negative Petersen sign. No palpable masses. - EXTREMITIES: No edema. Non-tender. - SKIN: No rashes or lesions. Warm. - NEUROLOGIC: No meningismus or focal neurological deficits. CN II-XII grossly intact. - PSYCHIATRIC: Cooperative. Appropriate mood and affect. Course Vital Signs: Vital signs: Vital Signs Temperature 97.5 F L 10/01/21 07:51 Pulse Rate 73 10/01/21 08:31 Respiratory Rate 18 10/01/21 08:26 Blood Pressure 102/72 10/01/21 07:51 Pulse Oximetry 94 10/01/21 08:26 MDM - SOB/Dyspnea Medical Decision Making 66-year-old presents with shortness of breath and cough. On exam has bilateral wheezing. Improved with albuterol and steroids. Saturating well on room air. He is hemodynamically stable afebrile nontoxic-appearing. Mild white count elevation of 13 but no sign of pneumonia on x-ray. No other focal infectious symptoms. D-dimer is negative. EKG and troponin do not reveal any sign of acute ischemia or other acute abnormality. Prescription for prednisone provided. States that he has albuterol inhaler at home and does not need a refill. At this time I believe patient would be safe for discharge and outpatient follow-up. Return precautions provided. Plan was reviewed with the patient who expressed understanding. Questions answered. Patient will follow up with PCP. Patient discharged in stable condition. Lab Data : 10/01/21 08:10 10/01/21 08:10 Labs/Radiology: Radiology Impressions Chest X-Ray 10/01/21 07:58 IMPRESSION: Possible small left-sided pleural effusion. Laboratory Results WBC 13.7 10^3/uL (4.0-10.0) H 10/01/21 08:10 RBC 5.39 10^6/uL (4.1-5.3) H 10/01/21 08:10 Hgb 15.8 g/dL (11.7-16.6) 10/01/21 08:10 Hct 49.0 % (42.0-52.0) 10/01/21 08:10 MCV 90.9 fl (80-94) 10/01/21 08:10 MCH 29.3 pg (28.0-34.0) 10/01/21 08:10 MCHC 32.2 g/dL (30.0-36.0) 10/01/21 08:10 RDW 13.5 % (12.1-15.1) 10/01/21 08:10 Plt Count 267 10^3/cmm (130-400) 10/01/21 08:10 MPV 10.9 fL (7.4-10.4) H 10/01/21 08:10 Neut % (Auto) 72.2 % 10/01/21 08:10 Lymph % (Auto) 15.4 % 10/01/21 08:10 [place] % (Auto) 9.6 % 10/01/21 08:10 Eos % (Auto) 1.7 % 10/01/21 08:10 Baso % (Auto) 0.5 % 10/01/21 08:10 Neut # (Auto) 9.91 10^3/uL (1.8-7.7) H 10/01/21 08:10 Lymph # (Auto) 2.1 10^3/uL (0.8-4.8) 10/01/21 08:10 [place] # (Auto) 1.3 10^3/uL (0.2-0.9) H 10/01/21 08:10 Eos # (Auto) 0.2 10^3/uL (0.0-0.8) 10/01/21 08:10 Baso # (Auto) 0.1 10^3/uL (0.0-0.1) 10/01/21 08:10 Nucleated RBC % (auto) 0 % 10/01/21 08:10 Nucleated RBCs # 0.0 /100WBC 10/01/21 08:10 D-Dimer 0.42 ug/mIFEU (0-0.59) 10/01/21 08:25 Sodium 139 mmol/L (136-145) 10/01/21 08:10 Potassium 4.7 mmol/L (3.5-5.1) 10/01/21 08:10 Chloride 100 mmol/L (98-107) 10/01/21 08:10 Carbon Dioxide 28 mmol/L (22-29) 10/01/21 08:10 Anion Gap 15.7 (5-19) 10/01/21 08:10 BUN 15 mg/dL (8-23) 10/01/21 08:10 Creatinine 0.9 mg/dL (0.7-1.2) 10/01/21 08:10 GFR Calculation 83.9 mL/min (90-130) L 10/01/21 08:10 Glucose 146 mg/dL (65-115) H 10/01/21 08:10 Calculated Osmolality 291 mOsm/kg (285-295) 10/01/21 08:10 Calcium 9.7 mg/dL (8.5-10.5) 10/01/21 08:10 Total Bilirubin 0.3 mg/dL (0.15-1.2) 10/01/21 08:10 AST 12 U/L (0-40) 10/01/21 08:10 ALT 18 U/L (0-41) 10/01/21 08:10 Alkaline Phosphatase 99 IU/L (40-130) 10/01/21 08:10 Troponin T Baseline 10 ng/L (0-15) 10/01/21 08:10 NT-Pro-B Natriuret Pep 151 pg/mL (0-125) H 10/01/21 08:10 Total Protein 6.4 g/dL (6.6-8.7) L 10/01/21 08:10 Albumin 4.2 g/dL (3.5-5.2) 10/01/21 08:10 Globulin 2.2 g/dL (1.3-4.6) 10/01/21 08:10 SARS-CoV-2 Ag (Rapid) Negative (Negative) 10/01/21 08:25 EKG Data EKG 1: Other EKG Comments: Sinus rhythm with occasional supraventricular complexes, rate of 83, T wave inversion in aVL, no sign of acute ischemia or other acute abnormality. Discharge Plan Discharge Patient Disposition: Home Clinical Impression: COPD exacerbation Condition: Stable Prescriptions: New prednisone 50 mg tablet 50 mg PO DAILY 5 Days Qty: 5 0RF No Action metformin 500 mg tablet 500 mg PO DAILY@08 0RF Hold Instructions: Resume on 10/09/20. losartan 50 mg tablet 50 mg PO BID@08,20 0RF nitroglycerin 0.4 mg tablet, sublingual 0.4 mg sublingual Q5M PRN (Reason: chest pain) 30 Days Qty: 30 3RF Rx Instructions: until response; do not exceed 3 doses per episode levothyroxine 200 mcg capsule 200 mcg PO DAILY 0RF glimepiride 2 mg tablet 2 mg PO QAM 0RF furosemide 20 mg tablet 20 mg PO DAILY@0800 0RF Rx Instructions: DOSE CHANGE amoxicillin-pot clavulanate [Augmentin] 875-125 mg tablet 1 tab PO BID 5 Days Qty: 10 0RF revefenacin [Yupelri] 175 mcg/3 mL solution for nebulization See Rx Instructions .ROUTE .COMPLEX Qty: 30 11RF Dose Instruction: USE 1 VIAL IN NEBULIZER DAILY - DO NOT MIX WITH OTHER NEB MEDS,USE BEFORE OR AFTER Rx Instructions: USE 1 VIAL IN NEBULIZER DAILY - DO NOT MIX WITH OTHER NEB MEDS,USE BEFORE OR AFTER Magtab 84 mg tablet extended release 168 mg PO QAM Qty: 100 3RF atorvastatin 20 mg tablet 20 mg PO DAILY@2100 0RF albuterol sulfate 90 mcg/actuation HFA aerosol inhaler 2 inh inhalation Q8H PRN (Reason: shortness of breath or wheezing) Qty: 8.5 0RF benzonatate [Tessalon Perles] 100 mg capsule 100 mg PO TID PRN (Reason: cough) Qty: 14 0RF levothyroxine 100 mcg tablet 100 mcg PO DAILY 0RF sotalol 80 mg Tablet 40 mg PO BID 30 Days Qty: 60 3RF budesonide [Pulmicort] 0.5 mg/2 mL suspension for nebulization 0.5 mg inhalation BID@08,20 0RF formoterol fumarate [Perforomist] 20 mcg/2 mL solution for nebulization 2 ml inhalation BID@08,20 0RF omeprazole 40 mg capsule,delayed release(DR/EC) 40 mg PO DAILY@1999 0RF prasugrel 10 mg tablet 10 mg PO QAM 0RF Discharge Orders: Discharge ED (Routine); Ordered 10/01/21 Ordered By: Valdez Mccullough Referrals: Ab Grubbs DO [Primary Care Provider] - 1-3 days Patient Instructions: COPD (Chronic Obstructive Pulmonary Disease) (ED), Opioid Safety Coding Level of Care Code ED Emotionally Impaired Teacher for Halle Degroot
[2021-10-01 08:26] VITALS: PULSE 75; RESP 18; O2SAT 94
[2021-10-01] MEDS: ipratropium-albuterol 3 mL Neb INHALATION (08:26)
[2021-10-01 08:31] VITALS: PULSE 73
[2021-10-01 08:37] LABS: Basophils # 0.1 10^3/uL (0.0-0.1); Basophils % 0.5 %; Eosinophils # 0.2 10^3/uL (0.0-0.8); Eosinophils % 1.7 %; Hemoglobin 15.8 g/dL (11.7-16.6); Lymphocytes # 2.1 10^3/uL (0.8-4.8); Lymphocytes % 15.4 %; Mean Corpuscular HGB Conc 32.2 g/dL (30.0-36.0); Mean Corpuscular Hemoglobin 29.3 pg (28.0-34.0); Mean Corpuscular Volume 90.9 fl (80-94); Mean Platelet Volume 10.9 fL (7.4-10.4); Monocytes # 1.3 10^3/uL (0.2-0.9); Monocytes % 9.6 %; Neutrophils # 9.91 10^3/uL (1.8-7.7); Neutrophils % 72.2 %; Nucleated Red Blood Cells % 0 %; Platelet Count 267 10^3/cmm (130-400); Red Blood Count 5.39 10^6/uL (4.1-5.3); Red Cell Distribution Width 13.5 % (12.1-15.1); White Blood Count 13.7 10^3/uL (4.0-10.0)
[2021-10-01 09:18] LABS: Troponin(5th) Baseline 10 ng/L (0-15)
[2021-10-01 09:23] LABS: Alanine Aminotransferase 18 U/L (0-41); Albumin Level 4.2 g/dL (3.5-5.2); Alkaline Phosphatase 99 IU/L (40-130); Anion Gap 15.7 (5-19); Aspartate Amino Transferase 12 U/L (0-40); Blood Urea Nitrogen 15 mg/dL (8-23); Calcium 9.7 mg/dL (8.5-10.5); Carbon Dioxide 28 mmol/L (22-29); Chloride 100 mmol/L (98-107); Globulin 2.2 g/dL (1.3-4.6); Glomerular Filtration Rate 83.9 mL/min (90-130); Glucose 146 mg/dL (65-115); NT Pro B Type Natriuretic Pept 151 pg/mL (0-125); Osmolality Calculated 291 mOsm/kg (285-295); Potassium 4.7 mmol/L (3.5-5.1); Sodium 139 mmol/L (136-145); Total Bilirubin 0.3 mg/dL (0.15-1.2); Total Protein 6.4 g/dL (6.6-8.7)
[2021-10-01 09:32] LABS: D Dimer 0.42 ug/mIFEU (0-0.59)
[2021-10-01 09:46] LABS: SARS Covid-2 Antigen Negative (Negative)
== END 2021-10-01 10:34 | disposition home or self-care (01) ==
PROVIDERS: Emergency Provider Emergency Medicine; PCP Electrodiagnostic Medicine
DX: J44.1 Chronic obstructive pulmonary disease with (acute) exacerbation (principal); F17.210 Nicotine dependence, cigarettes, uncomplicated; Z79.84 Long term (current) use of oral hypoglycemic drugs; Z79.51 Long term (current) use of inhaled steroids
CPT/HCPCS: 71045; 80053; 83880; 84484; 85025; 85378; 87426; 93005; 94640; 96374; 99284; J2930

== ENCOUNTER → 2021-10-31 12:28 | Outpatient (BNVA) | payer MEDICARE, OTHER, SELFPAY | PROVIDERS: PCP Electrodiagnostic Medicine; Visit Provider Internal Medicine Critical Care Medicine | DX: J44.9 Chronic obstructive pulmonary disease, unspecified (principal); F17.210 Nicotine dependence, cigarettes, uncomplicated; I25.119 Atherosclerotic heart disease of native coronary artery with unspecified angina pectoris; R91.1 Solitary pulmonary nodule; K21.9 Gastro-esophageal reflux disease without esophagitis; E78.5 Hyperlipidemia, unspecified; E11.8 Type 2 diabetes mellitus with unspecified complications; I10 Essential (primary) hypertension | CPT/HCPCS: 99214 ==

== ENCOUNTER 2021-11-29 15:12 | Inpatient (IN) | payer MEDICARE, OTHER, SELFPAY ==
[2021-11-29 15:36] VITALS: BP 93/60; PULSE 85; RESP 20; TEMP 36.7; O2SAT 92
--- NOTE | 2021-11-29 18:03 | ECG_ITS ---
[facility] Test Date: 2021-11-29 Pat Name: Vega Wilcox Department: Room: 252 Gender: Male Residential Worker: : 1955 Requested By: Carlos Alberto Brasher Order Number: [id number] Roger MD: Lance Marcano M.D. Measurements Intervals [place] Rate: 83 P: 70 IN: 206 QRS: 85 QRSD: 90 T: 78 QT: 377 QTc: 443 Interpretive Statements SINUS RHYTHM Compared to ECG 11/29/2021 20:11:21 No significant changes Electronically Signed On 11-29-2021 23:43:50 CDT by Lance Marcano M.D. [id number]
--- NOTE | 2021-11-29 18:03 | XRR_ITS ---
PROCEDURE INFORMATION: Exam: XR Chest Exam date and time: 11/29/2021 7:24 PM Age: 66 years old Clinical indication: Angina; Additional info: Cp TECHNIQUE: Imaging protocol: Radiologic exam of the chest. Views: 1 view. COMPARISON: CR (CHEST, ) 10/01/2021 8:23 AM FINDINGS: Lungs: Emphysematous changes. Left lung patchy atelectasis versus minimal infiltrate. Pleural spaces: Possible trace bilateral pleural effusions. Heart/Mediastinum: Unremarkable. No cardiomegaly. Bones/joints: Unremarkable. XR/XR chest 1V portable [id number] IMPRESSION: 1. Emphysematous changes. 2. Possible trace bilateral pleural effusions. 3. Left lung patchy atelectasis versus minimal infiltrate.
--- NOTE | 2021-11-29 19:19 | W.ED.SOB ---
HPI - SOB/Dyspnea General: Chief Complaint: Shortness of Breath/Dyspnea Stated Complaint: sob, bp low Time Seen by Provider: 11/29/21 19:18 History of Present Illness: HPI Narrative: Mr. Ritter is a 66-year-old gentleman with significant past medical history of COPD, history of arrhythmia, history of NSTEMI, AAA, hypothyroidism, hyperglycemia who presents to the emergency department due to respiratory symptoms. Onset of symptoms was gradual approximately 1 week ago. He endorses progressive worsening of shortness of breath. He notes associated cough which is mildly productive and congestion. Symptoms are worse with lying flat to the point that he has had difficulty sleeping and frequently has to get up to walk around. He has subjective generalized malaise. Overall course of symptoms has been worsening. Intensity is moderate to severe. He noted low blood pressure earlier today. No other specific changes in health, exacerbating, or alleviating factors identified. Pertinent past history: COPD Onset (ago): week(s) Timing: progressively worsening Severity: severe Exacerbating factors: lying flat and exertion Associated symptoms: Reports cough, myalgias and nausea Review of Systems General: Reports: 10 or more systems reviewed and unremarkable except in HPI and below GI: Reports: nausea PFSH ED PFSH: Medical History (Updated 12/03/21 @ 00:01 by ) AAA (abdominal aortic aneurysm) without rupture Allergic rhinitis Aortic root dilation Stable Atherosclerotic heart disease of [place] coronary artery with other forms of angina pectoris Atypical chest pain Bradycardia Cognitive impairment COPD (chronic obstructive pulmonary disease) DDD (degenerative disc disease) Diabetes Essential (primary) hypertension GERD (gastroesophageal reflux disease) Hyperlipidemia Hypothyroidism Intervertebral disc disorders with radiculopathy, lumbosacral region Lumbar disc disease with radiculopathy Obesity Scoliosis of lumbar region due to degenerative disease of spine in adult SVT (supraventricular tachycardia) Testicular mass Thoracic aortic aneurysm, without rupture Surgical History H/O hernia repair History of PTCA Hx of heart artery stent Family History Mother , AT AGE 69 Diabetes, Onset Age: 69 Father , AT AGE 80 Cancer, Onset Age: 80 Lung Heart disease Lung disease Brother Diabetes Other Lupus Social History (Reviewed 11/29/21 @ 22:08 by LICHA Orellana Smoking and tobacco status: current every day smoker (0.75 ppd) cigarettes Packs smoked per day: 1 Years cigarettes smoked: 1 [ Other cigarette details: smoked 2 ppd for 50 years and quit for 3 years. Started smoking at 14 years] Quit status (tobacco): has quit using tobacco Year quit tobacco: 2019 - 2PPD x 50 Years Smoking risk assessment/counseling performed?: No Alcohol intake: never Counseling given: No Counseling given: No Lives independently: Yes Household members: spouse Marital status: Current occupational status: disabled History of recent travel: No Current gender identity: Male Physical Exam Const: COMMON NORMALS: alert GENERAL APPEARANCE: cooperative, well developed and ill appearing HENMT: COMMON NORMALS: normocephalic and atraumatic HEAD & SCALP: normocephalic and atraumatic Eye: COMMON NORMALS: conjunctivae normal CONJUNCTIVA: Yes conjunctivae normal SCLERA: sclerae normal Neck/C-Spine: COMMON NORMALS: supple GENERAL: Yes trachea midline Resp: EFFORT & INSPECTION: Yes tachypneic and Yes labored AUSCULTATION: wheezes and diminished lung sounds Cardio: COMMON NORMALS: regular rate and regular rhythm RATE: regular rate RHYTHM: regular rhythm GI: COMMON NORMALS: Soft to palpation PALPATION: Yes Soft to palpation and No Tenderness to palpation present (GI) Extremity: GENERAL: Yes normal exam except as noted and No edema Neuro: COMMON NORMALS: moves all extremities SENSORIUM/ORIENTATION: Yes alert and No Orientation impaired Psych: COMMON NORMALS: mental status grossly normal and Normal thought process present THOUGHT PROCESS: Normal thought process present Course ED course: - Patient was seen and evaluated by me at bedside - Patient placed on cardiac monitors, IV access obtained - Initial evaluation notable for exam as above, increased respiratory effort. - Labs and xrays personally interpreted by me. EKG shows sinus rhythm, no STEMI. Exam as above -Ordered RT treatment. Steroids and empiric antibiotics given. - Labs notable for no leukocytosis, hemoglobin normal. ABG compensated with hypoxia and mild hypercapnia. Metabolic panel with evidence of dehydration. Delta troponin negative. COVID-positive which likely explain symptoms. - Imaging notable for hazy left lung opacities. No pneumothorax. - Upon serial reexamination after treatment the patient was similar without significant improvement - Based on patient history, evaluation, and testing as interpreted the most likely cause of the patient's condition is COVID-pneumonia with respiratory distress - The results of ED evaluation were discussed with the patient including plan for admission due to requirement for level of care not available if discharged to prevent significant worsening/deterioration. - Admitting service was contacted and Dr Ching with the hospice service agreed to admit the patient - Patient was admitted without further deterioration or significant events. Note: Click bubbles or prepopulated plummer in note writing are used for assistance with data collection and billing and are inherently more limited than narrative and other text portions of this note. Please use narrative for additional clinical history and defer to narrative/free test for any case of contradictory information. If information appears in only free text or click bubble it should be considered present or absent as reported. Please contact note music writer for clarifications of clinical information or contradictory information. MDM is a brief summary, contradictory or erroneous seeming information should be clarified and full note should be reviewed. Vital Signs: Vital signs: Vital Signs Temperature 97.7 F 12/02/21 11:49 Pulse Rate 73 12/02/21 11:49 Respiratory Rate 18 12/02/21 11:49 Blood Pressure 100/58 12/02/21 11:49 Pulse Oximetry 91 12/02/21 11:49 MDM - SOB/Dyspnea Medical Decision Making 66-year-old gentleman with history of COPD presenting with respiratory symptoms. Patient found to have COVID. Admitted for further management. Medical Records I reviewed the patient's medical records. Lab Data I reviewed the patient's lab results. : 12/01/21 05:02 12/01/21 05:02 Labs/Radiology: Radiology Impressions Chest X-Ray 11/29/21 18:03 IMPRESSION: 1. Emphysematous changes. 2. Possible trace bilateral pleural effusions. 3. Left lung patchy atelectasis versus minimal infiltrate. Laboratory Results WBC 9.7 10^3/uL (4.0-10.0) 11/29/21 19:10 RBC 5.29 10^6/uL (4.1-5.3) 11/29/21 19:10 Hgb 15.5 g/dL (11.7-16.6) 11/29/21 19:10 Hct 47.7 % (42.0-52.0) 11/29/21 19:10 MCV 90.2 fl (80-94) 11/29/21 19:10 MCH 29.3 pg (28.0-34.0) 11/29/21 19:10 MCHC 32.5 g/dL (30.0-36.0) 11/29/21 19:10 RDW 14.0 % (12.1-15.1) 11/29/21 19:10 Plt Count 191 10^3/cmm (130-400) 11/29/21 19:10 MPV 11.8 fL (7.4-10.4) H 11/29/21 19:10 Neut % (Auto) 58.8 % 11/29/21 19:10 Lymph % (Auto) 25.6 % 11/29/21 19:10 [place] % (Auto) 12.6 % 11/29/21 19:10 Eos % (Auto) 2.0 % 11/29/21 19:10 Baso % (Auto) 0.3 % 11/29/21 19:10 Neut # (Auto) 5.71 10^3/uL (1.8-7.7) 11/29/21 19:10 Lymph # (Auto) 2.5 10^3/uL (0.8-4.8) 11/29/21 19:10 [place] # (Auto) 1.2 10^3/uL (0.2-0.9) H 11/29/21 19:10 Eos # (Auto) 0.2 10^3/uL (0.0-0.8) 11/29/21 19:10 Baso # (Auto) 0.0 10^3/uL (0.0-0.1) 11/29/21 19:10 Nucleated RBC % (auto) 0 % 11/29/21 19:10 Nucleated RBCs # 0.0 /100WBC 11/29/21 19:10 D-Dimer 0.45 ug/mIFEU (0-0.59) 11/29/21 19:10 Specimen Type Arterial 11/29/21: Sample Site Radial, left 11/29/21:26 ABG pH 7.40 (7.35-7.45) 11/29/21:26 ABG pCO2 45.8 mmHg (35-45) H 11/29/21: ABG pO2 53.2 mmHg (80.0-100.0) L 07/13/22 19:26 ABG HCO3 28.2 mmol/L (22-26) H 11/29/21 19:26 ABG Base Excess 2.6 mmol/L (-2.0-2.0) H 11/29/21 19:26 Drew Test Pos 11/29/21 19:26 Hematocrit 48.9 % (42-52) 11/29/21 19:26 FiO2 21.0 % 11/29/21 19:26 Auto Parts Handler ID [place] 11/29/21 19:26 Sodium 131 mmol/L (136-145) L 11/29/21 19:10 Potassium 3.8 mmol/L (3.5-5.1) 11/29/21 19:10 Chloride 94 mmol/L (98-107) L 11/29/21 19:10 Carbon Dioxide 25 mmol/L (22-29) 11/29/21 19:10 Anion Gap 15.8 (5-19) 11/29/21 19:10 BUN 11 mg/dL (8-23) 11/29/21 19:10 Creatinine 0.9 mg/dL (0.7-1.2) 11/29/21 19:10 GFR Calculation 83.9 mL/min (90-130) L 11/29/21 19:10 Glucose 138 mg/dL (65-115) H 11/29/21 19:10 Calculated Osmolality 274 mOsm/kg (285-295) L 11/29/21 19:10 Lactate 1.8 mmol/L (0.5-2.2) 11/29/21 19:10 Calcium 9.1 mg/dL (8.5-10.5) 11/29/21 19:10 Total Bilirubin 0.3 mg/dL (0.15-1.2) 11/29/21 19:10 AST 16 U/L (0-40) 11/29/21 19:10 ALT 20 U/L (0-41) 11/29/21 19:10 Alkaline Phosphatase 98 IU/L (40-130) 11/29/21 19:10 Troponin T Baseline 9 ng/L (0-15) 11/29/21 19:10 C-Reactive Protein 27.0 mg/L (0.0-4.9) H 11/29/21 19:10 NT-Pro-B Natriuret Pep 155 pg/mL (0-125) H 11/29/21 19:10 Total Protein 6.7 g/dL (6.6-8.7) 11/29/21 19:10 Albumin 3.7 g/dL (3.5-5.2) 11/29/21 19:10 Globulin 3.0 g/dL (1.3-4.6) 11/29/21 19:10 Procalcitonin 0.05 ng/mL (0-0.5) 11/29/21 19:10 Influenza Type A Ag Negative (Negative) 11/29/21 19:41 Influenza Type B Ag Negative (Negative) 11/29/21 19:41 SARS-CoV-2 Ag (Rapid) Positive (Negative) H 11/29/21 19:41 Discharge Plan Discharge Patient Disposition: Placed in Observation Admit Provider: Dayna Ching Clinical Impression: COVID-19, Acute exacerbation of chronic obstructive pulmonary disease, Acute respiratory failure due to COVID-19, Dehydration Discharge Diet: Advance as tolerated Discharge Activity: Increase activity as tolerated and Oxygen as instructed Coding Level of Care Code ED Professional Application Designer for Chg Fwd Exam Comprehensive
[2021-11-29 19:25] LABS: Basophils % 0.3 %; Eosinophils # 0.2 10^3/uL (0.0-0.8); Hematocrit 47.7 % (42.0-52.0); Hemoglobin 15.5 g/dL (11.7-16.6); Lymphocytes # 2.5 10^3/uL (0.8-4.8); Lymphocytes % 25.6 %; Mean Corpuscular HGB Conc 32.5 g/dL (30.0-36.0); Mean Corpuscular Hemoglobin 29.3 pg (28.0-34.0); Mean Corpuscular Volume 90.2 fl (80-94); Mean Platelet Volume 11.8 fL (7.4-10.4); Monocytes # 1.2 10^3/uL (0.2-0.9); Monocytes % 12.6 %; Neutrophils # 5.71 10^3/uL (1.8-7.7); Neutrophils % 58.8 %; Nucleated Red Blood Cells % 0 %; Platelet Count 191 10^3/cmm (130-400); Red Blood Count 5.29 10^6/uL (4.1-5.3); White Blood Count 9.7 10^3/uL (4.0-10.0)
[2021-11-29 19:37] LABS: ABG PCO2 45.8 mmHg (35-45); Arterial Blood Gas Hematocrit 48.9 % (42-52); Base Excess ABG 2.6 mmol/L (-2.0-2.0); Blood Gas Allen Test Pos; Blood Gas Operator Identificat WALCI; Blood Gas Sample Site Radial, left; Blood Gas Sample Type Arterial; HCO3 ABG 28.2 mmol/L (22-26); PO2 ABG 53.2 mmHg (80.0-100.0)
[2021-11-29] MEDS: ipratropium-albuterol 3 mL Neb INHALATION (19:39)
[2021-11-29 19:40] VITALS: PULSE 86; RESP 20; O2SAT 91
[2021-11-29 19:54] LABS: Lactate (Lactic Acid level) 1.8 mmol/L (0.5-2.2)
[2021-11-29 20:01] LABS: Alanine Aminotransferase 20 U/L (0-41); Albumin Level 3.7 g/dL (3.5-5.2); Alkaline Phosphatase 98 IU/L (40-130); Anion Gap 15.8 (5-19); Aspartate Amino Transferase 16 U/L (0-40); Blood Urea Nitrogen 11 mg/dL (8-23); Calcium 9.1 mg/dL (8.5-10.5); Carbon Dioxide 25 mmol/L (22-29); Chloride 94 mmol/L (98-107); Creatinine Clr Calc Pharmacy 98.3818; Glomerular Filtration Rate 83.9 mL/min (90-130); Glucose 138 mg/dL (65-115); NT Pro B Type Natriuretic Pept 155 pg/mL (0-125); Osmolality Calculated 274 mOsm/kg (285-295); Potassium 3.8 mmol/L (3.5-5.1); Sodium 131 mmol/L (136-145); Total Bilirubin 0.3 mg/dL (0.15-1.2); Total Protein 6.7 g/dL (6.6-8.7)
--- NOTE | 2021-11-29 20:03 | ECG_ITS ---
[facility] Test Date: 2021-11-29 Pat Name: Vega Wilcox Department: Room: Gender: Male Director Of Pulmonary Unit: : 1955 Requested By: Carlos Alberto Brasher Order Number: [id number] Roger MD: Lance Marcano M.D. Measurements Intervals [place] Rate: 73 P: 9 [place]: 189 QRS: 87 QRSD: 82 T: 70 QT: 390 QTc: 432 Interpretive Statements SINUS RHYTHM Early repolarization changes in the inferior leads Compared to ECG 10/01/2021 08:04:27 No significant changes Electronically Signed On 11-30-2021 22:48:29 CDT by Lance Marcano M.D. [id number]
[2021-11-29 20:18] LABS: Influenza A by IFA Negative (Negative); Influenza B by IFA Negative (Negative); SARS Covid-2 Antigen Positive (Negative)
[2021-11-29 20:36] LABS: Troponin(5th) Baseline 9 ng/L (0-15)
[2021-11-29] MEDS: sodium chloride 0.9% 1,000 ML 999 ML IV (20:38)
[2021-11-29] MEDS: cefepime 2,000 MG in sodium chloride 0.9% (plus) 50 ML 100 MG IV (20:38)
[2021-11-29] MEDS: dexamethasone 10 mg/mL INJ 6 MG IVP (20:40)
[2021-11-29 21:15] VITALS: BP 136/76; PULSE 75; RESP 28; O2SAT 90
[2021-11-29 21:30] VITALS: BP 124/82; PULSE 89; RESP 22; O2SAT 87
[2021-11-29 21:58] LABS: D Dimer 0.45 ug/mIFEU (0-0.59)
[2021-11-29 22:00] VITALS: BP 123/79; PULSE 79; RESP 20; O2SAT 89
--- NOTE | 2021-11-29 22:01 | P.HP_ITS ---
Providers/Chief Complaint Primary Care Provider: Ab Grubbs DO Chief Complaint: sob, bp low History of Present Illness Vega Wilcox is a 66 year old male with a past medical history of COPD, not typically on home oxygen, coronary artery disease, AAA, SVT, currently active smoker presenting to the emergency room with worsening dyspnea over the past week. States he is also had increased cough and expectoration and feels short of breath on less than usual activity. He is noted to have a new oxygen requirement of 2 L/min. He has been using his inhalers at home without any significant relief. He is found to be COVID-19 positive on a rapid antigen test today. Chest x-ray shows presence of bilateral infiltrates. Denies any chest pain palpitations or syncope. Review of Systems General: Reports: 10 or more systems reviewed and unremarkable except in HPI and below Const: Denies: fever(s), chills or body aches Eyes: Denies: change in vision, blurry vision or photophobia ENMT: Reports: hoarseness; Denies: throat pain, enlarged tonsils, odynophagia or nasal congestion Card: Denies: chest pain, palpitations, irregular heart rhythm, edema, swelling of feet/ankles, lightheadedness, pre-syncope, dyspnea on exertion or orthopnea Resp: Denies: dyspnea, productive cough, non-productive cough, wheezing, stridor, pain on inspiration, change in phlegm color, hemoptysis or chest congestion GI: Denies: abdominal pain, nausea, vomiting, hematemesis, coffee ground em esis, dysphagia, heartburn, diarrhea, constipation, GI cramping, change in stool character, hematochezia or melena : Denies: flank pain, dysuria, urinary frequency, urinary urgency, urinary hesitancy or hematuria Musc: Denies: neck pain, back pain, extremity pain, joint swelling, joint warmth or deformity Neuro: Denies: headache(s), numbness in extremities, weakness in extremities, sensory changes, difficulty walking, frequent falls, dizziness, vertigo, behavioral changes, Slurred speech present or seizure-like activity Psych: Denies: anxiety, depression, suicidal ideation or homicidal ideation Endo: Denies: polyuria, polydipsia, tired all the time, cold intolerance or hot flashes Brandon/Lymph: Denies: easy bruising or easy bleeding Medications/Allergies Home Medications Medication Instructions Recorded Confirmed Last Taken Type losartan 50 mg tablet 50 mg PO BID@06/23/19 10/31/21 05/20/21 History metformin 500 mg tablet 500 mg PO DAILY@06/23/19 10/31/21 05/20/21 History budesonide 0.5 mg/2 mL suspension 0.5 mg INHALATION BID@05/15/20 10/31/21 05/20/21 History for nebulization (Pulmicort) formoterol fumarate 20 mcg/2 mL 2 ml INHALATION BID@05/15/20 10/31/21 05/20/21 History solution for nebulization (Perforomist) nitroglycerin 0.4 mg sublingual 0.4 mg SUBLINGUAL Q5M PRN 30 Days 05/17/20 10/31/21 10/03/20 Rx tablet #30 tab revefenacin 175 mcg/3 mL solution See Rx Instructions .ROUTE 05/26/20 10/31/21 05/20/21 Rx for nebulization (Nicole) .COMPLEX #30 vial furosemide 20 mg tablet 20 mg PO DAILY@0809/10/20 10/31/21 05/20/21 History glimepiride 2 mg tablet 2 mg PO QAM 09/10/20 10/31/21 05/20/21 History omeprazole 40 mg capsule,delayed 40 mg PO DAILY@199909/12/20 10/31/21 05/20/21 History release atorvastatin 20 mg tablet 20 mg PO DAILY@209910/04/20 10/31/21 05/19/21 History prasugrel 10 mg tablet 10 mg PO QAM 02/23/21 10/31/21 05/20/21 History albuterol sulfate 90 mcg/actuation 2 inh INHALATION Q8H PRN #8.5 g 04/23/21 10/31/21 Unknown Rx aerosol inhaler benzonatate 100 mg capsule 100 mg PO TID PRN #14 cap 04/23/21 10/31/21 Unknown Rx (Madonna Means) levothyroxine 100 mcg tablet 100 mcg PO DAILY 05/20/21 10/31/21 05/20/21 History sotalol 80 mg tablet 40 mg PO BID 30 Days #60 tab 05/23/21 10/31/21 Unknown Rx levothyroxine 200 mcg capsule 200 mcg PO DAILY 05/31/21 10/31/21 Unknown History magnesium L-lactate 84 mg 168 mg PO QAM #100 tab 07/28/21 10/31/21 Unknown Rx tablet,extended release (Magtab) Allergies Allergy/AdvReac Type Severity Reaction Status Date / Time levofloxacin [From Levaquin] Allergy Makes me Verified 11/29/21 15:38 goofy PFSH Acute PFSH: Medical History AAA (abdominal aortic aneurysm) without rupture Allergic rhinitis Aortic root dilation Stable Atherosclerotic heart disease of [place] coronary artery with other forms of angina pectoris Atypical chest pain Bradycardia Chest pain Cognitive impairment Confusion COPD (chronic obstructive pulmonary disease) DDD (degenerative disc disease) Delirium Diabetes Essential (primary) hypertension GERD (gastroesophageal reflux disease) Hyperglycemia Hyperlipidemia Hypothyroidism Intervertebral disc disorders with radiculopathy, lumbosacral region Lumbar disc disease with radiculopathy Obesity Scoliosis of lumbar region due to degenerative disease of spine in adult SVT (supraventricular tachycardia) Testicular mass Thoracic aortic aneurysm, without rupture Surgical History H/O hernia repair History of PTCA Hx of heart artery stent Family History Mother , AT AGE 69 Diabetes, Onset Age: 69 Father , AT AGE 80 Cancer, Onset Age: 80 Lung Heart disease Lung disease Brother Diabetes Other Lupus Social History Smoking and tobacco status: current every day smoker (0.75 ppd) cigarettes Packs smoked per day: 1 Years cigarettes smoked: 1 [ Other cigarette details: smoked 2 ppd for 50 years and quit for 3 years. Started smoking at 14 years] Quit status (tobacco): has quit using tobacco Year quit tobacco: 2019 - 2PPD x 50 Years Smoking risk assessment/counseling performed?: No Alcohol intake: never Counseling given: No Counseling given: No Lives independently: Yes Household members: spouse Marital status: Current occupational status: disabled History of recent travel: No Current gender identity: Male Vitals/I&O/Wt Last Vital Signs Temp 98.1 F 11/29/21 15:36 Pulse 86 11/29/21 19:40 Resp 20 H 11/29/21 19:40 BP 93/60 11/29/21 15:36 Pulse Ox 91 11/29/21 19:40 11/29/21 11/29/21 11/29/21 06:59 14:59 22:59 Intake Total 1050 / 1050 Balance 1050 / 1050 Weight last 48 hrs Weight 108.409 kg Physical Exam Narrative: General: Awake alert oriented x3, tachypneic, some intercostal retractions noted HEENT: PERRLA, pupils bilaterally equal and reactive, pallors not present Chest: Coarse rhonchi to auscultation bilaterally all areas CVS: S1-S2 regular, no murmurs, no tachycardia, no gallops, no rubs Abdomen: Soft, nontender, no organomegaly, bowel sounds present Neuro: No focal deficits, no facial deformity, AO x3, power 5/5 in all limbs Extremities: No clubbing edema or cyanosis at this time Data : 11/29/21 19:10 11/29/21 19:10 Other Labs: Radiology Impressions Chest X-Ray 11/29/21 18:03 IMPRESSION: 1. Emphysematous changes. 2. Possible trace bilateral pleural effusions. 3. Left lung patchy atelectasis versus minimal infiltrate. Laboratory Results WBC 9.7 10^3/uL (4.0-10.0) 11/29/21 19:10 RBC 5.29 10^6/uL (4.1-5.3) 11/29/21 19:10 Hgb 15.5 g/dL (11.7-16.6) 11/29/21 19:10 Hct 47.7 % (42.0-52.0) 11/29/21 19:10 MCV 90.2 fl (80-94) 11/29/21 19:10 MCH 29.3 pg (28.0-34.0) 11/29/21 19:10 MCHC 32.5 g/dL (30.0-36.0) 11/29/21 19:10 RDW 14.0 % (12.1-15.1) 11/29/21 19:10 Plt Count 191 10^3/cmm (130-400) 11/29/21 19:10 MPV 11.8 fL (7.4-10.4) H 11/29/21 19:10 Neut % (Auto) 58.8 % 11/29/21 19:10 Lymph % (Auto) 25.6 % 11/29/21 19:10 [place] % (Auto) 12.6 % 11/29/21 19:10 Eos % (Auto) 2.0 % 11/29/21 19:10 Baso % (Auto) 0.3 % 11/29/21 19:10 Neut # (Auto) 5.71 10^3/uL (1.8-7.7) 11/29/21 19:10 Lymph # (Auto) 2.5 10^3/uL (0.8-4.8) 11/29/21 19:10 [place] # (Auto) 1.2 10^3/uL (0.2-0.9) H 11/29/21 19:10 Eos # (Auto) 0.2 10^3/uL (0.0-0.8) 11/29/21 19:10 Baso # (Auto) 0.0 10^3/uL (0.0-0.1) 11/29/21 19:10 Nucleated RBC % (auto) 0 % 11/29/21 19:10 Nucleated RBCs # 0.0 /100WBC 11/29/21 19:10 D-Dimer 0.45 ug/mIFEU (0-0.59) 11/29/21 19:10 Specimen Type Arterial 11/29/21 19:26 Sample Site Radial, left 11/29/21 19:26 ABG pH 7.40 (7.35-7.45) 11/29/21 19:26 ABG pCO2 45.8 mmHg (35-45) H 11/29/21 19:26 ABG pO2 53.2 mmHg (80.0-100.0) L 11/29/21 19:26 ABG HCO3 28.2 mmol/L (22-26) H 11/29/21 19:26 ABG Base Excess 2.6 mmol/L (-2.0-2.0) H 11/29/21 19:26 Drew Test Pos 11/29/21 19:26 Hematocrit 48.9 % (42-52) 11/29/21 19:26 FiO2 21.0 % 11/29/21 19:26 Comic Writer ID Derik 11/29/21 19:26 Sodium 131 mmol/L (136-145) L 11/29/21 19:10 Potassium 3.8 mmol/L (3.5-5.1) 11/29/21 19:10 Chloride 94 mmol/L (98-107) L 11/29/21 19:10 Carbon Dioxide 25 mmol/L (22-29) 11/29/21 19:10 Anion Gap 15.8 (5-19) 11/29/21 19:10 BUN 11 mg/dL (8-23) 11/29/21 19:10 Creatinine 0.9 mg/dL (0.7-1.2) 11/29/21 19:10 GFR Calculation 83.9 mL/min (90-130) L 11/29/21 19:10 Glucose 138 mg/dL (65-115) H 11/29/21 19:10 Calculated Osmolality 274 mOsm/kg (285-295) L 11/29/21 19:10 Lactate 1.8 mmol/L (0.5-2.2) 11/29/21 19:10 Calcium 9.1 mg/dL (8.5-10.5) 11/29/21 19:10 Total Bilirubin 0.3 mg/dL (0.15-1.2) 11/29/21 19:10 AST 16 U/L (0-40) 11/29/21 19:10 ALT 20 U/L (0-41) 11/29/21 19:10 Alkaline Phosphatase 98 IU/L (40-130) 11/29/21 19:10 Troponin T Baseline 9 ng/L (0-15) 11/29/21 19:10 NT-Pro-B Natriuret Pep 155 pg/mL (0-125) H 11/29/21 19:10 Total Protein 6.7 g/dL (6.6-8.7) 11/29/21 19:10 Albumin 3.7 g/dL (3.5-5.2) 11/29/21 19:10 Globulin 3.0 g/dL (1.3-4.6) 11/29/21 19:10 Influenza Type A Ag Negative (Negative) 11/29/21 19:41 Influenza Type B Ag Negative (Negative) 11/29/21 19:41 SARS-CoV-2 Ag (Rapid) Positive (Negative) H 11/29/21 19:41 Micro: Microbiology 11/29/21 20:45 Blood Culture - Preliminary Blood SPECIMEN COLLECTED 11/29/21 20:30 Blood Culture - Preliminary Blood SPECIMEN COLLECTED A&P Assessment and plan (1) COVID-19: Remdisivir 200mg iv x 1 followed by 100mg iv daily dexamethasone 6mg IVP daily duoneb q6h, budesonide q12h, continue home dose of revefenacin empiric cefepime and azithromycin. Previous sputum cultures have been with growth of Pseudomonas and Klebsiella pneumonia Flutter valve/spirometer at bedside trend inflammatory markers including CRP, D dimer Sputum culture and gram stain, MRSA nasal screen Status: Acute (2) Acute respiratory failure due to COVID-19: Acute respiratory failure as evidenced by hypoxia and new oxygen requirement, tachypnea and intercostal retractions on exam. Supplemental O2 to keep saturation 92 to 94%. Scheduled nebulizations as noted above. Status: Acute (3) Acute exacerbation of chronic obstructive pulmonary disease: Likely as a result of viral infection with COVID-19. Steroids dexamethasone 6 mg IV push daily [id number] nebulization scheduled. ABG noted, BiPAP on standby. Status: Acute Plan #History of SVT: Continue sotalol 40 mg p.o. twice daily. QTc interval at 430 today. #Diabetes mellitus: Insulin sliding scale while on steroids #History of CAD: Continue prasugrel, atorvastatin #DVT prophylaxis: Lovenox 40 mg subcu daily #GI prophylaxis Protonix 40 mg p.o. daily Attestations Medical Necessity Statement*: Anticipate greater than 2 midnight admission for management of COVID-19 pneumonia, acute hypoxic respiratory failure. Coding Level of Care Code Acute Financial Services Auditor for [facility] Fwd Diagnoses COVID-19 U07.1 Acute respiratory failure due to COVID-19 U07.1; J96.00 Acute exacerbation of chronic obstructive pulmonary disease J44.1
[2021-11-29 22:20] LABS: Troponin 5 2HR 8.97 ng/L (0-15)
[2021-11-29 22:25] LABS: Procalcitonin 0.05 ng/mL (0-0.5)
[2021-11-29 22:29] LABS: Troponin 5 2HR Delta -0.03 ABS# (0-10)
[2021-11-29 22:30] VITALS: BP 126/82; PULSE 74; RESP 25
[2021-11-29 23:19] VITALS: BMI 33.3
[2021-11-30] VITALS (15 sets, daily range): BP systolic 93–125; BP diastolic 50–77; PULSE 65–94; RESP 12–18; TEMP 36.4–37.1; O2SAT 89–95
--- NOTE | 2021-11-30 00:03 | ECG_ITS ---
[facility] Test Date: 2021-11-30 Pat Name: Vega Wilcox Department: Room: 252 Gender: Male Coffee Machine Technician: : 1955 Requested By: Carlos Alberto Brasher Order Number: [id number] Roger MD: Lance Marcano M.D. Measurements Intervals [place] Rate: 84 P: 45 HI: 191 QRS: 89 QRSD: 86 T: 70 QT: 382 QTc: 453 Interpretive Statements SINUS RHYTHM WITH OCCASIONAL SUPRAVENTRICULAR PREMATURE COMPLEXES Compared to ECG 11/29/2021 23:39:08 No significant changes Electronically Signed On 11-30-2021 22:51:54 CDT by Lance Marcano M.D. [email or web address] [email or web address] Parking/store/[id number]
[2021-11-30] MEDS: remdesivir 200 MG in sodium chloride 0.9% (100 ml) 100 ML 100 MG IV (00:33)
[2021-11-30 03:14] LABS: Troponin 5 6HR 6.96 ng/L (0-15)
[2021-11-30 03:25] LABS: Troponin 5 6HR Delta -2.04 ng/L (0-12)
[2021-11-30] MEDS: ipratropium-albuterol 3 mL Neb INHALATION ×4 (03:31→22:19)
[2021-11-30] MEDS: prasugrel 10 MG Tablet PO (06:14)
[2021-11-30] MEDS: levothyroxine 200 mcg Tablet PO (08:26)
[2021-11-30] MEDS: pantoprazole DR 40 mg Tablet PO (08:26)
[2021-11-30] MEDS: azithromycin 250 mg Tablet 500 MG PO (08:26)
[2021-11-30] MEDS: cefepime 2,000 MG in sodium chloride 0.9% (plus) 50 ML 100 MG IV ×2 (08:26→20:50)
[2021-11-30] MEDS: FUROsemide 20 mg Tablet PO (08:27)
[2021-11-30] MEDS: sotalol 80 mg Tablet 40 MG PO (08:27)
[2021-11-30] MEDS: losartan 50 mg Tablet PO ×2 (08:27→20:00)
[2021-11-30] MEDS: budesonide 0.5 mg/2 mL Neb INHALATION ×2 (08:47→22:20)
--- NOTE | 2021-11-30 10:27 | PC.CHAP ---
Pastoral Care Encounter/Spiritual Assessment Type of Contact [] Declined organisational psychologist visit [] Patient/Family/Request visit [] Outpatient visit [] Follow-up visit [] Physician referral [] Code/Alert [x] Routine visit [] Staff referral [] Actively dying [] Patient sleeping [] Family support [] [] Out of room [] Palliative care [] [x] Receiving care in room [] Pre-surgical visit [] Trauma [x] Long length of stay [] ICU visit [] Other: Relational/Emotional Strength [x] Patient feels connected with others/family/visitors/staff [] Distress [] Loneliness/isolation [] Abandonment Spirituality of Patient [x] Person of Niyah [] Attends Bahai of their Niyah [x] Believes in Prayer [] Reads Bible or Pentecostalism materials [] There are Spiritual issues to be addressed Vp Platforms Interventions [x] Prayer [x] Active listening [x] Non-anxious presence [x] Spiritual/emotional support [] Crisis/trauma care [x] Spiritual counseling [] Bereavement support [] Provided bereavement packet [] Provided Bible/devotional materials [] Provided toy/stuffed animal, coloring book to patient or family member [] Provided Communion [] Anointing/[place] [x] Salvation [] Completed spiritual assessment [] Other: Impact on Illness or Injury [] Angry [] Fearful [x] Anxious [] Often cries [] Exhaustion [] Unable to work [] Unable to attend advent [] Unable to walk/stand [] Unable to read [] Unable to drive [] Unable to eat/drink [] Unable to sleep [] Unable to be with family [] Patient intubated [] Other: Summary gone through tessts had to re do some tests waiting o on doctors report not sure when well go home has a good attitude Time spent with patient 10 mins
[2021-11-30] MEDS: benzonatate 100 mg Capsule PO ×2 (11:17→17:39)
[2021-11-30 11:32] LABS: Glucose Point of Care 174 mg/dL (70-110)
[2021-11-30 17:08] LABS: Glucose Point of Care 100 mg/dL (70-110)
[2021-11-30] MEDS: remdesivir 100 MG in sodium chloride 0.9% (100 ml) 100 ML IV (17:38)
[2021-11-30] MEDS: guaiFENesin 100 mg/5 mL UDC 10 mL 400 MG PO (17:39)
[2021-11-30] MEDS: dexamethasone 4 mg/mL INJ 6 MG IVP (20:50)
[2021-11-30] MEDS: gabapentin 300 mg Capsule PO (20:51)
[2021-11-30] MEDS: atorvastatin 40 mg Tablet 20 MG PO (20:51)
[2021-11-30 21:20] LABS: Glucose Point of Care 145 mg/dL (70-110)
--- NOTE | 2021-11-30 21:24 | PM.PN ---
Subjective Subjective: Patient's son has now tested positive for COVID today. is not experiencing significant symptoms but does feel more tired. Answered questions regarding family isolation. Of note they went to a family reunion a couple of weeks ago. Not heard of other members have been sick or not. Mr. Ritter overall feels better than he did when he came in. Maintaining oxygen saturations. No current chest pain. A screening CT of the lungs was finally scheduled for tomorrow after several months of attempting to arrange. Explained that with acute COVID infection would hold off on getting that screening scan. Scheduling was notified by nursing staff. If we do not do a CAT scan during the course of this hospital stay will facilitate arrangement of rescheduled CT lung screening. Vitals/I&O/Wt Last Vital Signs Temp 98.0 F 11/30/21 20:00 Pulse 65 11/30/21 20:00 Resp 12 11/30/21 20:00 BP 105/50 11/30/21 20:00 Pulse Ox 94 11/30/21 20:00 11/30/21 11/30/21 11/30/21 06:59 14:59 22:59 Intake Total 100 / 1150 290 / 290 460 / 750 Output Total 0 / 0 0 / 0 Balance 100 / 1150 290 / 290 460 / 750 Weight last 48 hrs Weight 108.409 kg Weight 108.409 kg Physical Exam Narrative: Constitutional: Awake and alert, sitting on the side of the bed, pauses when talking but able to carry on conversation HEENT: Dry mucosa Respiratory: Wheezes and crackles noted bilaterally, occasional pursed lip breathing Cardiovascular: Regular, peripheral pulses intact Abdomen: Soft Extremities: No pitting edema Neuro: Speech clear, face symmetric, moves all extremities Data : 11/29/21 19:10 11/29/21 19:10 Micro: Microbiology 11/29/21 20:30 Blood Culture - Preliminary Blood NEGATIVE TO DATE 11/29/21 20:45 Blood Culture - Preliminary Blood NEGATIVE TO DATE 11/30/21 00:00 MRSA Culture - Final Nose A&P Assessment and plan (1) COVID-19: Remdisivir started 11/29 evening Dexamethasone 6mg IVP daily started 11/30 Duoneb q6h, budesonide q12h, continue home dose of revefenacin Empiric cefepime and azithromycin day 1 Previous sputum cultures have been with growth of Pseudomonas and Klebsiella pneumonia Flutter valve/spirometer at bedside Trend inflammatory markers including CRP, D dimer Sputum culture and gram stain, MRSA nasal screen Status: Acute (2) Acute respiratory failure due to COVID-19: Acute respiratory failure as evidenced by hypoxia and new oxygen requirement, tachypnea and intercostal retractions on admission exam. Supplemental O2 to keep saturation 92 to 94%. Scheduled nebulizations as ordered Status: Acute (3) Acute exacerbation of chronic obstructive pulmonary disease: Likely as a result of viral infection with COVID-19. Steroids dexamethasone 6 mg IV push daily [id number] nebulization scheduled. ABG done at at admission, BiPAP if needed Status: Acute (4) alf current use of antiarrhythmic drug: Sotolol, for history of SVT Status: Chronic (5) Diabetes: Chronically on glimiperide and metformin at home Insulin therapy presently Status: Acute Qualifiers: Diabetes mellitus type: type 2 Diabetes mellitus assisted insulin use: without assisted use Diabetes mellitus complication status: with hyperglycemia Qualified Code(s): E11.65 - Type 2 diabetes mellitus with hyperglycemia (6) Coronary artery disease: Chronically on prasugrel, ARB, statin Continue all Status: Acute Qualifiers: Coronary Disease-Associated Artery/Lesion type: [place] artery [place] vs. transplanted heart: [place] heart Associated angina: with unspecified angina Qualified Code(s): I25.119 - Atherosclerotic heart disease of [place] coronary artery with unspecified angina pectoris Plan Hypothyroidism on chronic levothyroxine Add antitussive agents Wean oxygen as able Continue medications and care as noted above Follow-up pending cultures Can repeat inflammatory markers in a couple of days if does not show continued improvement, initial values noted Will need to facilitate rescheduling of screening lung CAT scan as he will miss it due to hospitalization and patient were both given an opportunity to ask questions which were answered #DVT prophylaxis: Lovenox 40 mg subcu daily #GI prophylaxis Protonix 40 mg p.o. daily Anticipate DC home with , will have to evaluate oxygen need Attestations Medical Necessity Statement*: Requires ongoing inpatient stay for care as documented above for COVID with significant comorbid conditions including age, COPD, known cardiovascular disease among others. Coding Level of Care Code Acute Slate Handler for g Fwd Diagnoses COVID-19 U07.1 Acute respiratory failure due to COVID-19 U07.1; J96.00 Acute exacerbation of chronic obstructive pulmonary disease J44.1 alf current use of antiarrhythmic drug Z79.899 Diabetes E11.65 Diabetes mellitus type: type 2 Diabetes mellitus termite inspector insulin use: without termite inspector use Diabetes mellitus complication status: with hyperglycemia Coronary artery disease I25.119 Coronary Disease-Associated Artery/Lesion type: [place] artery [place] vs. transplanted heart: [place] heart Associated angina: with unspecified angina
[2021-11-30] MEDS: enoxaparin 40 mg/0.4 mL Syringe SUBCUT (21:58)
[2021-11-30] MEDS: insulin lispro 100 unit/1 mL SUBCUT (21:59)
[2021-11-30] MEDS: sodium chloride 0.9% (100 ml) 100 ML 10 ML (22:01)
[2021-12-01] VITALS (17 sets, daily range): BP systolic 107–125; BP diastolic 64–76; PULSE 65–89; RESP 12–18; TEMP 36.7–36.9; O2SAT 86–97
[2021-12-01] MEDS: ipratropium-albuterol 3 mL Neb INHALATION ×4 (04:50→20:54)
[2021-12-01 05:20] LABS: Basophils % 0.1 %; Hematocrit 44.3 % (42.0-52.0); Hemoglobin 14.5 g/dL (11.7-16.6); Lymphocytes % 11.5 %; Mean Corpuscular HGB Conc 32.7 g/dL (30.0-36.0); Mean Corpuscular Hemoglobin 28.8 pg (28.0-34.0); Mean Corpuscular Volume 87.9 fl (80-94); Mean Platelet Volume 11.8 fL (7.4-10.4); Monocytes # 0.5 10^3/uL (0.2-0.9); Monocytes % 5.9 %; Neutrophils # 7.11 10^3/uL (1.8-7.7); Neutrophils % 81.8 %; Nucleated Red Blood Cells % 0 %; Platelet Count 182 10^3/cmm (130-400); Red Blood Count 5.04 10^6/uL (4.1-5.3); Red Cell Distribution Width 13.7 % (12.1-15.1); White Blood Count 8.7 10^3/uL (4.0-10.0)
[2021-12-01 05:30] LABS: Alanine Aminotransferase 19 U/L (0-41); Albumin Level 3.5 g/dL (3.5-5.2); Alkaline Phosphatase 87 IU/L (40-130); Anion Gap 12.8 (5-19); Aspartate Amino Transferase 13 U/L (0-40); Blood Urea Nitrogen 12 mg/dL (8-23); Calcium 8.8 mg/dL (8.5-10.5); Carbon Dioxide 30 mmol/L (22-29); Chloride 98 mmol/L (98-107); Creatinine Clr Calc Pharmacy 98.3818; Glomerular Filtration Rate 83.9 mL/min (90-130); Glucose 217 mg/dL (65-115); Osmolality Calculated 288 mOsm/kg (285-295); Potassium 4.8 mmol/L (3.5-5.1); Sodium 136 mmol/L (136-145); Total Bilirubin 0.2 mg/dL (0.15-1.2); Total Protein 6.5 g/dL (6.6-8.7)
--- NOTE | 2021-12-01 05:42 | PC.NURSE ---
effient not given on back order
[2021-12-01 06:16] LABS: Glucose Point of Care 186 mg/dL (70-110)
[2021-12-01] MEDS: cefepime 2,000 MG in sodium chloride 0.9% (plus) 50 ML 100 MG IV ×2 (08:16→20:25)
[2021-12-01] MEDS: sotalol 80 mg Tablet 40 MG PO ×2 (08:17→17:18)
[2021-12-01] MEDS: azithromycin 250 mg Tablet 500 MG PO (08:17)
[2021-12-01] MEDS: losartan 50 mg Tablet PO ×2 (08:18→20:30)
[2021-12-01] MEDS: FUROsemide 20 mg Tablet PO (08:18)
[2021-12-01] MEDS: gabapentin 300 mg Capsule PO ×3 (08:18→20:28)
[2021-12-01] MEDS: pantoprazole DR 40 mg Tablet PO (08:18)
[2021-12-01] MEDS: levothyroxine 200 mcg Tablet PO (08:24)
[2021-12-01] MEDS: insulin lispro 100 unit/1 mL SUBCUT ×3 (08:24→22:59)
[2021-12-01] MEDS: budesonide 0.5 mg/2 mL Neb INHALATION ×2 (08:31→20:54)
[2021-12-01 11:34] LABS: Glucose Point of Care 249 mg/dL (70-110)
[2021-12-01 16:33] LABS: Glucose Point of Care 89 mg/dL (70-110)
[2021-12-01 16:54] LABS: Glucose Point of Care 95 mg/dL (70-110)
[2021-12-01] MEDS: remdesivir 100 MG in sodium chloride 0.9% (100 ml) 100 ML IV (17:26)
[2021-12-01] MEDS: enoxaparin 40 mg/0.4 mL Syringe SUBCUT (20:25)
[2021-12-01] MEDS: atorvastatin 40 mg Tablet 20 MG PO (20:25)
[2021-12-01] MEDS: dexamethasone 4 mg/mL INJ 6 MG IVP (20:26)
[2021-12-01 21:29] LABS: Glucose Point of Care 218 mg/dL (70-110)
--- NOTE | 2021-12-01 23:02 | P.PN_ITS ---
Subjective Subjective: Breathing better. Still requiring 2 L of oxygen by nasal cannula. No new complaints. Starting to get a little bit bored. Blood sugars have been elevated. Medications: Reviewed: Yes Vitals/I&O/Wt Last Vital Signs Temp 98.5 F 12/01/21 19:23 Pulse 68 12/01/21 21:01 Resp 17 12/01/21 20:54 BP 107/76 12/01/21 19:23 Pulse Ox 93 12/01/21 20:54 12/01/21 12/01/21 12/02/21 14:59 22:59 06:59 Intake Total 650 / 650 390 / 1040 Balance 650 / 650 390 / 1040 Weight last 48 hrs Weight 108.409 kg Physical Exam Narrative: Constitutional: Awake and alert, looks less acutely ill but still with cough, no sputum production Respiratory: Wheezes and crackles noted bilaterally, no accessory muscle use Cardiovascular: Regular rhythm Abdomen: Soft, non tender Extremities: No pitting edema Neuro: Speech clear, face symmetric, moves all extremities Data : 12/01/21 05:02 12/01/21 05:02 Other Labs: Liver Function 12/01/21 Range/Units 05:02 Total Bilirubin 0.2 (0.15-1.2) mg/dL AST 13 (0-40) U/L ALT 19 (0-41) U/L Alkaline Phosphatase 87 (40-130) IU/L Albumin 3.5 (3.5-5.2) g/dL Micro: Microbiology 11/29/21 20:30 Blood Culture - Preliminary Blood 11/29/21 20:45 Blood Culture - Preliminary Blood NEGATIVE TO DATE A&P Assessment and plan (1) COVID-19: Remdisivir started 11/29 evening Dexamethasone 6mg IVP daily started 11/30 Duoneb q6h, budesonide q12h, continue home dose of revefenacin Empiric cefepime and azithromycin day 2 Previous sputum cultures have had Pseudomonas and Klebsiella pneumonia Flutter valve/spirometer at bedside Recheck inflammatory markers in morning Blood cultures pending Sputum sample not provided Status: Acute (2) Acute respiratory failure due to COVID-19: Acute respiratory failure as evidenced by hypoxia and new oxygen requirement, t achypnea and intercostal retractions on admission exam. Stable on 2 L Status: Acute (3) Acute exacerbation of chronic obstructive pulmonary disease: Likely as a result of viral infection with COVID-19. Status: Acute (4) pals nurse current use of antiarrhythmic drug: Sotolol, for history of SVT In sinus rhtyhm Status: Chronic (5) Diabetes: Chronically on glimiperide and metformin at home Blood sugars elevated due to steroids Insulin therapy presently Resume glimepiride Continue to hold metformin Status: Acute Qualifiers: Diabetes mellitus type: type 2 Diabetes mellitus patient registration specialist insulin use: without group home use Diabetes mellitus complication status: with hyperglycemia Qualified Code(s): E11.65 - Type 2 diabetes mellitus with hyperglycemia (6) Coronary artery disease: Chronically on prasugrel, ARB, statin Continue all Status: Acute Qualifiers: Coronary Disease-Associated Artery/Lesion type: [place] artery [place] vs. transplanted heart: [place] heart Associated angina: with unspecified angina Qualified Code(s): I25.119 - Atherosclerotic heart disease of [place] coronary artery with unspecified angina pectoris Plan Hypothyroidism on chronic levothyroxine Continue to wean oxygen as able Continue medications and care as noted above Follow-up pending cultures Repeat inflammatory markers in am Adjust antibiotics pending above Anticipate discharge in next couple of days if remains stable though probably with new home oxygen requirement Will need to facilitate rescheduling of screening lung CAT scan as he will miss it due to hospitalization DVT prophylaxis: Lovenox 40 mg subcu daily GI prophylaxis Protonix 40 mg p.o. daily Anticipate DC home with Full Code Attestations Medical Necessity Statement*: Requires ongoing care as described in hospital secondary to comordities, oxygen requirement iin setting of covid Coding Level of Care Code Acute Flame Hardening Machine Operator for [facility] Fwd Diagnoses COVID-19 U07.1 Acute respiratory failure due to COVID-19 U07.1; J96.00 Acute exacerbation of chronic obstructive pulmonary disease J44.1 pals nurse current use of antiarrhythmic drug Z79.899 Diabetes E11.65 Diabetes mellitus type: type 2 Diabetes mellitus group home insulin use: without group home use Diabetes mellitus complication status: with hyperglycemia Coronary artery disease I25.119 Coronary Disease-Associated Artery/Lesion type: [place] artery [place] vs. transplanted heart: [place] heart Associated angina: with unspecified angina
[2021-12-02] VITALS (7 sets, daily range): BP systolic 100–125; BP diastolic 58–78; PULSE 62–79; RESP 16–18; TEMP 36.4–37; O2SAT 91–98
[2021-12-02] MEDS: ipratropium-albuterol 3 mL Neb INHALATION ×2 (02:39→09:03)
--- NOTE | 2021-12-02 05:07 | PC.NURSE ---
patient resting in bed with eyes closed. has no complaints at this time. patient is tolerating treatment well
[2021-12-02] MEDS: glimepiride 2 mg Tablet PO (05:39)
[2021-12-02 05:40] LABS: D Dimer 0.44 ug/mIFEU (0-0.59)
[2021-12-02 05:49] LABS: C Reactive Protein 9.1 mg/L (0.0-4.9)
[2021-12-02 05:56] LABS: Procalcitonin 0.05 ng/mL (0-0.5)
[2021-12-02 06:32] LABS: Glucose Point of Care 203 mg/dL (70-110)
[2021-12-02] MEDS: sotalol 80 mg Tablet 40 MG PO (08:24)
[2021-12-02] MEDS: gabapentin 300 mg Capsule PO (08:24)
[2021-12-02] MEDS: FUROsemide 20 mg Tablet PO (08:24)
[2021-12-02] MEDS: levothyroxine 200 mcg Tablet PO (08:24)
[2021-12-02] MEDS: pantoprazole DR 40 mg Tablet PO (08:24)
[2021-12-02] MEDS: losartan 50 mg Tablet PO (08:24)
[2021-12-02] MEDS: cefepime 2,000 MG in sodium chloride 0.9% (plus) 50 ML 100 MG IV (08:25)
[2021-12-02] MEDS: azithromycin 250 mg Tablet 500 MG PO (08:36)
[2021-12-02] MEDS: insulin lispro 100 unit/1 mL SUBCUT ×2 (08:37→12:23)
[2021-12-02] MEDS: budesonide 0.5 mg/2 mL Neb INHALATION (09:03)
[2021-12-02 11:08] LABS: Glucose Point of Care 214 mg/dL (70-110)
--- NOTE | 2021-12-02 11:40 | PC.SOCIAL ---
IMM Update pg 2 of IMM updated and reviewed w/ patient. Copy provided and Copy placed in chart. Initialed and dated.
[2021-12-02] MEDS: remdesivir 100 MG in sodium chloride 0.9% (100 ml) 100 ML IV (12:23)
--- NOTE | 2021-12-02 14:18 | P.DS_ITS ---
Discharge Providers Date of Admission: 11/29/21 21:25 Date of Discharge: December 02, 2021 Attending Provider at Admission: Dayna Ching MD Attending Provider at Discharge: Amaya Britt MD Primary Care Provider: Ab Grubbs DO Diagnoses at Discharge Discharge Diagnosis (1) COVID-19: Status: Acute (2) Acute respiratory failure due to COVID-19: Status: Resolved (3) Acute exacerbation of chronic obstructive pulmonary disease: Status: Resolved (4) [facility] current use of antiarrhythmic drug: Status: Chronic Permanent problem details: sotolol (5) Diabetes: Status: Acute Qualifiers: Diabetes mellitus complication status: with hyperglycemia Diabetes mellitus moth exterminator insulin use: without long-term use Diabetes mellitus type: type 2 Qualified Code(s): E11.65 - Type 2 diabetes mellitus with hyperglycemia (6) Coronary artery disease: Status: Acute Qualifiers: Associated angina: with unspecified angina Coronary Disease-Associated Artery/Lesion type: [place] artery [place] vs. transplanted heart: [place] heart Qualified Code(s): I25.119 - Atherosclerotic heart disease of [place] coronary artery with unspecified angina pectoris Reason for Visit Reason for Visit: sob, bp low Brief History: From H&P Vega Wilcox is a 66 year old male with a past medical history of COPD, not typically on home oxygen, coronary artery disease, AAA, SVT, currently active smoker presenting to the emergency room with worsening dyspnea over the past week.? States he is also had increased cough and expectoration and feels short of breath on less than usual activity.? He is noted to have a new oxygen requirement of 2 L/min.? He has been using his inhalers at home without any significant relief.? He is found to be COVID-19 positive on a rapid antigen test today.? Chest x-ray shows presence of bilateral infiltrates.? Denies any chest pain palpitations or syncope. Hospital Course Hospital Course Mr. Ritter was admitted to medical bed. He was continued on oxygen and started on remdesivir and dexamethasone. Additionally he was empirically covered with antibiotics. He has a history of prior sputum growing out Klebsiella and Pseudomonas. Improved over the next few days but continued to have oxygen requirement. He received a total of 3 days of remdesivir and dexamethasone. He is chronically on steroids. We will resume them at a higher dose than his usual for a couple of days as a transition back down to his scheduled 5 mg daily. At the time of discharge, patient was breathing easier still had a cough and was compliant with his O2. He had a regular rhythm. Was able to attend to his basic ADLs. I did discharge him on Augmentin and azithromycin. Blood cultures grew out micrococcus species, suspected to be contamination. Sputum culture was never able to be produced at this time. Patient and his were given an opportunity to ask questions prior to discharge. Isolation instructions were also provided. Patient was encouraged to quit smoking. Discharge Data Studies Completed and Pending Completed Studies During Hospitalization Category Date Time Status XR chest 1V portable [id number] Stat Exams 11/29/21 18:03 Completed Pending at discharge Category Date Time Status ABG ONLY [Arterial Blood Gas W/O Coox] Stat Lab 11/29/21 19:26 Results Blood Culture Stat Lab 11/29/21 20:45 Results Sputum Culture and Gram Stain Routine Lab 11/29/21 21:49 Uncollected Radiology Impressions Chest X-Ray 11/29/21 18:03 IMPRESSION: 1. Emphysematous changes. 2. Possible trace bilateral pleural effusions. 3. Left lung patchy atelectasis versus minimal infiltrate. Laboratory Results WBC 8.7 10^3/uL (4.0-10.0) 12/01/21 05:02 RBC 5.04 10^6/uL (4.1-5.3) 12/01/21 05:02 Hgb 14.5 g/dL (11.7-16.6) 12/01/21 05:02 Hct 44.3 % (42.0-52.0) 12/01/21 05:02 MCV 87.9 fl (80-94) 12/01/21 05:02 MCH 28.8 pg (28.0-34.0) 12/01/21 05:02 MCHC 32.7 g/dL (30.0-36.0) 12/01/21 05:02 RDW 13.7 % (12.1-15.1) 12/01/21 05:02 Plt Count 182 10^3/cmm (130-400) 12/01/21 05:02 MPV 11.8 fL (7.4-10.4) H 12/01/21 05:02 Neut % (Auto) 81.8 % 12/01/21 05:02 Lymph % (Auto) 11.5 % 12/01/21 05:02 [place] % (Auto) 5.9 % 12/01/21 05:02 Eos % (Auto) 0.0 % 12/01/21 05:02 Baso % (Auto) 0.1 % 12/01/21 05:02 Neut # (Auto) 7.11 10^3/uL (1.8-7.7) 12/01/21 05:02 Lymph # (Auto) 1.0 10^3/uL (0.8-4.8) 12/01/21 05:02 [place] # (Auto) 0.5 10^3/uL (0.2-0.9) 12/01/21 05:02 Eos # (Auto) 0.0 10^3/uL (0.0-0.8) 12/01/21 05:02 Baso # (Auto) 0.0 10^3/uL (0.0-0.1) 12/01/21 05:02 Nucleated RBC % (auto) 0 % 12/01/21 05:02 Nucleated RBCs # 0.0 /100WBC 12/01/21 05:02 D-Dimer 0.44 ug/mIFEU (0-0.59) 12/02/21 04:40 Specimen Type Arterial 11/29/21 19:26 Sample Site Radial, left 11/29/21 19:26 ABG pH 7.40 (7.35-7.45) 11/29/21 19:26 ABG pCO2 45.8 mmHg (35-45) H 11/29/21 19:26 ABG pO2 53.2 mmHg (80.0-100.0) L 11/29/21 19:26 ABG HCO3 28.2 mmol/L (22-26) H 11/29/21 19:26 ABG Base Excess 2.6 mmol/L (-2.0-2.0) H 11/29/21 19:26 Drew Test Pos 11/29/21 19:26 Hematocrit 48.9 % (42-52) 11/29/21 19:26 FiO2 21.0 % 11/29/21 19:26 Transmission Calibration Engineer ID [place] 11/29/21 19:26 Sodium 136 mmol/L (136-145) 12/01/21 05:02 Potassium 4.8 mmol/L (3.5-5.1) 12/01/21 05:02 Chloride 98 mmol/L (98-107) 12/01/21 05:02 Carbon Dioxide 30 mmol/L (22-29) H 12/01/21 05:02 Anion Gap 12.8 (5-19) 12/01/21 05:02 BUN 12 mg/dL (8-23) 12/01/21 05:02 Creatinine 0.9 mg/dL (0.7-1.2) 12/01/21 05:02 GFR Calculation 83.9 mL/min (90-130) L 12/01/21 05:02 Glucose 217 mg/dL (65-115) H 12/01/21 05:02 POC Glucose 214 mg/dL (70-110) H 12/02/21 11:02 Calculated Osmolality 288 mOsm/kg (285-295) 12/01/21 05:02 Lactate 1.8 mmol/L (0.5-2.2) 11/29/21 19:10 Calcium 8.8 mg/dL (8.5-10.5) 12/01/21 05:02 Total Bilirubin 0.2 mg/dL (0.15-1.2) 12/01/21 05:02 AST 13 U/L (0-40) 12/01/21 05:02 ALT 19 U/L (0-41) 12/01/21 05:02 Alkaline Phosphatase 87 IU/L (40-130) 12/01/21 05:02 Troponin T Baseline 9 ng/L (0-15) 11/29/21 19:10 Troponin T 120 Minute 8.97 ng/L (0-15) 11/29/21 21:50 Delta Troponin T -0.03 ABS# (0-10) L 11/29/21 21:50 Troponin T Hi Sens 6Hr 6.96 ng/L (0-15) 11/30/21 02:07 Troponin T Hi Sens 6Hr Delta -2.04 ng/L (0-12) L 11/30/21 02:07 C-Reactive Protein 9.1 mg/L (0.0-4.9) H 12/02/21 04:40 NT-Pro-B Natriuret Pep 155 pg/mL (0-125) H 11/29/21 19:10 Total Protein 6.5 g/dL (6.6-8.7) L 12/01/21 05:02 Albumin 3.5 g/dL (3.5-5.2) 12/01/21 05:02 Globulin 3.0 g/dL (1.3-4.6) 12/01/21 05:02 Procalcitonin 0.05 ng/mL (0-0.5) 12/02/21 04:40 Influenza Type A Ag Negative (Negative) 11/29/21 19:41 Influenza Type B Ag Negative (Negative) 11/29/21 19:41 SARS-CoV-2 Ag (Rapid) Positive (Negative) H 11/29/21 19:41 Vitals Last Vital Signs Temp 97.7 F 12/02/21 11:49 Pulse 73 12/02/21 11:49 Resp 18 12/02/21 11:49 BP 100/58 12/02/21 11:49 Pulse Ox 91 12/02/21 11:49 Discharge Plan Discharge Patient Disposition: Home Condition: Stable Prescriptions: New acetaminophen 325 mg Tablet 650 mg PO Q6H PRN (Reason: Mild/Mod Pain Or Temp >/= 101) Qty: 0 0RF azithromycin 250 mg Tablet 500 mg PO DAILY Qty: 3 0RF guaifenesin 100 mg/5 mL Liquid 400 mg PO Q4H PRN (Reason: Cough) Qty: 0 0RF amoxicillin-pot clavulanate 875-125 mg tablet 1 tab PO BID Qty: 10 0RF Continued metformin 500 mg tablet 500 mg PO DAILY@08 0RF Hold Instructions: Resume on 10/09/20. losartan 50 mg tablet 50 mg PO BID@08,20 0RF nitroglycerin 0.4 mg tablet, sublingual 0.4 mg sublingual Q5M PRN (Reason: chest pain) 30 Days Qty: 30 3RF Rx Instructions: until response; do not exceed 3 doses per episode levothyroxine 200 mcg capsule 200 mcg PO DAILY 0RF glimepiride 2 mg tablet 2 mg PO QAM 0RF furosemide 20 mg tablet 20 mg PO DAILY@0800 0RF revefenacin [Yupelri] 175 mcg/3 mL solution for nebulization See Rx Instructions .ROUTE .COMPLEX Qty: 30 11RF Dose Instruction: USE 1 VIAL IN NEBULIZER DAILY - DO NOT MIX WITH OTHER NEB MEDS,USE BEFORE OR AFTER Rx Instructions: USE 1 VIAL IN NEBULIZER DAILY - DO NOT MIX WITH OTHER NEB MEDS,USE BEFORE OR AFTER Magtab 84 mg tablet extended release 168 mg PO QAM Qty: 100 3RF atorvastatin 20 mg tablet 20 mg PO DAILY@2100 0RF albuterol sulfate 90 mcg/actuation HFA aerosol inhaler 2 inh inhalation Q8H PRN (Reason: shortness of breath or wheezing) Qty: 8.5 0RF levothyroxine 100 mcg tablet 100 mcg PO DAILY 0RF sotalol 80 mg Tablet 40 mg PO BID 30 Days Qty: 60 3RF budesonide [Pulmicort] 0.5 mg/2 mL suspension for nebulization 0.5 mg inhalation BID@08,20 0RF formoterol fumarate [Perforomist] 20 mcg/2 mL solution for nebulization 2 ml inhalation BID@08,20 0RF omeprazole 40 mg capsule,delayed release(DR/EC) 40 mg PO DAILY@2000 0RF prasugrel 10 mg tablet 10 mg PO QAM 0RF benzonatate 100 mg Capsule 100 mg PO TID PRN (Reason: Cough) 0RF gabapentin 300 mg capsule 300 mg PO TID 0RF Changed prednisone 5 mg tablet 5 mg PO DIRECTED Qty: 40 0RF Discharge Orders: Discharge Order (Routine); Ordered 12/02/21 Ordered By: Amaya Britt Other Ambulatory Orders: DME: Oxygen (Order) Location: None Selected Ordered By: Amaya Britt Referrals: Ab Grubbs, [Primary Care Provider] - 7-10 days (Please call Dr. Trenton rosas's Office at [phone] on Saturday to schedule a follow up appointment for 7-10 days. Thank you.) Discharge Diet: Advance as tolerated Discharge Activity: Increase activity as tolerated and Oxygen as instructed Patient Instructions: Acetaminophen (By mouth) (Acetaminophen Children's, Acetaminophen..., Prednisone (By mouth), Guaifenesin (By mouth) (Allfen, Antitussin, Chest Congestion..., Amoxicillin/Clavulanate Potassium (By mouth) (Augmentin, Augmentin..., Azithromycin (By mouth) (Zithromax, Zithromax [place], Zithromax..., Using Oxygen at Home (DC), Opioid Safety Activity Restrictions/Additional Instructions: You presented to the emergency room recent increase in cough, difficulty breathing particularly with exertion. You were found to be COVID-19 positive on a rapid antigen test. Your blood oxygen levels were low. You were admitted to the hospital for treatment. You received 3 days of remdesivir and dexametha sone. Antibiotics were empirically started given history of Pseudomonas and Klebsiella in sputum cultures in the past. Arrangements were made for home oxygen therapy. At this point, management for COVID-19 is predominantly supportive with cough medicine, fever control, rest and continued oxygen therapy. You are strongly encouraged to quit smoking to help recovery also. Resume your usual prednisone and breathing medications. Antibiotics have been ordered as listed. Follow-up with primary care provider in 1 to 2 weeks or sooner if not improving. If your breathing gets acutely worse, you have chest pain or change in your mental status or other concerning symptoms, come back to the emergency room or call 911. Use oxygen as prescribed. Do not smoke while using oxygen or have oxygen around open flame. Use flutter and spirometry devices as directed. You should isolate from others to minimize spread of COVID as we discussed. Discharge Attestations Time Spent in Discharge Care*: greater than 30 min Specific Discharge Activities: educating patient, educating and/or supporting family/caregiver, discussing with case technician/social workers/dc planners, documenting/other paperwork and evaluating patient/reviewing data Status at Discharge: Cognitive status at discharge: cognitively intact , Behavioral status at discharge: cooperative , Quality Metrics Clinical Quality Measures [ No reported AMI, CVA or VTE this stay] Coding Level of Care Code Acute [facility] note Diagnoses COVID-19 U07.1 Acute respiratory failure due to COVID-19 U07.1; J96.00 Acute exacerbation of chronic obstructive pulmonary disease J44.1 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 transplanted heart: [place] heart
== END 2021-12-02 15:21 | disposition home or self-care (01) | DRG 177 ==
LOC: ER 21:44 → MEDSURG 23:48
PROVIDERS: Emergency Medicine; Admitting Provider Student in an Organized Health Care Education/Training Program; Emergency Provider Emergency Medicine; PCP Electrodiagnostic Medicine; Visit Provider Hospitalist
DX: U07.1 COVID-19 (principal); J12.82 Pneumonia due to coronavirus disease 2019; J96.01 Acute respiratory failure with hypoxia; J44.1 Chronic obstructive pulmonary disease with (acute) exacerbation; I47.1 Supraventricular tachycardia; Z23 Encounter for immunization; I25.2 Old myocardial infarction; I71.4 Abdominal aortic aneurysm, without rupture; E03.9 Hypothyroidism, unspecified; I25.10 Atherosclerotic heart disease of native coronary artery without angina pectoris; E11.65 Type 2 diabetes mellitus with hyperglycemia; I10 Essential (primary) hypertension; K21.9 Gastro-esophageal reflux disease without esophagitis; E78.5 Hyperlipidemia, unspecified; E66.9 Obesity, unspecified; Z68.33 Body mass index [BMI] 33.0-33.9, adult; F17.210 Nicotine dependence, cigarettes, uncomplicated; Z79.51 Long term (current) use of inhaled steroids; Z79.84 Long term (current) use of oral hypoglycemic drugs
CPT/HCPCS: 36415; 36416; 36600; 71045; 80053; 82803; 82962; 83605; 83880; 84145; 84484; 85025; 85378; 86140; 87040; 87426; 87641; 87804; 93005; 94640; 96365; 96366; 96367; 96372; 96375; 99285; J0692; J1100; J1650; J1815; J7030; J7626; Q0144

== ENCOUNTER 2021-12-26 10:15 | Outpatient (CLI) | payer MEDICARE, OTHER, SELFPAY ==
--- NOTE | 2021-12-26 10:00 | CT_ITS ---
WS: [id number] LDCT LUNG CANCER SCREENING TECHNIQUE: Noncontrast CT of the chest with coronal and sagittal reformatted images. CLINICAL INFORMATION: Lung cancer screening COMPARISON: CT chest March 03, 2020 DLP: 88.14 mGy.cm DIvol: Mean CTDIvol: 1.60 (mGy) All CT scans at [facility] use at least one of these dose optimization techniques: automat ed exposure control; mA and/or kV adjustment per patient size (includes targeted exams where dose is matched to clinical indication); or iterative reconstruction. FINDINGS:LEFT lower lobe pulmonary nodule is increased in size since measuring approximate ly 10.2 mm in maximum dimension. Recommend further evaluation with PET/CT. Adjacent feeding vessel. Moderate chronic emphysematous changes. No mediastinal or hilar lymphadenopathy. A few calcified gran ulomas. Subsegmental atelectasis in the lingula. Normal caliber thoracic aorta. No mediastinal or hil ar lymphadenopathy. Mild aortic calcification. A few calcified hilar and subcarinal lymph nodes. No axillary lymphadenopathy. Adrenal glands are normal. Mild thoracic curve. Mild thoracic kyphosis. Hypertrophic changes thoracic spine. CT/CT lung screening [id number] IMPRESSION: Increasing LEFT lower lobe pulmonary nodule measuring 10.2 mm. Wilfrido mmend further evaluation PET/CT LUNG-RADS: 4B-Suspicious FOLLOW UP: PET/CT recommended
== END 2021-12-26 10:16 | disposition home or self-care (01) ==
LOC: RAD 10:16
PROVIDERS: PCP Family Medicine; Visit Provider Internal Medicine Critical Care Medicine
DX: Z12.2 Encounter for screening for malignant neoplasm of respiratory organs (principal); F17.210 Nicotine dependence, cigarettes, uncomplicated
CPT/HCPCS: 71271

== ENCOUNTER → 2022-01-02 13:49 | Outpatient (BNVA) | payer MEDICARE, OTHER, SELFPAY | PROVIDERS: PCP Family Medicine; Visit Provider Internal Medicine Cardiovascular Disease | DX: I25.118 Atherosclerotic heart disease of native coronary artery with other forms of angina pectoris (principal); E11.65 Type 2 diabetes mellitus with hyperglycemia; Z79.84 Long term (current) use of oral hypoglycemic drugs; E03.9 Hypothyroidism, unspecified; J44.9 Chronic obstructive pulmonary disease, unspecified; I47.2 Ventricular tachycardia; I10 Essential (primary) hypertension; Z87.891 Personal history of nicotine dependence | CPT/HCPCS: 93005; 99214 ==

== ENCOUNTER → 2022-02-23 10:40 | Outpatient (BNVA) | payer MEDICARE, OTHER, SELFPAY | PROVIDERS: PCP Family Medicine; Visit Provider Internal Medicine Critical Care Medicine | DX: J43.2 Centrilobular emphysema (principal); R91.1 Solitary pulmonary nodule; I25.119 Atherosclerotic heart disease of native coronary artery with unspecified angina pectoris; F17.210 Nicotine dependence, cigarettes, uncomplicated; Z95.5 Presence of coronary angioplasty implant and graft | CPT/HCPCS: 99214 ==

== ENCOUNTER 2022-03-15 12:00 | Outpatient (CLI) | payer MEDICARE, OTHER, SELFPAY | END 2022-03-15 12:01 | disposition home or self-care (01) | LOC: SLEEP 03-19 07:46 | PROVIDERS: PCP Family Medicine; Visit Provider Internal Medicine Critical Care Medicine | DX: J44.9 Chronic obstructive pulmonary disease, unspecified (principal) | CPT/HCPCS: 94762; 95810 ==

== ENCOUNTER 2022-04-23 07:01 | Inpatient (IN) | payer MEDICARE, OTHER, SELFPAY ==
[2022-04-23] VITALS (20 sets, daily range): BP systolic 94–138; BP diastolic 64–83; PULSE 64–137; RESP 16–28; TEMP 35.8–36.7; O2SAT 79–97
--- NOTE | 2022-04-23 07:09 | ED_ITS ---
HPI - SOB/Dyspnea General: Chief Complaint: Shortness of Breath/Dyspnea Stated Complaint: SOB, possible low O2 Time Seen by Provider: 04/23/22 07:08 Source: patient Mode of arrival: ambulatory History of Present Illness: HPI Narrative: 66-year-old male presents emergency room with increasing shortness of breath over the last few days. He had increasing oxygenating on arrival here he is on 76% on room air. He is a former smoker. He has some chest discomfort radiating into his back his known history of coronary artery disease as well. He denies any fever sweats or chills or any productive cough. He has a history of aortic aneurysm and aortic root dilation. On arrival here he is labored breathing with decreased breath sounds. He is not used any nebulizers at home. MD elicited complaint: shortness of breath Pertinent past history: COPD Onset (ago): day(s) (2) Timing: constant Severity: moderate Exacerbating factors: exertion Relieving factors: nothing Known history of: COPD Associated symptoms: Reports chest congestion, chest pain, cough and orthopnea; Deny abdominal pain, diaphoresis, dizziness, extremity pain, fever(s), hemoptysi s, lightheadedness, myalgias, nausea, palpitations, paresthesias, polydipsia, polyuria, rash, sense of impending doom, syncope or vomiting Treatment prior to arrival: bronchodilator Review of Systems Const: Reports: fatigue; Denies: fever(s), chills, malaise or diaphoresis ENMT: Denies: throat pain, ear or mastoid pain, nasal discharge or nasal congestion Card: Reports: chest pain and orthopnea; Denies: palpitations, lightheadedness or syncope Resp: Reports: dyspnea, non-productive cough, wheezing and chest congestion; Denies: productive cough or hemoptysis GI: Denies: abdominal pain, nausea or vomiting : Denies: flank pain, dysuria, urinary frequency or urinary urgency Musc: Reports: back pain; Denies: extremity pain Skin/Breast: Denies: rash or pruritus Neuro: Denies: headache(s), numbness in extremities, weakness in extremities or dizziness Endo: Denies: polyuria or polydipsia PFS ED PFSH: Medical History AAA (abdominal aortic aneurysm) without rupture Allergic rhinitis Aortic root dilation Stable Atherosclerotic heart disease of [place] coronary artery with other forms of angina pectoris Atypical chest pain Bradycardia Cognitive impairment COPD (chronic obstructive pulmonary disease) COVID-19 DDD (degenerative disc disease) Diabetes Essential (primary) hypertension GERD (gastroesophageal reflux disease) Hyperlipidemia Hypothyroidism Intervertebral disc disorders with radiculopathy, lumbosacral region Lumbar disc disease with radiculopathy Obesity Scoliosis of lumbar region due to degenerative disease of spine in adult SVT (supraventricular tachycardia) Testicular mass Thoracic aortic aneurysm, without rupture Surgical History H/O hernia repair History of PTCA Hx of heart artery stent Family History Mother , AT AGE 69 Diabetes, Onset Age: 69 Father , AT AGE 80 Cancer, Onset Age: 80 Lung Heart disease Lung disease Brother Diabetes Other Lupus Social History Smoking and tobacco status: current every day smoker (1 ppd) cigarettes Packs smoked per day: 1 Years cigarettes smoked: 1 [ Other cigarette details: smoked 2 ppd for 50 years and quit for 3 years. Started smoking at 14 years] Quit status (tobacco): has quit using tobacco Year quit tobacco: 2019 - 2PPD x 50 Years Smoking risk assessment/counseling performed?: No Alcohol intake: never Counseling given: No Counseling given: No Lives independently: Yes Household members: spouse Marital status: Current occupational status: disabled History of recent travel: No Current gender identity: Male Physical Exam Const: COMMON NORMALS: no acute distress GENERAL APPEARANCE: cooperative and comfortable ORIENTATION/CONSCIOUSNESS: Yes awake, Yes oriented to person, Yes oriented to place and Yes oriented to time HENMT: COMMON NORMALS: normocephalic, atraumatic and hearing grossly normal bilaterally HEAD & SCALP: normocephalic and atraumatic Resp: EFFORT & INSPECTION: Yes tachypneic, Yes labored and Yes uses accessory muscles AUSCULTATION: wheezes and diminished lung sounds Cardio: COMMON NORMALS: regular rate, regular rhythm and No murmurs present (Cardio) RATE: regular rate RHYTHM: regular rhythm GI: COMMON NORMALS: Soft to palpation and No hepatosplenomegaly present AUSCULTATION: Yes normoactive bowel sounds PALPATION: Yes Soft to palpation, No Tenderness to palpation present (GI), No Guarding due to palpation present (GI) and Yes No hepatosplenomegaly present Extremity: COMMON NORMALS: normal to inspection, capillary refill normal, no clubbing, cyanosis or edema, no calf tenderness and no pedal edema Neuro: SENSORIUM/ORIENTATION: Yes oriented to person, Yes oriented to place and Yes oriented to time Skin: COMMON NORMALS: no rashes or lesions noted GENERAL SKIN EXAM: no rashes or lesions noted Course Vital Signs: Vital signs: Vital Signs Temperature 96.5 F L 04/23/22 07:12 Pulse Rate 78 04/23/22 11:57 Respiratory Rate 18 04/23/22 09:38 Blood Pressure 120/77 04/23/22 11:57 Pulse Oximetry 96 04/23/22 11:57 Oxygen Delivery Me thod 04/23/22 08:42 Oxygen Flow Rate 6 04/23/22 07:27 Fraction of Inspir ed Oxygen 35 04/23/22 11:02 MDM - SOB/Dyspnea Medical Decision Making Laceration of COPD. Patient has a history of aneurysms the CT was done there is no sign of any dissecting aneurysm or change. He is requiring BiPAP. He is having little difficulty with BiPAP so I gave him Ativan. He is having hyperca pnic respiratory failure discussed with hospitalist orders written Medical Records I reviewed the patient's medical records. Lab Data I reviewed the patient's lab results. 04/23/22 07:40 04/23/22 07:40 Labs/Radiology: Radiology Impressions Chest CTA 04/23/22 07:13 IMPRESSION: 1. No pulmonary embolism. 2. No pneumonia. 3. No increase in size 8mm noncalcified LEFT lower lobe pulmonary nodule. Nodule has increased by 3 to 4 mm since 2019. Recommend continued six-month [facility] CT surveillance. Nodule was indeterminate on a PET/CT of 01/13/2022. Chest X-Ray 04/23/22 07:13 IMPRESSION: 1. Moderate chronic emphysema. 2. No pneumonia. Laboratory Results WBC 8.5 10^3/uL (4.0-10.0) 04/23/22 07:40 RBC 5.68 10^6/uL (4.1-5.3) H 04/23/22 07:40 Hgb 16.4 g/dL (11.7-16.6) 04/23/22 07:40 Hct 52.6 % (42.0-52.0) H 04/23/22 07:40 MCV 92.6 fl (80-94) 04/23/22 07:40 MCH 28.9 pg (28.0-34.0) 04/23/22 07:40 MCHC 31.2 g/dL (30.0-36.0) 04/23/22 07:40 RDW 13.0 % (12.1-15.1) 04/23/22 07:40 Plt Count 172 10^3/cmm (130-400) 04/23/22 07:40 MPV 11.5 fL (7.4-10.4) H 04/23/22 07:40 Neut % (Auto) 62.3 % 04/23/22 07:40 Lymph % (Auto) 21.2 % 04/23/22 07:40 [place] % (Auto) 13.9 % 04/23/22 07:40 Eos % (Auto) 1.9 % 04/23/22 07:40 Baso % (Auto) 0.5 % 04/23/22 07:40 Neut # (Auto) 5.32 10^3/uL (1.8-7.7) 04/23/22 07:40 Lymph # (Auto) 1.8 10^3/uL (0.8-4.8) 04/23/22 07:40 [place] # (Auto) 1.2 10^3/uL (0.2-0.9) H 04/23/22 07:40 Eos # (Auto) 0.2 10^3/uL (0.0-0.8) 04/23/22 07:40 Baso # (Auto) 0.0 10^3/uL (0.0-0.1) 04/23/22 07:40 Nucleated RBC % (auto) 0 % 04/23/22 07:40 Nucleated RBCs # 0.0 /100WBC 04/23/22 07:40 Specimen Type Arterial 04/23/22 09:19 Sample Site Brachial, left 04/23/22 09:19 ABG pH 7.34 (7.35-7.45) L 04/23/22 09:19 ABG pCO2 62.8 mmHg (35-45) H* 04/23/22 09:19 ABG pO2 67.2 mmHg (80.0-100.0) L 04/23/22 09:19 ABG HCO3 33.6 mmol/L (22-26) H 04/23/22 09:19 ABG O2 Saturation 93.9 04/23/22 09:19 ABG Base Excess 5.4 mmol/L (-2.0-2.0) H 04/23/22 09:19 Drew Test N/a 04/23/22 09:19 A-a O2 Gradient 13.7 mmHg (5-10) H 04/23/22 09:19 Hematocrit 48.6 % (42-52) 04/23/22 09:19 Hgb O2 Saturation 91.1 % (95-100) L 04/23/22 09:19 Carboxyhemoglobin 2.1 %THgb (0.4-20.1) 04/23/22 09:19 Methemoglobin 0.8 % (0.4-1.5) 04/23/22 09:19 Total Hemoglobin 15.9 g/dL (14-18) 04/23/22 09:19 Sodium 136.0 mmol/L (131-143) 04/23/22 09:19 Potassium 4.5 mmol/L (3.5-5.0) 04/23/22 09:19 Glucose 173.0 mg/dL (70-115) H 04/23/22 09:19 Ionized Calcium 1.2 mmol/L (1.1-1.4) 04/23/22 09:19 O2 Delivery Device Bipap 04/23/22 09:19 O2 Liters/Min 6.0 % 04/23/22 07:25 FiO2 35.0 % 04/23/22 09:19 Natural Sciences Manager ID Amh 04/23/22 09:19 Sodium 132 mmol/L (136-145) L 04/23/22 07:40 Potassium 4.2 mmol/L (3.5-5.1) 04/23/22 07:40 Chloride 93 mmol/L (98-107) L 04/23/22 07:40 Carbon Dioxide 31 mmol/L (22-29) H 04/23/22 07:40 Anion Gap 12.2 (5-19) 04/23/22 07:40 BUN 11 mg/dL (8-23) 04/23/22 07:40 Creatinine 0.9 mg/dL (0.7-1.2) 04/23/22 07:40 GFR Calculation 83.9 mL/min (90-130) L 04/23/22 07:40 Glucose 175 mg/dL (65-115) H 04/23/22 07:40 Calculated Osmolality 278 mOsm/kg (285-295) L 04/23/22 07:40 Calcium 9.3 mg/dL (8.5-10.5) 04/23/22 07:40 Total Bilirubin 0.3 mg/dL (0.15-1.2) 04/23/22 07:40 AST 15 U/L (0-40) 04/23/22 07:40 ALT 19 U/L (0-41) 04/23/22 07:40 Alkaline Phosphatase 111 U/L (40-130) 04/23/22 07:40 Troponin T Baseline 10 ng/L (0-15) 04/23/22 07:40 Troponin T 120 Minute 8.64 ng/L (0-15) 04/23/22 09:29 Delta Troponin T -1.36 ABS# (0-10) L 04/23/22 09:29 NT-Pro-B Natriuret Pep 179 pg/mL (0-125) H 04/23/22 07:40 Total Protein 7.3 g/dL (6.6-8.7) 04/23/22 07:40 Albumin 3.7 g/dL (3.5-5.2) 04/23/22 07:40 Globulin 3.6 g/dL (1.3-4.6) 04/23/22 07:40 Urine Color Yellow (Yellow) 04/23/22 08:38 Urine Appearance Clear (CLEAR) 04/23/22 08:38 Urine pH 5 (5-7) 04/23/22 08:38 Ur Specific [place] 1.015 (1.005-1.030) 04/23/22 08:38 Urine Protein Trace (Negative) 04/23/22 08:38 Urine Glucose (UA) Norm (Normal) 04/23/22 08:38 Urine Ketones Negative (Negative) 04/23/22 08:38 Urine Blood Neg (Negative) 04/23/22 08:38 Urine Nitrate Negative (Negative) 04/23/22 08:38 Urine Bilirubin Neg (Negative) 04/23/22 08:38 Urine Urobilinogen Norm mg/dL (Negative) 04/23/22 08:38 Ur Leukocyte Esterase Negative (Negative) 04/23/22 08:38 Urine RBC None /hpf (0-2) 04/23/22 08:38 Urine WBC None /hpf (0-5) 04/23/22 08:38 Ur Squamous Epith Cells 0-4 /hpf (0-5) H 04/23/22 08:38 Amorphous Sediment Not Reportable 04/23/22 08:38 Urine Bacteria None /hpf (NONE) 04/23/22 08:38 Influenza Type A Ag negative (Negative) 04/23/22 07:40 Influenza Type B Ag negative (Negative) 04/23/22 07:40 Discharge Plan Discharge Patient Disposition: Admitted As Inpatient Clinical Impression: Acute exacerbation of chronic obstructive airways disease, Acute hypercapnic respiratory failure Condition: Stable Prescriptions: No Action metformin 500 mg tablet 500 mg PO DAILY@08 Hold Instructions: Resume on 10/09/20. nitroglycerin 0.4 mg tablet, sublingual 0.4 mg sublingual Q5M PRN (Reason: chest pain) 30 Days Qty: 30 3RF Rx Instructions: until response; do not exceed 3 doses per episode levothyroxine 200 mcg capsule 200 mcg PO DAILY glimepiride 2 mg tablet 2 mg PO QAM furosemide 20 mg tablet 20 mg PO DAILY@0800 sotalol 80 mg tablet 40 mg PO BID 30 Days Qty: 60 3RF prasugrel 10 mg tablet 10 mg PO QAM Qty: 90 3RF budesonide-formoterol [Symbicort] 160-4.5 mcg/actuation HFA aerosol inhaler 2 puff inhalation BID Qty: 10.2 3RF Magtab 84 mg tablet extended release 168 mg PO QAM Qty: 100 3RF losartan 50 mg tablet 50 mg PO BID@08,20 Qty: 180 3RF atorvastatin 20 mg tablet 20 mg PO DAILY@2100 albuterol sulfate 90 mcg/actuation HFA aerosol inhaler 2 inh inhalation Q8H PRN (Reason: shortness of breath or wheezing) Qty: 8.5 0RF levothyroxine 100 mcg tablet 100 mcg PO DAILY omeprazole 40 mg capsule,delayed release(/EC) 40 mg PO DAILY@2000 gabapentin 300 mg capsule 300 mg PO TID acetaminophen 325 mg Tablet 650 mg PO Q6H PRN (Reason: Mild/Mod Pain Or Temp >/= 101) Qty: 0 0RF prednisone 5 mg tablet 5 mg PO DIRECTED Qty: 40 0RF budesonide 0.25 mg/2 mL Suspension For Nebulization 0.5 mg INHALATION BID Perforomist 20 mcg/2 mL Solution For Nebulization 2 ml INHALATION BID Referrals: Simon Mack MD [Primary Care Provider] - Coding Level of Care Code ED Cd Mixer for Chg Fwd Exam Detailed
--- NOTE | 2022-04-23 07:13 | XR_ITS ---
WS: [id number] PORTABLE CHEST HISTORY: dyspnea/cough COMPARISON: 11/29/2021 Marked pulmonary hyperexpansion from emphysema. Interstitial opacification in the central LEFT lung h as resolved. There is some very minimal wispy interstitial areas of thickening bilaterally which appe ar chronic. The LEFT lower lobe known pulmonary nodule is not evident radiographically. No mass or pn eumonia. No pleural effusion or pneumothorax. Cardiac size: Normal. Mediastinum/Aorta: Normal mediastinum. No osseous abnormality seen. XR/XR chest 1V portable [id number] IMPRESSION: 1. Moderate chronic emphysema. 2. No pneumonia.
--- NOTE | 2022-04-23 07:13 | CT_ITS ---
WS: [id number] CT CHEST ANGIOGRAPHY WITH REFORMATS HISTORY: chest pain/back pain, dyspnea TECHNIQUE: Contiguous axial images are obtained through the chest during arterial injection of intrav enous contrast. Images are reconstructed to evaluate the pulmonary arteries. MIP imaging also reviewe d. All CT scans at [facility] use at least one of these dose optimization techniques: automat ed exposure control; mA and/or kV adjustment per patient size (includes targeted exams where dose is matched to clinical indication); or iterative reconstruction. CONTRAST: Omnipaque 350; 95 mL IV. DLP: 616.11 mGy.cm COMPARISON: 12/26/2021 Good opacification of the pulmonary arteries. Normal size pulmonary artery. No filling defect. Normal size aorta with moderate atherosclerotic plaque. Intimal thickening and calcified plaque. Heart is n ormal size.. No pericardial or pleural effusions. Chronic emphysema. No increase in size of the 8 mm noncalcified nodule in the LEFT lower lobe. Nodule measures slightly smaller. There are additional areas bilaterally of very minimal scarring or atelec tasis. 11 mm LEFT hilar lymph node. There are several small bilateral hilar mediastinal lymph nodes. Thoracic spondylosis. Benign granuloma LEFT lower lobe. No hiatal hernia. Normal adrenal glands. Mild thoracic spondylosis. CT/CT angio chest PE protcl [id number] IMPRESSION: 1. No pulmonary embolism. 2. No pneumonia. 3. No increase in size 8mm noncalcified LEFT lower lobe pulmonary nodule. Nodu le has increased by 3 to 4 mm since 2019. Recommend continued six-month chest C T surveillance. Nodule was indeterminate on a PET/CT of 01/13/2022.
--- NOTE | 2022-04-23 07:14 | ECG_ITS ---
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 Measurements Intervals [place] Rate: 97 P: 0 ND: 0 QRS: 90 QRSD: 88 T: 67 QT: 359 QTc: 457 Interpretive Statements ATRIAL FIBRILLATION Compared to ECG 11/30/2021 03:20:26 Sinus rhythm no longer present Electronically Signed On 04-23-2022 19:04:32 RUBBER FLAP CUTTER by Paul Martinez M.D. [id number]
[2022-04-23] MEDS: ipratropium-albuterol 3 mL Neb INHALATION ×3 (07:22→23:56)
[2022-04-23 07:36] LABS: ABG PCO2 67.1 mmHg (35-45); ABG PH Result 7.31 (7.35-7.45); Arterial Blood Gas Hematocrit 51.1 % (42-52); Base Excess ABG 4.3 mmol/L (-2.0-2.0); Blood Gas Operator Identificat AMH; Blood Gas Sample Site Brachial, left; Blood Gas Sample Type Arterial; HCO3 ABG 33.4 mmol/L (22-26); HGB O2 Sat 94.8 % (95-100); Ionized Calcium Level - ABG 1.2 mmol/L (1.1-1.4); Methemoglobin 0.7 % (0.4-1.5); Oxygen Device NC; Oxygen Saturation ABG 97.4; PO2 ABG 93.2 mmHg (80.0-100.0); Potassium Level - ABG 4.3 mmol/L (3.5-5.0); Total Hemoglobin 16.7 g/dL (14-18)
[2022-04-23 08:02] LABS: Basophils % 0.5 %; Eosinophils # 0.2 10^3/uL (0.0-0.8); Eosinophils % 1.9 %; Hematocrit 52.6 % (42.0-52.0); Hemoglobin 16.4 g/dL (11.7-16.6); Lymphocytes # 1.8 10^3/uL (0.8-4.8); Lymphocytes % 21.2 %; Mean Corpuscular HGB Conc 31.2 g/dL (30.0-36.0); Mean Corpuscular Hemoglobin 28.9 pg (28.0-34.0); Mean Corpuscular Volume 92.6 fl (80-94); Mean Platelet Volume 11.5 fL (7.4-10.4); Monocytes # 1.2 10^3/uL (0.2-0.9); Monocytes % 13.9 %; Neutrophils # 5.32 10^3/uL (1.8-7.7); Neutrophils % 62.3 %; Nucleated Red Blood Cells % 0 %; Platelet Count 172 10^3/cmm (130-400); Red Blood Count 5.68 10^6/uL (4.1-5.3); White Blood Count 8.5 10^3/uL (4.0-10.0)
[2022-04-23] MEDS: iohexol 350 mg/mL 500 mL Btl (per mL) IV (08:18)
[2022-04-23 08:22] LABS: Troponin(5th) Baseline 10 ng/L (0-15)
[2022-04-23 08:31] LABS: Alanine Aminotransferase 19 U/L (0-41); Albumin Level 3.7 g/dL (3.5-5.2); Alkaline Phosphatase 111 U/L (40-130); Anion Gap 12.2 (5-19); Aspartate Amino Transferase 15 U/L (0-40); Blood Urea Nitrogen 11 mg/dL (8-23); Calcium 9.3 mg/dL (8.5-10.5); Carbon Dioxide 31 mmol/L (22-29); Chloride 93 mmol/L (98-107); Creatinine Clr Calc Pharmacy 102.6151; Globulin 3.6 g/dL (1.3-4.6); Glomerular Filtration Rate 83.9 mL/min (90-130); Glucose 175 mg/dL (65-115); NT Pro B Type Natriuretic Pept 179 pg/mL (0-125); Osmolality Calculated 278 mOsm/kg (285-295); Potassium 4.2 mmol/L (3.5-5.1); Sodium 132 mmol/L (136-145); Total Bilirubin 0.3 mg/dL (0.15-1.2); Total Protein 7.3 g/dL (6.6-8.7)
[2022-04-23 08:43] LABS: Influenza A by IFA negative (Negative); Influenza B by IFA negative (Negative)
[2022-04-23 08:59] LABS: Add Urine Culture? No; Add Urine Microscopic? YES; Bilirubin Urine Neg (Negative); Blood Urine Neg (Negative); Glucose Urine UA Norm (Normal); Ketones Urine Negative (Negative); Leukocyte Esterase Urine Negative (Negative); Nitrate Urine Negative (Negative); Protein Urine Trace (Negative); Specific Gravity, Urine 1.015 (1.005-1.030); Squamous Epithelial Cell Urine 0-4 /hpf (0-5); Urine Appearance Clear (CLEAR); Urine Color Yellow (Yellow); Urobilinogen Urine Norm (Negative); pH Urine 5 (5-7)
[2022-04-23 09:30] LABS: ABG PH Result 7.34 (7.35-7.45); Alveolar-Arterial Oxygen Gradi 13.7 mmHg (5-10); Arterial Blood Gas Hematocrit 48.6 % (42-52); Base Excess ABG 5.4 mmol/L (-2.0-2.0); Blood Gas Operator Identificat AMH; Blood Gas Sample Site Brachial, left; Blood Gas Sample Type Arterial; Carboxyhemoglobin 2.1 %THgb (0.4-20.1); HCO3 ABG 33.6 mmol/L (22-26); HGB O2 Sat 91.1 % (95-100); Ionized Calcium Level - ABG 1.2 mmol/L (1.1-1.4); Methemoglobin 0.8 % (0.4-1.5); Oxygen Device BIPAP; Oxygen Saturation ABG 93.9; PO2 ABG 67.2 mmHg (80.0-100.0); Potassium Level - ABG 4.5 mmol/L (3.5-5.0); Total Hemoglobin 15.9 g/dL (14-18)
[2022-04-23] MEDS: sodium chloride 0.9% 1,000 ML 999 ML IV (09:35)
--- NOTE | 2022-04-23 09:55 | P.HP_ITS ---
Providers/Chief Complaint Admitting Physician: Srinivas Holland MD Primary Care Provider: Simon Mack MD Chief Complaint: SOB, possible low O2 History of Present Illness Vega Wilcox is a 66 year old male presenting to the emergency department with complaints of shortness of breath for the last 3 days. He has not had any fever. He has been coughing more, wheezing more, and cannot ambulate as far. He has not had any significant chest discomfort. His cough is not productive. There is been no hemoptysis. He has not had any lower extremity swelling. reports no sick contacts. No vomiting, or diarrhea. He has known history of COPD, and continues to smoke. Typically he uses about 2 L, only at night but has been using this during the day as well. He does have some memory loss, and is supportive and providing a significant amount of the history. Review of Systems General: Reports: 10 or more systems reviewed and unremarkable except in HPI and below Const: Reports: fatigue; Denies: fever(s) or chills Eyes: Denies: change in vision ENMT: Denies: throat pain Card: Denies: chest pain Resp: Reports: dyspnea and non-productive cough GI: Denies: abdominal pain, nausea, vomiting, hematochezia or melena : Denies: flank pain Musc: Reports: back pain Skin/Breast: Denies: rash Neuro: Denies: headache(s) Psych: Reports: memory loss; Denies: anxiety or depression Endo: Denies: polyuria [place]/Lymph: Denies: easy bruising All/Imm: Denies: urticaria Medications/Allergies Home Medications Medication Instructions Recorded Confirmed Last Taken Type metformin 500 mg tablet 500 mg PO DAILY@06/23/19 04/23/22 04/22/22 History nitroglycerin 0.4 mg sublingual 0.4 mg sublingual Q5M PRN chest 05/17/20 04/23/22 10/03/20 Rx tablet pain 30 days #30 tabs furosemide 20 mg tablet 20 mg PO DAILY@0800 09/10/20 04/23/22 04/22/22 History glimepiride 2 mg tablet 2 mg PO QAM 09/10/20 04/23/22 04/22/22 History omeprazole 40 mg capsule,delayed 40 mg PO DAILY@199909/12/20 04/23/22 04/22/22 History release atorvastatin 20 mg tablet 20 mg PO DAILY@2100 10/04/20 04/23/22 04/22/22 History albuterol sulfate 90 mcg/actuation 2 inh inhalation Q8H PRN shortness 04/23/21 04/23/22 Unknown Rx aerosol inhaler of breath or wheezing #8.5 grams levothyroxine 100 mcg tablet 100 mcg PO DAILY 05/20/21 04/23/22 04/22/22 History levothyroxine 200 mcg capsule 200 mcg PO DAILY 05/31/21 04/23/22 04/22/22 History gabapentin 300 mg capsule 300 mg PO TID 11/30/21 04/23/22 04/22/22 History acetaminophen 325 mg tablet 650 mg PO Q6H PRN Mild/Mod Pain Or 12/02/21 04/23/22 Unknown Rx Temp >/= 101 #0 tabs prednisone 5 mg tablet 5 mg PO DIRECTED #40 tabs 12/02/21 04/23/22 04/22/22 Rx prasugrel 10 mg tablet 10 mg PO QAM #90 tabs 02/05/22 04/23/22 04/22/22 Rx sotalol 80 mg tablet 40 mg PO BID 30 days #60 tabs 02/27/22 04/23/22 04/22/22 Rx budesonide-formoterol HFA 160 2 puff inhalation BID #10.2 grams 02/28/22 04/23/22 04/22/22 Rx mcg-4.5 mcg/actuation aerosol inhaler (Symbicort) magnesium L-lactate 84 mg 168 mg PO QAM #100 tabs 03/26/22 04/23/22 04/22/22 Rx tablet,extended release (Magtab) losartan 50 mg tablet 50 mg PO BID@,20 #180 tabs 04/19/22 04/23/22 04/22/22 Rx budesonide 0.25 mg/2 mL suspension 0.5 mg inhalation BID 04/23/22 04/23/22 04/22/22 History for nebulization formoterol fumarate 20 mcg/2 mL 2 ml inhalation BID 04/23/22 04/23/22 04/22/22 History solution for nebulization (Perforomist) Allergies Allergy/AdvReac Type Severity Reaction Status Date / Time levofloxacin [[facility] Allergy ADR-Halluci Verified 04/23/22 09:52 [facility] PFS Acute PFSH: Medical History AAA (abdominal aortic aneurysm) without rupture Allergic rhinitis Aortic root dilation Stable Atherosclerotic heart disease of [place] coronary artery with other forms of angina pectoris Atypical chest pain Bradycardia Cognitive impairment COPD (chronic obstructive pulmonary disease) COVID-19 DDD (degenerative disc disease) Diabetes Essential (primary) hypertension GERD (gastroesophageal reflux disease) Hyperlipidemia Hypothyroidism Intervertebral disc disorders with radiculopathy, lumbosacral region Lumbar disc disease with radiculopathy Obesity Scoliosis of lumbar region due to degenerative disease of spine in adult SVT (supraventricular tachycardia) Testicular mass Thoracic aortic aneurysm, without rupture Surgical History H/O hernia repair History of PTCA Hx of heart artery stent Family History Mother , AT AGE 69 Diabetes, Onset Age: 69 Father , AT AGE 80 Cancer, Onset Age: 80 Lung Heart disease Lung disease Brother Diabetes Other Lupus Social History Smoking and tobacco status: current every day smoker (1 ppd) cigarettes Packs smoked per day: 1 Years cigarettes smoked: 1 [ Other cigarette details: smoked 2 ppd for 50 years and quit for 3 years. Started smoking at 14 years] Quit status (tobacco): has quit using tobacco Year quit tobacco: 2019 - 2PPD x 50 Years Smoking risk assessment/counseling performed?: No Alcohol intake: never Counseling given: No Counseling given: No Lives independently: Yes Household members: spouse Marital status: Current occupational status: disabled History of recent travel: No Current gender identity: Male Vitals/I&O/Wt Last Vital Signs Temp 96.5 F L 04/23/22 07:12 Pulse 74 04/23/22 09:38 Resp 18 04/23/22 09:38 BP 128/71 04/23/22 09:38 Pulse Ox 96 04/23/22 09:38 O2 Del Method 04/23/22 08:42 O2 Flow Rate 6 04/23/22 07:27 FiO2 35 04/23/22 08:22 Weight last 48 hrs Weight 117.934 kg Physical Exam Narrative: General exam is a white male, on BiPAP, with mild retractions. He is able to answer few questions. HEENT: Atraumatic and normocephalic. Pupils equally round. Mouth not examined is BiPAP is currently on Neck is supple no lymphadenopathy thyromegaly Cardiovascular regular rate and rhythm, no murmur, heart sounds distant Lungs bilateral expiratory wheezes, with diminished air movement noted bilaterally Abdomen is soft positive bowel sounds. Obese. No obvious organomegaly exam is deferred Extremities no cyanosis clubbing or edema, cap refill brisk Skin no rash Neuro no obvious focal deficits. Data 04/23/22 07:40 04/23/22 07:40 Other Labs: Second ABG shows improvement with a pH 7.34, PCO2 of 63, PO2 of 67 on BiPAP 6 L flow, 35% FiO2 LFTs, calcium are within normal limits Troponin initial is 10 BNP 179 Urinalysis negative COVID PCR pending, influenza A and B- Chest x-ray demonstrates COPD with no obvious infiltrate EKG demonstrates atrial fibrillation, borderline right axis deviation, rate of 97, no significant ST-T wave changes. A&P Assessment and plan (1) Acute respiratory failure with hypoxia and hypercapnia: Patient normally just on 2 L at night Significant respiratory distress on arrival requiring BiPAP, and found to be hypercarbic and hypercapnic No evidence of pneumonia see notation under acute COPD exacerbation. (2) COPD exacerbation: IV steroids. He received his first dose in the emergency department Oral doxycycline DuoNeb every 4 hours Budesonide twice daily Continue BiPAP, wean as tolerated (3) Diabetes: Sliding scale insulin Qualifiers: Diabetes mellitus type: type 2 Diabetes mellitus superintendent [employer] insulin use: without [employer] use Diabetes mellitus complication status: with hyperglycemia Qualified Code(s): E11.65 - Type 2 diabetes mellitus with hyperglycemia (4) Tobacco dependency: Encouraged abstinence. Offered nicotine patch which he refused Plan Atrial fibrillation, currently rate controlled. Continue his sotalol. Coronary artery disease, continue home medications Multiple other medical problems as outlined in past medical history Full code Lovenox for DVT prophylaxis Attestations Medical Necessity Statement*: Will need greater than 2 midnight stay for evaluation and treatment of acute COPD exacerbation. Coding Level of Care Code Acute Library Page for Halle Degroot Diagnoses Acute respiratory failure with hypoxia and hypercapnia J96.01; J96.02 COPD exacerbation J44.1 Diabetes E11.65 Diabetes mellitus type: type 2 Diabetes mellitus halfway insulin use: without halfway use Diabetes mellitus complication status: with hyperglycemia Tobacco dependency F17.200
[2022-04-23 09:59] LABS: Troponin 5 2HR 8.64 ng/L (0-15)
[2022-04-23] MEDS: LORazepam 2 mg/mL INJ 1 mL IVP (10:08)
[2022-04-23 10:30] LABS: Troponin 5 2HR Delta -1.36 ABS# (0-10)
[2022-04-23 11:27] LABS: ABG PCO2 62.8 mmHg (35-45)
[2022-04-23 13:12] LABS: Adenovirus Not Detected (NOT DETECT); Chlamydia Pneumoniae Not Detected (NOT DETECT); Coronavirus 229E,HKU1,NL63,OC4 Not Detected (NOT DETECT); Human Metapneumovirus Not Detected (NOT DETECT); Human Rhinovirus/Enterovirus Not Detected (NOT DETECT); Influenza A Not Detected (NOT DETECT); Influenza A H1 Not Detected (NOT DETECT); Influenza A H1-2009 Not Detected (NOT DETECT); Influenza A H3 Not Detected (NOT DETECT); Influenza B Not Detected (NOT DETECT); Mycoplasma Pneumoniae Not Detected (NOT DETECT); Parainfluenza Virus Type 1 Not Detected (NOT DETECT); Parainfluenza Virus Type 2 Not Detected (NOT DETECT); Parainfluenza Virus Type 3 Not Detected (NOT DETECT); Parainfluenza Virus Type 4 Not Detected (NOT DETECT); Respiratory Syncytial Virus A Not Detected (NOT DETECT); Respiratory Syncytial Virus B Not Detected (NOT DETECT); SARS-COV-2 Not Detected (NOT DETECT)
[2022-04-23 14:47] LABS: Troponin 5 6HR 6.31 ng/L (0-15)
[2022-04-23 15:10] LABS: Troponin 5 6HR Delta -3.69 ng/L (0-12)
--- NOTE | 2022-04-23 16:16 | PC.NURSE ---
1540 Patient admitted to room 278 bed 2 from ED patient awake and oriented x4 accompained per family. Patient on 4 liters of 02 per nasal canula. 02 sat 90-92%.
[2022-04-23 17:16] LABS: Glucose Point of Care 243 mg/dL (70-110)
[2022-04-23] MEDS: enoxaparin 40 mg/0.4 mL Syringe SUBCUT (17:33)
[2022-04-23] MEDS: gabapentin 300 mg Capsule PO ×2 (17:34→20:26)
[2022-04-23] MEDS: insulin lispro 100 unit/1 mL SUBCUT ×2 (17:34→21:56)
[2022-04-23] MEDS: doxycycline 100 mg Tablet PO (17:34)
[2022-04-23] MEDS: sotalol 80 mg Tablet 40 MG PO (17:40)
[2022-04-23] MEDS: atorvastatin 40 mg Tablet 20 MG PO (20:24)
[2022-04-23] MEDS: losartan 50 mg Tablet PO (20:26)
[2022-04-23] MEDS: pantoprazole DR 40 mg Tablet PO (20:27)
[2022-04-23] MEDS: budesonide 0.5 mg/2 mL Neb INHALATION (20:35)
--- NOTE | 2022-04-23 21:48 | PC.NURSE ---
Attempted to reach by telephone to let him know the patient has been sustaining 140s heart rate. Attempt to reach has been unsuccessful at this time. Acessed patients vitals, 129/66 blood pressure, 93% on Bipap, temp 98.1 oral. Patient stated I am nervous about being in the hospital Patient is AOx4 at time as well.
[2022-04-23 21:52] LABS: Glucose Point of Care 200 mg/dL (70-110)
[2022-04-23] MEDS: dilTIAZem 5 mg/mL SDV 5 mL 15 MG IVP (22:12)
[2022-04-24] VITALS (21 sets, daily range): BP systolic 101–118; BP diastolic 64–76; PULSE 55–96; RESP 14–22; TEMP 36.4–36.9; O2SAT 76–100
[2022-04-24] MEDS: ipratropium-albuterol 3 mL Neb INHALATION ×5 (04:15→23:24)
[2022-04-24 05:51] LABS: Basophils % 0.1 %; Hematocrit 47.6 % (42.0-52.0); Hemoglobin 15.1 g/dL (11.7-16.6); Lymphocytes # 1.5 10^3/uL (0.8-4.8); Lymphocytes % 10.6 %; Mean Corpuscular HGB Conc 31.7 g/dL (30.0-36.0); Mean Corpuscular Hemoglobin 29.3 pg (28.0-34.0); Mean Corpuscular Volume 92.2 fl (80-94); Mean Platelet Volume 12.1 fL (7.4-10.4); Monocytes # 0.6 10^3/uL (0.2-0.9); Monocytes % 4.5 %; Neutrophils # 11.49 10^3/uL (1.8-7.7); Neutrophils % 84.4 %; Nucleated Red Blood Cells % 0 %; Platelet Count 185 10^3/cmm (130-400); Red Blood Count 5.16 10^6/uL (4.1-5.3); Red Cell Distribution Width 12.8 % (12.1-15.1); White Blood Count 13.6 10^3/uL (4.0-10.0)
--- NOTE | 2022-04-24 05:53 | PC.NURSE ---
Addendum entered by Emiliano Sands RN 04/24/22 06:49: Pharmacy sent prasugrel up, this nurse will administer it. Original Note: This nurse called the patients and spoke with her about Prasugrel scheduled for 0600 today. Patient's stated that she will bring it in this morning for him.
[2022-04-24 06:14] LABS: Alanine Aminotransferase 17 U/L (0-41); Albumin Level 3.6 g/dL (3.5-5.2); Alkaline Phosphatase 92 U/L (40-130); Anion Gap 11.6 (5-19); Aspartate Amino Transferase 12 U/L (0-40); Blood Urea Nitrogen 19 mg/dL (8-23); Calcium 9.5 mg/dL (8.5-10.5); Carbon Dioxide 31 mmol/L (22-29); Chloride 97 mmol/L (98-107); Glomerular Filtration Rate 83.9 mL/min (90-130); Glucose 197 mg/dL (65-115); Osmolality Calculated 288 mOsm/kg (285-295); Potassium 4.6 mmol/L (3.5-5.1); Sodium 135 mmol/L (136-145); Total Bilirubin 0.4 mg/dL (0.15-1.2); Total Protein 6.6 g/dL (6.6-8.7)
[2022-04-24 06:15] LABS: Glucose Point of Care 194 mg/dL (70-110)
[2022-04-24] MEDS: prasugrel 10 MG Tablet PO (06:52)
[2022-04-24] MEDS: budesonide 0.5 mg/2 mL Neb INHALATION (08:47)
--- NOTE | 2022-04-24 08:51 | PM.PN ---
Subjective Subjective: Vega reports he feels a little bit better. He did have a short run of A. fib with RVR last night, but this improved after 1 dose of diltiazem. He reports less wheezing. No chest pain. Medications: Reviewed: Yes Vitals/I&O/Wt Last Vital Signs Temp 98.3 F 04/24/22 04:00 Pulse 67 04/24/22 08:49 Resp 20 H 04/24/22 08:49 BP 114/74 04/24/22 04:00 Pulse Ox 90 04/24/22 08:49 O2 Del Method 04/24/22 08:49 O2 Flow Rate 5 04/24/22 08:49 FiO2 35 04/24/22 04:12 04/23/22 04/24/22 04/24/22 22:59 06:59 14:59 Intake Total 1720 / 1720 120 / 1840 Balance 1720 / 1720 120 / 1840 Weight last 48 hrs Weight 109.905 kg Weight 117.934 kg Physical Exam Narrative: General exam is a white male, no obvious distress. Asking questions and answering them appropriately. Neck is supple no lymphadenopathy thyromegaly Cardiovascular regular rate and rhythm, no murmur, heart sounds distant Lungs bilateral expiratory wheezes, improved air movement from yesterday Abdomen is soft positive bowel sounds. Obese. No obvious organomegaly Extremities no cyanosis clubbing or edema, cap refill brisk Skin no rash Data 04/24/22 05:38 04/24/22 05:38 Micro: Microbiology 04/23/22 08:05 Gram Stain - Final Sputum - Expectorated Sputum A&P Assessment and plan (1) Acute respiratory failure with hypoxia and hypercapnia: Patient normally just on 2 L at night Significant respiratory distress on arrival requiring BiPAP, and found to be hypercarbic and hypercapnic No evidence of pneumonia see notation under acute COPD exacerbation. Overall improving (2) COPD exacerbation: Reduce IV steroids Continue oral doxycycline DuoNeb every 4 hours Budesonide twice daily Required BiPAP last night. We will continue to monitor needed. (3) Diabetes: Sliding scale insulin Qualifiers: Diabetes mellitus type: type 2 Diabetes mellitus snf insulin use: without snf use Diabetes mellitus complication status: with hyperglycemia Qualified Code(s): E11.65 - Type 2 diabetes mellitus with hyperglycemia (4) Tobacco dependency: Encouraged abstinence. Offered nicotine patch which he refused Plan Atrial fibrillation, currently rate controlled. Continue his sotalol. Did have a short run of A. fib with RVR. Was given diltiazem x1 with good effect. Heart rate currently 60. Coronary artery disease, continue home medications. Increase oral Lasix slightly in case fluid overload is contributing some to his dyspnea. Multiple other medical problems as outlined in past medical history Full code Lovenox for DVT prophylaxis Attestations Medical Necessity Statement*: Needs continued hospitalization for IV steroids, frequent breathing treatment secondary to acute COPD exacerbation. Coding Level of Care Code Acute Machine Bunch Maker for [facility] Diagnoses Acute respiratory failure with hypoxia and hypercapnia J96.01; J96.02 COPD exacerbation J44.1 Diabetes E11.65 Diabetes mellitus type: type 2 Diabetes mellitus local intermodal truck driver insulin use: without local intermodal truck driver use Diabetes mellitus complication status: with hyperglycemia Tobacco dependency F17.200
[2022-04-24] MEDS: insulin lispro 100 unit/1 mL SUBCUT ×4 (09:30→21:14)
[2022-04-24] MEDS: gabapentin 300 mg Capsule PO ×3 (09:50→20:46)
[2022-04-24] MEDS: doxycycline 100 mg Tablet PO ×2 (09:50→17:49)
[2022-04-24] MEDS: sotalol 80 mg Tablet 40 MG PO ×2 (09:51→17:49)
[2022-04-24] MEDS: levothyroxine 200 mcg Tablet PO (09:51)
--- NOTE | 2022-04-24 10:12 | PC.CHAP ---
Pastoral Care Encounter/Spiritual Assessment Type of Contact [] Declined scaler visit [] Patient/Family/Request visit [] Outpatient visit [] Follow-up visit [] Physician referral [] Code/Alert [x] Routine visit [] Staff referral [] Actively dying [] Patient sleeping [] Family support [] [] Out of room [] Palliative care [] [] Receiving care in room [] Pre-surgical visit [] Trauma [] Long length of stay [] ICU visit [] Other: Relational/Emotional Strength [x] Patient feels connected with others/family/visitors/staff [] Distress [] Loneliness/isolation [] Abandonment Spirituality of Patient [x] Person of Niyah [] Attends Pentecostalism of their Niyah [x] Believes in Prayer [] Reads Bible or Adventist materials [] There are Spiritual issues to be addressed Sleeve Wheel Maker Interventions xx[] Prayer [x] Active listening [x] Non-anxious presence [x] Spiritual/emotional support [] Crisis/trauma care [] Spiritual counseling [] Bereavement support [] Provided bereavement packet [] Provided Bible/devotional materials [] Provided toy/stuffed animal, coloring book to patient or family member [] Provided Communion [] Anointing/[place] [] Salvation [x] Completed spiritual assessment [] Other: Impact on Illness or Injury [] Angry [] Fearful [] Anxious [] Often cries [] Exhaustion [] Unable to work [] Unable to attend buddhism [] Unable to walk/stand [] Unable to read [] Unable to drive [] Unable to eat/drink [] Unable to sleep [] Unable to be with family [] Patient intubated [] Other: Summary Time spent with patient 10 min
[2022-04-24] MEDS: FUROsemide 40 mg Tablet PO (10:13)
[2022-04-24] MEDS: losartan 50 mg Tablet PO ×2 (10:23→20:44)
[2022-04-24 12:11] LABS: Glucose Point of Care 344 mg/dL (70-110)
[2022-04-24 16:59] LABS: Glucose Point of Care 293 mg/dL (70-110)
[2022-04-24] MEDS: enoxaparin 40 mg/0.4 mL Syringe SUBCUT (17:50)
[2022-04-24 20:36] LABS: Glucose Point of Care 305 mg/dL (70-110)
[2022-04-24] MEDS: atorvastatin 40 mg Tablet 20 MG PO (20:45)
[2022-04-24] MEDS: pantoprazole DR 40 mg Tablet PO (20:45)
[2022-04-25] VITALS (18 sets, daily range): BP systolic 121–139; BP diastolic 70–84; PULSE 62–99; RESP 14–24; TEMP 36.4–36.7; O2SAT 89–98
[2022-04-25] MEDS: ipratropium-albuterol 3 mL Neb INHALATION ×5 (03:47→20:57)
[2022-04-25 05:17] LABS: Basophils % 0.1 %; Hematocrit 45.6 % (42.0-52.0); Hemoglobin 14.3 g/dL (11.7-16.6); Lymphocytes # 1.5 10^3/uL (0.8-4.8); Lymphocytes % 6.4 %; Mean Corpuscular HGB Conc 31.4 g/dL (30.0-36.0); Mean Corpuscular Hemoglobin 29.2 pg (28.0-34.0); Mean Corpuscular Volume 93.1 fl (80-94); Mean Platelet Volume 12.1 fL (7.4-10.4); Monocytes # 1.3 10^3/uL (0.2-0.9); Monocytes % 5.6 %; Neutrophils # 20.02 10^3/uL (1.8-7.7); Neutrophils % 87.1 %; Nucleated Red Blood Cells % 0 %; Platelet Count 189 10^3/cmm (130-400); Red Cell Distribution Width 12.9 % (12.1-15.1)
[2022-04-25 05:44] LABS: Blood Urea Nitrogen 31 mg/dL (8-23); Calcium 9.2 mg/dL (8.5-10.5); Carbon Dioxide 31 mmol/L (22-29); Chloride 97 mmol/L (98-107); Glomerular Filtration Rate 83.9 mL/min (90-130); Glucose 222 mg/dL (65-115); Magnesium 1.9 mg/dL (1.7-2.3); Osmolality Calculated 293 mOsm/kg (285-295); Sodium 135 mmol/L (136-145)
[2022-04-25 05:46] LABS: Anion Gap 11.8 (5-19); Potassium 4.8 mmol/L (3.5-5.1)
[2022-04-25] MEDS: doxycycline 100 mg Tablet PO ×2 (08:04→17:03)
[2022-04-25] MEDS: sotalol 80 mg Tablet 40 MG PO ×2 (08:04→17:03)
[2022-04-25] MEDS: losartan 50 mg Tablet PO ×2 (08:04→20:12)
[2022-04-25] MEDS: levothyroxine 200 mcg Tablet PO (08:04)
[2022-04-25] MEDS: predniSONE 20 mg Tablet 40 MG PO (08:05)
[2022-04-25] MEDS: insulin lispro 100 unit/1 mL SUBCUT ×4 (08:05→22:24)
[2022-04-25] MEDS: FUROsemide 40 mg Tablet PO (08:05)
[2022-04-25] MEDS: gabapentin 300 mg Capsule PO ×3 (08:05→20:13)
[2022-04-25] MEDS: budesonide 0.5 mg/2 mL Neb INHALATION ×2 (08:13→20:57)
--- NOTE | 2022-04-25 09:38 | PM.PN ---
Subjective Subjective: Vega reports he is feeling a little bit better. Less wheezing. No chest tightness. Not short of breath when just sitting. He has not yet been up out of bed. Medications: Reviewed: Yes Vitals/I&O/Wt Last Vital Signs Temp 97.7 F 04/25/22 07:36 Pulse 77 04/25/22 08:21 Resp 18 04/25/22 08:14 BP 137/84 04/25/22 08:04 Pulse Ox 91 04/25/22 08:14 O2 Del Method 04/25/22 08:14 O2 Flow Rate 5 04/25/22 08:14 FiO2 35 04/24/22 23:22 04/24/22 04/25/22 04/25/22 22:59 06:59 14:59 Intake Total 480 / 1080 360 / 360 Output Total 300 / 300 400 / 400 Balance 180 / 780 -40 / -40 Weight last 48 hrs Weight 109.905 kg Physical Exam Narrative: General exam is a white male, no obvious distress. Neck is supple no lymphadenopathy thyromegaly Cardiovascular regular rate and rhythm, no murmur, heart sounds distant Lungs very faint wheezing bibasilar. Improved air movement Abdomen is soft positive bowel sounds. Obese. No obvious organomegaly Extremities no cyanosis clubbing or edema, cap refill brisk Skin no rash Data 04/25/22 04:42 04/25/22 04:42 Micro: Microbiology 04/23/22 08:05 Gram Stain - Final Sputum - Expectorated Sputum Sputum Culture - Preliminary A&P Assessment and plan (1) Acute respiratory failure with hypoxia and hypercapnia: Patient normally just on 2 L at night Significant respiratory distress on arrival requiring BiPAP, and found to be hypercarbic and hypercapnic No evidence of pneumonia see notation under acute COPD exacerbation. Overall improving Start incentive spirometry today Overnight oximetry, may need BiPAP when discharged home (2) COPD exacerbation: Discontinue IV steroids Changed to prednisone 40 mg daily Continue oral doxycycline DuoNeb every 4 hours Budesonide twice daily Pulmonary rehab on discharge (3) Diabetes: Sliding scale insulin Qualifiers: Diabetes mellitus type: type 2 Diabetes mellitus [place] [facility] insulin use: without [place] [facility] use Diabetes mellitus complication status: with hyperglycemia Qualified Code(s): E11.65 - Type 2 diabetes mellitus with hyperglycemia (4) Tobacco dependency: Encouraged abstinence. Offered nicotine patch which he refused Plan Atrial fibrillation, currently rate controlled. Continue his sotalol. Did have a short run of A. fib with RVR. Was given diltiazem x1 with good effect 04/24. Heart rate currently controlled Coronary artery disease, continue home medications. Lasix dose increased slightly Multiple other medical problems as outlined in past medical history Full code Lovenox for DVT prophylaxis Attestations Medical Necessity Statement*: Requires continued hospitalization for treatment of COPD exacerbation with frequent nebs, steroids, oxygen while we attempt to wean today. Coding Level of Care Code Acute Feed Preparation Operator for [facility] Diagnoses Acute respiratory failure with hypoxia and hypercapnia J96.01; J96.02 COPD exacerbation J44.1 Diabetes E11.65 Diabetes mellitus type: type 2 Diabetes mellitus long term care administrator insulin use: without long term care administrator use Diabetes mellitus complication status: with hyperglycemia Tobacco dependency F17.200
[2022-04-25 11:45] LABS: Glucose Point of Care 305 mg/dL (70-110)
[2022-04-25 16:29] LABS: Glucose Point of Care 298 mg/dL (70-110)
[2022-04-25] MEDS: enoxaparin 40 mg/0.4 mL Syringe SUBCUT (17:03)
--- NOTE | 2022-04-25 18:28 | PC.NURSE ---
PATIENT TITRATED TO 3.5L NC. TOLERATING WELL.
[2022-04-25] MEDS: atorvastatin 40 mg Tablet 20 MG PO (20:13)
[2022-04-25] MEDS: pantoprazole DR 40 mg Tablet PO (20:13)
[2022-04-25 21:00] LABS: Glucose Point of Care 210 mg/dL (70-110)
[2022-04-26] VITALS (20 sets, daily range): BP systolic 115–146; BP diastolic 74–86; PULSE 56–98; RESP 10–22; TEMP 36.5–37; O2SAT 86–97
[2022-04-26] MEDS: ipratropium-albuterol 3 mL Neb INHALATION ×7 (04:00→23:53)
[2022-04-26 04:51] LABS: Basophils % 0.2 %; Eosinophils % 0.1 %; Hematocrit 46.4 % (42.0-52.0); Hemoglobin 14.6 g/dL (11.7-16.6); Lymphocytes # 2.7 10^3/uL (0.8-4.8); Lymphocytes % 17.6 %; Mean Corpuscular HGB Conc 31.5 g/dL (30.0-36.0); Mean Corpuscular Hemoglobin 29.2 pg (28.0-34.0); Mean Corpuscular Volume 92.8 fl (80-94); Mean Platelet Volume 11.5 fL (7.4-10.4); Monocytes # 1.3 10^3/uL (0.2-0.9); Monocytes % 8.6 %; Neutrophils # 11.37 10^3/uL (1.8-7.7); Neutrophils % 73.1 %; Nucleated Red Blood Cells % 0 %; Platelet Count 163 10^3/cmm (130-400); White Blood Count 15.5 10^3/uL (4.0-10.0)
[2022-04-26 05:10] LABS: Anion Gap 10.1 (5-19); Blood Urea Nitrogen 23 mg/dL (8-23); Carbon Dioxide 34 mmol/L (22-29); Chloride 100 mmol/L (98-107); Glomerular Filtration Rate 96.1 mL/min (90-130); Glucose 134 mg/dL (65-115); Osmolality Calculated 296 mOsm/kg (285-295); Potassium 4.1 mmol/L (3.5-5.1); Sodium 140 mmol/L (136-145)
[2022-04-26 06:30] LABS: Glucose Point of Care 136 mg/dL (70-110)
[2022-04-26] MEDS: budesonide 0.5 mg/2 mL Neb INHALATION ×2 (08:16→20:12)
[2022-04-26] MEDS: levothyroxine 200 mcg Tablet PO (08:43)
[2022-04-26] MEDS: predniSONE 20 mg Tablet 40 MG PO (08:44)
[2022-04-26] MEDS: FUROsemide 40 mg Tablet PO (08:45)
[2022-04-26] MEDS: gabapentin 300 mg Capsule PO ×3 (08:45→20:19)
[2022-04-26] MEDS: doxycycline 100 mg Tablet PO ×2 (08:45→16:47)
[2022-04-26] MEDS: losartan 50 mg Tablet PO ×2 (08:45→20:18)
[2022-04-26 11:11] LABS: Glucose Point of Care 224 mg/dL (70-110)
--- NOTE | 2022-04-26 11:41 | PC.SOCIAL ---
Pg 2 IMM Explained to pt Pg 2 IMM. No questions voiced. Provided pt a copy. Initialed, dated, & timed a copy & placed in chart.
[2022-04-26] MEDS: insulin lispro 100 unit/1 mL SUBCUT ×3 (12:46→21:31)
--- NOTE | 2022-04-26 12:59 | XR_ITS ---
WS: [id number] EXAMINATION: XR chest 1V portable [id number] REASON FOR EXAM: dyspnea not improving COMPARISON: 04/23/2022 ORDER DATE: 04/26/2022 1:06 PM TECHNIQUE: A single, portable frontal chest x-ray was obtained. X-RAY FINDINGS: Marked pulmonary hyperexpansion from emphysema. Interstitial opacification in the central LEFT lung has resolved. There is some very minimal wispy interstitial areas of thickening bilaterally which appear chronic. The LEFT lower lobe known pulmonary nodule is not evident radiographically. No mass or pneumonia. No pleural effusion or pneumothorax. Cardiac size: Normal. Mediastinum/Aorta: Normal mediastinum. No osseous abnormality seen. XR/XR chest 1V portable [id number] IMPRESSION: 1. Moderate chronic emphysema. 2. No acute pulmonary change
[2022-04-26 14:03] LABS: NT Pro B Type Natriuretic Pept 551 pg/mL (0-125)
--- NOTE | 2022-04-26 15:26 | PM.PN ---
Subjective Subjective: Vega reports he has had a somewhat of a rough day. When I saw him earlier this morning he was significantly short of breath. Ultimately his oxygen went up to 6 L for a while. He denies any chest pain currently and is feeling somewhat better. We discussed the importance of using BiPAP tonight. Chest x-ray repeated this afternoon showed no infiltrate. BNP was higher than on admission. Medications: Reviewed: Yes Vitals/I&O/Wt Last Vital Signs Temp 98.0 F 04/26/22 11:50 Pulse 65 04/26/22 12:45 Resp 20 H 04/26/22 12:35 BP 134/75 04/26/22 11:50 Pulse Ox 86 L 04/26/22 12:56 O2 Del Method 04/26/22 12:35 O2 Flow Rate 6 04/26/22 12:56 FiO2 35 04/24/22 23:22 04/26/22 04/26/22 04/26/22 06:59 14:59 22:59 Intake Total 1760 / 1760 Output Total 400 / 2700 1999 Balance -400 / -1740 -240 / -240 Physical Exam Narrative: General exam is a white male, no obvious distress. Neck is supple no lymphadenopathy thyromegaly Cardiovascular regular rate and rhythm, no murmur, heart sounds distant Lungs bilateral wheezing noted at the bases. Abdomen is soft positive bowel sounds. Obese. No obvious organomegaly Extremities no cyanosis clubbing or edema, cap refill brisk Skin no rash Data 04/26/22 04:45 04/26/22 04:45 Micro: Microbiology 04/23/22 08:05 Gram Stain - Final Sputum - Expectorated Sputum Sputum Culture - Final A&P Assessment and plan (1) Acute respiratory failure with hypoxia and hypercapnia: Patient normally just on 2 L at night Significant respiratory distress on arrival requiring BiPAP, and found to be hypercarbic and hypercapnic No evidence of pneumonia see notation under acute COPD exacerbation. Slow improvement Continue incentive spirometry today Needs BiPAP at discharge (2) COPD exacerbation: Continue to prednisone 40 mg daily Continue oral doxycycline DuoNeb every 4 hours Budesonide twice daily Pulmonary rehab on discharge Repeat x-ray showed no infiltrate BNP higher, Lasix 40 mg IV this afternoon (3) Diabetes: Sliding scale insulin Qualifiers: Diabetes mellitus type: type 2 Diabetes mellitus supervisor intermediates insulin use: without [place] [facility] use Diabetes mellitus complication status: with hyperglycemia Qualified Code(s): E11.65 - Type 2 diabetes mellitus with hyperglycemia (4) Tobacco dependency: Encouraged abstinence. Offered nicotine patch which he refused Plan Atrial fibrillation, currently rate controlled. Continue his sotalol. Did have a short run of A. fib with RVR. Was given diltiazem x1 with good effect /. Heart rate currently controlled Coronary artery disease, continue home medications. Lasix dose increased slightly Multiple other medical problems as outlined in past medical history Full code Lovenox for DVT prophylaxis Attestations Medical Necessity Statement*: Needs continued hospitalization for frequent breathing treatments, administration of IV Lasix, close monitoring of respiratory failure slow to improve. Coding Level of Care Code Acute Church Organist for [facility] Diagnoses Acute respiratory failure with hypoxia and hypercapnia J96.01; J96.02 COPD exacerbation J44.1 Diabetes E11.65 Diabetes mellitus type: type 2 Diabetes mellitus [place] [facility] insulin use: without supervisor intermediates use Diabetes mellitus complication status: with hyperglycemia Tobacco dependency F17.200
[2022-04-26] MEDS: FUROsemide 10 mg/mL SDV 4mL 40 MG IVP (15:53)
[2022-04-26] MEDS: sotalol 80 mg Tablet 40 MG PO (16:48)
[2022-04-26] MEDS: enoxaparin 40 mg/0.4 mL Syringe SUBCUT (16:48)
[2022-04-26 17:14] LABS: Glucose Point of Care 314 mg/dL (70-110)
[2022-04-26] MEDS: atorvastatin 40 mg Tablet 20 MG PO (20:19)
[2022-04-26] MEDS: pantoprazole DR 40 mg Tablet PO (20:19)
[2022-04-26 21:20] LABS: Glucose Point of Care 258 mg/dL (70-110)
[2022-04-27] VITALS (7 sets, daily range): BP systolic 127–137; BP diastolic 78–84; PULSE 51–71; RESP 10–19; TEMP 36.6; O2SAT 92–96
[2022-04-27] MEDS: ipratropium-albuterol 3 mL Neb INHALATION ×3 (03:57→11:15)
[2022-04-27 04:57] LABS: Basophils % 0.2 %; Eosinophils % 0.2 %; Hematocrit 46.2 % (42.0-52.0); Hemoglobin 14.7 g/dL (11.7-16.6); Lymphocytes % 24.5 %; Mean Corpuscular HGB Conc 31.8 g/dL (30.0-36.0); Mean Corpuscular Hemoglobin 29.1 pg (28.0-34.0); Mean Corpuscular Volume 91.5 fl (80-94); Mean Platelet Volume 11.4 fL (7.4-10.4); Monocytes # 1.1 10^3/uL (0.2-0.9); Monocytes % 9.3 %; Neutrophils # 7.93 10^3/uL (1.8-7.7); Neutrophils % 64.7 %; Nucleated Red Blood Cells % 0 %; Platelet Count 170 10^3/cmm (130-400); Red Blood Count 5.05 10^6/uL (4.1-5.3); Red Cell Distribution Width 12.9 % (12.1-15.1); White Blood Count 12.3 10^3/uL (4.0-10.0)
[2022-04-27 05:14] LABS: Blood Urea Nitrogen 27 mg/dL (8-23); Calcium 9.3 mg/dL (8.5-10.5); Carbon Dioxide 38 mmol/L (22-29); Chloride 94 mmol/L (98-107); Glomerular Filtration Rate 66.6 mL/min (90-130); Glucose 157 mg/dL (65-115); Osmolality Calculated 296 mOsm/kg (285-295); Sodium 139 mmol/L (136-145)
[2022-04-27 05:18] LABS: Anion Gap 11.1 (5-19); Potassium 4.1 mmol/L (3.5-5.1)
[2022-04-27 06:34] LABS: Glucose Point of Care 183 mg/dL (70-110)
[2022-04-27] MEDS: budesonide 0.5 mg/2 mL Neb INHALATION (07:48)
[2022-04-27] MEDS: predniSONE 20 mg Tablet 40 MG PO (08:23)
[2022-04-27] MEDS: gabapentin 300 mg Capsule PO (08:23)
[2022-04-27] MEDS: sotalol 80 mg Tablet 40 MG PO (08:23)
[2022-04-27] MEDS: losartan 50 mg Tablet PO (08:23)
[2022-04-27] MEDS: insulin lispro 100 unit/1 mL SUBCUT (08:24)
[2022-04-27] MEDS: doxycycline 100 mg Tablet PO (08:24)
[2022-04-27] MEDS: levothyroxine 200 mcg Tablet PO (08:24)
[2022-04-27] MEDS: FUROsemide 40 mg Tablet PO (08:24)
--- NOTE | 2022-04-27 09:52 | PM.DCS ---
Discharge Providers Date of Admission: 04/23/22 10:05 Date of Discharge: April 27, 2022 Attending Provider at Admission: Srinivas Holland MD Attending Provider at Discharge: Srinivas Holland MD Primary Care Provider: Simon Mack MD Diagnoses at Discharge Discharge Diagnosis (1) Acute respiratory failure with hypoxia and hypercapnia: Status: Acute (2) COPD exacerbation: Status: Acute (3) Diabetes: Status: Acute Qualifiers: Diabetes mellitus complication status: with hyperglycemia Diabetes mellitus printed circuit boards contact printer insulin use: without snf use Diabetes mellitus type: type 2 Qualified Code(s): E11.65 - Type 2 diabetes mellitus with hyperglycemia (4) Tobacco dependency: Status: Acute Reason for Visit Reason for Visit: SOB, possible low O2 Hospital Course Hospital Course Vega is a 66-year-old white male who presented to the hospital significantly short of breath. Chest x-ray did not demonstrate any infiltrate. He was diagnosed with acute COPD exacerbation and placed on oral antibiotics, IV steroids, and given pulmonary toilet. BNP was slightly elevated so his diuretic was increased as well. He was encouraged to stop smoking. Over the course of his hospital stay he gradually improved. By April 27 he was doing well enough it was thought he could go home. He was requiring 3 L of oxygen with sitting, and according to home O2 study required 6 L with exertion. He was discharged home and follow-up with pulmonary, his primary care provider. He was given a chance to ask questions, and agreed with the plan. It was also thought he would benefit greatly from BiPAP, which was arranged, secondary to his chronic respiratory failure with hypercarbia. Physical Exam Narrative: General exam no distress Neck is supple no lymphadenopathy thyromegaly Cardiovascular irregular, irregular rhythm without murmur Lungs a few faint bilateral wheezes Abdomen is soft nontender positive bowel sounds Extremities no cyanosis clubbing or edema. Skin without rash Discharge Data Studies Completed and Pending Completed Studies During Hospitalization Category Date Time Status CT angio chest PE protcl [id number] Stat Cat Scan 04/23/22 07:13 Completed XR chest 1V portable [id number] Routine Exams 04/26/22 12:59 Completed XR chest 1V portable [id number] Stat Exams 04/23/22 07:13 Completed Radiology Impressions Chest CTA 04/23/22 07:13 IMPRESSION: 1. No pulmonary embolism. 2. No pneumonia. 3. No increase in size 8mm noncalcified LEFT lower lobe pulmonary nodule. Nodule has increased by 3 to 4 mm since 2019. Recommend continued six-month chest CT surveillance. Nodule was indeterminate on a PET/CT of 01/13/2022. Chest X-Ray 04/26/22 12:59 IMPRESSION: 1. Moderate chronic emphysema. 2. No acute pulmonary change Laboratory Results WBC 12.3 10^3/uL (4.0-10.0) H 04/27/22 04:48 RBC 5.05 10^6/uL (4.1-5.3) 04/27/22 04:48 Hgb 14.7 g/dL (11.7-16.6) 04/27/22 04:48 Hct 46.2 % (42.0-52.0) 04/27/22 04:48 MCV 91.5 fl (80-94) 04/27/22 04:48 MCH 29.1 pg (28.0-34.0) 04/27/22 04:48 MCHC 31.8 g/dL (30.0-36.0) 04/27/22 04:48 RDW 12.9 % (12.1-15.1) 04/27/22 04:48 Plt Count 170 10^3/cmm (130-400) 04/27/22 04:48 MPV 11.4 fL (7.4-10.4) H 04/27/22 04:48 Neut % (Auto) 64.7 % 04/27/22 04:48 Lymph % (Auto) 24.5 % 04/27/22 04:48 [place] % (Auto) 9.3 % 04/27/22 04:48 Eos % (Auto) 0.2 % 04/27/22 04:48 Baso % (Auto) 0.2 % 04/27/22 04:48 Neut # (Auto) 7.93 10^3/uL (1.8-7.7) H 04/27/22 04:48 Lymph # (Auto) 3.0 10^3/uL (0.8-4.8) 04/27/22 04:48 [place] # (Auto) 1.1 10^3/uL (0.2-0.9) H 04/27/22 04:48 Eos # (Auto) 0.0 10^3/uL (0.0-0.8) 04/27/22 04:48 Baso # (Auto) 0.0 10^3/uL (0.0-0.1) 04/27/22 04:48 Nucleated RBC % (auto) 0 % 04/27/22 04:48 Nucleated RBCs # 0.0 /100WBC 04/27/22 04:48 Specimen Type Arterial 04/23/22 09:19 Sample Site Brachial, left 04/23/22 09:19 ABG pH 7.34 (7.35-7.45) L 04/23/22 09:19 ABG pCO2 62.8 mmHg (35-45) H* 04/23/22 09:19 ABG pO2 67.2 mmHg (80.0-100.0) L 04/23/22 09:19 ABG HCO3 33.6 mmol/L (22-26) H 04/23/22 09:19 ABG O2 Saturation 93.9 04/23/22 09:19 ABG Base Excess 5.4 mmol/L (-2.0-2.0) H 04/23/22 09:19 Drew Test N/a 04/23/22 09:19 A-a O2 Gradient 13.7 mmHg (5-10) H 04/23/22 09:19 Hematocrit 48.6 % (42-52) 04/23/22 09:19 Hgb O2 Saturation 91.1 % (95-100) L 04/23/22 09:19 Carboxyhemoglobin 2.1 %THgb (0.4-20.1) 04/23/22 09:19 Methemoglobin 0.8 % (0.4-1.5) 04/23/22 09:19 Total Hemoglobin 15.9 g/dL (14-18) 04/23/22 09:19 Sodium 136.0 mmol/L (131-143) 04/23/22 09:19 Potassium 4.5 mmol/L (3.5-5.0) 04/23/22 09:19 Glucose 173.0 mg/dL (70-115) H 04/23/22 09:19 Ionized Calcium 1.2 mmol/L (1.1-1.4) 04/23/22 09:19 O2 Delivery Device Bipap 04/23/22 09:19 O2 Liters/Min 6.0 % 04/23/22 07:25 FiO2 35.0 % 04/23/22 09:19 Motor Analyst ID Amh 04/23/22 09:19 Sodium 139 mmol/L (136-145) 04/27/22 04:48 Potassium 4.1 mmol/L (3.5-5.1) 04/27/22 04:48 Chloride 94 mmol/L (98-107) L 04/27/22 04:48 Carbon Dioxide 38 mmol/L (22-29) H 04/27/22 04:48 Anion Gap 11.1 (5-19) 04/27/22 04:48 BUN 27 mg/dL (8-23) H 04/27/22 04:48 Creatinine 1.1 mg/dL (0.7-1.2) 04/27/22 04:48 GFR Calculation 66.6 mL/min (90-130) L 04/27/22 04:48 Glucose 157 mg/dL (65-115) H 04/27/22 04:48 POC Glucose 183 mg/dL (70-110) H 04/27/22 06:30 Calculated Osmolality 296 mOsm/kg (285-295) H 04/27/22 04:48 Calcium 9.3 mg/dL (8.5-10.5) 04/27/22 04:48 Magnesium 1.9 mg/dL (1.7-2.3) 04/25/22 04:42 Total Bilirubin 0.4 mg/dL (0.15-1.2) 04/24/22 05:38 AST 12 U/L (0-40) 04/24/22 05:38 ALT 17 U/L (0-41) 04/24/22 05:38 Alkaline Phosphatase 92 U/L (40-130) 04/24/22 05:38 Troponin T Baseline 10 ng/L (0-15) 04/23/22 07:40 Troponin T 120 Minute 8.64 ng/L (0-15) 04/23/22 09:29 Delta Troponin T -1.36 ABS# (0-10) L 04/23/22 09:29 Troponin T Hi Sens 6Hr 6.31 ng/L (0-15) 04/23/22 14:17 Troponin T Hi Sens 6Hr Delta -3.69 ng/L (0-12) L 04/23/22 14:17 NT-Pro-B Natriuret Pep 551 pg/mL (0-125) H 04/26/22 04:45 Total Protein 6.6 g/dL (6.6-8.7) 04/24/22 05:38 Albumin 3.6 g/dL (3.5-5.2) 04/24/22 05:38 Globulin 3.0 g/dL (1.3-4.6) 04/24/22 05:38 Urine Color Yellow (Yellow) 04/23/22 08:38 Urine Appearance Clear (CLEAR) 04/23/22 08:38 Urine pH 5 (5-7) 04/23/22 08:38 Ur Specific Krebs 1.015 (1.005-1.030) 04/23/22 08:38 Urine Protein Trace (Negative) 04/23/22 08:38 Urine Glucose (UA) Norm (Normal) 04/23/22 08:38 Urine Ketones Negative (Negative) 04/23/22 08:38 Urine Blood Neg (Negative) 04/23/22 08:38 Urine Nitrate Negative (Negative) 04/23/22 08:38 Urine Bilirubin Neg (Negative) 04/23/22 08:38 Urine Urobilinogen Norm mg/dL (Negative) 04/23/22 08:38 Ur Leukocyte Esterase Negative (Negative) 04/23/22 08:38 Urine RBC None /hpf (0-2) 04/23/22 08:38 Urine WBC None /hpf (0-5) 04/23/22 08:38 Ur Squamous Epith Cells 0-4 /hpf (0-5) H 04/23/22 08:38 Amorphous Sediment Not Reportable 04/23/22 08:38 Urine Bacteria None /hpf (NONE) 04/23/22 08:38 Coronavirus 229E (PCR) Not detected (NOT DETECT) 04/23/22 07:40 Influenza Type A Ag negative (Negative) 04/23/22 07:40 Influenza Type B Ag negative (Negative) 04/23/22 07:40 SARS-CoV-2 (PCR) Not detected (NOT DETECT) 04/23/22 07:40 Vitals Last Vital Signs Temp 97.8 F 04/27/22 08:00 Pulse 69 04/27/22 08:00 Resp 19 H 04/27/22 08:00 BP 127/78 04/27/22 08:00 Pulse Ox 92 04/27/22 08:00 O2 Del Method 04/27/22 07:48 O2 Flow Rate 3 04/27/22 07:48 FiO2 35 04/27/22 03:54 Discharge Plan Discharge Patient Disposition: Home Health Service Condition: Stable Prescriptions: New furosemide 40 mg Tablet 40 mg PO DAILY@0800 Qty: 30 0RF prednisone 20 mg Tablet 40 mg PO DAILY Qty: 9 0RF Rx Instructions: Take 40 mg a day for 3 days then 20 mg a day for 3 days then discontinue doxycycline monohydrate 100 mg Tablet 100 mg PO BID Qty: 10 0RF nicotine 14 mg/24 hr patch 24 hour 1 patch transdermal DAILY Qty: 14 0RF Continued metformin 500 mg tablet 500 mg PO DAILY@08 Hold Instructions: Resume on 10/09/20. nitroglycerin 0.4 mg tablet, sublingual 0.4 mg sublingual Q5M PRN (Reason: chest pain) 30 Days Qty: 30 3RF Rx Instructions: until response; do not exceed 3 doses per episode levothyroxine 200 mcg capsule 200 mcg PO DAILY glimepiride 2 mg tablet 2 mg PO QAM sotalol 80 mg tablet 40 mg PO BID 30 Days Qty: 60 3RF prasugrel 10 mg tablet 10 mg PO QAM Qty: 90 3RF budesonide-formoterol [Symbicort] 160-4.5 mcg/actuation HFA aerosol inhaler 2 puff inhalation BID Qty: 10.2 3RF Magtab 84 mg tablet extended release 168 mg PO QAM Qty: 100 3RF losartan 50 mg tablet 50 mg PO BID@, Qty: 180 3RF atorvastatin 20 mg tablet 20 mg PO DAILY@2099 albuterol sulfate 90 mcg/actuation HFA aerosol inhaler 2 inh inhalation Q8H PRN (Reason: shortness of breath or wheezing) Qty: 8.5 0RF levothyroxine 100 mcg tablet 100 mcg PO DAILY omeprazole 40 mg capsule,delayed release(DR/EC) 40 mg PO DAILY@1999 gabapentin 300 mg capsule 300 mg PO TID acetaminophen 325 mg Tablet 650 mg PO Q6H PRN (Reason: Mild/Mod Pain Or Temp >/= 101) Qty: 0 0RF budesonide 0.25 mg/2 mL Suspension For Nebulization 0.5 mg INHALATION BID Perforomist 20 mcg/2 mL Solution For Nebulization 2 ml INHALATION BID Discontinued furosemide 20 mg tablet 20 mg PO DAILY@0800 prednisone 5 mg tablet 5 mg PO DIRECTED Qty: 40 0RF Discharge Orders: Discharge Order (Routine); Ordered 04/27/22 Ordered By: Srinivas Holland Other Ambulatory Orders: DME: Oxygen (Order) Location: None Selected Ordered By: Srinivas Holland Referrals: [facility] [Outside] [facility] [Outside] Datar,Gavin Tripathi MD [Physician] - 05/18/22 8:30 am (Chronic respiratory failure) Simon Mack MD [Primary Care Provider] - 05/02/22 9:00 am Discharge Diet: Cardiac Discharge Activity: Increase activity as tolerated Patient Instructions: Furosemide (By mouth), Doxycycline (By mouth), Prednisone (By mouth), COPD (Chronic Obstructive Pulmonary Disease) (DC), Opioid Safety Activity Restrictions/Additional Instructions: Referral to pulmonary rehab Take all medicine as prescribed 3 L of oxygen at rest, 6 L with exertion Follow-up with pulmonary in 2 weeks, your primary care provider in 3 to 5 days No smoking Prednisone taper is 40 mg a day for 3 days then 20 mg a day for 3 days then discontinue Note that your Lasix has been increased Note that a BiPAP is being arranged for you secondary to chronic respiratory failure. Please use this every night. It could prevent rehospitalization. Patient's Health Concerns: Shortness of breath, chronic respiratory failure with COPD exacerbation Assessment: See above Plan of Treatment: No smoking, BiPAP at night, prednisone and antibiotics Discharge Attestations Time Spent in Discharge Care*: greater than 30 min Status at Discharge: Cognitive status at discharge: cognitively intact, Behavioral status at discharge: cooperative, Quality Metrics Clinical Quality Measures [ No reported AMI, CVA or VTE this stay] Coding Level of Care Code Acute Chg FW DC note Diagnoses Acute respiratory failure with hypoxia and hypercapnia J96.01; J96.02 COPD exacerbation J44.1 Diabetes E11.65 Diabetes mellitus complication status: with hyperglycemia Diabetes mellitus printed circuit boards contact printer insulin use: without printed circuit boards contact printer use Diabetes mellitus type: type 2 Tobacco dependency F17.200
[2022-04-27 12:01] LABS: Glucose Point of Care 197 mg/dL (70-110)
== END 2022-04-27 12:26 | disposition home health service (06) | DRG 190 ==
LOC: ER 13:31 → MEDSURG 13:45
PROVIDERS: Admitting Provider Internal Medicine; Emergency Provider Family Medicine; PCP Family Medicine; Visit Provider Internal Medicine
DX: J44.1 Chronic obstructive pulmonary disease with (acute) exacerbation (principal); J96.21 Acute and chronic respiratory failure with hypoxia; J96.22 Acute and chronic respiratory failure with hypercapnia; Z68.43 Body mass index [BMI] 50.0-59.9, adult; E11.65 Type 2 diabetes mellitus with hyperglycemia; F17.210 Nicotine dependence, cigarettes, uncomplicated; Z79.84 Long term (current) use of oral hypoglycemic drugs; Z79.51 Long term (current) use of inhaled steroids; Z99.81 Dependence on supplemental oxygen; I71.60 Thoracoabdominal aortic aneurysm, without rupture, unspecified; I25.10 Atherosclerotic heart disease of native coronary artery without angina pectoris; Z86.16 Personal history of COVID-19; K21.9 Gastro-esophageal reflux disease without esophagitis; E78.5 Hyperlipidemia, unspecified; E03.9 Hypothyroidism, unspecified; M51.17 Intervertebral disc disorders with radiculopathy, lumbosacral region; I48.91 Unspecified atrial fibrillation; E66.9 Obesity, unspecified
CPT/HCPCS: 36415; 36416; 36600; 71045; 71275; 80048; 80051; 80053; 81001; 82330; 82805; 82962; 83735; 83880; 84484; 85025; 87070; 87205; 87635; 87804; 93005; 94640; 94660; 94760; 94762; 96361; 96372; 96374; 96375; 99291; J1650; J1815; J1940; J2060; J2930; J3490; J7030; J7512; J7626; Q9967

== ENCOUNTER 2022-05-23 14:41 | Outpatient (RCR) | payer MEDICARE, OTHER, SELFPAY | END 2022-06-19 23:59 | disposition home or self-care (01) | LOC: PULRHB 14:41 | PROVIDERS: PCP Family Medicine; Visit Provider Emergency Medicine | DX: R91.8 Other nonspecific abnormal finding of lung field (principal) | CPT/HCPCS: 94626 ==

== ENCOUNTER → 2022-06-01 09:38 | Outpatient (BNVA) | payer MEDICARE, OTHER, SELFPAY | PROVIDERS: PCP Family Medicine; Visit Provider Internal Medicine Pulmonary Disease | DX: J44.9 Chronic obstructive pulmonary disease, unspecified (principal); I25.119 Atherosclerotic heart disease of native coronary artery with unspecified angina pectoris; R42 Dizziness and giddiness; R91.1 Solitary pulmonary nodule; F17.210 Nicotine dependence, cigarettes, uncomplicated; Z86.16 Personal history of COVID-19; Z95.5 Presence of coronary angioplasty implant and graft | CPT/HCPCS: 99214 ==

== ENCOUNTER 2022-06-20 06:00 | Outpatient (RCR) | payer MEDICARE, OTHER, SELFPAY | END 2022-07-17 23:59 | disposition home or self-care (01) | LOC: PULRHB 06:00 | PROVIDERS: PCP Family Medicine; Visit Provider Emergency Medicine | DX: R91.8 Other nonspecific abnormal finding of lung field (principal) | CPT/HCPCS: 94626; G0237; G0238 ==

== ENCOUNTER 2022-07-18 06:00 | Outpatient (RCR) | payer MEDICARE, OTHER, SELFPAY | END 2022-08-17 23:59 | disposition home or self-care (01) | LOC: PULRHB 06:00 | PROVIDERS: PCP Family Medicine; Visit Provider Emergency Medicine | DX: R91.8 Other nonspecific abnormal finding of lung field (principal) | CPT/HCPCS: 94625; 94626 ==

== ENCOUNTER → 2022-08-13 12:09 | Outpatient (BNVA) | payer MEDICARE, OTHER, SELFPAY | PROVIDERS: PCP Family Medicine; Visit Provider Internal Medicine Cardiovascular Disease | DX: R06.02 Shortness of breath (principal); I25.118 Atherosclerotic heart disease of native coronary artery with other forms of angina pectoris; I50.30 Unspecified diastolic (congestive) heart failure; E11.65 Type 2 diabetes mellitus with hyperglycemia; E03.9 Hypothyroidism, unspecified; J44.9 Chronic obstructive pulmonary disease, unspecified; F17.210 Nicotine dependence, cigarettes, uncomplicated | CPT/HCPCS: 36415; 80048; 83880; 99214 ==

== ENCOUNTER 2022-08-18 06:00 | Outpatient (RCR) | payer MEDICARE, OTHER, SELFPAY | END 2022-09-16 23:59 | disposition home or self-care (01) | LOC: PULRHB 06:00 | PROVIDERS: PCP Family Medicine; Visit Provider Emergency Medicine | DX: R91.8 Other nonspecific abnormal finding of lung field (principal) | CPT/HCPCS: 94625 ==

== ENCOUNTER → 2022-09-13 11:44 | Outpatient (BNVA) | payer MEDICARE, OTHER, SELFPAY | PROVIDERS: PCP Family Medicine; Visit Provider Family Medicine | DX: E11.9 Type 2 diabetes mellitus without complications (principal); E03.9 Hypothyroidism, unspecified | CPT/HCPCS: 83036 ==

== ENCOUNTER 2022-11-21 14:11 | Outpatient (CLI) | payer MEDICARE, OTHER, SELFPAY ==
--- NOTE | 2022-11-21 14:21 | XR_ITS ---
WS: [id number] XR chest 2V* [id number] REASON FOR EXAM: Dyspnea FINDINGS: The heart and mediastinum are within normal limits. Flattening of the hemidiaphragms and expansion of the anterior clear space. Multiple lucencies in bot h lungs. Calcified granulomatous disease bilaterally. Multiple linear areas of opacity consistent with fibrosis and chronic atelectasis. No acute/subacute pulmonary parenchymal or pleural abnormality. XR/XR chest 2V* [id number] IMPRESSION: Findings compatible with central lobar emphysema and hyperexpansion, obstructiv e lung disease. No acute or subacute abnormality identified.
== END 2022-11-21 14:12 | disposition home or self-care (01) ==
LOC: RAD 14:15
PROVIDERS: PCP Family Medicine; Visit Provider Family Medicine
DX: J44.1 Chronic obstructive pulmonary disease with (acute) exacerbation (principal)
CPT/HCPCS: 71046

== ENCOUNTER 2022-11-23 10:01 | Emergency (ER) | payer MEDICARE, OTHER, SELFPAY ==
[2022-11-23 10:09] VITALS: BP 119/83; PULSE 64; RESP 21; O2SAT 97; BMI 38.2
--- NOTE | 2022-11-23 11:24 | XR_ITS ---
WS: [id number] XR chest 1V portable [id number] REASON FOR EXAM: dyspnea/cough FINDINGS: Chest is unchanged compared to 11/21/2022. Central lobar emphysema and hyperexpansion. Linear fibrotic changes in both lower lung plum[place]. XR/XR chest 1V portable [id number] IMPRESSION: No acute abnormality identified. No change from the examination of 11/21/2022.
[2022-11-23 11:53] LABS: ABG PCO2 55.8 mmHg (35-45); ABG PH Result 7.36 (7.35-7.45); Base Excess ABG 4.4 mmol/L (-2.0-2.0); Blood Gas Allen Test Pos; Blood Gas Operator Identificat CAK; Blood Gas Sample Site Radial, right; Blood Gas Sample Type Arterial; HCO3 ABG 31.5 mmol/L (22-26); HGB O2 Sat 97.1 % (95-100); Ionized Calcium Level - ABG 1.2 mmol/L (1.1-1.4); Methemoglobin 0.3 % (0.4-1.5); Oxygen Device NC; Oxygen Saturation ABG 98.4; Potassium Level - ABG 4.3 mmol/L (3.5-5.0); Total Hemoglobin 14.7 g/dL (14-18)
--- NOTE | 2022-11-23 12:06 | ED_ITS ---
HPI - SOB/Dyspnea General: Chief Complaint: Shortness of Breath/Dyspnea Stated Complaint: SOB Time Seen by Provider: 11/23/22 11:23 Source: patient Mode of arrival: ambulatory History of Present Illness: HPI Narrative: 14-year-old male presents to the emergency room complaining of shortness of breath and minimally productive cough. Patient has COPD is currently on 6 L by nasal cannula. He was on 5 L by nasal cannula 93% when he arrived here. He is using albuterol nebs at home he last used 1 last night. He was started on some oral antibiotics but it has not been improving. Denies any chest pain. MD elicited complaint: shortness of breath and cough Pertinent past history: COPD Onset (ago): day(s) Context: recent illness Timing: constant Severity: moderate Exacerbating factors: exertion and coughing Relieving factors: oxygen, rest and bronchodilators Known history of: COPD Associated symptoms: Deny abdominal pain, chest congestion, chest pain, cough, diaphoresis, dizziness, extremity pain, fever(s), hemoptysis, lightheadedness, myalgias, nausea, orthopnea, palpitations, paresthesias, polydipsia, polyuria, rash, sense of impending doom, syncope or vomiting Treatment prior to arrival: oxygen and bronchodilator Review of Systems Const: Denies: fever(s) or diaphoresis ENMT: Denies: throat pain, ear or mastoid pain, nasal discharge or nasal congestion Card: Denies: chest pain, palpitations, lightheadedness, syncope or orthopnea Resp: Reports: dyspnea and non-productive cough; Denies: hemoptysis or chest congestion GI: Denies: abdominal pain, nausea or vomiting : Denies: flank pain, dysuria, urinary frequency or urinary urgency Musc: Denies: extremity pain Skin/Breast: Denies: rash or pruritus Neuro: Denies: dizziness Endo: Denies: polyuria or polydipsia PFSH ED PFSH: Medical History AAA (abdominal aortic aneurysm) without rupture Acute hypercapnic respiratory failure Acute respiratory failure with hypoxia and hypercapnia Allergic rhinitis Aortic root dilation 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 Atypical chest pain Bradycardia Cognitive impairment COPD (chronic obstructive pulmonary disease) COPD exacerbation COVID-19 DDD (degenerative disc disease) Diabetes Essential (primary) hypertension GERD (gastroesophageal reflux disease) Hyperlipidemia Hypothyroidism Intervertebral disc disorders with radiculopathy, lumbosacral region Lumbar disc disease with radiculopathy Obesity Scoliosis of lumbar region due to degenerative disease of spine in adult Smoking SVT (supraventricular tachycardia) Testicular mass Thoracic aortic aneurysm, without rupture Surgical History H/O hernia repair History of PTCA Hx of heart artery stent Family History Mother , AT AGE 69 Diabetes, Onset Age: 69 Father , AT AGE 80 Cancer, Onset Age: 80 Lung Heart disease Lung disease Brother Diabetes Other Lupus Social History Smoking and tobacco status: current every day smoker (1 ppd) cigarettes Packs smoked per day: 1 Years cigarettes smoked: 1 [ Other cigarette details: smoked 2 ppd for 50 years and quit for 3 years. Started smoking at 14 years] Quit status (tobacco): has quit using tobacco Year quit tobacco: 2019 - 2PPD x 50 Years Smoking risk assessment/counseling performed?: No Alcohol intake: never Counseling given: No Substance/Drug Use: never Counseling given: No Lives independently: Yes Household members: spouse Marital status: Current occupational status: disabled Do you think of yourself as: Straight/Heterosexual Current gender identity: Male Physical Exam Const: COMMON NORMALS: no acute distress GENERAL APPEARANCE: cooperative and comfortable ORIENTATION/CONSCIOUSNESS: Yes awake, Yes oriented to person, Yes oriented to place and Yes oriented to time HENMT: COMMON NORMALS: normocephalic, atraumatic and hearing grossly normal bilaterally HEAD & SCALP: normocephalic and atraumatic Resp: AUSCULTATION: rhonchi and wheezes Cardio: COMMON NORMALS: regular rate, regular rhythm and No murmurs present (Cardio) RATE: regular rate RHYTHM: regular rhythm GI: COMMON NORMALS: Soft to palpation and No hepatosplenomegaly present AUSCULTATION: Yes normoactive bowel sounds PALPATION: Yes Soft to palpation, No Tenderness to palpation present (GI), No Guarding due to palpation present (GI) and Yes No hepatosplenomegaly present Extremity: COMMON NORMALS: normal to inspection, capillary refill normal, no clubbing, cyanosis or edema, no calf tenderness and no pedal edema Neuro: SENSORIUM/ORIENTATION: Yes oriented to person, Yes oriented to place and Yes oriented to time Skin: COMMON NORMALS: no rashes or lesions noted GENERAL SKIN EXAM: no rashes or lesions noted Course Vital Signs: Vital signs: Vital Signs Pulse Rate 57 L 11/23/22 13:08 Respiratory Rate 18 11/23/22 13:08 Blood Pressure 119/83 11/23/22 10:09 Pulse Oximetry 98 11/23/22 13:08 Oxygen Delivery Me thod Nasal Cannula 11/23/22 13:08 Oxygen Flow Rate 5 11/23/22 13:08 MDM - SOB/Dyspnea Medical Decision Making Improved with nebulizer. He is generally doing better chest x-ray unremarkable we will discharge patient home on increased dose of steroids as well as more aggressive use of nebulizer. Follow-up with primary care doctor next week return if is further problems. Medical Records I reviewed the patient's medical records. Lab Data I reviewed the patient's lab results. 11/23/22 12:07 11/23/22 12:07 Labs/Radiology: Radiology Impressions Chest X-Ray 11/23/22 11:24 IMPRESSION: No acute abnormality identified. No change from the examination of 11/21/2022. Laboratory Results WBC 14.5 10^3/uL (4.0-10.0) H 11/23/22 12:07 RBC 4.97 10^6/uL (4.1-5.3) 11/23/22 12:07 Hgb 14.6 g/dL (11.7-16.6) 11/23/22 12:07 Hct 45.9 % (42.0-52.0) 11/23/22 12:07 MCV 92.4 fl (80-94) 11/23/22 12:07 MCH 29.4 pg (28.0-34.0) 11/23/22 12:07 MCHC 31.8 g/dL (30.0-36.0) 11/23/22 12:07 RDW 12.8 % (12.1-15.1) 11/23/22 12:07 Plt Count 250 10^3/cmm (130-400) 11/23/22 12:07 MPV 11.3 fL (7.4-10.4) H 11/23/22 12:07 Neut % (Auto) 66.8 % 11/23/22 12:07 Lymph % (Auto) 17.7 % 11/23/22 12:07 [place] % (Auto) 10.1 % 11/23/22 12:07 Eos % (Auto) 3.4 % 11/23/22 12:07 Baso % (Auto) 0.5 % 11/23/22 12:07 Neut # (Auto) 9.68 10^3/uL (1.8-7.7) H 11/23/22 12:07 Lymph # (Auto) 2.6 10^3/uL (0.8-4.8) 11/23/22 12:07 [place] # (Auto) 1.5 10^3/uL (0.2-0.9) H 11/23/22 12:07 Eos # (Auto) 0.5 10^3/uL (0.0-0.8) 11/23/22 12:07 Baso # (Auto) 0.1 10^3/uL (0.0-0.1) 11/23/22 12:07 Nucleated RBC % (auto) 0 % 11/23/22 12:07 Nucleated RBCs # 0.0 /100WBC 11/23/22 12:07 Specimen Type Arterial 11/23/22 11:42 Sample Site Radial, right 11/23/22 11:42 ABG pH 7.36 (7.35-7.45) 11/23/22 11:42 ABG pCO2 55.8 mmHg (35-45) H 11/23/22 11:42 ABG pO2 101.0 mmHg (80.0-100.0) H 11/23/22 11:42 ABG HCO3 31.5 mmol/L (22-26) H 11/23/22 11:42 ABG O2 Saturation 98.4 11/23/22 11:42 ABG Base Excess 4.4 mmol/L (-2.0-2.0) H 11/23/22 11:42 Drew Test Pos 11/23/22 11:42 A-a O2 Gradient Not Reportable 11/23/22 11:42 Hematocrit 45.0 % (42-52) 11/23/22 11:42 Hgb O2 Saturation 97.1 % (95-100) 11/23/22 11:42 Carboxyhemoglobin 1.0 %THgb (0.4-20.1) 11/23/22 11:42 Methemoglobin 0.3 % (0.4-1.5) L 11/23/22 11:42 Total Hemoglobin 14.7 g/dL (14-18) 11/23/22 11:42 Sodium 139.0 mmol/L (131-143) 11/23/22 11:42 Potassium 4.3 mmol/L (3.5-5.0) 11/23/22 11:42 Glucose 125.0 mg/dL (70-115) H 11/23/22 11:42 Ionized Calcium 1.2 mmol/L (1.1-1.4) 11/23/22 11:42 O2 Delivery Device Nc 11/23/22 11:42 O2 Liters/Min 5.0 % 11/23/22 11:42 Foundation Drill Operator ID Cak 11/23/22 11:42 Sodium 138 mmol/L (136-145) 11/23/22 12:07 Potassium 4.7 mmol/L (3.5-5.1) 11/23/22 12:07 Chloride 97 mmol/L (98-107) L 11/23/22 12:07 Carbon Dioxide 33 mmol/L (22-29) H 11/23/22 12:07 Anion Gap 12.7 (5-19) 11/23/22 12:07 BUN 24 mg/dL (8-23) H 11/23/22 12:07 Creatinine 1.2 mg/dL (0.7-1.2) 11/23/22 12:07 GFR Calculation 60.0 mL/min (90-130) L 11/23/22 12:07 Glucose 110 mg/dL (65-115) 11/23/22 12:07 Calculated Osmolality 291 mOsm/kg (285-295) 11/23/22 12:07 Calcium 9.4 mg/dL (8.5-10.5) 11/23/22 12:07 Total Bilirubin 0.3 mg/dL (0.15-1.2) 11/23/22 12:07 AST 15 U/L (0-40) 11/23/22 12:07 ALT 28 U/L (0-41) 11/23/22 12:07 Alkaline Phosphatase 84 U/L (40-130) 11/23/22 12:07 Total Protein 7.2 g/dL (6.6-8.7) 11/23/22 12:07 Albumin 4.2 g/dL (3.5-5.2) 11/23/22 12:07 Globulin 3.0 g/dL (1.3-4.6) 11/23/22 12:07 Discharge Plan Discharge Patient Disposition: Home Clinical Impression: Acute exacerbation of chronic obstructive airways disease Condition: Stable Prescriptions: New prednisone 20 mg tablet 20 mg PO TID Qty: 15 0RF Rx Instructions: 1 p.o. 3 times daily x3 days, 1 p.o. twice daily x2 days, 1 p.o. daily x2 days ipratropium-albuterol 0.5 mg-3 mg(2.5 mg base)/3 mL solution for nebulization 3 ml inhalation Q4H PRN (Reason: shortness of breath or wheezing) Qty: 180 0RF Rx Instructions: until breathing returns to target peak flow/parameters No Action metformin 500 mg tablet 500 mg PO BID Hold Instructions: Resume on 10/09/20. nitroglycerin 0.4 mg tablet, sublingual 0.4 mg sublingual Q5M PRN (Reason: chest pain) 30 Days Qty: 30 3RF Rx Instructions: until response; do not exceed 3 doses per episode glimepiride 2 mg tablet 2 mg PO QAM cinnamon PO furosemide 40 mg tablet 40 mg PO BID Qty: 60 6RF potassium chloride [Klor-Con 10] 10 mEq tablet extended release 10 meq PO BID Qty: 60 6RF prednisone 5 mg tablet 5 mg PO DAILY Qty: 30 6RF levothyroxine 100 mcg tablet 100 mcg PO DAILY Qty: 90 3RF citalopram 20 mg tablet 20 mg PO DAILY Qty: 30 6RF (DME) Oxygen via nc at 5L See Rx Instructions .Route .MEDSUPPLY Qty: 1 0RF Rx Instructions: Use throughout day and night - Okay to titrate up to 10 L if needed. Please provide O2 concentrator that will go up to 10L. azithromycin 250 mg tablet 250 mg PO DAILY 7 Days Qty: 7 0RF prednisone 20 mg tablet 40 mg PO DAILY 7 Days Qty: 14 0RF prasugrel 10 mg tablet 10 mg PO QAM Qty: 90 3RF Magtab 84 mg tablet extended release 168 mg PO QAM Qty: 100 3RF losartan 50 mg tablet 50 mg PO BID@08,20 Qty: 180 3RF (DME) Portable Oxygen Concentrator See Rx Instructions .Route .MEDSUPPLY Qty: 1 0RF Rx Instructions: As directed levothyroxine 200 mcg tablet 200 mcg PO DAILY Qty: 90 3RF Rx Instructions: Take with 100mcg tablet. budesonide 0.5 mg/2 mL suspension for nebulization 0.5 mg inhalation BID Qty: 120 5RF revefenacin 175 mcg/3 mL solution for nebulization 175 mcg inhalation DAILY Qty: 90 5RF formoterol fumarate [Perforomist] 20 mcg/2 mL solution for nebulization 2 ml INHALATION BID Qty: 120 5RF (DME) pen needle, diabetic [BD Ultra-Fine Mini Pen Needle] 31 gauge x 3/16 needle See Rx Instructions .Route Qty: 50 3RF Rx Instructions: As directed insulin glargine [Lantus Solostar U-100 Insulin] 100 unit/mL (3 mL) insulin pen 70 unit SUBCUT QAM Qty: 15 3RF sotalol 80 mg tablet 40 mg PO BID 30 Days Qty: 60 3RF albuterol sulfate 90 mcg/actuation HFA aerosol inhaler 2 inh inhalation Q8H PRN (Reason: shortness of breath or wheezing) Qty: 8.5 4RF atorvastatin 20 mg tablet 20 mg PO DAILY@2100 omeprazole 40 mg capsule,delayed release(DR/EC) 40 mg PO DAILY@2000 gabapentin 300 mg capsule 300 mg PO DAILY Discharge Orders: Discharge ED (Routine); Ordered 11/23/22 Ordered By: Byron Graves Referrals: Simon Mack MD [Primary Care Provider] - Discharge Diet: Usual diet Discharge Activity: Increase activity as tolerated Patient Instructions: COPD (Chronic Obstructive Pulmonary Disease) (ED), Opioid Safety, Pain Management Activity Restrictions/Additional Instructions: Follow-up with your doctor within the next week. Avoid heat and humidity. Recommend staying indoors during the hottest parts of the day. Coding Level of Care Code ED Medical Care Administrator for Halle Degroot
[2022-11-23] MEDS: dexamethasone 10 mg/mL INJ IVP (12:25)
[2022-11-23 12:29] LABS: Basophils # 0.1 10^3/uL (0.0-0.1); Basophils % 0.5 %; Eosinophils # 0.5 10^3/uL (0.0-0.8); Eosinophils % 3.4 %; Hematocrit 45.9 % (42.0-52.0); Hemoglobin 14.6 g/dL (11.7-16.6); Lymphocytes # 2.6 10^3/uL (0.8-4.8); Lymphocytes % 17.7 %; Mean Corpuscular HGB Conc 31.8 g/dL (30.0-36.0); Mean Corpuscular Hemoglobin 29.4 pg (28.0-34.0); Mean Corpuscular Volume 92.4 fl (80-94); Mean Platelet Volume 11.3 fL (7.4-10.4); Monocytes # 1.5 10^3/uL (0.2-0.9); Monocytes % 10.1 %; Neutrophils # 9.68 10^3/uL (1.8-7.7); Neutrophils % 66.8 %; Nucleated Red Blood Cells % 0 %; Platelet Count 250 10^3/cmm (130-400); Red Blood Count 4.97 10^6/uL (4.1-5.3); Red Cell Distribution Width 12.8 % (12.1-15.1); White Blood Count 14.5 10^3/uL (4.0-10.0)
[2022-11-23 12:52] LABS: Alanine Aminotransferase 28 U/L (0-41); Albumin Level 4.2 g/dL (3.5-5.2); Alkaline Phosphatase 84 U/L (40-130); Anion Gap 12.7 (5-19); Aspartate Amino Transferase 15 U/L (0-40); Blood Urea Nitrogen 24 mg/dL (8-23); Calcium 9.4 mg/dL (8.5-10.5); Carbon Dioxide 33 mmol/L (22-29); Chloride 97 mmol/L (98-107); Glucose 110 mg/dL (65-115); Osmolality Calculated 291 mOsm/kg (285-295); Potassium 4.7 mmol/L (3.5-5.1); Sodium 138 mmol/L (136-145); Total Bilirubin 0.3 mg/dL (0.15-1.2); Total Protein 7.2 g/dL (6.6-8.7)
[2022-11-23] MEDS: ipratropium-albuterol 3 mL Neb INHALATION (13:05)
[2022-11-23 13:08] VITALS: PULSE 57; RESP 18; O2SAT 98
== END 2022-11-23 13:52 | disposition home or self-care (01) ==
PROVIDERS: Emergency Provider Family Medicine; PCP Family Medicine
DX: J44.1 Chronic obstructive pulmonary disease with (acute) exacerbation (principal); Z79.84 Long term (current) use of oral hypoglycemic drugs; F17.210 Nicotine dependence, cigarettes, uncomplicated; I25.10 Atherosclerotic heart disease of native coronary artery without angina pectoris; E11.9 Type 2 diabetes mellitus without complications; I10 Essential (primary) hypertension; E78.5 Hyperlipidemia, unspecified
CPT/HCPCS: 36600; 71045; 80051; 80053; 82330; 82805; 85025; 87040; 87070; 87205; 94640; 96374; 99285; J1100

== ENCOUNTER 2022-11-27 15:33 | Outpatient (CLI) | payer MEDICARE, OTHER, SELFPAY ==
--- NOTE | 2022-11-27 16:00 | CTR_ITS ---
PROCEDURE INFORMATION: Exam: CT Chest Without Contrast; Diagnostic Exam date and time: 11/27/2022 3:46 PM Age: 67 years old Clinical indication: Condition or disease; Lung condition and disease; Pulmonary nodule, solitary; Prior surgery; Surgery date: 6+ months; Surgery type: Heart stent; Additional info: Pulmonary nodule, please schedule in October 2022 TECHNIQUE: Imaging protocol: Diagnostic computed tomography of the chest without contrast. Radiation optimization: All CT scans at this facility use at least one of these dose optimization techniques: automated exposure control; mA and/or kV adjustment per patient size (includes targeted exams where dose is matched to clinical indication); or iterative reconstruction. REPORTING DATA: Count of CT and Cardiac NM exams in prior 12 months: This patient has received 3 known CTs and 0 known cardiac nuclear medicine studies in the 12 months prior to the current study. COMPARISON: 1. CT lung screening [id number] 12/26/2021 10:[address] angio chest PE protcl [id number] 04/23/2022 8:06 AM RADIATION DOSE METRICS: Total DLP (mGy-cm): 575.68 FINDINGS: Lungs: Multiple calcified granulomas in both lungs. Significantly smaller 5 mm noncalcified nodule in the left lower lobe, series 4 image 39. Stable discoid atelectasis or fibrosis in the lingular segments of the left upper lobe. The lungs otherwise are clear. Pleural spaces: Unremarkable. No pneumothorax. No pleural effusion. Heart: The heart size is normal. Coronary arteries: Calcified coronary arteries with possible stent. Lymph nodes: Calcified mediastinal and hilar lymph nodes. Vasculature: Unremarkable. No aortic aneurysm. Bones/joints: Mild degenerative changes of the spine. No acute fracture. Mild thoracic curvature. Soft tissues: Unremarkable. Other findings: Severe emphysema. CT/CT chest wo con [id number] IMPRESSION: 1. No acute findings. 2. Significantly smaller 5 mm left lower lobe pulmonary nodule. This progressive size decrease is consistent with a benign etiology.
== END 2022-11-27 15:34 | disposition home or self-care (01) ==
LOC: RAD 15:35
PROVIDERS: PCP Family Medicine; Visit Provider Internal Medicine Pulmonary Disease
DX: R91.1 Solitary pulmonary nodule (principal); Z95.5 Presence of coronary angioplasty implant and graft
CPT/HCPCS: 71250

== ENCOUNTER → 2022-12-03 10:13 | Outpatient (BNVA) | payer MEDICARE, OTHER, SELFPAY | PROVIDERS: PCP Family Medicine; Visit Provider Internal Medicine Pulmonary Disease | DX: J44.9 Chronic obstructive pulmonary disease, unspecified (principal); R91.1 Solitary pulmonary nodule; I25.119 Atherosclerotic heart disease of native coronary artery with unspecified angina pectoris; F17.210 Nicotine dependence, cigarettes, uncomplicated; R42 Dizziness and giddiness; Z79.52 Long term (current) use of systemic steroids; Z95.5 Presence of coronary angioplasty implant and graft; I95.9 Hypotension, unspecified | CPT/HCPCS: 99214 ==

== ENCOUNTER → 2022-12-19 13:46 | Outpatient (BNVA) | payer MEDICARE, OTHER, SELFPAY | PROVIDERS: PCP Family Medicine; Visit Provider Nurse Practitioner Family | DX: I25.118 Atherosclerotic heart disease of native coronary artery with other forms of angina pectoris (principal); R00.1 Bradycardia, unspecified; F17.210 Nicotine dependence, cigarettes, uncomplicated | CPT/HCPCS: 93005; 99213 ==

== ENCOUNTER 2023-01-04 08:47 | Outpatient (CLI) | payer MEDICARE, OTHER, SELFPAY ==
[2023-01-04 09:38] LABS: Basophils # 0.1 10^3/uL (0.0-0.1); Basophils % 0.5 %; Eosinophils # 0.4 10^3/uL (0.0-0.8); Eosinophils % 3.5 %; Hematocrit 41.4 % (42.0-52.0); Hemoglobin 13.5 g/dL (11.7-16.6); Lymphocytes % 19.1 %; Mean Corpuscular HGB Conc 32.6 g/dL (30.0-36.0); Mean Corpuscular Hemoglobin 29.5 pg (28.0-34.0); Mean Corpuscular Volume 90.4 fl (80-94); Mean Platelet Volume 11.3 fL (7.4-10.4); Monocytes # 1.2 10^3/uL (0.2-0.9); Neutrophils # 6.59 10^3/uL (1.8-7.7); Nucleated Red Blood Cells % 0 %; Platelet Count 191 10^3/cmm (130-400); Red Blood Count 4.58 10^6/uL (4.1-5.3); Red Cell Distribution Width 12.7 % (12.1-15.1); White Blood Count 10.3 10^3/uL (4.0-10.0)
[2023-01-04 09:57] LABS: INR 0.92 (0.83-1.21); Prothrombin Time (Patient) 12.6 Seconds (12.0-15.1)
[2023-01-04 10:08] LABS: Anion Gap 12.9 (5-19); Blood Urea Nitrogen 20 mg/dL (8-23); Calcium 9.1 mg/dL (8.5-10.5); Carbon Dioxide 29 mmol/L (22-29); Chloride 99 mmol/L (98-107); Glomerular Filtration Rate 83.7 mL/min (90-130); Glucose 213 mg/dL (65-115); NT Pro B Type Natriuretic Pept 218 pg/mL (0-125); Osmolality Calculated 293 mOsm/kg (285-295); Potassium 3.9 mmol/L (3.5-5.1); Sodium 137 mmol/L (136-145)
== END 2023-01-04 08:48 | disposition home or self-care (01) ==
PROVIDERS: PCP Family Medicine; Visit Provider Nurse Practitioner Family
DX: I25.118 Atherosclerotic heart disease of native coronary artery with other forms of angina pectoris (principal); I50.30 Unspecified diastolic (congestive) heart failure; R07.89 Other chest pain
CPT/HCPCS: 80048; 83880; 85025; 85610; 86850; 86900

== ENCOUNTER 2023-01-08 09:46 | Outpatient (CLI) | payer MEDICARE, OTHER, SELFPAY ==
[2023-01-08] VITALS (32 sets, daily range): BP systolic 103–142; BP diastolic 63–96; PULSE 54–78; RESP 14–27; TEMP 35.9–36.8; O2SAT 88–98; BMI 39.0
[2023-01-08] MEDS: aspirin 325 mg Tablet PO (06:20)
[2023-01-08] MEDS: diphenhydrAMINE 50 mg Capsule PO (06:20)
[2023-01-08 06:23] LABS: Glucose Point of Care 245 mg/dL (70-110)
--- NOTE | 2023-01-08 07:00 | XACV_ITS ---
Exam Room: 2 Ht: 180 cm Wt: 127 kg BSA: 2.57 m2 Gender: Male : 1955 Any Known Allergies: Other Exam Priority: Routine Procedure(s): Procedure Description: Diagnostic procedure Procedure Description: PCI procedure Procedure Description: Left Heart Catheterization Procedure Description: Left ventriculography Procedure Description: Drug Eluting Coronary Stent Procedure Description: PTCA Procedure Description: Miscellaneous Procedure Description: ACT Procedure Description: Coronary Angiography Procedure Description: Pressure Wire Jeet VAN; Diagnostic Cath Status: Elective Diagnostic Findings * Left main is a medium caliber short vessel, bifurcating the left anterior descending and circumflex artery. * The left anterior descending artery is a medium caliber vessel which appears to wrap around the LV apex minimally. The stented segment of the proximal LAD was found to be widely patent. Just distal to the stent, there was a napkin ring type of lesion of around 50%. The mid LAD was found to have around 50 to 60% irregular tubular narrowing. The distal area was found no Significant stenotic lesions. The diagonal branches were found to be relative may have small caliber with no significant stenotic lesions. * The left circumflex artery is a medium caliber vessel. Minimal intimal irregularities are noted with no significant stenotic lesions. It gives off a high obtuse marginal branch-intermedius with no significant stenotic lesion. * The right coronary artery is a medium caliber dominant vessel and was found to have mild diffuse intimal irregularities in the proximal and mid segment. No significant stenotic lesions were noted. PCI Status: Elective PCI Indication: Other Interventional Findings * PROCEDURE DETAIL: We engaged left main artery with XB 3.5 guide catheter. IV heparin was administered to maintain anticoagulation. After normalization, IFR wire was advanced to distal LAD. iFR value of 0.85 was obtained that was ischemic. We proceeded with PCI. We advanced run-through wire into distal vessel. We predilated the stenosis with 2.5 x 12 mm semicompliant balloon. We placed 2.75 x 76 mm resolute [place] drug-eluting stent in mid LAD. There was residual stenosis proximally and had a small gap between the 2 stents. We placed a second stent measuring 3.0 x 12 mm resolute Vanessa drug-eluting stent. Stents were postdilated with 3.0 x 12 mm NC balloon. At this time final angiogram was performed that showed excellent stent expansion, no residual stenosis and NAILA 3 flow. Guide catheter and guidewire were removed. Patient left the lab pack chemist in a stable condition. . * Mid Left Anterior Descendin% stenosis treated with a AB TREK 2.50X12 RX BALLOON, VIKAS R VANESSA 2.75X26 DANIEL, VIKAS LEON EUPHORA RX [id number] BALLOON, and VIKAS R VANESSA 3.0X12 DANIEL. 0% residual stenosis, NAILA: 3 flow. Conclusions 1. Patient with a history of atherosclerotic heart disease, status post stenting of the left anterior sending artery, high blood pressure, dyslipidemia and ventricular arrhythmia, presents with increasing episodes of chest pains . He had a stress testing from the past which apparently were unremarkable. In view of his increasing episodes of chest pains, in order to further evaluate his coronary status, a cardiac catheterization was recommended. Patient underwent left heart catheterization with a left and right coronary angiogram and LV angiogram today. The findings are as follows.. 2. 1. Short left main. 2. Patent stented segment of the proximal left and descending artery. Napkin ring type of lesion just distal to the stented segment. 50 to 60% tubular lesion in the mid LAD. 3. Minimal intimal irregularities in the circumflex artery 4. Minimal intimal irregularities in the right coronary artery. 5. LV ejection fraction of 50% by angiogram. 6. LVEDP of 29mmHg.. 3. Based on the angiogram findings, it was thought to be appropriate to consider IFR of the LAD lesions. I reviewed and discussed the cardiac catheterization data with Dr. Martinez. Dr. Martinez concurred with this plan and took over further management of this patient at this point. The IFR was found to be 0.85. So patient underwent PCI of the LAD lesions. 4. Successful revascularization of mid LAD with DANIEL x 2. 5. Mid Left Anterior Descending was treated with a Balloon, Drug Eluting Stent, Balloon, and Drug Eluting Stent. Recommendations * Dual antiplatelet therapy with aspirin and Plavix for at least 1 year. * High intensity statin therapy. * Outpatient follow up in 2-4 weeks. Interventional RX Recommendation: PCI w/o planned CABG Diagnostic RX Recommendation: PCI w/o planned CABG Anticoagulation: Heparin Ventriculography Ejection Fraction: 50.0 % Left Ventriculography Findings: * The LV gram was performed in the ORTEGA projection. The LV cavity appears to be of normal size. LV ejection fraction was around 50%. LVEDP was 29 mmHg before the LV angiogram. Following the LV angiogram, it was 33 mmHg. Pressures Phase:Rest AO : 124 / 69 ( 89 ) @ 8:27:00 AM 108 / 79 ( 94 ) @ 8:29:00 AM 114 / 90 ( 102 ) @ 8:32:00 AM 138 / 74 ( 100 ) @ 8:38:00 AM 140 / 75 ( 101 ) @ 8:38:00 AM 170 / 73 ( 103 ) @ 8:41:00 AM 153 / 80 ( 107 ) @ 8:52:00 AM 143 / 76 ( 103 ) @ 8:59:00 AM 125 / 89 ( 106 ) @ 9:00:00 AM 140 / 86 ( 111 ) @ 9:05:00 AM 113 / 87 ( 100 ) @ 9:06:00 AM 106 / 81 ( 93 ) @ 9:10:00 AM 104 / 82 ( 94 ) @ 9:10:00 AM LV : 138 / - / 29 @ 8:37:00 AM 132 / 8 / 33 @ 8:38:00 AM 133 / 7 / 33 @ 8:38:00 AM Valves Phase:DefaultPhase AV : 0.0 @ 8:29:20 AM AV Mean Gradient: 0.0 @ 8:29:20 AM 0.0 @ 8:29:20 AM Clinical Evaluation EBL: 5mL-10mL Procedural Details Pre-Procedure Time Out. Identified patient by full name and date of as verbalized by the patient/guarantor. Does the consent match the physician's order: Yes. Accurate & Complete Informed Consent: Yes. Inpatient/Outpatient History & Physical on Chart: Yes. If H&P is completed, is and addenduem needed: No; If yes, is the addendum complete: N/A. Visualize and Verify Site with Patient/Guarantor: N/A. Relevant Radiology Images available: Yes. Pre-op teaching completed and patient verbalized understanding. The risks, benefits, and alternatives of sedation and/or procedure were discussed by physician. The patient agrees to continue. Procedure started. [facility] Clinical Fraility Score: 5: Mildly Frail. 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 Chest Pain Symptom Assessment: Typical Angina Symptoms. Physician arrived. Correct patient, site and procedure confirmed by cath team. PERRLA. Strong, equal hand community outreach advocate bilaterally. Lungs clear x 5 lobes. IV Site on Arrival: 20 gauge in the left wrist. IV Fluids: 0.9% NaCl at KVO. 0 mL infused prior to lab pack chemist. Pre Procedural Pulses: bilateral dorsalis pedis was 3+. Pre Procedural Pulses: bilateral posterior tibial was 3+. Pre Procedural Pulses: bilateral radial was 3+. Oxygen started at 2liters/min via nasal canula. right groin was prepped with chloroprep then draped in the usual sterile fashion. right radial was prepped with chloroprep then draped in the usual sterile fashion. Baseline sample Acquired. HR: 56 BPM. Physician scrubbed in. Immediate Pre-Procedure Time Out. Correct Patient: Yes; Correct Procedure: Yes; Correct Site: Yes; Correct Patient Position: Yes; Correct Supplies: Yes; Dried Flammable Prep: Yes; Blood Products Available: N/A;. Lidocaine 1% infiltrated to the right radial. Arterial access obtained. A 5 [place] Babak catheter in over wire. Multiple views taken of left coronary artery. Catheter redirected to the RCA. Multiple views taken of right coronary artery. Catheter removed over the exchange wire. A 5 [place] Angled Pig catheter in over wire. Dr. Martinez called to review films. EDP Sample taken: LV 138/-2,29; HR: 63 BPM; SpO2: 99%. LV gram performed in ORTEGA @ 10 mL/second for a total of 30 mL. EDP Sample taken: LV 132/8,33; HR: 52 BPM; SpO2: 99%. Pullback taken: LV 133/7,33; AO 138/74(100); Mean: 0mmHg, Peak to Peak: 0mmHg, SEP: 7sec/min; HR: 63 BPM; SpO2: 99%. Catheter removed over the exchange wire. Physician review of cine films. Dr. Marcano scrubbed out. Side port of sheath attached to Normal Saline flush at KVO to maintain patency. Dr. Martinez arrived. Dr. Martinez scrubbed in to perform intervention. 6 [place] XB 3.5 guide catheter was inserted over the wire. IFR guidewire was advanced through the guide catheter to lesion in the mid LAD. Runthrough guidewire was advanced through the guide catheter to lesion in the mid LAD. IFR wire out. Inflation number : 1 A AB TREK 2.50X12 RX BALLOON was prepped and advanced across the Mid LAD , then inflated to 12 ROMEL for 0:13 seconds. Inflation number: 2 The AB TREK 2.50X12 RX BALLOON was reinflated across the Mid LAD, to 12 ROMEL for 0:11 seconds. Inflation number: 3 The AB TREK 2.50X12 RX BALLOON was reinflated across the Mid LAD, to 12 ROMEL for 0:11 seconds. Balloon out. Inflation Number : 4 A VIKAS Capellan VANESSA 2.75X26 DANIEL -Lot Number# _[id number] EXP: 04/06/2024 was prepped and advanced across the Mid LAD. The stent was deployed at 12 ROMEL for 0:17 seconds. Stent balloon out over wire. Results checked. Inflation number : 5 A VIKAS LEON EUPHORA RX [id number] BALLOON was prepped and advanced across the Mid LAD , then inflated to 12 ROMEL for 0:12 seconds. Inflation number: 6 The MDT NC EUPHORA RX 3.34V28LU BALLOON was reinflated across the Mid LAD, to 16 ROMEL for 0:21 seconds. Balloon out. ACT drawn. Results out of range seconds. Therapeutic limits - pre-heparin administration 90-150 seconds and monitoring heparin during a vascular procedure >250 seconds. Results checked. Wire out. Results checked. Runthrough guidewire was advanced through the guide catheter to lesion in the mid LAD. Inflation Number : 7 A MDT R VANESSA 3.0X12 DANIEL -Lot Number# _[id number] EXP: 10/28/2023 was prepped and advanced across the Mid LAD. The stent was deployed at 16 ROMEL for 0:19 seconds. Stent balloon out over wire. Inflation number: 8 The MDT NC EUPHORA RX 3.59K86GO BALLOON was reinflated across the Mid LAD, to 18 ROMEL for 0:16 seconds. Inflation number: 9 The MDT NC EUPHORA RX 3.07M39LE BALLOON was reinflated across the Mid LAD, to 14 ROMEL for 0:16 seconds. Balloon out. Wire out. Guide catheter out. ACT drawn. Results 283 seconds. Therapeutic limits - pre-heparin administration 90-150 seconds and monitoring heparin during a vascular procedure >250 seconds. A TR Band was successful obtaining hemostatsis at the Right Radial artery insertion site. Post Procedure: Pulses reassessed and unchanged. PERRLA. Strong, equal hand community outreach advocate bilaterally. No VTE prophylaxis required. Medication's Wasted: Nitro = 49.6 mcg. Medication's Wasted: Lidocaine 1% = 2 mL. Medication's Wasted: Heparin = 3000 units. Total IV fluids: 88 mL. Complications: None. Estimated blood loss: 5mL-10mL. Responsiveness - Normal response to verbal stimuli; alert and oriented, PERRLA. Airway - Unaffected, no intervention required; spontaneous ventilation. Circulation: W/N/L, pulses unchanged. Nausea/Vomiting: No. Procedure completed. Vital chart was stopped. Patient transferred by bed to CPRU. Access Site Site: Right Radial artery Sheath Size: 6 Fr Hemostasis Method: TR Band Hemostasis Success: Successful Procedure Medications Start: 7:15 AM Stop: 7:15 AM Medication: Versed 1 mg and Fentanyl 25 mcg Amount: 1 Route: I.V. Start: 7:23 AM Stop: 7:23 AM Medication: Versed Amount: 1 mg Route: I.V. Start: 7:24 AM Stop: 7:24 AM Medication: Nitrogylcerin Amount: 200 mcg Route: I.A. Start: 7:26 AM Stop: 7:26 AM Medication: Heparin Amount: 5000 units Route: I.V. Start: 7:41 AM Stop: 7:41 AM Medication: Fentanyl Amount: 25 mcg Route: I.V. Start: 7:45 AM Stop: 7:45 AM Medication: Fentanyl Amount: 25 mcg Route: I.V. Start: 7:49 AM Stop: 7:49 AM Medication: Versed Amount: 1 mg Route: I.V. Start: 7:50 AM Stop: 7:50 AM Medication: Heparin Amount: 5000 units Route: I.V. Start: 8:02 AM Stop: 8:02 AM Medication: Heparin Amount: 3000 units Route: I.V. Start: 8:02 AM Stop: 8:02 AM Medication: Fentanyl Amount: 25 mcg Route: I.V. Start: 8:11 AM Stop: 8:11 AM Medication: Nitrogylcerin Amount: 200 mcg Route: I.C. Start: 8:13 AM Stop: 8:13 AM Medication: Versed Amount: 1 mg Route: I.V. Start: 8:22 AM Stop: 8: AM Medication: 0.9% Saline Amount: 100 ml/hr Route: I.VAlbert sow I, the attending physician, have reviewed and verified all procedure medications. Yes, all medications given per verbal order History/Risk Factors Hypertension: Yes Dyslipidemia: No Peripheral Arterial Disease (PAD): No Myocardial Infarction (GA): No Obesity: Yes Renal Disease: No Prior Interventions PCI: Yes Valve Surgery: No Date of PCI: 07/10/2020 Report Signatures Interventional Workflow Finalized by Paul Martinez MD on 01/23/2023 11:53 AM Diagnostic Workflow Finalized by Dr Lance Marcano MD [facility] on 01/08/2023 08:18 PM
--- NOTE | 2023-01-08 07:07 | P.HPUD_ITS ---
Surgery/Procedure H&P Update DATE OF PROCEDURE: January 08, 2023 DATE H&P PERFORMED: 12/19/22 H&P UPDATE INFORMATION: I have reviewed H&P completed within last 30 days, I have examined patient prior to procedure and Changes to prior documentation as noted here (Bilateral scattered expiratory wheezing. Currently on 6 L of oxygen by nasal cannula) CHANGES TO PREVIOUS DOCUMENTATION: As mentioned above PREOP DIAGNOSIS: ASHD PRIMARY INDICATION FOR PROCEDURE: Worsening chest pain, previous PCI/increasing shortness of breath with exertion PLANNED PROCEDURE: Operation Date: 01/08/23 08:30 Proposed Procedures p [facility] W/- W/O 02342,I50.30,R07.89,I47.2, I25.10(Left) - Lance Marcano MD PATIENT REASSESSED PRIOR TO SEDATION, WITH NO CHANGE NOTED: Yes PHYSICAL EXAM: alert, oriented x 3 and clear to auscultation bilaterally (Bilateral expiratory wheezing) AIRWAY EVAL/ANESTHESIA PLAN: normal airway (Patient is known to have severe COPD of stage IV, requiring 6 to 7 L of oxygen by nasal cannula at home), see other exam findings, ASA III, Monitored Anesthesia, Local Anesthesia, Risks, benefits & alternatives of sedation and/or procedure discussed and Patient agrees to continue as planned
--- NOTE | 2023-01-08 09:00 | PC.NURSE ---
0830: Patient returned to CPRU post procedure. TR band in place to patient right wrist. No drainage or hematoma. Vitals stable. No c/o pain or discomfort. Will continue to monitor. 0900: Transfer orders received. TR band in place to patient right wrist. No drainage or hematoma. Vitals stable. No c/o pain or discomfort. Report given to DILIP Caballero. Patient transferred to CSU via hospital bed. All belongings sent with patient.
--- NOTE | 2023-01-08 12:53 | PC.NURSE ---
patient received with 13ml in TR band at 0938. 2 ml removed at 1120, 2 ml removed at 1136, 2ml removed at 1151, 2ml removed at 1210, 2 ml removed at 1224, 3ml removed at 1224, 3ml removed at 1248. TR band was removed and dressed with a 2x2 and a tegaderm dressing. Patient tolerated well. No bleeding or hematoma noted.
[2023-01-08] MEDS: atorvastatin 40 mg Tablet 20 MG PO (20:26)
[2023-01-09 03:11] VITALS: BP 127/82; PULSE 60; RESP 19; TEMP 37.1; O2SAT 93
[2023-01-09 08:00] VITALS: BP 138/88; TEMP 36.5
--- NOTE | 2023-01-09 09:00 | PM.PN ---
Subjective Subjective: This patient was admitted to the hospital following the cardiac evaluation and PCI. He remained stable throughout the hospital course. He did not have any hematoma or bleeding at the arterial access site. Vital signs remained stable. No new arrhythmias are noted on the monitor. Medications: Medication Review Details: Current Medications Albuterol Sulfate (Albuterol 2.5 Mg/3 Ml Neb) 2.5 mg INHALATION Q8H PRN PRN Reason: shortness of breath or wheezing Atorvastatin Calcium (Atorvastatin 40 Mg Tablet) 20 mg PO DAILY@2100 HERNESTO Last Admin: 01/08/23 20:26 Dose: 20 mg Vitals/I&O/Wt Last Vital Signs Temp 97.7 F 01/09/23 08:00 Pulse 60 01/09/23 03:11 Resp 19 H 01/09/23 03:11 BP 138/88 01/09/23 08:00 Pulse Ox 93 01/09/23 03:11 O2 Del Method CPAP 01/09/23 03:11 O2 Flow Rate 6 01/08/23 14:28 01/08/23 01/09/23 01/09/23 22:59 06:59 14:59 Intake Total 480 / 960 480 / 480 Output Total 200 / 600 675 / 1275 Balance 280 / 360 -675 / -315 480 / 480 Weight last 48 hrs Weight 280 lb Physical Exam Narrative: GENERAL: The patient is alert and oriented times three. Not in any acute distress. HEENT: No significant pallor, icterus or lymphadenopathy.Oral cavity: There are no mucous membrane lesions. NECK: Trachea appears to be central. No masses noted. No JVD or thyromegaly appreciated. RESPIRATORY: Scattered expiratory wheezing. No evidence of consolidation. The wheezing seems to be less than yesterday. BREASTS: Deferred. HEART: The heart sounds are normal. No S3 or S4. No significant murmurs. No pericardial rub ABDOMEN: No vessel pulsations or distention. No tenderness. No organomegaly appreciated. Bowel sounds are normally heard. : Deferred. RECTAL: Deferred. LYMPHATIC: No lymphadenopathy noted in the neck. EXTREMITIES: No hematoma or bleeding of the artery puncture site. MUSCULOSKELETAL: No acute joint deformities or swelling SKIN: There are no significant rashes or ecchymosis NEUROPSYCHIATRIC: The patient is alert and oriented x3. Appears to be in a good mood. No tremors or rigidity noted. A&P Assessment and plan (1) Atherosclerotic heart disease of [place] coronary artery with other forms of angina pectoris: Patient is status post PCI of the left anterior descending artery. Currently remains stable. We will continue on the Effient, statin drug, aspirin and other medications. (2) COPD (chronic obstructive pulmonary disease): Continue on the current management. We will keep the follow-up appointments with Dr. Gonzalez (3) Hypothyroidism: Clinically euthyroid. We will continue on the current medications. Qualifiers: Hypothyroidism type: acquired Qualified Code(s): E03.9 - Hypothyroidism, unspecified (4) Ventricular tachycardia: Patient is on sotalol. This may be continued. (5) Diastolic heart failure: Currently compensated. May continue on the current medications. (6) Benign hypertension: Currently normotensive. May continue on the current medications. Plan Patient is being discharged home today. Will be seen back at [facility] next [facility]. Patient is interested in cardiac rehab. We will make the arrangements for the same. Patient is advised to continue the medications as mentioned above. The importance of compliance to diet, medications and exercise were discussed. In the event of the patient developing chest pain ,unusual palpitations or any new symptoms, is advised to contact me or come to the hospital. I will be seeing in the office to schedule Attestations Medical Necessity Statement*: Discharge home today Coding Level of Care Code 63586 Diagnoses Atherosclerotic heart disease of [place] coronary artery with other forms of angina pectoris I25.118 COPD (chronic obstructive pulmonary disease) J44.9 Hypothyroidism E03.9 Hypothyroidism type: acquired Ventricular tachycardia I47.2 Diastolic heart failure I50.30 Benign hypertension I10
[2023-01-09 09:01] VITALS: PULSE 62; RESP 17; O2SAT 98
[2023-01-09 09:34] VITALS: BP 138/88; PULSE 62; RESP 17; TEMP 36.9; O2SAT 98
[2023-01-09 09:46] LABS: Anion Gap 12.2 (5-19); Blood Urea Nitrogen 16 mg/dL (8-23); Calcium 8.9 mg/dL (8.5-10.5); Carbon Dioxide 30 mmol/L (22-29); Chloride 100 mmol/L (98-107); Glomerular Filtration Rate 66.4 mL/min (90-130); Glucose 362 mg/dL (65-115); Osmolality Calculated 302 mOsm/kg (285-295); Potassium 4.2 mmol/L (3.5-5.1); Sodium 138 mmol/L (136-145)
== END 2023-01-09 10:23 | disposition home or self-care (01) ==
LOC: CCL 09:46 → CSU 01-09 09:00
PROVIDERS: Internal Medicine; PCP Family Medicine; Visit Provider Internal Medicine Cardiovascular Disease
DX: I11.0 Hypertensive heart disease with heart failure (principal); I50.30 Unspecified diastolic (congestive) heart failure; I25.118 Atherosclerotic heart disease of native coronary artery with other forms of angina pectoris; J44.9 Chronic obstructive pulmonary disease, unspecified; E03.9 Hypothyroidism, unspecified; I47.29 Other ventricular tachycardia
CPT/HCPCS: 36415; 36416; 80048; 82962; 85347; 93458; 93571; 96361; 96365; 96367; 99152; 99153; C1725; C1769; C1874; C1887; C1894; C9600; J1644; J2250; J3010; J3490; J7030; Q0163; Q9967

== ENCOUNTER → 2023-01-15 09:09 | Outpatient (BNVA) | payer MEDICARE, OTHER, SELFPAY | PROVIDERS: PCP Family Medicine; Visit Provider Nurse Practitioner Family | DX: I25.119 Atherosclerotic heart disease of native coronary artery with unspecified angina pectoris (principal); I10 Essential (primary) hypertension; F17.210 Nicotine dependence, cigarettes, uncomplicated | CPT/HCPCS: 36415; 80048; 99214 ==

== ENCOUNTER 2023-02-12 15:25 | Outpatient (RCR) | payer MEDICARE, OTHER, SELFPAY | END 2023-02-16 23:59 | disposition home or self-care (01) | LOC: CR 15:25 | PROVIDERS: PCP Family Medicine; Referring Provider Internal Medicine Pulmonary Disease; Visit Provider Internal Medicine Pulmonary Disease | DX: Z95.5 Presence of coronary angioplasty implant and graft (principal) | CPT/HCPCS: 93798 ==

== ENCOUNTER 2023-02-18 08:07 | Outpatient (RCR) | payer MEDICARE, OTHER, SELFPAY | END 2023-03-19 23:59 | disposition home or self-care (01) | LOC: CR 08:07 | PROVIDERS: PCP Family Medicine; Referring Provider Internal Medicine Pulmonary Disease; Visit Provider Internal Medicine Pulmonary Disease | DX: I25.10 Atherosclerotic heart disease of native coronary artery without angina pectoris (principal) | CPT/HCPCS: 93798 ==

== ENCOUNTER → 2023-02-25 11:32 | Outpatient (BNVA) | payer MEDICARE, OTHER, SELFPAY | PROVIDERS: PCP Family Medicine; Visit Provider Internal Medicine Cardiovascular Disease | DX: I25.118 Atherosclerotic heart disease of native coronary artery with other forms of angina pectoris (principal); E78.2 Mixed hyperlipidemia; J44.1 Chronic obstructive pulmonary disease with (acute) exacerbation; I11.0 Hypertensive heart disease with heart failure; I50.30 Unspecified diastolic (congestive) heart failure; E11.65 Type 2 diabetes mellitus with hyperglycemia; E03.9 Hypothyroidism, unspecified; I47.20 Ventricular tachycardia, unspecified; F17.210 Nicotine dependence, cigarettes, uncomplicated; Z79.4 Long term (current) use of insulin; Z79.84 Long term (current) use of oral hypoglycemic drugs | CPT/HCPCS: 99214 ==

== ENCOUNTER 2023-05-21 14:32 | Outpatient (CLI) | payer MEDICARE, SELFPAY ==
--- NOTE | 2023-05-21 14:39 | XR_ITS ---
WS: [id number] Chest 2 views, 05/21/2023 Clinical Data: Cough, dyspnea Comparison: Portable chest, 11/23/2022 Findings: No nodules, masses or effusions are seen. The heart is normal. The pulmonary vascularity is not increased. No pneumonia or pneumothorax is seen. The diaphragms are flattened. There is bibasila r fibrotic stranding. Impression: Hyperinflation.
== END 2023-05-21 14:33 | disposition home or self-care (01) ==
LOC: RAD 14:34
PROVIDERS: PCP Family Medicine; Visit Provider Family Medicine
DX: R05.9 Cough, unspecified (principal); J44.9 Chronic obstructive pulmonary disease, unspecified; E87.70 Fluid overload, unspecified; R91.8 Other nonspecific abnormal finding of lung field
CPT/HCPCS: 71046

== ENCOUNTER 2023-07-23 10:37 | Emergency (ER) | payer MEDICARE, SELFPAY ==
[2023-07-23] VITALS (7 sets, daily range): BP systolic 87–120; BP diastolic 56–72; PULSE 69–79; RESP 18–26; TEMP 36.6; O2SAT 92–96; BMI 34.8
--- NOTE | 2023-07-23 10:52 | ECG_ITS ---
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 Measurements Intervals [place] Rate: 72 P: -85 [place]: 146 QRS: 99 QRSD: 77 T: 89 QT: 387 QTc: 424 Interpretive Statements SINUS RHYTHM BORDERLINE RIGHT AXIS DEVIATION [QRS AXIS > 90] Compared to ECG 12/19/2022 13:50:36 Sinus bradycardia no longer present Electronically Signed On 07-23-2023 18:27:50 SATELLITE COMMUNICATIONS ENGINEER by Lance Marcano M.D. [id number]
--- NOTE | 2023-07-23 10:57 | XRR_ITS ---
PROCEDURE INFORMATION: Exam: XR Chest Exam date and time: 07/23/2023 11:05 AM Age: 67 years old Clinical indication: Cough and dyspnea; Prior surgery; Surgery date: 6+ months; Surgery type: Heart stents; Patient HX: SOB copd; Additional info: Dyspnea/cough TECHNIQUE: Imaging protocol: Radiologic exam of the chest. Views: 1 view. COMPARISON: CR XR chest 2V* [id number] 05/21/2023 2:48 PM FINDINGS: Lungs: See Pleural spaces finding. Pleural spaces: Hazy density at the left lung base may represent any combination of epicardial fat pad, pleural pericardial adhesion, and/or parenchymal scarring. These findings are accentuated by the portable exam technique. Upper lung zones are clear. Heart/Mediastinum: Heart size is stable compared to 05/21/2023 when allowing for portable exam technique on the current study. No pulmonary vascular congestion. Hilar granulomatous calcifications are again noted. Bones/joints: No obvious acute abnormality. XR/XR chest 1V portable [id number] IMPRESSION: No acute abnormality suspected. However, assessment is suboptimal due to portable exam technique. Standard upright PA and lateral chest radiographs could provide more optimal comparison to the previous exam, when feasible, and if clinically warranted.
[2023-07-23 11:10] LABS: ABG PH Result 7.43 (7.35-7.45); Alveolar-Arterial Oxygen Gradi 3.1 mmHg (5-10); Arterial Blood Gas Hematocrit 45.2 % (42-52); Base Excess ABG 2.9 mmol/L (-2.0-2.0); Blood Gas Allen Test Pos; Blood Gas Operator Identificat GD; Blood Gas Sample Site Radial, left; Blood Gas Sample Type Arterial; Carboxyhemoglobin 1.3 %THgb (0.4-20.1); HCO3 ABG 27.7 mmol/L (22-26); HGB O2 Sat 94.7 % (95-100); Ionized Calcium Level - ABG 1.1 mmol/L (1.1-1.4); Methemoglobin 0.7 % (0.4-1.5); Oxygen Device NC; Oxygen Saturation ABG 96.6; Potassium Level - ABG 4.1 mmol/L (3.5-5.0); Total Hemoglobin 14.8 g/dL (14-18)
--- NOTE | 2023-07-23 11:10 | ED_ITS ---
HPI - SOB/Dyspnea 2 General: Chief Complaint: Shortness of Breath/Dyspnea Stated Complaint: sob Time Seen by Provider: 07/23/23 10:57 Source: patient Mode of arrival: ambulatory History of Present Illness: HPI Narrative: 67-year-old male presents emergency room with a history of COPD his accompanies him. She reports that at baseline he is on 8 and half liters of oxygen he is having increasing shortness of breath with no fever or productive cough. Having some right-sided chest discomfort. On arrival here he was satting 92% on 3 L. He denies any radiation of the pain to the neck back or arms. He has not had any hemoptysis no fever sweats or chills. MD elicited complaint: shortness of breath and cough Pertinent past history: COPD Onset (ago): day(s) Severity: severe Exacerbating factors: exertion and coughing Relieving factors: oxygen, rest and bronchodilators Known history of: COPD Associated symptoms: Reports chest congestion and chest pain; Deny abdominal pain, cough, diaphoresis, dizziness, extremity pain, fever(s), hemoptysis, lightheadedness, myalgias, nausea, orthopnea, palpitations, paresthesias, polydipsia, polyuria, rash, sense of impending doom, syncope or vomiting Review of Systems 2 Const: Denies: fever(s) or diaphoresis Card: Reports: chest pain; Denies: palpitations, lightheadedness, syncope or orthopnea Resp: Reports: dyspnea, non-productive cough, wheezing and chest congestion; Denies: hemoptysis GI: Denies: abdominal pain, nausea or vomiting : Denies: dysuria, urinary frequency or urinary urgency Musc: Denies: extremity pain Skin/Breast: Denies: rash Neuro: Denies: dizziness Endo: Denies: polyuria or polydipsia PFSH ED 2 PFSH: Medical History Smoking Acute hypercapnic respiratory failure Acute respiratory failure with hypoxia and hypercapnia COPD exacerbation COVID-19 Bradycardia Atherosclerotic heart disease of [place] coronary artery with other forms of angina pectoris SVT (supraventricular tachycardia) Obesity Cognitive impairment Atypical chest pain Scoliosis of lumbar region due to degenerative disease of spine in adult Lumbar disc disease with radiculopathy COPD (chronic obstructive pulmonary disease) DDD (degenerative disc disease) Allergic rhinitis Essential (primary) hypertension Hyperlipidemia Hypothyroidism Thoracic aortic aneurysm, without rupture GERD (gastroesophageal reflux disease) Diabetes Intervertebral disc disorders with radiculopathy, lumbosacral region AAA (abdominal aortic aneurysm) without rupture Aortic root dilation Stable Testicular mass Surgical History Hx of heart artery stent History of PTCA H/O hernia repair Family History Mother , AT AGE 69 Diabetes, Onset Age: 69 Father , AT AGE 80 Cancer, Onset Age: 80 Lung Heart disease Lung disease Brother Diabetes Other Lupus Social History Smoking and tobacco/nicotine status: current every day tobacco/nicotine user cigarettes Packs smoked per day: 1 Years cigarettes smoked: 1 [ Other cigarette details: smoked 2 ppd for 50 years and quit for 3 years. Started smoking at 14 years] Quit status (tobacco/nicotine): has quit using Year quit tobacco: 2019 - 2PPD x 50 Years Alcohol intake: never Substance/Drug Use: never Lives independently: Yes Household members: spouse Marital status: Current occupational status: disabled Do you think of yourself as: Straight/Heterosexual Current gender identity: Male Physical Exam 2 Const: COMMON NORMALS: no acute distress GENERAL APPEARANCE: cooperative and comfortable ORIENTATION/CONSCIOUSNESS: Yes awake, Yes oriented to person, Yes oriented to place and Yes oriented to time HENMT: COMMON NORMALS: normocephalic and atraumatic HEAD & SCALP: n ormocephalic and atraumatic Resp: EFFORT & INSPECTION: Yes labored AUSCULTATION: rhonchi and wheezes Cardio: COMMON NORMALS: regular rate, regular rhythm and No murmurs present (Cardio) RATE: regular rate RHYTHM: regular rhythm GI: COMMON NORMALS: Soft to palpation and No hepatosplenomegaly present A USCULTATION: Yes normoactive bowel sounds PALPATION: Yes Soft to palpation, No Tenderness to palpation present (GI), No Guarding due to palpation present (GI) and Yes No hepatosplenomegaly present Extremity: COMMON NORMALS: normal to inspection, capillary refill normal, no clubbing, cyanosis or edema, no calf tenderness and no pedal edema Neuro: SENSORIUM/ORIENTATION: Yes oriented to person, Yes oriented to place and Yes oriented to time Skin: COMMON NORMALS: no rashes or lesions noted GENERAL SKIN EXAM: no rashes or lesions noted Course 2 Vital Signs: Vital signs: Vital Signs Temperature 97.9 F 07/23/23 10:40 Pulse Rate 76 07/23/23 14:39 Respiratory Rate 18 07/23/23 14:39 Blood Pressure 110/72 07/23/23 14:39 Pulse Oximetry 96 07/23/23 14:39 Oxygen Delivery Me thod Nasal Cannula 07/23/23 13:47 Oxygen Flow Rate 6 07/23/23 13:47 MDM - SOB/Dyspnea Medical Decision Making Reviewing his chart. Patient does have a elevated white count likely due to steroids he just completed a course. He is improved with nebulizers. Discussed possible observation for COPD exacerbation he would prefer to go home. Continue to use DuoNebs aggressively should be using every 2-4 hours while awake if needed. Return if has worsening problems Medical Records I reviewed the patient's medical records. Lab Data I reviewed the patient's lab results. 07/23/23 10:55 07/23/23 10:55 Labs/Radiology: Radiology Impressions Chest X-Ray 07/23/23 10:57 IMPRESSION: No acute abnormality suspected. However, assessment is suboptimal due to portable exam technique. Standard upright PA and lateral chest radiographs could provide more optimal comparison to the previous exam, when feasible, and if clinically warranted. Laboratory Results WBC 21.63 10^3/uL (3.29-11.43) H 07/23/23 10:55 RBC 5.06 10^6/uL (3.85-5.65) 07/23/23 10:55 Hgb 14.80 g/dL (11.27-16.99) 07/23/23 10:55 Hct 45.0 % (37-53) 07/23/23 10:55 MCV 88.9 fl (82-101) 07/23/23 10:55 MCH 29.2 pg (27-33) 07/23/23 10:55 MCHC 32.9 g/dL (30-55) 07/23/23 10:55 RDW 13.2 % (12.1-15.1) 07/23/23 10:55 Plt Count 271 10^3/cmm (157-399) 07/23/23 10:55 MPV 11.6 fL (7.4-10.4) H 07/23/23 10:55 Neut % (Auto) 79.4 % 07/23/23 10:55 Lymph % (Auto) 9.2 % 07/23/23 10:55 [place] % (Auto) 9.1 % 07/23/23 10:55 Eos % (Auto) 1.3 % 07/23/23 10:55 Baso % (Auto) 0.4 % 07/23/23 10:55 Neut # (Auto) 17.16 10^3/uL (1.8-7.7) H 07/23/23 10:55 Lymph # (Auto) 2.0 10^3/uL (0.8-4.8) 07/23/23 10:55 [place] # (Auto) 2.0 10^3/uL (0.2-0.9) H 07/23/23 10:55 Eos # (Auto) 0.3 10^3/uL (0.0-0.8) 07/23/23 10:55 Baso # (Auto) 0.1 10^3/uL (0.0-0.1) 07/23/23 10:55 Nucleated RBC % (auto) 0 % 07/23/23 10:55 Nucleated RBCs # 0.0 /100WBC 07/23/23 10:55 Specimen Type Arterial 07/23/23 10:55 Sample Site Radial, left 07/23/23 10:55 ABG pH 7.43 (7.35-7.45) 07/23/23 10:55 ABG pCO2 42.0 mmHg (35-45) 07/23/23 10:55 ABG pO2 73.0 mmHg (80.0-100.0) L 07/23/23 10:55 ABG HCO3 27.7 mmol/L (22-26) H 07/23/23 10:55 ABG O2 Saturation 96.6 07/23/23 10:55 ABG Base Excess 2.9 mmol/L (-2.0-2.0) H 07/23/23 10:55 Drew Test Pos 07/23/23 10:55 A-a O2 Gradient 3.1 mmHg (5-10) L 07/23/23 10:55 Hematocrit 45.2 % (42-52) 07/23/23 10:55 Hgb O2 Saturation 94.7 % (95-100) L 07/23/23 10:55 Carboxyhemoglobin 1.3 %THgb (0.4-20.1) 07/23/23 10:55 Methemoglobin 0.7 % (0.4-1.5) 07/23/23 10:55 Total Hemoglobin 14.8 g/dL (14-18) 07/23/23 10:55 Sodium 136.0 mmol/L (131-143) 07/23/23 10:55 Potassium 4.1 mmol/L (3.5-5.0) 07/23/23 10:55 Glucose 224.0 mg/dL (70-115) H 07/23/23 10:55 Ionized Calcium 1.1 mmol/L (1.1-1.4) 07/23/23 10:55 O2 Delivery Device Nc 07/23/23 10:55 O2 Liters/Min 6.0 % 07/23/23 10:55 Crystalizer Tender ID Gd 07/23/23 10:55 Sodium 134 mmol/L (136-145) L 07/23/23 10:55 Potassium 4.4 mmol/L (3.5-5.1) 07/23/23 10:55 Chloride 94 mmol/L (98-107) L 07/23/23 10:55 Carbon Dioxide 27 mmol/L (22-29) 07/23/23 10:55 Anion Gap 17.4 (5-19) 07/23/23 10:55 BUN 15 mg/dL (8-23) 07/23/23 10:55 Creatinine 1.4 mg/dL (0.7-1.2) H 07/23/23 10:55 GFR Calculation 50.2 mL/min (90-130) L 07/23/23 10:55 Glucose 198 mg/dL (65-115) H 07/23/23 10:55 Calculated Osmolality 284 mOsm/kg (285-295) L 07/23/23 10:55 Lactic Acid 2.0 mmol/L (0.5-2.2) 07/23/23 10:55 Calcium 8.6 mg/dL (8.5-10.5) 07/23/23 10:55 Total Bilirubin 0.6 mg/dL (0.15-1.2) 07/23/23 10:55 AST 17 U/L (0-40) 07/23/23 10:55 ALT 23 U/L (0-41) 07/23/23 10:55 Alkaline Phosphatase 106 U/L (40-130) 07/23/23 10:55 Troponin T Baseline 10 ng/L (0-15) 07/23/23 10:55 Troponin T 120 Minute 8.59 ng/L (0-15) 07/23/23 13:02 Delta Troponin T -1.41 ABS# (0-10) L 07/23/23 13:02 Total Protein 7.0 g/dL (6.6-8.7) 07/23/23 10:55 Albumin 4.2 g/dL (3.5-5.2) 07/23/23 10:55 Globulin 2.8 g/dL (1.3-4.6) 07/23/23 10:55 Procalcitonin 0.12 ng/mL (0-0.5) 07/23/23 10:55 All radiology interpretation(s) finalized by discharge Discharge Plan Discharge Patient Disposition: Home Clinical Impression: End stage COPD, Anterior chest wall pain Condition: Stable Prescriptions: No Action metformin 500 mg tablet 500 mg PO QAM Hold Instructions: Resume on 01/11/23. nitroglycerin 0.4 mg tablet, sublingual 0.4 mg sublingual Q5M PRN (Reason: chest pain) 30 Days Qty: 30 3RF Rx Instructions: until response; do not exceed 3 doses per episode albuterol sulfate 90 mcg/actuation HFA aerosol inhaler 2 inh inhalation Q8H PRN (Reason: shortness of breath or wheezing) Qty: 8.5 6RF prednisone 10 mg tablet 10 mg PO DAILY Qty: 30 6RF (DME) Oxygen via nc at 5L See Rx Instructions .Route .MEDSUPPLY Qty: 1 0RF Rx Instructions: Use throughout day and night - Okay to titrate up to 10 L if needed. Please provide O2 concentrator that will go up to 10L. (DME) Portable Oxygen Concentrator See Rx Instructions .Route .MEDSUPPLY Qty: 1 0RF Rx Instructions: As directed (DME) pen needle, diabetic [BD Ultra-Fine Mini Pen Needle] 31 gauge x 3/16 needle See Rx Instructions .Route Qty: 50 3RF Rx Instructions: As directed prasugrel 10 mg tablet 10 mg PO QAM Qty: 90 3RF Magtab 84 mg tablet extended release 168 mg PO QAM Qty: 100 3RF insulin glargine [Lantus Solostar U-100 Insulin] 100 unit/mL (3 mL) insulin pen 80 unit SUBCUT QAM Qty: 45 6RF sotalol 80 mg tablet 40 mg PO BID 30 Days Qty: 60 6RF furosemide 40 mg tablet 40 mg PO BID Qty: 60 6RF potassium chloride [Klor-Con 10] 10 mEq tablet extended release 10 meq PO BID Qty: 60 6RF (DME) blood-glucose meter [Accu-Chek Guide Glucose Meter] Misc See Rx Instructions .Route Qty: 1 0RF Rx Instructions: As directed - to check glucose TID (DME) Accu-Chek Sofia Plus test strp Strip See Rx Instructions .Route Qty: 100 6RF Rx Instructions: As directed - to check glucose TID (DME) Oxygen mask and tubing See Rx Instructions .Route .MEDSUPPLY Qty: 1 0RF Rx Instructions: As directed bisacodyl 10 mg suppository 10 mg RI DAILY PRN (Reason: constipation) Qty: 5 0RF Rx Instructions: 1 suppository per rectum every day PRN for constipation. atropine 1 % drops 4 drp sublingual Q4H PRN (Reason: secretions) Qty: 5 0RF Rx Instructions: 4 drops SL q 4 hours PRN for terminal congestion/excessive secretions. ondansetron 4 mg tablet,disintegrating 4 mg translingual Q4H PRN (Reason: nausea) Qty: 5 0RF Rx Instructions: Dissolve 1 tablet under tongue every 4 hours PRN for nausea lorazepam 2 mg/mL concentrate 2 mg sublingual Q4H PRN (Reason: Anxiety/Seizure) Qty: 30 0RF Rx Instructions: 0.25ml-1ml q4H PRN Anxiety/Seizure Start 0.25ml may increase to 0.5ml-1ml q4H morphine concentrate 100 mg/5 mL (20 mg/mL) solution 20 mg sublingual DIRECTED PRN (Reason: Pain/SOB) 14 Days Qty: 30 0RF Rx Instructions: 0.25ml-1ml q1H PRN may increase to 0.5ml-1ml Q1H PRN bisacodyl 10 mg suppository 10 mg RI DAILY PRN (Reason: constipation) Qty: 5 0RF Rx Instructions: 1 suppository per rectum every day PRN for constipation. atropine 1 % drops 4 drp sublingual Q4H PRN (Reason: secretions) Qty: 5 0RF Rx Instructions: 4 drops SL q 4 hours PRN for terminal congestion/excessive secretions. ondansetron 4 mg tablet,disintegrating 4 mg translingual Q4H PRN (Reason: nausea) Qty: 5 0RF Rx Instructions: Dissolve 1 tablet under tongue every 4 hours PRN for nausea lorazepam 2 mg/mL concentrate 2 mg sublingual Q4H PRN (Reason: Anxiety/Seizure) Qty: 30 0RF Rx Instructions: 0.25ml-1ml q4H PRN Anxiety/Seizure Start 0.25ml may increase to 0.5ml-1ml q4H doxycycline hyclate 100 mg tablet 100 mg PO BID Qty: 14 0RF ipratropium-albuterol 0.5 mg-3 mg(2.5 mg base)/3 mL solution for nebulization 3 ml inhalation Q4H PRN (Reason: shortness of breath or wheezing) Qty: 180 0RF Rx Instructions: until breathing returns to target peak flow/parameters losartan 50 mg tablet 50 mg PO BID omeprazole 40 mg capsule,delayed release(DR/EC) 40 mg PO QPM spironolactone 25 mg tablet 25 mg PO QAM levothyroxine 100 mcg tablet 100 mcg PO QAM citalopram 20 mg tablet 20 mg PO QAM budesonide 0.5 mg/2 mL suspension for nebulization 0.5 mg inhalation BID PRN (Reason: Shortness Of Breath) levothyroxine 200 mcg tablet 200 mcg PO QAM Rx Instructions: Take with 100mcg tablet. Discharge Orders: Discharge ED (Routine); Ordered 07/23/23 Ordered By: Byron Graves Referrals: Simon Mack MD [Primary Care Provider] - Discharge Diet: Usual diet Discharge Activity: Increase activity as tolerated Patient Instructions: Opioid Safety, Pain Management Activity Restrictions/Additional Instructions: Thank you for choosing [facility] for your healthcare needs today. Please realize this is an emergency room and that we are providing you with a medical screening exam and this may not be complete and all inclusive of all the testing and or work up that you may need to determine your ailment or severity of your illness. It is very important that you follow up as instructed or that you return to the Emergency Department should you have concerns or if your condition changes or worsens in any way. Continue current medications aggressive use of albuterol ipratropium bromide nebulizers. Continue the steroids follow-up with your primary care doctor. Coding Level of Care Code ED Acoustic Warfare Analyst for Halle Degroot
[2023-07-23 11:15] LABS: Basophils # 0.1 10^3/uL (0.0-0.1); Basophils % 0.4 %; Eosinophils # 0.3 10^3/uL (0.0-0.8); Eosinophils % 1.3 %; Lymphocytes % 9.2 %; Mean Corpuscular HGB Conc 32.9 g/dL (30-55); Mean Corpuscular Hemoglobin 29.2 pg (27-33); Mean Corpuscular Volume 88.9 fl (82-101); Mean Platelet Volume 11.6 fL (7.4-10.4); Monocytes % 9.1 %; Neutrophils # 17.16 10^3/uL (1.8-7.7); Neutrophils % 79.4 %; Nucleated Red Blood Cells % 0 %; Platelet Count 271 10^3/cmm (157-399); Red Blood Count 5.06 10^6/uL (3.85-5.65); Red Cell Distribution Width 13.2 % (12.1-15.1); White Blood Count 21.63 10^3/uL (3.29-11.43)
[2023-07-23 11:26] LABS: Alanine Aminotransferase 23 U/L (0-41); Albumin Level 4.2 g/dL (3.5-5.2); Alkaline Phosphatase 106 U/L (40-130); Anion Gap 17.4 (5-19); Aspartate Amino Transferase 17 U/L (0-40); Blood Urea Nitrogen 15 mg/dL (8-23); Calcium 8.6 mg/dL (8.5-10.5); Carbon Dioxide 27 mmol/L (22-29); Chloride 94 mmol/L (98-107); Globulin 2.8 g/dL (1.3-4.6); Glomerular Filtration Rate 50.2 mL/min (90-130); Glucose 198 mg/dL (65-115); Osmolality Calculated 284 mOsm/kg (285-295); Potassium 4.4 mmol/L (3.5-5.1); Sodium 134 mmol/L (136-145); Total Bilirubin 0.6 mg/dL (0.15-1.2)
[2023-07-23] MEDS: dexamethasone 10 mg/mL INJ IM (11:33)
[2023-07-23 11:34] LABS: Creatinine Clr Calc Pharmacy 63.7727; Troponin(5th) Baseline 10 ng/L (0-15)
[2023-07-23] MEDS: ipratropium-albuterol 3 mL Neb 6 ML INHALATION (11:38)
[2023-07-23 12:31] LABS: Procalcitonin 0.12 ng/mL (0-0.5)
--- NOTE | 2023-07-23 13:08 | ECG_ITS ---
[facility] Test Date: 2023-07-23 Pat Name: Vega Wilcox Department: Room: Gender: Male Principal Archaeologist: : 1955 Requested By: Byron Perales Order Number: [id number] Roger MD: Lance Marcano M.D. Measurements Intervals [place] Rate: 66 P: 267 OK: 142 QRS: 97 QRSD: 86 T: 74 QT: 420 QTc: 442 Interpretive Statements SINUS RHYTHM BORDERLINE RIGHT AXIS DEVIATION [QRS AXIS > 90] Compared to ECG 07/23/2023 10:52:45 No significant changes Electronically Signed On 07-23-2023 18:35:20 MECHANICAL SYSTEMS DESIGN ENGINEER by Lance Marcano M.D. [email or web address]
[2023-07-23] MEDS: sodium chloride 0.9% 500 ML IV (13:10)
[2023-07-23 13:32] LABS: Troponin 5 2HR 8.59 ng/L (0-15)
[2023-07-23 13:34] LABS: Troponin 5 2HR Delta -1.41 ABS# (0-10)
[2023-07-23] MEDS: ketorolac 30 mg/mL INJ 15 MG IVP (13:46)
== END 2023-07-23 14:40 | disposition home or self-care (01) ==
PROVIDERS: Emergency Provider Family Medicine; PCP Family Medicine
DX: J44.9 Chronic obstructive pulmonary disease, unspecified (principal); R07.89 Other chest pain; Z79.82 Long term (current) use of aspirin; Z79.4 Long term (current) use of insulin; F17.210 Nicotine dependence, cigarettes, uncomplicated; I25.118 Atherosclerotic heart disease of native coronary artery with other forms of angina pectoris; I10 Essential (primary) hypertension; E78.5 Hyperlipidemia, unspecified; E11.9 Type 2 diabetes mellitus without complications
CPT/HCPCS: 36415; 36600; 71045; 80051; 80053; 82330; 82805; 83605; 84145; 84484; 85025; 87040; 93005; 94640; 96361; 96372; 96374; 99285; J1100; J1885; J7040